=== PATIENT | female | born 1975 | race African-American/Black ===

== ENCOUNTER 2016-08-23 10:16 | Emergency (ER) | payer MEDICAID ==
[2016-08-23] MEDS ORDERED: NORMAL SALINE 1000 ML 1,000 ML IV PRN (10:52)
--- NOTE | 2016-08-23 10:52 | ER Document Report ---
ED Medical Screen (RME) - General Stated Complaint: JOINT PAIN Notes: sudden onset of right hip pain three days ago, denies injury/trauma h/o parathyroidectomy and thyroidectomy for goiter has had many issues with hypercalcemia due to follow up with endocrinology october 04 I have greeted and performed a rapid initial assessment of this patient. A comprehensive ED assessment and evaluation of the patient, analysis of test results and completion of the medical decision making process will be conducted by additional ED providers. TRAVEL OUTSIDE OF THE [place] IN LAST 30 DAYS: No - Related Data Allergies/Adverse Reactions: No Known Allergies Allergy (Verified 08/23/16 10:48) Past Medical History - Past Medical History Cardiac Medical History: Reports: Hx Congestive Heart Failure, Hx Hypertension Denies: Hx Coronary Artery Disease Pulmonary Medical History: Reports: Hx Asthma, Hx Pneumonia Endocrine Medical History: Reports: Hx Hypothyroidism - POST- REMOVAL OF GOITER Renal/ Medical History: Reports: Hx Kidney Stones Musculoskeltal Medical History: Denies Hx Gout Psychiatric Medical History: Reports: Hx Depression Past Surgical History: Reports: Hx Cardiac Surgery - Pacemaker,Defibrillator, Hx Section, Hx Internal Defibrillator, Hx Pacemaker, Hx Thyroid Surgery , Hx Tubal Ligation - Immunizations Hx Diphtheria, Pertussis, Tetanus Vaccination: Yes Physical Exam - Vital signs Vitals: Temp Pulse Resp BP Pulse Ox 98.1 F 124 H 20 101/72 98 08/23/16 10:08/23/16 10:08/23/16 10:08/23/16 10:25 08/23/16 10:25 Course - Vital Signs Vital signs: Temp Pulse Resp BP Pulse Ox 98.1 F 124 H 20 101/72 98 08/23/16 10:25 08/23/16 10:25 08/23/16 10:25 08/23/16 10:25 08/23/16 10:25
[2016-08-23 12:00] LABS: ABSOLUTE BASOPHILS # (AUTO) 0.1 10^3/uL (0.0-0.2); ABSOLUTE LYMPHOCYTES (AUTO) 3.5 10^3/uL (0.5-4.7); ABSOLUTE MONOCYTES (AUTO) 1.1 10^3/uL (0.1-1.4); BASOPHILS % (AUTO) 0.9 % (0-2); EOSINOPHILS % (AUTO) 0.3 % (0-6); HEMOGLOBIN 13.5 g/dL (12.0-15.5); HGB HCT DIFFERENCE 1.5; MEAN CORPUSCULAR HEMOGLOBIN 29.7 pg (27.0-33.4); MEAN CORPUSCULAR HGB CONC 34.7 g/dL (32.0-36.0); MEAN CORPUSCULAR VOLUME 86 fl (80-97); MONOCYTES % (AUTO) 12.7 % (3-13); RED BLOOD COUNT 4.56 10^6/uL (3.72-5.28); RED CELL DISTRIBUTION WIDTH 12.5 % (11.5-14.0); SEGMENTED NEUTROPHILS % (AUTO) 46.1 % (42-78); WHITE BLOOD COUNT 8.7 10^3/uL (4.0-10.5)
[2016-08-23 12:23] LABS: ALANINE AMINOTRANSFERASE 26 U/L (9-52); ALBUMIN 4.8 g/dL (3.5-5.0); ALKALINE PHOSPHATASE 99 U/L (38-126); ANION GAP 13 (5-19); ASPARTATE AMINO TRANSFERASE 45 U/L (14-36); BILIRUBIN,TOTAL 0.7 mg/dL (0.2-1.3); BLOOD UREA NITROGEN 13 mg/dL (7-20); CALCIUM 9.1 mg/dL (8.4-10.2); CARBON DIOXIDE 31 mmol/L (22-30); CHLORIDE 96 mmol/L (98-107); CREATININE RESULT 0.83 mg/dL (0.52-1.25); GLUCOSE 68 mg/dL (75-110); MAGNESIUM 1.6 mg/dL (1.6-2.3); SODIUM 139.7 mmol/L (137-145); TOTAL PROTEIN 9.2 g/dL (6.3-8.2)
[2016-08-23] MEDS ORDERED: KETOROLAC TROMETHAMINE INJ/PF 30 MG/1 ML SDV IV ONE (12:56)
--- NOTE | 2016-08-23 13:01 | ER Document Report ---
ED Hip Pain/Injury - General Mode of Arrival: Ambulatory Information source: Patient TRAVEL OUTSIDE OF THE [place] IN LAST 30 DAYS: No - HPI Patient complains to provider of: Pain, Hip Associated Symptoms: Other - See above <EMERSON POTTER - Last Filed: 08/23/16 13:08> <PETERSON REYNA - Last Filed: 08/23/16 16:04> - General Chief Complaint: Hip Pain Stated Complaint: right hip pain Notes: Patient is a 41 year old female, with a past medical history including HTN and thyroidectomy, who presents to the emergency department complaining of right hip pain onset 3 days ago. Patient states that the pain is also in her right knee and has not been relieved by icy/hot or by Flexeril, is exacerbated by movement, and causes her to drag her leg when she walks. Patient reports that she has been taking her calcium supplements regularly but ran out of her thyroid medication 3 days ago due to insufficient funds. Patient reports she has not had pain in her hip like this before. (EMERSON POTTER) - Related Data Allergies/Adverse Reactions: No Known Allergies Allergy (Verified 08/23/16 10:48) Past Medical History - General Information source: Patient - Social History Smoking Status: Current Every Day Smoker Cigarette use (# per day): Yes - 1-2 Chew tobacco use (# tins/day): No Frequency of alcohol use: None Drug Abuse: None Family History: Reviewed & Not Pertinent, CAD, Malignancy Patient has suicidal ideation: No Patient has homicidal ideation: No - Past Medical History Cardiac Medical History: Reports: Hx Congestive Heart Failure, Hx Hypertension Pulmonary Medical History: Reports: Hx Asthma, Hx Pneumonia Endocrine Medical History: Reports: Hx Hypothyroidism - POST- REMOVAL OF GOITER Renal/ Medical History: Reports: Hx Kidney Stones Psychiatric Medical History: Reports: Hx Depression Past Surgical History: Reports: Hx Cardiac Surgery - Pacemaker,Defibrillator, Hx Section, Hx Internal Defibrillator, Hx Pacemaker, Hx Thyroid Surgery , Hx Tubal Ligation - Immunizations Hx Diphtheria, Pertussis, Tetanus Vaccination: Yes Hx Pneumococcal Vaccination: 04/20/14 <EMERSON POTTER - Last Filed: 08/23/16 13:08> Review of Systems - Review of Systems Constitutional: No symptoms reported EENT: No symptoms reported Cardiovascular: No symptoms reported Respiratory: No symptoms reported Gastrointestinal: No symptoms reported Genitourinary: No symptoms reported Female Genitourinary: No symptoms reported Musculoskeletal: See HPI, Joint pain - right hip and knee Skin: No symptoms reported Hematologic/Lymphatic: No symptoms reported Neurological/Psychological: No symptoms reported -: Yes All other systems reviewed and negative <EMERSON POTTER - Last Filed: 08/23/16 13:08> Physical Exam - Vital signs Interpretation: Normal - General General appearance: Appears well, Alert - HEENT Head: Normocephalic, Atraumatic - Respiratory Respiratory status: No respiratory distress - Cardiovascular Rhythm: Regular - Extremities General upper extremity: Normal inspection General lower extremity: Tender - Pain with patellofemoral compression, bursa over right greater trochanter tender to palpation. - Neurological Neuro grossly intact: Yes Cognition: Normal Orientation: AAOx4 [place] Coma Scale Eye Opening: Spontaneous [place] Coma Scale Verbal: Oriented James Coma Scale Motor: Obeys Commands James Coma Scale Total: 15 Speech: Normal - Psychological Associated symptoms: Normal affect, Normal mood - Skin Skin Temperature: Warm Skin Moisture: Dry Skin Color: Normal <EMERSON POTTER - Last Filed: 08/23/16 13:08> Course - Laboratory Result Diagrams: 08/23/16 11:35 08/23/16 11:35 <EMERSON POTTER - Last Filed: 08/23/16 13:08> - Laboratory Result Diagrams: 08/23/16 11:35 08/23/16 11:35 <PETERSON REYNA - Last Filed: 08/23/16 16:04> - Vital Signs Vital signs: Temp Pulse Resp BP Pulse Ox 98.1 F 125 H 20 101/72 98 08/23/16 10:48 08/23/16 10:48 08/23/16 10:48 08/23/16 10:48 08/23/16 10:48 (EMERSON POTTER) (PETERSON REYNA) - Laboratory Laboratory results interpreted by sd: 08/23/16 08/23/16 08/23/16 11:35 11:35 11:35 ESR 90 H Chloride 96 L Carbon Dioxide 31 H Glucose 68 L AST 45 H C-Reactive Protein 137.6 H Total Protein 9.2 H (EMERSON POTTER) (PETERSON REYNA) Discharge <EMERSON POTTER - Last Filed: 08/23/16 13:08> <PETERSON REYNA - Last Filed: 08/23/16 16:04> - Discharge Clinical Impression: Greater trochanteric bursitis of right hip Condition: Stable Disposition: HOME, SELF-CARE Additional Instructions: Bursitis: You have been diagnosed as having bursitis. Bursitis is an inflammation of a fluid pouch (bursa) found near joints. This is usually due to repeated minor irritation, or pressure directly on the bursa. On occasion, the bursitis can be due to infection (your doctor has checked for this). Sometimes the doctor decides to remove the fluid from the bursa with a needle. This may be to examine the fluid for infection or to ease the pressure caused by the fluid. The usual treatment is rest, local warmth, (or cold if the bursitis is caused by an acute injury), and antiinflammatory medication. Occasionally, an injection of cortisone is necessary. You should call the doctor for re-examination if the pain increases significantly, or if the area becomes severely swollen and red, or fever develops. TAKE THE MEDICATION PRESCRIBED. START THE PREDNISONE TOMORROW. APPLY MOIST HEAT. LIMIT WALING. USE THE CRUTCHES TO AMBULATE ONLY MUCH IS NECESSARY. FOLLOW UP WITH DR. TAYLOR FRIDAY FOR RECHECK. RETURN TO THE EMERGENCY ROOM IF ANY NEW OR WORSENING SYMPTOMS. Prescriptions: Oxycodone HCl/Acetaminophen [Percocet 5-325 mg Tablet] 1 tab PO ASDIR PRN #15 tablet PRN Reason: Prednisone [Deltasone 10 mg Tablet] 10 mg PO ASDIR PRN #21 tablet PRN Reason: Forms: Return to School Referrals: TAI TAYLOR MD [Primary Care Provider] - 08/26/16 Scribe Attestation: 08/23/16 16:02 I personally performed the services described in the documentation, reviewed and edited the documentation which was dictated to the scribe in my presence, and it accurately records my words and actions. (PETERSON REYNA) Scribe Documentation - Scribe Written by Abisai:: abisai Echols, 08/23/16, [id number] acting as scribe for :: Gavin <EMERSON POTTER - Last Filed: 08/23/16 13:08>
[2016-08-23 13:03] LABS: ADD ON TESTING BLD IN LAB ACKNOWLEDGE
[2016-08-23 13:56] LABS: C-REACTIVE PROTEIN 137.6 mg/L (<10.0)
[2016-08-23] MEDS ORDERED: OXYCODONE-ACETAMINOPHEN 5-325 MG TABLET PO ONE (15:22)
[2016-08-23] MEDS ORDERED: PREDNISONE 20 MG TABLET PO ONE (15:22)
[2016-08-23 16:33] VITALS: BP 105/53
== END 2016-08-23 16:15 | disposition home or self-care (01) ==
LOC: ER 10:16
DX: M70.71 Other bursitis of hip, right hip (principal); M25.551 Pain in right hip; I10 Essential (primary) hypertension; M25.561 Pain in right knee; F17.210 Nicotine dependence, cigarettes, uncomplicated
CPT/HCPCS: 99283; 96360; 36415; 83735; 84443; 85025; 85652; 86140; 80053; J7512; J7030

== ENCOUNTER 2016-11-27 02:09 | Emergency (ER) | payer MEDICAID ==
--- NOTE | 2016-11-27 02:18 | ER Document Report ---
ED General - General Stated Complaint: CHEST PAIN Time Seen by Provider: 11/27/16 02:15 Notes: Patient is a 41-year-old female presents with complaints of being elbowed in her pacemaker. 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 She had not been taking her medications properly. Last time she's had any revision or surgery for her pacemaker wasn't 2014. She's had no firing of the pacemaker defibrillator. She's had no other symptoms other than pain over the airway she got elbow. Patient is also concerned because she spells to have her calcium levels checked. She missed her appointment on November 21. She's not had any symptoms that her calcium is off but is concerned and requests to have her calcium level checked. She says she has been taking her medications properly. She is on calcitriol as well as Synthroid. TRAVEL OUTSIDE OF THE [place] IN LAST 30 DAYS: No - Related Data Allergies/Adverse Reactions: No Known Allergies Allergy (Verified 08/23/16 10:48) Past Medical History - Social History Smoking Status: Unknown if Ever Smoked Frequency of alcohol use: None Drug Abuse: None Family History: Reviewed & Not Pertinent, CAD, Malignancy - Past Medical History Cardiac Medical History: Reports: Hx Congestive Heart Failure, Hx Hypertension Denies: Hx Coronary Artery Disease Pulmonary Medical History: Reports: Hx Asthma, Hx Pneumonia Endocrine Medical History: Reports: Hx Hypothyroidism - POST- REMOVAL OF GOITER Renal/ Medical History: Reports: Hx Kidney Stones. Denies: Hx Peritoneal Dialysis Musculoskeltal Medical History: Denies Hx Gout Psychiatric Medical History: Reports: Hx Depression Past Surgical History: Reports: Hx Cardiac Surgery - Pacemaker,Defibrillator, Hx Section, Hx Internal Defibrillator, Hx Pacemaker, Hx Thyroid Surgery , Hx Tubal Ligation - Immunizations Hx Diphtheria, Pertussis, Tetanus Vaccination: Yes Hx Pneumococcal Vaccination: 04/20/14 Review of Systems - Review of Systems Notes: My Normal Review Basic REVIEW OF SYSTEMS: CONSTITUTIONAL : Denies fever, chills, or sweats. Denies recent illness. CARDIOVASCULAR: Chest pain were patient was elbowed. RESPIRATORY: Denies cough, cold, or chest congestion. Denies shortness of breath, difficulty breathing, or wheezing. GASTROINTESTINAL: Denies abdominal pain. Denies nausea, vomiting, or diarrhea. Denies constipation. Last BM: MUSCULOSKELETAL: Denies neck or back pain or joint pain or swelling. SKIN: Denies rash or skin lesions. NEUROLOGICAL: Denies altered mental status or loss of consciousness. Denies headache. Denies weakness or paralysis or loss of use of either side. Denies problems with gait or speech. Denies sensory or motor loss. ALL OTHER SYSTEMS REVIEWED AND NEGATIVE. Physical Exam - Vital signs Vitals: Temp Pulse Resp BP Pulse Ox 98.6 F 70 18 120/81 100 11/27/16 02:39 11/27/16 02:39 11/27/16 02:39 11/27/16 02:39 11/27/16 02:39 - Notes Notes: General Appearance: Well nourished, alert, cooperative, no acute distress, mild obvious discomfort. Vitals: reviewed, See vital signs table. Head: no swelling or tenderness to the head Eyes: PERRL, EOMI, Conjuctiva clear Mouth: No decreasd moisture Neck: Supple, no neck tenderness, No thyromegaly Chest wall: Patient has no bruising or swelling to the chest wall. She does have pain to palpation from the sternum left across rib cage towards the pacemaker fibular. No obvious deformities. Lungs: No wheezing, No rales, No rhonci, No accessory muscle use, good air exchange bilaterally. Heart: Normal rate, Regular rythm, No murmur, no rub Extremities: strength 5/5 in all extremities, good pulses in all extremities, no swelling or tenderness in the extremities, no edema. Skin: warm, dry, appropriate color, no rash Neuro: speech clear, oriented x 3, normal affect, responds appropriately to questions. Course - Re-evaluation Re-evalutation: 11/27/16 05:25 Calcium infusion is close to being finished. Patient has no further complaints and continues looks very well. She will be discharged home once infusion is completed. I once again informed her that she must take her medications as prescribed and not miss any dosages. I encouraged return to ER if she has any further complaints or has signs of worsening hypocalcemia such as weakness or numbness, muscle tremors, confusion. - Vital Signs Vital signs: Temp Pulse Resp BP Pulse Ox 98.6 F 70 18 120/81 100 11/27/16 02:39 11/27/16 02:39 11/27/16 02:39 11/27/16 02:39 11/27/16 02:39 - Laboratory Result Diagrams: 11/27/16 02:36 Laboratory results interpreted by me: 11/27/16 02:36 Calcium 6.5 L* - EKG Interpretation by Me Additional EKG results interpreted by me: 11/27/16 02:29 EKG is reviewed and interpreted by me. EKG shows normal sinus rhythm with rate of [address] segment elevation or depression. Patient has T-wave inversions in leads V5 and V6 which are unchanged comparison to old EKG from 10/2015. LA interval, QRS duration, QTC intervals are within normal range. - Transfer of Care Notes: 11/27/16 03:19 Patient's calcium level did come back very low. The patient she told me she had been taking her calcitriol. The nurse informed me that the patient told her that she had not been taking it as she supposed to and had missed several dosages. I went back and talked to the patient about this. Patient says that she did not take today's dose. She tells me that she is otherwise been taking her medications purply; however, when she is saying this her Ceftin other shaking his head no suggesting that she probably is not taking her medications properly. I suspect she is not taking them appropriately. She says she is was out of her Synthroid and calcitriol. She says she does have supplemental calcium at home that she is supposed be taking as well. She currently has no snuff can symptoms associated with her hypocalcemia. Her QT interval is normal and her EKG. We'll place an IV in her and give her IV calcium gluconate. I will then have her continue to take her calcitriol and her oral calcium at home. I will have her follow very closely with her primary care doctor. Discharge - Discharge Clinical Impression: Hypocalcemia Blunt chest trauma Qualifiers: Encounter type: initial encounter Qualified Code(s): S29.8XXA - Other specified injuries of thorax, initial encounter Condition: Good Disposition: HOME, SELF-CARE Additional Instructions: It is extremely important that you do not miss any dosages of your medications. Please make an appointment to see her doctor this week for follow-up and for recheck the calcium level. I will re-prescribe your calcitriol as well as her thyroid medication. Return to ER immediately if he started having any numbness or tingling, muscle spasms, tremors, confusion, or feel unwell. Prescriptions: Calcitriol 1 cap PO DAILY #14 capsule Levothyroxine Sodium [Synthroid] 200 mcg PO DAILY #14 tablet Referrals: TAI TAYLOR MD [Primary Care Provider] - 11/29/16
[2016-11-27 02:41] VITALS: BP 120/81
[2016-11-27 03:00] LABS: ANION GAP 10 (5-19); BLOOD UREA NITROGEN 20 mg/dL (7-20); CARBON DIOXIDE 28 mmol/L (22-30); CHLORIDE 102 mmol/L (98-107); CREATININE RESULT 1.03 mg/dL (0.52-1.25); GLUCOSE 86 mg/dL (75-110); SODIUM 139.8 mmol/L (137-145)
[2016-11-27 03:12] LABS: CALCIUM 6.5 mg/dL (8.4-10.2)
[2016-11-27] MEDS ORDERED: CALCIUM GLUCONATE 1000 MG/10 ML INJ IV ONE (03:13)
--- NOTE | 2016-11-27 13:38 | EKG REPORT ---
SEVERITY:- ABNORMAL ECG - SINUS RHYTHM BORDERLINE RIGHT AXIS DEVIATION LOW VOLTAGE THROUGHOUT NONSPECIFIC T ABNORMALITIES, LATERAL LEADS : Confirmed by: Mónica Strickland 27-Nov-2016 13:36:37
== END 2016-11-27 06:38 | disposition home or self-care (01) ==
LOC: ER 02:09
DX: S29.9XXA Unspecified injury of thorax, initial encounter (principal); W50.0XXA Accidental hit or strike by another person, initial encounter; E83.51 Hypocalcemia; I42.9 Cardiomyopathy, unspecified; E89.0 Postprocedural hypothyroidism; J45.909 Unspecified asthma, uncomplicated; I10 Essential (primary) hypertension; Z82.49 Family history of ischemic heart disease and other diseases of the circulatory system; Z79.899 Other long term (current) drug therapy; Z95.810 Presence of automatic (implantable) cardiac defibrillator
CPT/HCPCS: 93005; 99285; 96365; 96366; 36415; 80048; 71010; 93010; J0610

== ENCOUNTER 2017-02-05 09:07 | Emergency (ER) | payer MEDICAID ==
[2017-02-05 09:23] VITALS: BP 96/70
--- NOTE | 2017-02-05 09:40 | ER Document Report ---
ED Medical Screen (RME) - General Chief Complaint: Sore Throat Stated Complaint: SHORTNESS OF BREATH Notes: 41-year-old female here with multiple complaints. She states she has been short of breath. She states that she has sore throat that is worse when she swallows. She denies any cough congestion or fevers. She also states that her "thyroid levels" were "out of whack". She states that she was told about her thyroid at her doctor's visit yesterday. Patient also states she has been having leg cramping. She states she does have a history of cardiomyopathy with congestive heart failure from her thyroid medicine. And she is slightly tachycardic. Her lungs are clear. Her throat exam is unremarkable. TRAVEL OUTSIDE OF THE [place] IN LAST 30 DAYS: No - Related Data Allergies/Adverse Reactions: No Known Allergies Allergy (Verified 02/05/17 09:12) Past Medical History - Past Medical History Cardiac Medical History: Reports: Hx Congestive Heart Failure, Hx Hypertension Denies: Hx Coronary Artery Disease Pulmonary Medical History: Reports: Hx Asthma, Hx Pneumonia Endocrine Medical History: Reports: Hx Hypothyroidism - POST- REMOVAL OF GOITER Renal/ Medical History: Reports: Hx Kidney Stones. Denies: Hx Peritoneal Dialysis Musculoskeltal Medical History: Denies Hx Gout Psychiatric Medical History: Reports: Hx Depression Past Surgical History: Reports: Hx Cardiac Surgery - Pacemaker,Defibrillator, Hx Section, Hx Internal Defibrillator, Hx Pacemaker, Hx Thyroid Surgery , Hx Tubal Ligation - Immunizations Hx Diphtheria, Pertussis, Tetanus Vaccination: Yes Physical Exam - Vital signs Vitals: Temp Pulse Resp BP Pulse Ox 97.5 F 102 H 12 96/70 L 99 02/05/17 09:14 02/05/17 09:14 02/05/17 09:14 02/05/17 09:14 02/05/17 09:14 Course - Vital Signs Vital signs: Temp Pulse Resp BP Pulse Ox 97.5 F 102 H 12 96/70 L 99 02/05/17 09:14 02/05/17 09:14 02/05/17 09:14 02/05/17 09:14 02/05/17 09:14
[2017-02-05 10:25] LABS: ABSOLUTE EOSINOPHILS # (AUTO) 0.1 10^3/uL (0.0-0.6); ABSOLUTE LYMPHOCYTES (AUTO) 3.5 10^3/uL (0.5-4.7); ABSOLUTE MONOCYTES (AUTO) 0.8 10^3/uL (0.1-1.4); ABSOLUTE NEUT (AUTO) 2.8 10^3/uL (1.7-8.2); BASOPHILS % (AUTO) 0.3 % (0-2); EOSINOPHILS % (AUTO) 0.9 % (0-6); MEAN CORPUSCULAR HEMOGLOBIN 29.2 pg (27.0-33.4); MEAN CORPUSCULAR HGB CONC 33.3 g/dL (32.0-36.0); MEAN CORPUSCULAR VOLUME 88 fl (80-97); MONOCYTES % (AUTO) 11.4 % (3-13); RED BLOOD COUNT 4.44 10^6/uL (3.72-5.28); RED CELL DISTRIBUTION WIDTH 13.5 % (11.5-14.0); SEGMENTED NEUTROPHILS % (AUTO) 38.4 % (42-78); WHITE BLOOD COUNT 7.2 10^3/uL (4.0-10.5)
[2017-02-05 10:38] LABS: APPEARANCE,URINE SLIGHTLY-CLOUDY; BILIRUBIN,URINE NEGATIVE (NEGATIVE); GLUCOSE, URINE NEGATIVE (NEGATIVE); KETONES,URINE NEGATIVE (NEGATIVE); LEUKOCYTE ESTERASE,URINE NEGATIVE (NEGATIVE); NITRITE,URINE NEGATIVE (NEGATIVE); PROTEIN,URINE NEGATIVE (NEGATIVE); URINE SPECIFIC GRAVITY 1.017; UROBILINOGEN,URINE NEGATIVE mg/dL (<2.0)
--- NOTE | 2017-02-05 10:43 | ER Document Report ---
ED General - General Chief Complaint: Sore Throat Stated Complaint: SHORTNESS OF BREATH Time Seen by Provider: 02/05/17 10:36 Notes: Patient is a 41-year-old female with past medical history as recorded including cardiomyopathy, congestive heart failure, low thyroid, and a history of low calcium and low magnesium recorded with the patient who presents today with the onset 8 days ago of a sore throat and nasal congestion. She then states she lost her voice. She then states she started to have some mild coughing and shortness of breath with some anterior chest discomfort with coughing. She denies any leg swelling. She states some intermittent cramping to her upper and lower extremities. She believes this may be due to low magnesium. Patient states she had a TSH level tested last week which was elevated. She does admit to not taking her Synthroid medications as prescribed. She denies any fevers, recent trips or travel, nausea, vomiting, or diarrhea. TRAVEL OUTSIDE OF THE [place] IN LAST 30 DAYS: No - HPI Onset: Other - See above Onset/Duration: Gradual Quality of pain: Achy Severity: Mild Pain Level: 1 Associated symptoms: Other - See above Exacerbated by: Denies Relieved by: Denies Similar symptoms previously: No Recently seen / treated by doctor: Yes - Related Data Allergies/Adverse Reactions: No Known Allergies Allergy (Verified 02/05/17 09:12) Past Medical History - General Information source: Patient - Social History Smoking Status: Never Smoker Frequency of alcohol use: None Drug Abuse: None Family History: Reviewed & Not Pertinent, CAD, Malignancy Patient has suicidal ideation: No Patient has homicidal ideation: No - Past Medical History Cardiac Medical History: Reports: Hx Congestive Heart Failure, Hx Hypertension Denies: Hx Coronary Artery Disease Pulmonary Medical History: Reports: Hx Asthma, Hx Pneumonia Endocrine Medical History: Reports: Hx Hypothyroidism - POST- REMOVAL OF GOITER Renal/ Medical History: Reports: Hx Kidney Stones. Denies: Hx Peritoneal Dialysis Musculoskeltal Medical History: Denies Hx Gout Psychiatric Medical History: Reports: Hx Depression Past Surgical History: Reports: Hx Cardiac Surgery - Pacemaker,Defibrillator, Hx Section, Hx Internal Defibrillator, Hx Pacemaker, Hx Thyroid Surgery , Hx Tubal Ligation - Immunizations Hx Diphtheria, Pertussis, Tetanus Vaccination: Yes Hx Pneumococcal Vaccination: 04/20/14 Review of Systems - Review of Systems Constitutional: denies: Fever EENT: Nose congestion, Nose discharge. denies: Eye discharge Cardiovascular: Chest pain. denies: Palpitations Respiratory: Short of breath Gastrointestinal: denies: Vomiting Genitourinary: denies: Dysuria Musculoskeletal: denies: Leg swelling Skin: Other - no hives. denies: Rash Neurological/Psychological: Other - no slurred speech -: Yes All other systems reviewed and negative Physical Exam - Vital signs Vitals: Temp Pulse Resp BP Pulse Ox 97.5 F 102 H 12 96/70 L 99 02/05/17 09:14 02/05/17 09:14 02/05/17 09:14 02/05/17 09:14 02/05/17 09:14 Notes: Reviewed vital signs and nursing note as charted by RN. CONSTITUTIONAL: Alert and oriented and responds appropriately to questions. Well -appearing; well-nourished HEAD: Normocephalic; atraumatic EYES: PERRL ENT: Normal nose; bilateral nasal rhinorrhea; moist mucous membranes; pharynx minimally erythematous without any peritonsillar swelling with a midline uvula NECK: Supple without meningismus; non-tender; no cervical lymphadenopathy, no masses CARD: Regular rate and rhythm; no murmurs, no clicks, no rubs, no gallops; symmetric distal pulses RESP: Normal chest excursion without splinting or tachypnea; breath sounds clear and equal bilaterally ABD/GI: Normal bowel sounds; non-distended; soft, non-tender BACK: The back appears normal and is non-tender to palpation, there is no CVA tenderness EXT: Normal ROM in all joints; non-tender to palpation; no cyanosis, no effusions, no edema SKIN: Normal color for age and race; warm; dry; good turgor; capillary refill < 2 seconds; no acute lesions noted NEURO: Moves all extremities equally; Motor and sensory function intact PSYCH: The patient's mood and manner are appropriate. Grooming and personal hygiene are appropriate. Course - Re-evaluation Re-evalutation: 02/05/17 10:40 Given the above history and physical examination with laryngitis, sore throat, and congestion, I do believe this lowers the pretest probability for pulmonary embolism, ACS, or aortic dissection. EKG shows a heart rate of 80, normal sinus rhythm, normal axis, no obvious ST elevation or depression, inverted T waves in leads V3 through V6. As well as in leads I, 2, and aVL. Old EKG from November 27, 2016 shows that these inverted T waves appear to be chronic. They do show to be possibly deeper in the lateral leads today. 02/05/17 10:42 I was alerted that the patient eloped. I went to the wound and all of her belongings were gone. None of the laboratory values are yet returned. - Vital Signs Vital signs: Temp Pulse Resp BP Pulse Ox 97.5 F 102 H 12 96/70 L 99 02/05/17 09:14 02/05/17 09:14 02/05/17 09:14 02/05/17 09:14 02/05/17 09:14 - Laboratory Result Diagrams: 02/05/17 10:05 02/05/17 10:05 Discharge - Discharge Clinical Impression: Nasal congestion Chest pain Qualifiers: Chest pain type: unspecified Qualified Code(s): R07.9 - Chest pain, unspecified Condition: Fair Disposition: ELOPED
[2017-02-05 11:00] LABS: ADD ON TESTING BLD IN LAB ACKNOWLEDGE
[2017-02-05 11:10] LABS: ALANINE AMINOTRANSFERASE 42 U/L (9-52); ALBUMIN 4.6 g/dL (3.5-5.0); ALKALINE PHOSPHATASE 74 U/L (38-126); ANION GAP 13 (5-19); ASPARTATE AMINO TRANSFERASE 54 U/L (14-36); BILIRUBIN,DIRECT 0.4 mg/dL (0.0-0.4); BILIRUBIN,TOTAL 0.7 mg/dL (0.2-1.3); BLOOD UREA NITROGEN 13 mg/dL (7-20); CARBON DIOXIDE 30 mmol/L (22-30); CHLORIDE 98 mmol/L (98-107); CREATININE RESULT 1.26 mg/dL (0.52-1.25); GLUCOSE 72 mg/dL (75-110); POTASSIUM 4.1 mmol/L (3.6-5.0); SODIUM 140.8 mmol/L (137-145); TOTAL PROTEIN 8.8 g/dL (6.3-8.2)
[2017-02-05 11:37] LABS: CALCIUM 6.6 mg/dL (8.4-10.2)
[2017-02-05 11:38] LABS: MAGNESIUM 1.6 mg/dL (1.6-2.3)
--- NOTE | 2017-02-05 12:02 | EKG REPORT ---
SEVERITY:- ABNORMAL ECG - SINUS RHYTHM LOW VOLTAGE IN FRONTAL LEADS ABNORMAL T, CONSIDER ISCHEMIA, LATERAL LEADS BORDERLINE PROLONGED QT INTERVAL : Confirmed by: Carole Joseph MD 05-Feb-2017 12:02:09
== END 2017-02-05 10:47 | disposition left against medical advice (07) ==
LOC: ER 09:07
DX: R09.81 Nasal congestion (principal); R07.9 Chest pain, unspecified; J02.9 Acute pharyngitis, unspecified; I50.9 Heart failure, unspecified; R05 Cough; R06.02 Shortness of breath
CPT/HCPCS: 36415; 80053; 81001; 83735; 84484; 84703; 85025; 87070; 87880; 93005; 93010; 99281

== ENCOUNTER 2017-02-05 11:56 | Emergency (ER) | payer MEDICAID ==
--- NOTE | 2017-02-05 12:07 | ER Document Report ---
ED General - General Chief Complaint: Sore Throat Stated Complaint: DIFFICULTY BREATHING Time Seen by Provider: 02/05/17 12:02 Information source: Patient Notes: This is a 41-year-old female that was seen and evaluated here earlier with complaints of some initial nasal congestion, sore throat, then progressive laryngitis, within some progressive shortness of breath and chest discomfort. She denied any aggravating or relieving factors. She denies any nausea, vomiting, fevers, or leg swelling. She states that she had some bilateral upper and lower extremity cramping episodes that she believes was secondary to low magnesium. Patient eloped on the previous visit and was gone for greater than 2 hours. She states she returned to get her results. She states she went to go eat. TRAVEL OUTSIDE OF THE [place] IN LAST 30 DAYS: No - HPI Onset: Other - See above Onset/Duration: Gradual Quality of pain: Dull Severity: Mild Pain Level: Denies Associated symptoms: Other - See above Exacerbated by: Denies Relieved by: Denies - See above Recently seen / treated by doctor: Yes - Related Data Allergies/Adverse Reactions: No Known Allergies Allergy (Verified 02/05/17 09:12) Past Medical History - General Information source: Patient - Social History Smoking Status: Unknown if Ever Smoked Cigarette use (# per day): No Chew tobacco use (# tins/day): No Smoking Education Provided: No Frequency of alcohol use: None Family History: Reviewed & Not Pertinent, CAD, Malignancy - Past Medical History Cardiac Medical History: Reports: Hx Congestive Heart Failure, Hx Hypertension Denies: Hx Coronary Artery Disease Pulmonary Medical History: Reports: Hx Asthma, Hx Pneumonia Endocrine Medical History: Reports: Hx Hypothyroidism - POST- REMOVAL OF GOITER Renal/ Medical History: Reports: Hx Kidney Stones. Denies: Hx Peritoneal Dialysis Musculoskeltal Medical History: Denies Hx Gout Psychiatric Medical History: Reports: Hx Depression Past Surgical History: Reports: Hx Cardiac Surgery - Pacemaker,Defibrillator, Hx Section, Hx Internal Defibrillator, Hx Pacemaker, Hx Thyroid Surgery , Hx Tubal Ligation - Immunizations Hx Diphtheria, Pertussis, Tetanus Vaccination: Yes Hx Pneumococcal Vaccination: 04/20/14 Physical Exam - Vital signs Vitals: Resp Pulse Ox 16 96 02/05/17 12:16 02/05/17 12:16 Notes: Reviewed vital signs and nursing note as charted by RN. CONSTITUTIONAL: Alert and oriented and responds appropriately to questions. Well -appearing; well-nourished HEAD: Normocephalic; atraumatic EYES: PERRL; Conjunctivae clear, sclerae non-icteric ENT: Normal nose; no rhinorrhea; moist mucous membranes; pharynx mildly erythematous with no posterior peritonsillar swelling, exudate, with a midline uvula NECK: Supple without meningismus; non-tender; no cervical lymphadenopathy, no masses CARD: Regular rate and rhythm; no murmurs, no clicks, no rubs, no gallops; symmetric distal pulses RESP: Normal chest excursion without splinting or tachypnea; breath sounds clear and equal bilaterally EXT: Normal ROM in all joints; no edema SKIN: Normal color for age and race; warm; dry; good turgor; capillary refill < 2 seconds; no acute lesions noted NEURO: Moves all extremities equally; Motor and sensory function intact PSYCH: The patient's mood and manner are appropriate. Grooming and personal hygiene are appropriate. Course - Re-evaluation Re-evalutation: 02/05/17 12:06 Patient's calcium from previous laboratory draws earlier this morning as recorded. 02/05/17 12:07 Troponin pending. Magnesium 1.6. Patient has a history of low calcium with the calcium as recorded today. Patient has refused on her previous visit and currently an x-ray of the chest. Given the patient's history of cardiomyopathy, with complaints of some shortness of breath and chest discomfort, I have had a long discussion with the patient about the importance of obtaining an x-ray of the chest to evaluate for cardiomyopathy, pleural effusion, signs of congestive heart failure, or pneumothorax. She understands and refuses the x-ray of the chest. She is oriented 4 and capable of refusing tests and imaging. 02/05/17 12:56 Troponin as recorded. Patient denies any chest pain. Patient has received calcium gluconate. Patient states she has a primary care physician and understands she is supposed to be taking calcium supplements. She understands she should start her Synthroid as well. Patient still is refusing x-ray of the chest. After receiving a calcium gluconate injection, I have had another discussion with the patient about the importance of an x-ray of the chest. Patient understands this. Patient will be discharged AGAINST MEDICAL ADVICE secondary to lack of an x-ray of the chest. She is invited to return at any time that she would like for further evaluation and management. - Vital Signs Vital signs: Temp Pulse Resp BP Pulse Ox 16 96 02/05/17 12:16 02/05/17 12:16 Discharge - Discharge Clinical Impression: Hypocalcemia, Nasal congestion, Sore throat (viral), Abnormal electrocardiogram [ECG] [EKG] Chest pain Qualifiers: Chest pain type: unspecified Qualified Code(s): R07.9 - Chest pain, unspecified Condition: Fair Disposition: AGAINST MEDICAL ADVICE Additional Instructions: Please make sure that you take the Synthroid and the calcium supplements as directed. Return at any time that you would like for further evaluation and treatment. Please follow-up with your primary care physician as we have discussed.
[2017-02-05] MEDS ORDERED: CALCIUM GLUCONATE 1000 MG/10 ML INJ IV ONE (12:08)
[2017-02-05 14:16] VITALS: BP 105/84
--- NOTE | 2017-02-05 14:49 | RADIOLOGY REPORT (SQ) ---
EXAM DESCRIPTION: CHEST PA/LAT COMPLETED DATE/TIME: 02/05/2017 1:49 pm REASON FOR STUDY: chest pain COMPARISON: May 2015 EXAM PARAMETERS: NUMBER OF VIEWS: two views TECHNIQUE: Digital Frontal and Lateral radiographic views of the chest acquired. RADIATION DOSE: NA LIMITATIONS: none FINDINGS: LUNGS AND PLEURA: No opacities, masses or pneumothorax. No pleural effusion. MEDIASTINUM AND HILAR STRUCTURES: No masses or contour abnormalities. HEART AND VASCULAR STRUCTURES: The configuration of the heart and mediastinal structures is unchanged . BONES: No acute findings. HARDWARE: AICD device is unchanged in position. OTHER: No other significant finding. IMPRESSION: No significant interval change. No acute findings. Other findings as noted above TECHNICAL DOCUMENTATION: JOB ID: [id number] [employer]- All Rights Reserved
== END 2017-02-05 14:22 | disposition home or self-care (01) ==
LOC: ER 11:56
DX: E83.51 Hypocalcemia (principal); R09.81 Nasal congestion; J02.9 Acute pharyngitis, unspecified; R07.9 Chest pain, unspecified
CPT/HCPCS: 99283; 96365; 71020; J0610

== ENCOUNTER 2017-02-28 18:49 | Inpatient (IN) | payer MEDICAID ==
[2017-02-28] MEDS ORDERED: DEXTROSE 50%-WATER SYRINGE 25 GM/50 ML DOSE IV PRN (20:24)
[2017-02-28] MEDS ORDERED: GLUCAGON,HUMAN RECOMB 1 MG INJ IM PRN (20:24)
[2017-02-28] MEDS ORDERED: DEXTROSE 40% GEL 15 GM TUBE X 2 PO PRN (20:24)
[2017-02-28] MEDS ORDERED: DEXTROSE 50%-WATER SYRINGE 12.5 GM/25 ML DOSE IV PRN (20:24)
[2017-02-28] MEDS ORDERED: DEXTROSE 40% GEL 15 GM TUBE PO PRN (20:24)
[2017-02-28] MEDS ORDERED: INSULIN LISPRO 100 UNIT/ML 3 ML VIAL SUBCUT PRN (20:24)
[2017-02-28 20:56] LABS: ABSOLUTE BASOPHILS # (AUTO) 0.1 10^3/uL (0.0-0.2); ABSOLUTE LYMPHOCYTES (AUTO) 1.5 10^3/uL (0.5-4.7); ABSOLUTE MONOCYTES (AUTO) 0.4 10^3/uL (0.1-1.4); ABSOLUTE NEUT (AUTO) 3.6 10^3/uL (1.7-8.2); EOSINOPHILS % (AUTO) 0.1 % (0-6); HEMOGLOBIN 11.3 g/dL (12.0-15.5); HGB HCT DIFFERENCE 0.9; LYMPHOCYTES % (AUTO) 26.8 % (13-45); MEAN CORPUSCULAR HEMOGLOBIN 30.8 pg (27.0-33.4); MEAN CORPUSCULAR HGB CONC 34.2 g/dL (32.0-36.0); MEAN CORPUSCULAR VOLUME 90 fl (80-97); MONOCYTES % (AUTO) 7.5 % (3-13); RED BLOOD COUNT 3.67 10^6/uL (3.72-5.28); RED CELL DISTRIBUTION WIDTH 14.5 % (11.5-14.0); SEGMENTED NEUTROPHILS % (AUTO) 64.6 % (42-78); WHITE BLOOD COUNT 5.6 10^3/uL (4.0-10.5)
[2017-02-28 21:19] LABS: ALANINE AMINOTRANSFERASE 43 U/L (9-52); ALBUMIN 4.9 g/dL (3.5-5.0); ALKALINE PHOSPHATASE 93 U/L (38-126); ANION GAP 16 (5-19); ASPARTATE AMINO TRANSFERASE 39 U/L (14-36); BILIRUBIN,DIRECT 0.5 mg/dL (0.0-0.4); BILIRUBIN,TOTAL 0.8 mg/dL (0.2-1.3); BLOOD UREA NITROGEN 14 mg/dL (7-20); CARBON DIOXIDE 26 mmol/L (22-30); CHLORIDE 100 mmol/L (98-107); CREATININE RESULT 1.02 mg/dL (0.52-1.25); GLUCOSE 81 mg/dL (75-110); POTASSIUM 3.8 mmol/L (3.6-5.0); TOTAL PROTEIN 8.6 g/dL (6.3-8.2); URIC ACID 3.8 mg/dL (2.5-7.0)
[2017-02-28 21:31] LABS: CALCIUM 6.9 mg/dL (8.4-10.2)
[2017-02-28 21:36] LABS: FREE T3 2.13 pg/mL (2.77-5.27)
[2017-02-28] MEDS: METHYLPREDNISOLONE INJ 125 MG/2 ML SDV IV SCH (21:48)
[2017-02-28] MEDS: KETOROLAC TROMETHAMINE INJ/PF 30 MG/1 ML SDV IV SCH (21:48)
[2017-02-28 21:49] LABS: THYROID STIMULATING HORMONE 12.1 uIU/mL (0.47-4.68)
[2017-02-28] MEDS ORDERED: CALCIUM GLUCONATE 1000 MG/10 ML INJ IV ONE (22:05)
--- NOTE | 2017-02-28 22:19 | RADIOLOGY REPORT (SQ) ---
EXAM DESCRIPTION: CHEST PA/LAT COMPLETED DATE/TIME: 02/28/2017 10:09 pm REASON FOR STUDY: severe rt gouty arthritis COMPARISON: 02/05/2017 NUMBER OF VIEWS: Two view. TECHNIQUE: Frontal and lateral radiographic views of the chest acquired. LIMITATIONS: None. FINDINGS: LUNGS AND PLEURA: No opacities, masses or pneumothorax. No pleural effusion. MEDIASTINUM AND HILAR STRUCTURES: No masses. No contour abnormalities. HEART AND VASCULAR STRUCTURES: Heart enlarged without failure. Aorta normal for age. BONES: No acute findings. HARDWARE: Stable cardiac defibrillator. OTHER: No other significant finding. IMPRESSION: CARDIAC ENLARGEMENT WITHOUT FAILURE. TECHNICAL DOCUMENTATION: JOB ID: [id number] [employer]- All Rights Reserved
[2017-02-28] MEDS ORDERED: CALCIUM GLUCONATE 1000 MG/10 ML INJ IV PRN (22:32)
--- NOTE | 2017-02-28 22:34 | RADIOLOGY REPORT (SQ) ---
EXAM DESCRIPTION: CT RT UPPER EXTREMITY WITHOUT COMPLETED DATE/TIME: 02/28/2017 10:21 pm REASON FOR STUDY: severe rt gouty arthritis COMPARISON: None. TECHNIQUE: Axial imaging performed through the right elbow with reformatted coronal and sagittal dillon ging windowed for bone and soft tissues. Images saved to PACS. 3D IMAGING: Were 3D images as MIP, SSD, or volume rendering performed at the work station? None All CT scanners at this facility use dose modulation, iterative reconstruction, and/or weight based d osing when appropriate to reduce radiation dose to as low as reasonably achievable (ALARA). [facility]: Dose Right [facility]: CareDose [facility]: Dose Right [facility]: Teradose 4D [facility]: [employer] LIMITATIONS: None. RADIATION DOSE: Up-to-date CT equipment and radiation dose reduction techniques were employed. CTDIv ol: 2.6 mGy. DLP: 55 mGy-cm. mGy. FINDINGS: SOFT TISSUES: Soft tissue calcification in the triceps tendon at the insertion on the olec ranon. BONES: No acute fracture. No dislocation. No erosions. MINERALIZATION: Normal. OTHER: No other significant finding. IMPRESSION: Triceps calcific tendinitis. TECHNICAL DOCUMENTATION: JOB ID: [id number] Quality ID # [id number]: Final reports with documentation of one or more dose reduction techniques (e.g., Au tomated exposure control, adjustment of the mA and/or kV according to patient size, use of iterative reconstruction technique) 2010 [email or web address]- All Rights Reserved
[2017-02-28] MEDS ORDERED: CALCIUM GLUCONATE 1,000 MG in DEXTROSE 5%-WATER 50 ML IV ONE (22:45)
[2017-03-01] MEDS ORDERED: ACETAMINOPHEN 325 MG TABLET ONE (02:21)
[2017-03-01] MEDS: ACETAMINOPHEN 325 MG TABLET PO PRN ×2 (02:21→12:26)
[2017-03-01] MEDS: METHYLPREDNISOLONE INJ 125 MG/2 ML SDV IV SCH ×3 (05:25→21:50)
[2017-03-01] MEDS: KETOROLAC TROMETHAMINE INJ/PF 30 MG/1 ML SDV IV SCH ×3 (05:25→21:51)
[2017-03-01] MEDS ORDERED: ONDANSETRON HCL INJ/PF 4 MG/2 ML SDV IV PRN (07:24)
[2017-03-01] MEDS ORDERED: LEVOTHYROXINE SODIUM 100 MCG PO SCH (08:00)
[2017-03-01] MEDS: LEVOTHYROXINE SODIUM 0.1 MG TABLET PO SCH (08:02)
[2017-03-01] MEDS ORDERED: CALCITRIOL PO SCH (10:00)
[2017-03-01] MEDS: CALCIUM CARBONATE 500 MG TABLET PO SCH ×3 (10:41→17:37)
[2017-03-01] MEDS: MAGNESIUM OXIDE 400 MG TABLET PO SCH ×2 (10:41→17:37)
[2017-03-01] MEDS: ASPIRIN 81 MG TABLET, CHEWABLE PO SCH (10:41)
[2017-03-01] MEDS: CALCITRIOL 0.25 MCG CAPSULE PO SCH (10:42)
[2017-03-01] MEDS ORDERED: NORMAL SALINE 250 ML IV ONE (12:15)
--- NOTE | 2017-03-01 15:33 | PDOC H&P ---
History of Present Illness Admission Date/PCP: 02/28/17 18:49 ALBERTO NAVARRO MD History of Present Illness: SOPHIE BALBUENA is a 41 year old female, she has a history of cardiomyopathy, the details is not clear, she is status post AICD/pacemaker placement, she came to the office for the first time, she complained of severe pain and swelling of the right elbow. On evaluation and examination of the elbow, it was extremely tender to touch with erythema, the etiology of the acute inflammation of the right elbow was not clear in the office, she was admitted directly from the office into the hospital for further evaluation of her symptoms. A CAT scan of the elbow was done, it showed triceps calcific tendinitis.she stated that she had thyroidectomy, she is on hormone replacement therapy with levothyroxine, it seems that part of the parathyroid was also removed because she has severe hypocalcemia. Past Medical History Cardiac Medical History: Reports: Hypertension, Other - Nonischemic cardiomyopathy Pulmonary Medical History: Reports: Asthma, Pneumonia Endocrine Medical History: Reports: Hypothyroidism - POST- REMOVAL OF GOITER Psychiatric Medical History: Reports: Depression Past Surgical History Past Surgical History: Reports: Section, Internal Defibrillator, Pacemaker, Tubal Ligation Social History Smoking Status: Current Every Day Smoker Frequency of Alcohol Use: None Hx Recreational Drug Use: No Drugs: None Hx Prescription Drug Abuse: No Family History Family History: Reviewed & Not Pertinent, CAD, Malignancy Parental Family History Reviewed: Yes Children Family History Reviewed: Yes Sibling(s) Family History Reviewed.: Yes Medication/Allergy Home Medications: Aspirin [Aspirin 81 mg Chewable Tablet] 81 mg PO DAILY 90 Days 11/20/15 Calcitriol 1 cap PO DAILY #14 capsule 11/27/16 Calcium Carbonate [Os-Hayden 500 mg Tablet (Oyster-Shell)] 500 mg PO Q8 02/28/17 Levothyroxine Sodium 100 mcg PO QAM 02/28/17 Magnesium Oxide [Mag-Ox 400 mg Tablet] 400 mg PO Q12 02/28/17 Allergies/Adverse Reactions: No Known Allergies Allergy (Verified 02/05/17 09:12) Review of Systems Constitutional: ABSENT: chills, fever(s), headache(s), weight gain, weight loss Eyes: ABSENT: visual disturbances Ears: ABSENT: hearing changes Cardiovascular: ABSENT: chest pain, dyspnea on exertion, edema, orthropnea, palpitations Respiratory: ABSENT: cough, hemoptysis Gastrointestinal: ABSENT: abdominal pain, constipation, diarrhea, hematemesis, hematochezia, nausea, vomiting Genitourinary: ABSENT: dysuria, hematuria Musculoskeletal: PRESENT: other - RT elbow pain Integumentary: ABSENT: rash, wounds Neurological: ABSENT: abnormal gait, abnormal speech, confusion, dizziness, focal weakness, syncope Psychiatric: ABSENT: anxiety, depression, homidical ideation, suicidal ideation Endocrine: ABSENT: cold intolerance, heat intolerance, menstrual abnormalities, polydipsia, polyuria Hematologic/Lymphatic: ABSENT: easy bleeding, easy bruising, lymphadenopathy Physical Exam Vital Signs: Temp Pulse Resp BP Pulse Ox 97.3 F 67 16 79/51 L 94 03/01/17 11:44 03/01/17 11:44 03/01/17 11:44 03/01/17 11:44 03/01/17 11:44 Intake & Output 02/28/17 03/01/17 03/02/17 06:59 06:59 06:59 Intake Total 569 Output Total 200 Balance 369 Weight 66.9 kg General appearance: PRESENT: no acute distress, well-developed, well-nourished Head exam: PRESENT: atraumatic, normocephalic Eye exam: PRESENT: conjunctiva pink, EOMI, PERRLA Ear exam: PRESENT: normal external ear exam Mouth exam: PRESENT: moist, tongue midline Neck exam: PRESENT: full ROM Respiratory exam: PRESENT: clear to auscultation jacoby Cardiovascular exam: PRESENT: RRR, +S1, +S2 Vascular exam: PRESENT: normal capillary refill GI/Abdominal exam: PRESENT: normal bowel sounds, soft Rectal exam: PRESENT: deferred Extremities exam: PRESENT: joint swelling, tenderness, other - Severe Redness, swelling of the right elbow very tender to touch Neurological exam: PRESENT: alert, awake, oriented to person, oriented to place , oriented to time, oriented to situation, CN II-XII grossly intact Psychiatric exam: PRESENT: appropriate affect, normal mood Results Laboratory Results: 02/28/17 20:40 02/28/17 20:40 02/28/17 02/28/17 02/28/17 20:40 20:40 20:40 WBC 5.6 RBC 3.67 L Hgb 11.3 L Hct 33.0 L MCV 90 MCH 30.8 MCHC 34.2 RDW 14.5 H Plt Count 199 Seg Neutrophils % 64.6 Lymphocytes % 26.8 Monocytes % 7.5 Eosinophils % 0.1 Basophils % 1.0 Absolute Neutrophils 3.6 Absolute Lymphocytes 1.5 Absolute Monocytes 0.4 Absolute Eosinophils 0.0 Absolute Basophils 0.1 Sodium 142.0 Potassium 3.8 Chloride 100 Carbon Dioxide 26 Anion Gap 16 BUN 14 Creatinine 1.02 Est GFR ( Amer) > 60 Est GFR (Non-Af Amer) > 60 Glucose 81 Uric Acid 3.8 Calcium 6.9 L* Total Bilirubin 0.8 AST 39 H ALT 43 Alkaline Phosphatase 93 Total Protein 8.6 H Albumin 4.9 TSH 12.10 H Free T4 1.50 Free T3 pg/mL 2.13 L Impressions: Chest X-Ray 02/28/17 00:00 IMPRESSION: CARDIAC ENLARGEMENT WITHOUT FAILURE. Upper Extremity CT 02/28/17 00:00 IMPRESSION: Triceps calcific tendinitis. Assessment & Plan - Diagnosis (1) Acute gouty arthropathy Is this a current diagnosis for this admission?: YesPlan: She has severe arthropathy of the right elbow most likely from gout, she will be treated with IV Solu-Medrol. (2) Hypocalcemia Is this a current diagnosis for this admission?: YesPlan: This is a hypocalcemia is most likely due to hypoparathyroidism (3) Cardiomyopathy Qualifiers: Cardiomyopathy type: unspecified Qualified Code(s): I42.9 - Cardiomyopathy, unspecified Is this a current diagnosis for this admission?: Yes (4) Hypothyroid Qualifiers: Hypothyroidism type: acquired Qualified Code(s): E03.9 - Hypothyroidism , unspecified Is this a current diagnosis for this admission?: Yes
--- NOTE | 2017-03-01 15:38 | PDOC PROGRESS REPORT ---
Subjective Progress Note for:: 03/01/17 Subjective:: Patient was admitted yesterday for the management of acute arthropathy of the right elbow, she was treated with IV Solu-Medrol, this morning on examination there is near resolution of the inflammation of the right elbow. The blood pressure is low this morning, 79 systolic, she was also given 10% calcium gluconate because of the severe hypocalcemia. The serum PTH is pending Physical Exam Vital Signs: Temp Pulse Resp BP Pulse Ox 97.3 F 67 16 79/51 L 94 03/01/17 11:44 03/01/17 11:44 03/01/17 11:44 03/01/17 11:44 03/01/17 11:44 Intake & Output 02/28/17 03/01/17 03/02/17 06:59 06:59 06:59 Intake Total 569 Output Total 200 Balance 369 Weight 66.9 kg General appearance: PRESENT: no acute distress, well-developed, well-nourished Head exam: PRESENT: atraumatic, normocephalic Eye exam: PRESENT: conjunctiva pink, EOMI, PERRLA Ear exam: PRESENT: normal external ear exam Mouth exam: PRESENT: moist, tongue midline Neck exam: PRESENT: full ROM Respiratory exam: PRESENT: clear to auscultation jacoby Cardiovascular exam: PRESENT: RRR, +S1, +S2 Vascular exam: PRESENT: normal capillary refill GI/Abdominal exam: PRESENT: normal bowel sounds, soft Rectal exam: PRESENT: deferred Musculoskeletal exam: PRESENT: other - There is less inflammation of the right elbow Neurological exam: PRESENT: alert Psychiatric exam: PRESENT: appropriate affect, normal mood Skin exam: PRESENT: dry, intact, warm. ABSENT: cyanosis, rash Results Laboratory Results: 02/28/17 20:40 02/28/17 20:40 02/28/17 02/28/17 02/28/17 20:40 20:40 20:40 WBC 5.6 RBC 3.67 L Hgb 11.3 L Hct 33.0 L MCV 90 MCH 30.8 MCHC 34.2 RDW 14.5 H Plt Count 199 Seg Neutrophils % 64.6 Lymphocytes % 26.8 Monocytes % 7.5 Eosinophils % 0.1 Basophils % 1.0 Absolute Neutrophils 3.6 Absolute Lymphocytes 1.5 Absolute Monocytes 0.4 Absolute Eosinophils 0.0 Absolute Basophils 0.1 Sodium 142.0 Potassium 3.8 Chloride 100 Carbon Dioxide 26 Anion Gap 16 BUN 14 Creatinine 1.02 Est GFR ( Amer) > 60 Est GFR (Non-Af Amer) > 60 Glucose 81 Uric Acid 3.8 Calcium 6.9 L* Total Bilirubin 0.8 AST 39 H ALT 43 Alkaline Phosphatase 93 Total Protein 8.6 H Albumin 4.9 TSH 12.10 H Free T4 1.50 Free T3 pg/mL 2.13 L Impressions: Chest X-Ray 02/28/17 00:00 IMPRESSION: CARDIAC ENLARGEMENT WITHOUT FAILURE. Upper Extremity CT 02/28/17 00:00 IMPRESSION: Triceps calcific tendinitis. Assessment & Plan - Diagnosis (1) Acute gouty arthropathy Is this a current diagnosis for this admission?: YesPlan: Patient responded to the IV Solu-Medrol, we will decrease the dose of Solu- Medrol to 60mg IV every 8 (2) Hypocalcemia Is this a current diagnosis for this admission?: Yes (3) Cardiomyopathy Qualifiers: Cardiomyopathy type: unspecified Qualified Code(s): I42.9 - Cardiomyopathy, unspecified Is this a current diagnosis for this admission?: Yes (4) Hypothyroid Qualifiers: Hypothyroidism type: acquired Qualified Code(s): E03.9 - Hypothyroidism , unspecified Is this a current diagnosis for this admission?: Yes (5) Hypotension Qualifiers: Hypotension type: unspecified hypotension type Qualified Code(s): I95.9 - Hypotension, unspecified Is this a current diagnosis for this admission?: Yes
[2017-03-01 16:27] LABS: ALANINE AMINOTRANSFERASE 35 U/L (9-52); ALKALINE PHOSPHATASE 72 U/L (38-126); ANION GAP 13 (5-19); ASPARTATE AMINO TRANSFERASE 24 U/L (14-36); BILIRUBIN,DIRECT 0.4 mg/dL (0.0-0.4); BILIRUBIN,TOTAL 0.5 mg/dL (0.2-1.3); BLOOD UREA NITROGEN 22 mg/dL (7-20); CARBON DIOXIDE 28 mmol/L (22-30); CHLORIDE 100 mmol/L (98-107); CREATININE RESULT 1.01 mg/dL (0.52-1.25); GLUCOSE 178 mg/dL (75-110); POTASSIUM 4.6 mmol/L (3.6-5.0); SODIUM 141.1 mmol/L (137-145); TOTAL PROTEIN 7.4 g/dL (6.3-8.2)
[2017-03-01 16:39] LABS: CALCIUM 6.9 mg/dL (8.4-10.2)
[2017-03-02] MEDS: METHYLPREDNISOLONE INJ 125 MG/2 ML SDV IV SCH (05:58)
[2017-03-02] MEDS: KETOROLAC TROMETHAMINE INJ/PF 30 MG/1 ML SDV IV SCH (05:58)
[2017-03-02] MEDS: LEVOTHYROXINE SODIUM 0.1 MG TABLET PO SCH (08:09)
[2017-03-02 09:38] VITALS: BP 90/58
[2017-03-02] MEDS: ASPIRIN 81 MG TABLET, CHEWABLE PO SCH (10:12)
[2017-03-02] MEDS: CALCIUM CARBONATE 500 MG TABLET PO SCH (10:12)
[2017-03-02] MEDS: MAGNESIUM OXIDE 400 MG TABLET PO SCH (10:12)
[2017-03-02] MEDS: CALCITRIOL 0.25 MCG CAPSULE PO SCH (10:13)
--- NOTE | 2017-03-02 11:21 | PDOC DISCHARGE SUMMARY ---
General - Admit/Disc Date/PCP Admission Date/Primary Care Provider: 02/28/17 18:49 ALBERTO NAVARRO MD Discharge Date: 03/02/17 - Discharge Diagnosis (1) Acute gouty arthropathy Is this a current diagnosis for this admission?: Yes (2) Hypocalcemia Is this a current diagnosis for this admission?: Yes (3) Cardiomyopathy Is this a current diagnosis for this admission?: Yes (4) Hypothyroid Is this a current diagnosis for this admission?: Yes (5) Hypotension Is this a current diagnosis for this admission?: Yes - Additional Information Discharge Activity: Activity As Tolerated Home Medications: RX: Aspirin [Aspirin 81 mg Chewable Tablet] 81 mg PO DAILY 90 Days 11/20/15 RX: Calcitriol 1 cap PO DAILY #14 capsule 11/27/16 RX: Calcium Carbonate [Os-Hayden 500 mg Tablet (Oyster-Shell)] 500 mg PO Q8 RX: Levothyroxine Sodium 100 mcg PO QAM 02/28/17 RX: Magnesium Oxide [Mag-Ox 400 mg Tablet] 400 mg PO Q12 02/28/17 Colchicine [Colcrys] 0.6 mg PO BID #6 tablet 03/02/17 History of Present Illness History of Present Illness: SOPHIE BALBUENA is a 41 year old female, she has a history of cardiomyopathy, the details is not clear, she is status post AICD/pacemaker placement, she came to the office for the first time, she complained of severe pain and swelling of the right elbow. On evaluation and examination of the elbow, it was extremely tender to touch with erythema, the etiology of the acute inflammation of the right elbow was not clear in the office, she was admitted directly from the office into the hospital for further evaluation of her symptoms. A CAT scan of the elbow was done, it showed triceps calcific tendinitis.she stated that she had thyroidectomy, she is on hormone replacement therapy with levothyroxine, it seems that part of the parathyroid was also removed because she has severe hypocalcemia. Hospital Course Hospital Course: Patient was admitted for the management of severe acute arthropathy of the right elbow she was treated with intravenous Solu-Medrol, there was complete resolution of her symptoms. A CAT scan of the right elbow was done, it showed calcific tendinitis. The acute inflammation of the right elbow is presumed to be from acute gouty arthropathy. She has a history of chronic hypocalcemia due to hypoparathyroidism. Physical Exam Vital Signs: Temp Pulse Resp BP Pulse Ox 98.1 F 78 16 90/58 L 97 03/02/17 09:05 03/02/17 09:05 03/02/17 09:05 03/02/17 09:38 03/02/17 09:05 Intake & Output 03/01/17 03/02/17 03/03/17 06:59 06:59 06:59 Intake Total 569 645 Output Total 200 600 Balance 369 45 Weight 66.9 kg 67.4 kg General appearance: PRESENT: no acute distress Eye exam: PRESENT: PERRLA Respiratory exam: PRESENT: clear to auscultation jacoby Cardiovascular exam: PRESENT: +S1, +S2 GI/Abdominal exam: PRESENT: soft Extremities exam: PRESENT: other - Normal elbow Neurological exam: PRESENT: alert, CN II-XII grossly intact Results Laboratory Results: 02/28/17 20:40 03/01/17 16:00 03/01/17 16:00 Sodium 141.1 Potassium 4.6 Chloride 100 Carbon Dioxide 28 Anion Gap 13 BUN 22 H Creatinine 1.01 Est GFR ( Amer) > 60 Est GFR (Non-Af Amer) > 60 Glucose 178 H Calcium 6.9 L* Total Bilirubin 0.5 AST 24 ALT 35 Alkaline Phosphatase 72 Total Protein 7.4 Albumin 4.0 03/01/17 06:19 Clean Catch Midstream Urine Culture - Final Mixed Urogenital Giana Impressions: Chest X-Ray 02/28/17 00:00 IMPRESSION: CARDIAC ENLARGEMENT WITHOUT FAILURE. Upper Extremity CT 02/28/17 00:00 IMPRESSION: Triceps calcific tendinitis.
[2017-03-02 11:37] LABS: HEMATOCRIT 31.3 % (36.0-47.0); HEMOGLOBIN 10.6 g/dL (12.0-15.5); HGB HCT DIFFERENCE 0.5; MEAN CORPUSCULAR HEMOGLOBIN 30.9 pg (27.0-33.4); MEAN CORPUSCULAR VOLUME 91 fl (80-97); RED BLOOD COUNT 3.44 10^6/uL (3.72-5.28); RED CELL DISTRIBUTION WIDTH 14.4 % (11.5-14.0)
[2017-03-02 11:41] LABS: WHITE BLOOD COUNT 19.5 10^3/uL (4.0-10.5)
[2017-03-02 11:50] LABS: CREATININE RESULT 1.07 mg/dL (0.52-1.25); PROTHROMBIN TIME 14.2 SEC (11.4-15.4)
[2017-03-02 11:51] LABS: PARTIAL THROMBOPLASTIN TIME 27.1 SEC (23.5-35.8)
[2017-03-03] MEDS ORDERED: ENOXAPARIN SODIUM INJ 40 MG/0.4 ML DISP.SYRIN SUBCUT SCH (10:00)
== END 2017-03-02 12:33 | disposition home or self-care (01) | DRG 554 ==
LOC: 3N 18:49 → 3S 21:52
PROVIDERS: ADMIT Internal Medicine; ATTEND Internal Medicine
DX: M10.9 Gout, unspecified (principal); I42.9 Cardiomyopathy, unspecified; E83.51 Hypocalcemia; E89.0 Postprocedural hypothyroidism; F17.200 Nicotine dependence, unspecified, uncomplicated; I95.9 Hypotension, unspecified; F32.9 Major depressive disorder, single episode, unspecified; Z95.810 Presence of automatic (implantable) cardiac defibrillator; J45.909 Unspecified asthma, uncomplicated; Z82.49 Family history of ischemic heart disease and other diseases of the circulatory system; Z80.9 Family history of malignant neoplasm, unspecified; Z79.82 Long term (current) use of aspirin; Z79.899 Other long term (current) drug therapy; Z98.51 Tubal ligation status
CPT/HCPCS: 36415; 71020; 80048; 80053; 80076; 82565; 83970; 84439; 84443; 84481; 84550; 85025; 85027; 85610; 85730; 87040; 87086; J0610; J1885; J2405; J2930; J7050

== ENCOUNTER 2017-05-19 13:42 | Emergency (ER) | payer MEDICAID ==
--- NOTE | 2017-05-19 14:05 | ER Document Report ---
ED Medical Screen (RME) - General Chief Complaint: Mouth Problem Stated Complaint: NUMB FEELING IN MOUTH Time Seen by Provider: 05/19/17 14:00 Notes: Patient states that approximately 4 hours ago she noticed that her tongue felt numb and she was having some trouble swallowing. She denies any other numbness or tingling or weakness. On exam patient tongue has full range of motion and has no evidence of any swelling or abnormality. Posterior pharynx/uvula slants tonsillar pillars are unremarkable except for some mild erythema of the soft palate. Patient also reports that she was depressed yesterday and took 6 sleeping pills. TRAVEL OUTSIDE OF THE [place] IN LAST 30 DAYS: No - Related Data Allergies/Adverse Reactions: No Known Allergies Allergy (Verified 05/19/17 13:47) Past Medical History - Past Medical History Cardiac Medical History: Reports: Hx Congestive Heart Failure, Hx Hypertension Denies: Hx Coronary Artery Disease Pulmonary Medical History: Reports: Hx Asthma, Hx Pneumonia Endocrine Medical History: Reports: Hx Hypothyroidism - POST- REMOVAL OF GOITER Renal/ Medical History: Reports: Hx Kidney Stones. Denies: Hx Peritoneal Dialysis Musculoskeltal Medical History: Denies Hx Gout Psychiatric Medical History: Reports: Hx Depression Past Surgical History: Reports: Hx Cardiac Surgery - Pacemaker,Defibrillator, Hx Section, Hx Internal Defibrillator, Hx Pacemaker, Hx Thyroid Surgery , Hx Tubal Ligation - Immunizations Hx Diphtheria, Pertussis, Tetanus Vaccination: Yes Physical Exam - Vital signs Vitals: Temp Pulse Resp BP Pulse Ox 97.5 F 94 16 109/72 96 05/19/17 13:48 05/19/17 13:48 05/19/17 13:48 05/19/17 13:48 05/19/17 13:48 Course - Vital Signs Vital signs: Temp Pulse Resp BP Pulse Ox 97.5 F 94 16 109/72 96 05/19/17 13:48 05/19/17 13:48 05/19/17 13:48 05/19/17 13:48 05/19/17 13:48
[2017-05-19 14:38] LABS: APPEARANCE,URINE CLEAR; BILIRUBIN,URINE NEGATIVE (NEGATIVE); GLUCOSE, URINE NEGATIVE (NEGATIVE); KETONES,URINE NEGATIVE (NEGATIVE); LEUKOCYTE ESTERASE,URINE NEGATIVE (NEGATIVE); NITRITE,URINE NEGATIVE (NEGATIVE); PROTEIN,URINE NEGATIVE (NEGATIVE); UROBILINOGEN,URINE NEGATIVE mg/dL (<2.0)
[2017-05-19 14:42] LABS: ABSOLUTE LYMPHOCYTES (AUTO) 2.1 10^3/uL (0.5-4.7); ABSOLUTE MONOCYTES (AUTO) 0.3 10^3/uL (0.1-1.4); ABSOLUTE NEUT (AUTO) 1.3 10^3/uL (1.7-8.2); BASOPHILS % (AUTO) 1.3 % (0-2); EOSINOPHILS % (AUTO) 0.7 % (0-6); HEMATOCRIT 38.5 % (36.0-47.0); HGB HCT DIFFERENCE 0.5; LYMPHOCYTES % (AUTO) 55.3 % (13-45); MEAN CORPUSCULAR HEMOGLOBIN 29.5 pg (27.0-33.4); MEAN CORPUSCULAR HGB CONC 33.9 g/dL (32.0-36.0); MEAN CORPUSCULAR VOLUME 87 fl (80-97); MONOCYTES % (AUTO) 7.2 % (3-13); RED BLOOD COUNT 4.41 10^6/uL (3.72-5.28); RED CELL DISTRIBUTION WIDTH 13.4 % (11.5-14.0); SEGMENTED NEUTROPHILS % (AUTO) 35.5 % (42-78); WHITE BLOOD COUNT 3.8 10^3/uL (4.0-10.5)
[2017-05-19] MEDS ORDERED: NORMAL SALINE 1000 ML 1,000 ML IV ONE (14:43)
[2017-05-19] MEDS ORDERED: DIPHENHYDRAMINE HCL 50 MG/ML VIAL IV ONE ×2 (14:44→17:44)
--- NOTE | 2017-05-19 14:48 | ER Document Report ---
ED Oral Problem <FAVIAN MICHEL - Last Filed: 05/19/17 15:51> - General TRAVEL OUTSIDE OF THE [place] IN LAST 30 DAYS: No <LISA BROOKS - Last Filed: 05/19/17 18:14> - General Chief Complaint: Mouth Problem Stated Complaint: NUMB FEELING IN MOUTH Time Seen by Provider: 05/19/17 14:00 Notes: Patient says that she woke up this morning and she is not talking right. She says her vocal cords are not right. She says she feels as if her tongue is catching in the back of her mouth and she is having difficulty with swallowing. She has never had this before. Patient says that she was feeling depressed yesterday afternoon and about 4:30 PM, took 4-5 Risperdal was 2 mg, all at one time. She did not have any symptoms from that ingestion, until her symptoms this morning. Denies any vomiting or diarrhea. No fevers. Patient's had a tubal ligation and does not have periods for the past year and a half. (LISA BROOKS) - Related Data Allergies/Adverse Reactions: No Known Allergies Allergy (Verified 05/19/17 13:47) Past Medical History - Social History Smoking Status: Unknown if Ever Smoked Cigarette use (# per day): No Family History: Reviewed & Not Pertinent, CAD, Malignancy Patient has suicidal ideation: Yes Patient has homicidal ideation: No - Past Medical History Cardiac Medical History: Reports: Hx Congestive Heart Failure - Cardiomyopathy. , Hx Hypercholesterolemia, Hx Hypertension Denies: Hx Coronary Artery Disease Pulmonary Medical History: Reports: Hx Asthma, Hx Pneumonia Endocrine Medical History: Reports: Hx Hypothyroidism - POST- REMOVAL OF GOITER 1999. Denies: Hx Diabetes Mellitus Type 1, Hx Diabetes Mellitus Type 2 Renal/ Medical History: Reports: Hx Kidney Stones Psychiatric Medical History: Reports: Hx Depression Past Surgical History: Reports: Hx Cardiac Surgery - Pacemaker,Defibrillator, Hx Section, Hx Internal Defibrillator, Hx Pacemaker, Hx Thyroid Surgery , Hx Tubal Ligation - Immunizations Hx Diphtheria, Pertussis, Tetanus Vaccination: Yes Hx Pneumococcal Vaccination: 04/20/14 <LISA BROOKS - Last Filed: 05/19/17 18:14> Review of Systems <FAVIAN MICHEL - Last Filed: 05/19/17 15:51> <LISA BROOKS - Last Filed: 05/19/17 18:14> - Review of Systems Notes: REVIEW OF SYSTEMS: CONSTITUTIONAL : Denies fever. EENT: Denies eye, ear, nose pain or other symptoms. See HPI regarding throat and swallowing. CARDIOVASCULAR: Denies chest pain. RESPIRATORY: Denies cough, chest congestion, or shortness of breath. GASTROINTESTINAL: Denies abdominal pain or nausea, vomiting, or diarrhea. GENITOURINARY: Denies difficulty or painful urinating, urinary frequency, blood in urine. MUSCULOSKELETAL: Denies back or neck pain. Denies joint pain or swelling. SKIN: Denies rash or skin lesions. NEUROLOGICAL: Denies LOC or altered mental status. Denies headache. Denies sensory loss or motor deficits. ALL OTHER SYSTEMS REVIEWED AND NEGATIVE. (LISA BROOKS) Physical Exam <FAVIAN MICHEL - Last Filed: 05/19/17 15:51> - Vital signs Interpretation: Normal <LISA BROOKS - Last Filed: 05/19/17 18:14> - Vital signs Vitals: Temp Pulse Resp BP Pulse Ox 97.5 F 94 16 109/72 96 05/19/17 13:48 05/19/17 13:48 05/19/17 13:48 05/19/17 13:48 05/19/17 13:48 - Notes Notes: PHYSICAL EXAMINATION: GENERAL: Well-appearing, in no acute distress. Voice sounds somewhat muffled and distorted. HEAD: Atraumatic, normocephalic. EYES: Pupils equal round and reactive to light, extraocular movements intact. ENT: oropharynx clear without exudates, Moist mucous membranes. No evidence of infection. NECK: Normal range of motion, supple. Carotids without bruits. LUNGS: Breath sounds clear and equal bilaterally. HEART: Regular rate and rhythm without murmurs. ABDOMEN: Soft, nontender. No guarding or rebound. BACK: No tenderness throughout entire back. EXTREMITIES: Normal range of motion without pain. NEUROLOGICAL: Speech is somewhat muffled and distorted and appears as if patient is having difficulty swallowing. Normal gait. Normal sensory, motor, and reflex exams. Awake, alert, and oriented x3. Cranial nerves normal. PSYCH: Normal mood, normal affect. SKIN: Warm, dry, no rashes. (LISA BROOKS) Course - Laboratory Result Diagrams: 05/19/17 14:15 05/19/17 14:15 <FAVIAN MICHEL - Last Filed: 05/19/17 15:51> - Laboratory Result Diagrams: 05/19/17 14:15 05/19/17 14:15 <LISA BROOKS - Last Filed: 05/19/17 18:14> - Re-evaluation Re-evalutation: 05/19/17 15:13 Patient was given 50 mg of Benadryl IV and almost immediately, her symptoms resolved and she feels back to normal with no neck or mouth spasms or discomfort or difficulty speaking or swallowing. (LISA BROOKS) - Vital Signs Vital signs: Temp Pulse Resp BP Pulse Ox 97.5 F 94 16 109/72 96 05/19/17 13:48 05/19/17 13:48 05/19/17 13:48 05/19/17 13:48 05/19/17 13:48 - Laboratory Laboratory results interpreted by me: 05/19/17 05/19/17 05/19/17 14:15 14:15 14:15 WBC 3.8 L Seg Neutrophils % 35.5 L Lymphocytes % 55.3 H Absolute Neutrophils 1.3 L Glucose 112 H Calcium 5.9 L* TSH 62.70 H Free T4 0.34 L Salicylates < 1.0 L Acetaminophen < 10 L Discharge <FAVIAN MICHEL - Last Filed: 05/19/17 15:51> <LISA BROOKS - Last Filed: 05/19/17 18:14> - Discharge Clinical Impression: Hypocalcemia, Hypothyroid, Acute dystonic reaction due to drugs Condition: Stable Disposition: HOME, SELF-CARE Additional Instructions: Bipolar Disorder Bipolar disorder is also called manic-depressive disorder. Depression alternates with brain hyperactivity called meir. Each phase lasts from several days to a few weeks. We don't know exactly what causes bipolar disorder , but it's treatable. During the "manic phase," you may feel elated and energetic. You may have racing thoughts, rapid speech, increased activity, and grandiose ideas. During this time, you may not realize how poor your judgement is. Inappropriate spending, drug abuse, excessive alcohol use, marriage problems, and irresponsible sexual behavior are common during the manic phase. During the "depressive phase," you might feel depressed, guilty, worthless , fatigued, and unable to concentrate. You might have thoughts of suicide. Good treatments are available for bipolar disorder. Bobo is a classic drug for bipolar disorder, and is still often useful. If the manic phase is very mild, an antidepressant alone can be prescribed. If the manic phase is very severe, an antipsychotic medicine (such as Haldol) may be needed. The treatment must be matched to your symptoms, so it's important to work closely with your psychiatric care provider. Contact your physician, the hospital emergency center, crisis line, or your counsellor if you are losing control or having self-destructive thoughts. Please allow your daughter to manage her medications to prevent any additional confusion. Please follow-up with Dr. Hannah tomorrow either as a walk-in or call at 8 AM to schedule an appointment. Please return if your symptoms worsen. You have been provided a list of resources to assist you, to include mobile crisis. Hypothyroidism The thyroid gland is found in the front of the neck. It produces thyroid hormone. Thyroid hormone regulates the metabolism. Hypothyroidism means the gland is not turning out enough thyroid hormone. Too much thyroid hormone "turns up the thermostat" too high, causing weight loss, nervousness, rapid heartbeat, and weakness. Too little thyroid hormone causes fatigue, depression, weight gain, and hair thinning. Hypothyroidism is treated with thyroid replacement pills. Testing can show if there are other hormone problems, and can determine whether the pituitary gland or thyroid gland is at fault. Contact the doctor or return if you change for the worse -- for example, palpitations, severe nervousness, chest pain, shortness of breath, worsening weakness or lightheadedness. Your lab results look like you are not taking any thyroid medication at all. Your calcium level was also extremely low. Dystonic Reaction to Medication Your symptoms were caused by the effects of medication on the "muscle control" areas of the brain. This results in uncontrollable movements and muscle spasms. The symptoms usually start with the mouth, jaw, and tongue, but may involve any area of the body. Anti-nausea medications and psychiatric medications (such as Compazine, Reglan, Haldol) can cause this side effect. The usual treatment is diphenhydramine (Benadryl). Mild cases may require only oral medication. However, intravenous medication is most rapidly effective and is usually necessary for severe reactions. It's usually a good idea to take diphenhydramine by mouth for a day or two after the emergency treatment. Your doctor will discuss this with you. It's best to avoid the medicine that caused this reaction in the future. But if it's important that you continue this medicine, you can do so, while using Benadryl on a regular basis to suppress the dystonic reaction. This is not a true allergy. Return if muscle pains or spasms, difficulty breathing or swallowing, or uncontrollable motions occur again. I am giving you a prescription for Cogentin to take for the next 2-3 days to prevent any recurrence of the dystonic reaction. [id number] Benadryl works just as well. And you can take both of them at the same time, if you are having significant difficulty with your symptoms. The respirated all in your system should be gone in a day or 2 and you will no longer have symptoms then. Dr. Navarro wants to see you in his office Friday. Prescriptions: Benztropine Mesylate [Cogentin 1 mg Tablet] 1 mg PO BID #5 tablet Referrals: [facility] [Provider Group] - Follow up tomorrow (Please either walk in and ask to be seen or call to schedule a medication evaluation. Please return if your symptoms worsen.) [facility] [Provider Group] - Follow up as needed ALBERTO NAVARRO MD [Primary Care Provider] - 05/21/17
--- NOTE | 2017-05-19 14:52 | RADIOLOGY REPORT (SQ) ---
EXAM DESCRIPTION: SOFT TISSUE NECK COMPLETED DATE/TIME: 05/19/2017 2:39 pm REASON FOR STUDY: dysphagia COMPARISON: None. NUMBER OF VIEWS: Two views. TECHNIQUE: AP and lateral radiographic image of the soft tissues of the neck. LIMITATIONS: None. FINDINGS: Multiple clips overlying the thyroid. Prominent soft tissue in the submandibular space wi th narrowing of the hypopharynx. This may be artifact of swallowing and positioning. IMPRESSION: Possible submandibular mass. TECHNICAL DOCUMENTATION: JOB ID: [id number] [employer]- All Rights Reserved
[2017-05-19 14:54] LABS: URINE BARBITURATES SCREEN NEGATIVE; URINE METHADONE SCREEN NEGATIVE; URINE OPIATES LOW NEGATIVE; URINE PHENCYCLIDINE SCREEN NEGATIVE
[2017-05-19 14:59] LABS: ALANINE AMINOTRANSFERASE 33 U/L (9-52); ALBUMIN 4.4 g/dL (3.5-5.0); ALKALINE PHOSPHATASE 62 U/L (38-126); ANION GAP 14 (5-19); ASPARTATE AMINO TRANSFERASE 28 U/L (14-36); BILIRUBIN,DIRECT 0.4 mg/dL (0.0-0.4); BILIRUBIN,TOTAL 0.6 mg/dL (0.2-1.3); BLOOD UREA NITROGEN 10 mg/dL (7-20); CARBON DIOXIDE 28 mmol/L (22-30); CHLORIDE 99 mmol/L (98-107); CREATININE RESULT 0.83 mg/dL (0.52-1.25); GLUCOSE 112 mg/dL (75-110); SODIUM 141.1 mmol/L (137-145); TOTAL PROTEIN 7.7 g/dL (6.3-8.2)
[2017-05-19 15:13] LABS: ALCOHOL < 10 mg/dL (NONE DETECTED); POTASSIUM 4.1 mmol/L (3.6-5.0)
[2017-05-19] MEDS ORDERED: BENZTROPINE MESYLATE 1 MG TABLET PO ONE (15:14)
[2017-05-19 15:15] LABS: CALCIUM 5.9 mg/dL (8.4-10.2)
--- NOTE | 2017-05-19 15:51 | PSYCHOLOGICAL NOTE ---
Psych Note - Psych Note Psych Note: Patient is a 41-year-old female who presents via family members due to swelling of the tongue which started roughly 4 hours prior to arrival. Patient herself is not able to efficaciously verbally communicate due to said tongue swelling. However, it was reported at triage that patient overdosed on medications last night when she felt depressed. @ 1520 Did speak with patient who seemed disorganized with her thoughts. She does eventually state she wants to at times, and states she knows her time is limited due to her heart probs. Patient states she often thinks taking her own life would be better than being sick. Patient states she was previously going to [facility] and seeing Dr. Hannah; however, has not been in roughly 2 months. Patient states she just stopped taking the medications and does not provide a reason. Patient reports she prefers her daughter not take on any more responsibilities such as managing her medications. Patient states she knew the medication she took last night were not going to kill her. She states there are other ways to to include walking in front of the bullet, stepping in front of a tractor trailer, etc. Patient denies access to weapons. Patient states she would absolutely never shoot herself. @[id number] Spoke with patient's daughter again. Daughter reports she is in agreement to manage the medications regardless of her mother's wishes. She states she will gather all of the pills in the home as well as monitor the patient and assist her in following up with [facility]. Daughter reports she feels it is best that she go to see her psychiatrist. Discussed resources with daughter to include mobile crisis. Daughter did agree that her mother seemed overwhelmed over the weekend and references her crying in the bathroom stall at a restaurant yesterday. Daughter, Mike Brewer states: She and her recently relocated back from [place] and is staying with her mother. Daughter reports she returned to [place] out of concern for her mother's well-being. She states her mother has a myriad of medical problems and she knows she takes medications for mental illness but is not sure of a specific diagnosis. Daughter states she thinks she is bipolar but is not 100% positive. Daughter reports that she and her other siblings got together and surprised her mother over the weekend for what they thought would be a joyous reunion. Daughter reports her mother appear to struggle over the weekend and possibly felt overwhelmed. Daughter reports she noticed yesterday her mother was drowsy and "sort of loopy." She states her mother did have an alcoholic beverage yesterday , and they were talking and then all of a sudden she fell asleep. Daughter reports her aunt is a nurse and checked the patient now and stated she was fine. Daughter states she does not know of any prior suicide attempts. She states her mother is fairly guarded with her history and personal information. She says she is not sure if her mother sees a specific psychiatric provider, or if she gets all of her treatment through Dr. Goldberg. Daughter does report she thinks the patient uses a [facility] to fill prescriptions. Patient is now alert and oriented. Mood is labile with congruent affect. Patient denies wanting to by suicide at this time. Patient denies homicidal ideations, intent, plan, means. Patient denies A/VH; delusions not noted. Thought processes were somewhat disorganized. As patient struggled to remain on topic during conversation. Conversational speech was at times difficult to understand likely due to the swelling of the tongue and/or the Benadryl. Intellectual abilities were estimated within low functioning range. Attention and focus were poor. Insight, judgment, impulse control are poor. 296.80 (F31.9) Unspecified bipolar disorder Patient is psychiatrically cleared for discharge. Patient is recommended to follow the above-mentioned safety plan to include her daughter managing the medications. Daughter states that despite her mother not wanting her to do so she will. Additionally, daughter reports she will assist the patient in following up with [facility] first thing tomorrow morning. Patient acknowledges that she has intermittent thoughts of taking her own life, mostly to she states to her chronic medical conditions which she reports prevent her from actively engaging in life with her family. Daughter's is bedside and in agreement to monitor the patient and assist in following up. Family provided resources to include mobile crisis. I consulted with Dr. Woodward in regards to the care and management of this patient.
[2017-05-19] MEDS ORDERED: CALCIUM GLUCONATE 1000 MG/10 ML INJ IV ONE (15:59)
[2017-05-19] MEDS ORDERED: CALCITRIOL 0.25 MCG CAPSULE PO ONE (16:01)
[2017-05-19] MEDS ORDERED: CALCIUM CARBONATE 500 MG TAB.CHEW PO ONE (16:02)
[2017-05-19 16:52] LABS: THYROID STIMULATING HORMONE 62.7 uIU/mL (0.47-4.68)
[2017-05-19 18:02] VITALS: BP 96/68
== END 2017-05-19 18:05 | disposition home or self-care (01) ==
LOC: ER 13:42
DX: G24.09 Other drug induced dystonia (principal); T43.595A Adverse effect of other antipsychotics and neuroleptics, initial encounter; E83.51 Hypocalcemia; E03.9 Hypothyroidism, unspecified; I10 Essential (primary) hypertension; J45.909 Unspecified asthma, uncomplicated
CPT/HCPCS: 96376; 99285; 96361; 96375; 96365; 36415; 84439; 80307 ×4; 84443; 85025; 81025; 80053; 81001; 70360; J3490 ×3; J0610; J1200; J7030

== ENCOUNTER 2017-07-13 13:17 | Emergency (ER) | payer MEDICAID ==
--- NOTE | 2017-07-13 13:53 | ER Document Report ---
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 Sometimes has to get IV calcium none found in [facility] recently. Calcium was 5.9 in april. Supposed to take calcium daily at home, none in 3 days. Calcium was 5.1 12-21. TRAVEL OUTSIDE OF THE [place] IN LAST 30 DAYS: No - Related Data Allergies/Adverse Reactions: amoxicillin Allergy (Verified 07/13/17 13:20) Past Medical History - General Information source: Patient - Social History Smoking Status: Current Every Day Smoker Frequency of alcohol use: None Drug Abuse: None Lives with: Family Family History: Reviewed & Not Pertinent, CAD, Malignancy - Past Medical History Cardiac Medical History: Reports: Hx Congestive Heart Failure - Cardiomyopathy. , Hx Hypercholesterolemia, Hx Hypertension Pulmonary Medical History: Reports: Hx Asthma, Hx Pneumonia Endocrine Medical History: Reports: Hx Hypothyroidism - POST- REMOVAL OF GOITER 1999 Renal/ Medical History: Reports: Hx Kidney Stones. Denies: Hx Peritoneal Dialysis Musculoskeltal Medical History: Denies Hx Gout Psychiatric Medical History: Reports: Hx Depression Past Surgical History: Reports: Hx Cardiac Surgery - Pacemaker,Defibrillator, Hx Section, Hx Internal Defibrillator, Hx Pacemaker, Hx Thyroid Surgery , Hx Tubal Ligation - Immunizations Hx Diphtheria, Pertussis, Tetanus Vaccination: Yes Hx Pneumococcal Vaccination: 04/20/14 Review of Systems - Review of Systems Constitutional: No symptoms reported EENT: No symptoms reported Cardiovascular: No symptoms reported Respiratory: No symptoms reported Gastrointestinal: No symptoms reported Genitourinary: No symptoms reported Female Genitourinary: No symptoms reported Musculoskeletal: No symptoms reported Skin: No symptoms reported Hematologic/Lymphatic: No symptoms reported Neurological/Psychological: No symptoms reported Physical Exam - Vital signs Vitals: Temp Pulse Resp BP Pulse Ox 97.8 F 93 14 107/88 H 98 07/13/17 13:22 07/13/17 13:22 07/13/17 13:22 07/13/17 13:22 07/13/17 13:22 Interpretation: Normal - General General appearance: Appears well, Alert - HEENT Head: Normocephalic, Atraumatic Eyes: Normal Conjunctiva: Normal Pupils: PERRL Mucous membranes: Dry Neck: Supple Notes: positive Chvostek's sign on the right - Respiratory Respiratory status: No respiratory distress Chest status: Nontender Breath sounds: Normal Chest palpation: Normal - Cardiovascular Rhythm: Regular Heart sounds: Normal auscultation Murmur: No - Abdominal Inspection: Normal Distension: No distension Bowel sounds: Normal Tenderness: Nontender Organomegaly: No organomegaly - Back Back: Normal, Nontender. No: CVA tenderness - Extremities General upper extremity: Normal inspection, Nontender, Normal color, Normal ROM , Normal temperature General lower extremity: Normal inspection, Nontender, Normal color, Normal ROM , Normal temperature, Normal weight bearing. No: Donnell's sign - Neurological Neuro grossly intact: Yes Cognition: Normal Orientation: AAOx4 [place] Coma Scale Eye Opening: Spontaneous [place] Coma Scale Verbal: Oriented James Coma Scale Motor: Obeys Commands [place] Coma Scale Total: 15 Speech: Normal Motor strength normal: LUE, RUE, LLE, RLE Sensory: Normal - Psychological Associated symptoms: Normal affect, Normal mood - Skin Skin Temperature: Warm Skin Moisture: Dry Skin Color: Normal Skin irregularity: negative: Rash Course - Re-evaluation Re-evalutation: 07/13/17 19:[address] andrews about the tx of calcium and magnesium - Vital Signs Vital signs: Temp Pulse Resp BP Pulse Ox 97.5 F 63 16 111/83 97 07/13/17 19:15 07/13/17 19:15 07/13/17 19:15 07/13/17 19:15 07/13/17 19:15 - Laboratory Result Diagrams: 07/13/17 14:35 07/13/17 14:35 Laboratory results interpreted by me: 07/13/17 07/13/17 07/13/17 14:35 14:35 15:46 WBC 3.6 L Seg Neutrophils % 36.7 L Lymphocytes % 54.3 H Absolute Neutrophils 1.3 L Carbon Dioxide 31 H Glucose 73 L Calcium 5.1 L* Ionized Calcium A[place]a 0.64 L Magnesium 1.2 L* Discharge - Discharge Clinical Impression: Dehydration, Hypocalcemia, Hypomagnesemia Condition: Good Disposition: HOME, SELF-CARE Additional Instructions: take the calcium daily to er any concerns Prescriptions: Calcitriol 0.25 mcg PO DAILY #30 capsule Calcium Carb, Cit/Magnesium Ox [Calmag Thins Tablet] 1 each PO DAILY #30 tablet
[2017-07-13] MEDS ORDERED: NORMAL SALINE 1000 ML 1,000 ML IV ONE (15:02)
[2017-07-13 15:04] LABS: ABSOLUTE MONOCYTES (AUTO) 0.3 10^3/uL (0.1-1.4); ABSOLUTE NEUT (AUTO) 1.3 10^3/uL (1.7-8.2); BASOPHILS % (AUTO) 0.3 % (0-2); EOSINOPHILS % (AUTO) 1.1 % (0-6); HEMATOCRIT 37.6 % (36.0-47.0); HEMOGLOBIN 12.8 g/dL (12.0-15.5); HGB HCT DIFFERENCE 0.8; LYMPHOCYTES % (AUTO) 54.3 % (13-45); MEAN CORPUSCULAR HGB CONC 34.1 g/dL (32.0-36.0); MEAN CORPUSCULAR VOLUME 85 fl (80-97); MONOCYTES % (AUTO) 7.6 % (3-13); RED BLOOD COUNT 4.42 10^6/uL (3.72-5.28); RED CELL DISTRIBUTION WIDTH 13.7 % (11.5-14.0); SEGMENTED NEUTROPHILS % (AUTO) 36.7 % (42-78); WHITE BLOOD COUNT 3.6 10^3/uL (4.0-10.5)
[2017-07-13] MEDS ORDERED: CALCIUM GLUCONATE 1000 MG/10 ML INJ IV ONE (15:05)
[2017-07-13 15:18] LABS: ALANINE AMINOTRANSFERASE 18 U/L (9-52); ALBUMIN 4.3 g/dL (3.5-5.0); ALKALINE PHOSPHATASE 64 U/L (38-126); ANION GAP 16 (5-19); ASPARTATE AMINO TRANSFERASE 24 U/L (14-36); BILIRUBIN,DIRECT 0.3 mg/dL (0.0-0.4); BILIRUBIN,TOTAL 0.4 mg/dL (0.2-1.3); BLOOD UREA NITROGEN 7 mg/dL (7-20); CARBON DIOXIDE 31 mmol/L (22-30); CHLORIDE 98 mmol/L (98-107); CREATININE RESULT 0.85 mg/dL (0.52-1.25); GLUCOSE 73 mg/dL (75-110); POTASSIUM 4.2 mmol/L (3.6-5.0); SODIUM 144.8 mmol/L (137-145); TOTAL PROTEIN 7.6 g/dL (6.3-8.2)
[2017-07-13 15:32] LABS: MAGNESIUM 1.2 mg/dL (1.6-2.3)
[2017-07-13 15:35] LABS: CALCIUM 5.1 mg/dL (8.4-10.2)
[2017-07-13] MEDS: MAGNESIUM SULFATE/D5W 1 GM/100 ML RTUPB IV SCH ×2 (16:52→17:54)
[2017-07-13 19:19] VITALS: BP 111/83
== END 2017-07-13 19:29 | disposition home or self-care (01) ==
LOC: ER 13:17
DX: E86.0 Dehydration (principal); E83.51 Hypocalcemia; E83.42 Hypomagnesemia; E89.0 Postprocedural hypothyroidism; F17.200 Nicotine dependence, unspecified, uncomplicated
CPT/HCPCS: 99284; 96361; 96365; 96366; 96368; 36415; 83735; 85025; 80053; 82330; J0610; J3475; J7030

== ENCOUNTER 2017-07-14 16:59 | Emergency (ER) | payer MEDICAID ==
--- NOTE | 2017-07-14 17:22 | ER Document Report ---
ED General <MELE CATHERINE - Last Filed: 07/14/17 20:49> - General Mode of Arrival: Medic Information source: [facility] Records, Outside Facility Records - [facility] TRAVEL OUTSIDE OF THE [place] IN LAST 30 DAYS: No <TROYSOTO - Last Filed: 07/14/17 21:44> - General Stated Complaint: OTHER Time Seen by Provider: 07/14/17 17:17 Notes: 41-year-old female that was an admission to [facility] for suicide ideation and plan became agitated with auditory, visual and tactile hallucinations last night at 9 PM and today she has been nonverbal and not following commands. She had a witnessed family visit today so there is no possibility that any drugs were given to her. She has been refusing some [facility] medication since last night (haldol). She was seen in the emergency department yesterday for hypocalcemia and hypomagnesia 2 g of calcium gluconate and 2 g of magnesium were given IV and she was sent back to [facility] with prescriptions for replacement that have not been started. The ionized calcium was resulted after the patient was discharged and it was 0.6 which is low, magnesium was 1.2, and the calcium was 5.1 prior to the replacement. 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 Has been admitted to [facility] for replacement in the past and had hypotension episodes during the hospitalizations, no altered mental status though. Shehas not been noncompliant with calcium replacement or synthroid per her PCP Dr. Goldberg. She presents with altered mental status. (SOTO BERRY) - Related Data Allergies/Adverse Reactions: amoxicillin Allergy (Verified 07/13/17 13:20) Past Medical History - General Information source: [facility] Records, Outside Facility Records - [facility] - Social History Smoking Status: Unknown if Ever Smoked Frequency of alcohol use: None Drug Abuse: None Lives with: Family Family History: Reviewed & Not Pertinent, CAD, Malignancy - Past Medical History Cardiac Medical History: Reports: Hx Congestive Heart Failure - Cardiomyopathy. , Hx Hypercholesterolemia, Hx Hypertension, Other - cariomyopathy Pulmonary Medical History: Reports: Hx Asthma, Hx Pneumonia Endocrine Medical History: Reports: Hx Hypothyroidism - POST- REMOVAL OF GOITER 1999 Renal/ Medical History: Reports: Hx Kidney Stones Psychiatric Medical History: Reports: Hx Depression Past Surgical History: Reports: Hx Section, Hx Internal Defibrillator, Hx Pacemaker - defibrillator, Hx Thyroid Surgery, Hx Tubal Ligation - Immunizations Hx Diphtheria, Pertussis, Tetanus Vaccination: Yes Hx Pneumococcal Vaccination: 04/20/14 <SOTO BERRY - Last Filed: 07/14/17 21:44> Review of Systems - Review of Systems -: Yes ROS unobtainable due to patient's medical condition Neurological/Psychological: See HPI <SOTO BERRY - Last Filed: 07/14/17 21:44> Physical Exam <MELE CATHERINE - Last Filed: 07/14/17 20:49> - Vital signs Interpretation: Normal - General General appearance: Appears well, Other - motioning with arms not related to my verbal commands or the environment - HEENT Head: Normocephalic, Atraumatic Eyes: Normal Conjunctiva: Normal Pupils: PERRL - right pupil larger than left, turns head to the side to the noxious stimuli of elid movement, eye exam -: right: Pupils uneven - larger than left Tympanic membrane: Normal Mucous membranes: Normal Neck: Supple - Respiratory Respiratory status: No respiratory distress Chest status: Nontender Breath sounds: Normal Chest palpation: Normal - Cardiovascular Rhythm: Regular Heart sounds: Normal auscultation Murmur: No - Abdominal Inspection: Normal Distension: No distension Bowel sounds: Normal Tenderness: Nontender. No: Tender Organomegaly: No organomegaly - Back Back: Normal, Nontender - Extremities General upper extremity: Normal inspection, Nontender, Normal color, Normal temperature General lower extremity: Normal inspection, Nontender, Normal color, Normal temperature. No: Donnell's sign - Neurological Neuro grossly intact: Yes [place] Coma Scale Eye Opening: Spontaneous Speech: Other - not speaking - Psychological Associated symptoms: Psychomotor depression, Uncooperative - Skin Skin Temperature: Warm Skin Moisture: Dry Skin Color: Normal Skin irregularity: negative: Rash <SOTO BERRY - Last Filed: 07/14/17 21:44> - Vital signs Vitals: Pulse BP Pulse Ox 80 110/83 98 07/14/17 17:47 07/14/17 17:47 07/14/17 17:47 - Extremities Notes: no edema (SOTO BERRY) - Skin Notes: dry lower legs (SOTO BERRY) Course - Laboratory Result Diagrams: 07/14/17 17:50 07/14/17 17:50 <MELE CATHERINE - Last Filed: 07/14/17 20:49> - Laboratory Result Diagrams: 07/14/17 17:50 07/14/17 17:50 - EKG Interpretation by Tn EKG shows normal: Sinus rhythm Rate: Normal Rhythm: NSR <SOTO BERRY - Last Filed: 07/14/17 21:44> - Re-evaluation Re-evalutation: 07/14/17 19:58 Evaluated at bedside, patient minimally responsive. Even respirations, not tachycardic, still placing IV for normal saline bolus, will move to a monitored bed. Manolo Berry [facility] has already performed a CAT scan of the head which is pending. 07/14/17 20:10 Patient remains protecting her airway but essentially unresponsive even with sternal rub. CAT scan of the head with no acute findings, shows calcifications , does not explain her altered mental status and coma. Patient is very hypothyroid, has hypocalcemia, concern for metabolic derangements causing altered mental status and myxedema coma. Spoke with Dr. Bauer, he recommends transfer to tertiary care center for endocrinology. Will give Synthroid 0.2 mg IV, confirmed this dose. Called and spoke with Dr. Goldberg, patient's primary care provider, updated him on patient's status, he agrees with transfer to tertiary center. 07/14/17 20:[address] Jacob Marcus, internal medicine, patient is accepted for transfer to [facility]. Rechecking calcium and venous blood gas. 07/14/17 20:50 Unfortunately found that patient has not actually received the IV calcium or IV magnesium despite this being ordered, patient will be given both now. (MELE CATHERINE) 07/14/17 17:32 I was the provider yesterday, she does not look dehydrated anymore, minimal [place] sign. 07/14/17 18:[address] Goldberg her primary care doctor and she does not keep her appointments and is not compliant with her calcitriol and calcium carbonate. She is chronically hypocalcemic and hypomagnesemic and hypothyroid , due to noncompliance with her Synthroid. He recommended to put her on Synthroid 75 mcg daily we will start that tomorrow since she had 50 mcg today, and infuse calcium gluconate 2gms IV since she only crystal to 5.5 after the IV caclium yesterday. I told him that she will be IVC'd in ER awaiting psych evaluation in the morning. 07/14/17 19:23 mg 1.4 Mg 2 gm ordered IV, accucheck ordered, nurse concerned about her not responding. Care transferred to [facility]. I added Head CT. 07/14/17 19:[address] done, nurse said BP systolic is 89, 1 liter NS ordered. (SOTO BERRY) - Vital Signs Vital signs: Temp Pulse Resp BP Pulse Ox 97.2 F 60 19 112/94 H 99 07/14/17 19:05 07/14/17 20:15 07/14/17 21:31 07/14/17 21:31 07/14/17 21:31 - Laboratory Laboratory results interpreted by me: 07/14/17 07/14/17 07/14/17 17:50 17:50 17:50 Seg Neutrophils % 37.0 L Lymphocytes % 52.8 H Absolute Neutrophils 1.6 L Carbon Dioxide 33 H BUN 5 L Calcium 5.5 L* Magnesium TSH 77.10 H Free T4 0.60 L Free T3 pg/mL 1.28 L Salicylates < 1.0 L Acetaminophen < 10 L 07/14/17 17:50 Seg Neutrophils % Lymphocytes % Absolute Neutrophils Carbon Dioxide BUN Calcium Magnesium 1.4 L TSH Free T4 Free T3 pg/mL Salicylates Acetaminophen Discharge <MELE CATHERINE - Last Filed: 07/14/17 20:49> <SOTO BERRY - Last Filed: 07/14/17 21:44> - Discharge Clinical Impression: Hypocalcemia Psychosis Qualifiers: Psychosis type: other Qualified Code(s): F28 - Other psychotic disorder not due to a substance or known physiological condition Hypothyroid Qualifiers: Hypothyroidism type: acquired Qualified Code(s): E03.9 - Hypothyroidism, unspecified
[2017-07-14 18:00] LABS: ABSOLUTE BASOPHILS # (AUTO) 0.1 10^3/uL (0.0-0.2); ABSOLUTE LYMPHOCYTES (AUTO) 2.3 10^3/uL (0.5-4.7); ABSOLUTE MONOCYTES (AUTO) 0.4 10^3/uL (0.1-1.4); ABSOLUTE NEUT (AUTO) 1.6 10^3/uL (1.7-8.2); BASOPHILS % (AUTO) 1.2 % (0-2); EOSINOPHILS % (AUTO) 0.9 % (0-6); HEMATOCRIT 36.5 % (36.0-47.0); HEMOGLOBIN 12.2 g/dL (12.0-15.5); HGB HCT DIFFERENCE 0.1; LYMPHOCYTES % (AUTO) 52.8 % (13-45); MEAN CORPUSCULAR HEMOGLOBIN 28.6 pg (27.0-33.4); MEAN CORPUSCULAR HGB CONC 33.3 g/dL (32.0-36.0); MEAN CORPUSCULAR VOLUME 86 fl (80-97); MONOCYTES % (AUTO) 8.1 % (3-13); RED BLOOD COUNT 4.26 10^6/uL (3.72-5.28); RED CELL DISTRIBUTION WIDTH 13.4 % (11.5-14.0); WHITE BLOOD COUNT 4.5 10^3/uL (4.0-10.5)
[2017-07-14 18:06] LABS: APPEARANCE,URINE CLEAR; BILIRUBIN,URINE NEGATIVE (NEGATIVE); GLUCOSE, URINE NEGATIVE (NEGATIVE); KETONES,URINE NEGATIVE (NEGATIVE); LEUKOCYTE ESTERASE,URINE NEGATIVE (NEGATIVE); NITRITE,URINE NEGATIVE (NEGATIVE); PROTEIN,URINE NEGATIVE (NEGATIVE); URINE SPECIFIC GRAVITY 1.005; UROBILINOGEN,URINE NEGATIVE mg/dL (<2.0)
[2017-07-14 18:17] LABS: ALANINE AMINOTRANSFERASE 23 U/L (9-52); ALKALINE PHOSPHATASE 56 U/L (38-126); ANION GAP 11 (5-19); ASPARTATE AMINO TRANSFERASE 23 U/L (14-36); BILIRUBIN,DIRECT 0.2 mg/dL (0.0-0.4); BILIRUBIN,TOTAL 0.3 mg/dL (0.2-1.3); BLOOD UREA NITROGEN 5 mg/dL (7-20); CARBON DIOXIDE 33 mmol/L (22-30); CHLORIDE 98 mmol/L (98-107); CREATININE RESULT 0.81 mg/dL (0.52-1.25); GLUCOSE 76 mg/dL (75-110); POTASSIUM 4.2 mmol/L (3.6-5.0)
[2017-07-14 18:20] LABS: URINE BARBITURATES SCREEN NEGATIVE; URINE METHADONE SCREEN NEGATIVE; URINE OPIATES LOW NEGATIVE; URINE PHENCYCLIDINE SCREEN NEGATIVE
[2017-07-14 18:23] LABS: ALCOHOL < 10 mg/dL (NONE DETECTED)
[2017-07-14 18:26] LABS: CALCIUM 5.5 mg/dL (8.4-10.2)
[2017-07-14 18:33] LABS: FREE T3 1.28 pg/mL (2.77-5.27)
[2017-07-14 18:47] LABS: THYROID STIMULATING HORMONE 77.1 uIU/mL (0.47-4.68)
[2017-07-14] MEDS ORDERED: CALCIUM GLUCONATE 1000 MG/10 ML INJ IV ONE (18:50)
[2017-07-14] MEDS ORDERED: CALCITRIOL 0.25 MCG CAPSULE PO ONE (18:54)
[2017-07-14] MEDS ORDERED: CALCIUM CARBONATE 500 MG TAB.CHEW PO SCH (19:00)
[2017-07-14] MEDS ORDERED: MAGNESIUM SULFATE/D5W 1 GM/100 ML RTUPB IV SCH (19:30)
[2017-07-14] MEDS ORDERED: NORMAL SALINE 1000 ML 1,000 ML IV ONE (19:43)
--- NOTE | 2017-07-14 19:59 | RADIOLOGY REPORT (SQ) ---
EXAM DESCRIPTION: CT HEAD WITHOUT COMPLETED DATE/TIME: 07/14/2017 7:39 pm REASON FOR STUDY: headache COMPARISON: None. TECHNIQUE: Axial images acquired through the brain without intravenous contrast. Images reviewed wi th bone, brain and subdural windows. Images stored on PACS. All CT scanners at this facility use dose modulation, iterative reconstruction, and/or weight based d osing when appropriate to reduce radiation dose to as low as reasonably achievable (ALARA). [facility]: Dose Right [facility]: CareDose [facility]: Dose Right [facility]: Teradose 4D [facility]: Smart Healthify RADIATION DOSE: CT Rad equipment meets quality standard of care and radiation dose reduction techniq ues were employed. CTDIvol: 64.6 mGy. DLP: 1163 mGy-cm. mGy. LIMITATIONS: None. FINDINGS: VENTRICLES: Normal size and contour. CEREBRUM: No masses. No hemorrhage. No midline shift. No evidence for acute infarction. There is e xtensive calcification in the. Ventricular white matter predominantly internal external capsule. Ad ditional calcifications are seen in the cerebellar hemispheres. No mass effect. CEREBELLUM: Cerebellar hemispheric calcifications similar to the periventricular calcification. EXTRAAXIAL SPACES: No fluid collections. No masses. ORBITS AND GLOBE: No intra- or extraconal masses. Normal contour of globe without masses. CALVARIUM: No fracture. PARANASAL SINUSES: No fluid or mucosal thickening. SOFT TISSUES: No mass or hematoma. OTHER: No other significant finding. IMPRESSION: Unusual calcification pattern in the brain without mass effect. Differential includes s equelae from hyperparathyroidism, congenital infection, FAHR disease, prior anoxia, and a host of oth er rare diseases. No acute intracranial process. EVIDENCE OF ACUTE STROKE: NO. COMMENT: Quality ID # [id number]: Final reports with documentation of one or more dose reduction techniques (e.g., Automated exposure control, adjustment of the mA and/or kV according to patient size, use of iterative reconstruction technique) TECHNICAL DOCUMENTATION: JOB ID: [id number] [email or web address]- All Rights Reserved
[2017-07-14] MEDS ORDERED: LEVOTHYROXINE SODIUM INJ/PF 0.5 MG SDV IV ONE (20:09)
[2017-07-14] MEDS ORDERED: LEVOTHYROXINE SODIUM INJ/PF 0.1 MG SDV ONE (21:12)
[2017-07-14 22:05] LABS: VENOUS BLOOD BASE EXCESS 2.6 mmol/L; VENOUS BLOOD PCO2 64.1 mmHg (35-63); VENOUS BLOOD PH 7.3 (7.30-7.42)
--- NOTE | 2017-07-14 22:07 | EKG REPORT ---
SEVERITY:- BORDERLINE ECG - SINUS RHYTHM PROBABLE LEFT ATRIAL ABNORMALITY LOW VOLTAGE IN FRONTAL LEADS BORDERLINE T ABNORMALITIES, DIFFUSE LEADS : Confirmed by: Mónica Strickland 14-Jul-2017 22:07:16
[2017-07-15 01:38] VITALS: BP 116/94
[2017-07-15] MEDS ORDERED: CALCITRIOL 0.25 MCG CAPSULE PO SCH ×2 (10:00)
[2017-07-15] MEDS ORDERED: LEVOTHYROXINE SODIUM 0.075 MG TABLET PO SCH (10:00)
[2017-07-15] MEDS ORDERED: CALCIUM CARBONATE 500 MG TAB.CHEW PO SCH (10:00)
== END 2017-07-14 23:50 | disposition short-term general hospital (02) ==
LOC: ER 16:59
DX: F29 Unspecified psychosis not due to a substance or known physiological condition (principal); E83.51 Hypocalcemia; E89.0 Postprocedural hypothyroidism; I10 Essential (primary) hypertension; J45.909 Unspecified asthma, uncomplicated; Z91.14 Patient's other noncompliance with medication regimen; Z88.0 Allergy status to penicillin
CPT/HCPCS: 93005; 99285; 96361; 51701; 96375; 96365; 36415; 87086; 84439; 82962; 80307 ×4; 83735; 84443; 84703; 85025; 80048; 80053; 81001; 84481; 82803; 70450; 93010; J0610; J3475; J7030; J3490

== ENCOUNTER 2018-01-11 09:40 | Emergency (ER) | payer MEDICAID, OTHER ==
[2018-01-11 10:11] VITALS: BP 98/78
[2018-01-11] MEDS ORDERED: KETOROLAC TROMETHAMINE 60 MG/2 ML SDV IM ONE (10:11)
--- NOTE | 2018-01-11 10:22 | ER Document Report ---
ED General - General Chief Complaint: Shoulder Pain Stated Complaint: LEFT SHOULDER PAIN Time Seen by Provider: 01/11/18 10:04 Mode of Arrival: Ambulatory Information source: Patient Notes: 42 yr old female presents with hx of hypocalcemia presents with complaints of left shoulder pain, pt notes it is on going for 3 days . pt is able to pinpoint area of tenderness, notes that she believes it may be her low calcium causing the cramping TRAVEL OUTSIDE OF THE [place] IN LAST 30 DAYS: No - HPI Onset: Other - 3 days Onset/Duration: Persistent Quality of pain: Sharp Severity: Mild Pain Level: 1 Associated symptoms: Other Exacerbated by: Movement Relieved by: Denies Similar symptoms previously: No Recently seen / treated by doctor: No - Related Data Allergies/Adverse Reactions: amoxicillin Allergy (Verified 07/13/17 13:20) Past Medical History - Social History Smoking Status: Current Every Day Smoker Cigarette use (# per day): Yes Chew tobacco use (# tins/day): No Smoking Education Provided: No Frequency of alcohol use: None Drug Abuse: None Family History: Reviewed & Not Pertinent, CAD, Malignancy Patient has suicidal ideation: No Patient has homicidal ideation: No - Past Medical History Cardiac Medical History: Reports: Hx Congestive Heart Failure - Cardiomyopathy. , Hx Hypercholesterolemia, Hx Hypertension Denies: Hx Coronary Artery Disease Pulmonary Medical History: Reports: Hx Asthma, Hx Pneumonia Endocrine Medical History: Reports: Hx Hypothyroidism - POST- REMOVAL OF GOITER 1999. Denies: Hx Diabetes Mellitus Type 1, Hx Diabetes Mellitus Type 2 Renal/ Medical History: Reports: Hx Kidney Stones. Denies: Hx Peritoneal Dialysis Musculoskeltal Medical History: Denies Hx Gout Psychiatric Medical History: Reports: Hx Depression Past Surgical History: Reports: Hx Cardiac Surgery - Pacemaker,Defibrillator, Hx Section, Hx Internal Defibrillator, Hx Pacemaker - defibrillator, Hx Thyroid Surgery, Hx Tubal Ligation - Immunizations Hx Diphtheria, Pertussis, Tetanus Vaccination: Yes Hx Pneumococcal Vaccination: 04/20/14 Review of Systems - Review of Systems Notes: REVIEW OF SYSTEMS: CONSTITUTIONAL : Denies fever, chills, or sweats. Denies recent illness. EENT: Denies eye, ear, throat, or mouth pain or symptoms. Denies nasal or sinus congestion or discharge. Denies throat, tongue, or mouth swelling or difficulty swallowing. CARDIOVASCULAR: Denies chest pain. Denies palpitations or racing or irregular heart beat. Denies ankle edema. RESPIRATORY: Denies cough, cold, or chest congestion. Denies shortness of breath, difficulty breathing, or wheezing. GASTROINTESTINAL: Denies abdominal pain or distention. Denies nausea, vomiting , or diarrhea. Denies blood in vomitus, stools, or per rectum. Denies black, tarry stools. Denies constipation. GENITOURINARY: Denies difficulty urinating, painful urination, burning, frequency, blood in urine, or discharge. FEMALE GENITOURINARY: Denies vaginal bleeding, heavy or abnormal periods, irregular periods. Denies vaginal discharge or odor. MUSCULOSKELETAL: admits to left shoulder pain SKIN: Denies rash, lesions or sores. HEMATOLOGIC : Denies easy bruising or bleeding. LYMPHATIC: Denies swollen, enlarged glands. NEUROLOGICAL: Denies confusion or altered mental status. Denies passing out or loss of consciousness. Denies dizziness or lightheadedness. Denies headache. Denies weakness or paralysis or loss of use of either side. Denies problems with gait or speech. Denies sensory loss, numbness, or tingling. Denies seizures. PSYCHIATRIC: Denies anxiety or stress. Denies depression, suicidal ideation, or homicidal ideation. ALL OTHER SYSTEMS REVIEWED AND NEGATIVE. PHYSICAL EXAMINATION: GENERAL: Well-appearing, well-nourished and in no acute distress. HEAD: Atraumatic, normocephalic. EYES: Pupils equal round and reactive to light, extraocular movements intact, conjunctiva are normal. ENT: Nares patent, oropharynx clear without exudates. Moist mucous membranes. NECK: Normal range of motion, supple without lymphadenopathy LUNGS: Breath sounds clear to auscultation bilaterally and equal. No wheezes rales or rhonchi. HEART: Regular rate and rhythm without murmurs ABDOMEN: Soft, nontender, nondistended abdomen. No guarding, no rebound. No masses appreciated. Female : deferred Musculoskeletal: pts left arm is to her side, notes pain at the ac joint with rom, limited . NEUROLOGICAL: Cranial nerves grossly intact. Normal speech, normal gait. Normal sensory, motor exams PSYCH: Normal mood, normal affect. SKIN: Warm, Dry, normal turgor, no rashes or lesions noted. Dictation was performed using [email or web address] recognition software Physical Exam - Vital signs Vitals: Temp Pulse Resp BP Pulse Ox 98.3 F 115 H 14 93/70 L 96 01/11/18 09:45 01/11/18 09:45 01/11/18 09:45 01/11/18 09:45 01/11/18 09:45 Course - Re-evaluation Re-evalutation: 01/11/18 10:24 pt has no known trauma but awoke with this pain, denies any fevers or chills. denies any chest pain 01/11/18 11:07 Calcium is 7, will give calcium gluconate 01/11/18 12:33 Patient notes improvement of her shoulder pain is able to lift the shoulder now to 45 which is much better than before After performing a Medical Screening Examination, I estimate there is LOW risk for RUPTURED ESOPHAGUS, PNEUMOTHORAX, PULMONARY EMBOLISM, ACUTE CORONARY SYNDROME, OR THORACIC AORTIC DISSECTION, thus I consider the discharge disposition reasonable. I have reevaluated this patient multiple times and no significant life threatening changes are noted. The patient and I have discussed the diagnosis and risks, and we agree with discharging home with close follow-up. We also discussed returning to the Emergency Department immediately if new or worsening symptoms occur. We have discussed the symptoms which are most concerning (e.g., bloody sputum, worsening pain or shortness of breath) that necessitate immediate return. - Vital Signs Vital signs: Temp Pulse Resp BP Pulse Ox 98.3 F 109 H 16 98/78 L 93 01/11/18 09:45 01/11/18 10:10 01/11/18 10:10 01/11/18 10:10 01/11/18 10:10 - Laboratory Result Diagrams: 01/11/18 10:25 Laboratory results interpreted by me: 01/11/18 10:25 Glucose 69 L Calcium 7.0 L* Direct Bilirubin 0.5 H Discharge - Discharge Clinical Impression: Hypocalcemia, Acute pain of left shoulder Condition: Stable Disposition: HOME, SELF-CARE Instructions: Tendonitis ([facility]) Prescriptions: Ibuprofen [Motrin 600 Mg Tablet] 600 mg PO TID #30 tablet Referrals: TAI TAYLOR MD [Primary Care Provider] - Follow up tomorrow
[2018-01-11 10:54] LABS: ALANINE AMINOTRANSFERASE 18 U/L (9-52); ALBUMIN 4.1 g/dL (3.5-5.0); ALKALINE PHOSPHATASE 77 U/L (38-126); ANION GAP 13 (5-19); ASPARTATE AMINO TRANSFERASE 22 U/L (14-36); BILIRUBIN,DIRECT 0.5 mg/dL (0.0-0.4); BLOOD UREA NITROGEN 12 mg/dL (7-20); CARBON DIOXIDE 27 mmol/L (22-30); CHLORIDE 101 mmol/L (98-107); GLUCOSE 69 mg/dL (75-110); SODIUM 140.8 mmol/L (137-145); TOTAL PROTEIN 7.9 g/dL (6.3-8.2)
[2018-01-11] MEDS ORDERED: CALCIUM GLUCONATE 1000 MG/10 ML INJ IV ONE (11:07)
== END 2018-01-11 12:37 | disposition home or self-care (01) ==
LOC: ER 09:40
DX: E83.51 Hypocalcemia (principal); M25.512 Pain in left shoulder; F17.210 Nicotine dependence, cigarettes, uncomplicated; I10 Essential (primary) hypertension
CPT/HCPCS: 99283; 96372; 96374; 36415; 80053; J0610; J1885

== ENCOUNTER 2018-02-12 07:56 | Inpatient (IN) | payer MEDICAID ==
[2018-02-12] MEDS ORDERED: HYDROMORPHONE HCL INJ/PF 2 MG/ML AMPULE IV ONE ×2 (09:04→12:16)
[2018-02-12] MEDS ORDERED: KETOROLAC TROMETHAMINE INJ/PF 30 MG/1 ML SDV IV ONE (09:05)
--- NOTE | 2018-02-12 09:05 | ER Document Report ---
ED General - General Chief Complaint: Shortness Of Breath Stated Complaint: JOINT PAIN Time Seen by Provider: 02/12/18 08:19 Notes: 42-year-old female. History of cardiomyopathy. Pacemaker. History of parathyroidectomy now with hypocalcemia. Frequent visits to the emergency department for diffuse pain and hypocalcemia. Patient states that she has some chest pain as well. Most of her pain is located in her bilateral shoulders and low back. Followed by pain management but states that she has not been able to see them recently and does not have any more pain medication. Thinks that her calcium may be low as well. Denies any fever, chills, sweats. No significant shortness of breath. TRAVEL OUTSIDE OF THE [place] IN LAST 30 DAYS: No - HPI Onset: Yesterday Onset/Duration: Gradual, Worse Quality of pain: Achy Severity: Moderate Pain Level: 2 - Related Data Allergies/Adverse Reactions: amoxicillin Allergy (Verified 02/12/18 07:57) Past Medical History - General Information source: [facility], [facility] - Social History Smoking Status: Former Smoker Chew tobacco use (# tins/day): No Frequency of alcohol use: None Drug Abuse: None Lives with: Spouse/Significant other Family History: Reviewed & Not Pertinent, CAD, Malignancy Patient has suicidal ideation: No Patient has homicidal ideation: No - Past Medical History Cardiac Medical History: Reports: Hx Congestive Heart Failure - Cardiomyopathy. , Hx Hypercholesterolemia, Hx Hypertension Denies: Hx Coronary Artery Disease Pulmonary Medical History: Reports: Hx Asthma, Hx Pneumonia Endocrine Medical History: Reports: Hx Hypothyroidism - POST- REMOVAL OF GOITER 1999. Denies: Hx Diabetes Mellitus Type 1, Hx Diabetes Mellitus Type 2 Renal/ Medical History: Reports: Hx Kidney Stones. Denies: Hx Peritoneal Dialysis Musculoskeletal Medical History: Denies Hx Gout Psychiatric Medical History: Reports: Hx Depression Past Surgical History: Reports: Hx Cardiac Surgery - Pacemaker,Defibrillator, Hx Section, Hx Internal Defibrillator, Hx Pacemaker - defibrillator, Hx Thyroid Surgery, Hx Tubal Ligation - Immunizations Hx Diphtheria, Pertussis, Tetanus Vaccination: Yes Hx Pneumococcal Vaccination: 04/20/14 Review of Systems - Review of Systems Constitutional: denies: Fever, Malaise, Weakness EENT: denies: Double vision, Difficulty swallowing, Throat swelling, Mouth pain Cardiovascular: Chest pain, Palpitations, Heart racing, Lightheaded. denies: Orthopnea, Dyspnea, Syncope, Dizziness Respiratory: denies: Cough, Hurts to breathe, Short of breath, Wheezing Gastrointestinal: denies: Abdominal pain, Diarrhea, Nausea, Vomiting Genitourinary: denies: Burning, Dysuria, Discharge Musculoskeletal: Back pain, Joint pain, Muscle pain, Muscle stiffness Skin: denies: Dryness, Lesions, Lumps, Rash Neurological/Psychological: denies: Confusion, Weakness, Numbness Physical Exam - Vital signs Vitals: Temp Pulse Resp BP Pulse Ox 97.8 F 110 H 22 H 109/92 H 94 02/12/18 08:04 02/12/18 08:04 02/12/18 08:04 02/12/18 08:04 02/12/18 08:04 Course - Re-evaluation Re-evalutation: 02/12/18 13:25 Patient with extremely low calcium, muscular symptoms, prolonged QT level on EKG concerning with this profound hypocalcemia. IV calcium ordered. Pain medication ordered. Slight elevation in BNP but do not know what her baseline BNP is with her underlying history of congestive heart failure. At this time will admit to the hospital. Attempting to contact patient's primary care doctor , Dr. Tai. Have tried numerous occasions to contact him but have been breonna successful. May need to contact hospitalist for admission at this time unable to contact Dr. Tai 02/12/18 13:31 Patient began having some chest pain after getting Dilaudid. Oxygen levels dropped. Could be medication related but repeating chest x-ray EKG, troponin and repeat calcium level. 02/12/18 13:43 Repeat EKG performed. QTc is still prolonged at 549. Repeat dose of calcium ordered. Magnesium infusion ordered. Acuity increased. 02/12/18 13:[address] Tai who states that this is no longer his patient. Consulted hospitalist who will come see patient at this time. - Vital Signs Vital signs: Temp Pulse Resp BP Pulse Ox 97.8 F 110 H 13 106/82 98 02/12/18 08:04 02/12/18 08:04 02/12/18 15:07 02/12/18 15:08 02/12/18 15:08 - Laboratory Result Diagrams: 02/12/18 08:55 02/12/18 08:55 Laboratory results interpreted by me: 02/12/18 02/12/18 02/12/18 08:55 08:55 08:55 Hct 35.0 L RDW 14.1 H Glucose 67 L Calcium 5.0 L* Ionized Calcium [place] Magnesium 1.3 L AST 39 H Creatine Kinase 423 H NT-Pro-B Natriuret Pep 4610 H Urine Protein Urine Ketones Urine Blood Urine Urobilinogen Ur Leukocyte Esterase 02/12/18 02/12/18 09:53 10:45 Hct RDW Glucose Calcium Ionized Calcium [place] 0.67 L Magnesium AST Creatine Kinase NT-Pro-B Natriuret Pep Urine Protein 30 H Urine Ketones TRACE H Urine Blood SMALL H Urine Urobilinogen 2.0 H Ur Leukocyte Esterase MODERATE H - EKG Interpretation by Me EKG shows normal: Sinus rhythm, QRS Complexes. abnormal: Intervals Additional EKG results interpreted by me: 02/12/18 10:24 corrected QT of 540. Nonspecific T-wave abnormalities. Critical Care Note - Critical Care Note Total time excluding time spent on procedures (mins): 45 Comments: Chest pain, electrolyte abnormality, hypoxia Discharge - Discharge Clinical Impression: Hypocalcemia Congestive heart failure Qualifiers: Heart failure type: unspecified Heart failure chronicity: unspecified Qualified Code(s): I50.9 - Heart failure, unspecified Condition: Fair Disposition: ADMITTED INPATIENT Admitting Provider: Hospitalist [facility] Unit Admitted: [facility]
[2018-02-12 09:21] LABS: ABSOLUTE BASOPHILS # (AUTO) 0.1 10^3/uL (0.0-0.2); ABSOLUTE EOSINOPHILS # (AUTO) 0.1 10^3/uL (0.0-0.6); ABSOLUTE LYMPHOCYTES (AUTO) 2.6 10^3/uL (0.5-4.7); ABSOLUTE MONOCYTES (AUTO) 0.6 10^3/uL (0.1-1.4); BASOPHILS % (AUTO) 1.4 % (0-2); EOSINOPHILS % (AUTO) 1.2 % (0-6); MEAN CORPUSCULAR HEMOGLOBIN 29.9 pg (27.0-33.4); MEAN CORPUSCULAR HGB CONC 34.4 g/dL (32.0-36.0); MEAN CORPUSCULAR VOLUME 87 fl (80-97); MONOCYTES % (AUTO) 9.5 % (3-13); PLATELET COUNT 219 10^3/uL (150-450); RED BLOOD COUNT 4.02 10^6/uL (3.72-5.28); RED CELL DISTRIBUTION WIDTH 14.1 % (11.5-14.0); SEGMENTED NEUTROPHILS % (AUTO) 46.9 % (42-78); TOTAL CELLS COUNTED % (AUTO) 100 %; WHITE BLOOD COUNT 6.4 10^3/uL (4.0-10.5)
[2018-02-12 09:40] LABS: ALANINE AMINOTRANSFERASE 37 U/L (9-52); ALBUMIN 3.8 g/dL (3.5-5.0); ALKALINE PHOSPHATASE 80 U/L (38-126); ANION GAP 14 (5-19); ASPARTATE AMINO TRANSFERASE 39 U/L (14-36); BILIRUBIN,DIRECT 0.3 mg/dL (0.0-0.4); BILIRUBIN,TOTAL 0.6 mg/dL (0.2-1.3); BLOOD UREA NITROGEN 13 mg/dL (7-20); CARBON DIOXIDE 27 mmol/L (22-30); CHLORIDE 101 mmol/L (98-107); CREATINE KINASE 423 U/L (30-135); GLUCOSE 67 mg/dL (75-110); SODIUM 142.3 mmol/L (137-145); TOTAL PROTEIN 7.4 g/dL (6.3-8.2)
--- NOTE | 2018-02-12 09:43 | RADIOLOGY REPORT (SQ) ---
EXAM DESCRIPTION: CHEST SINGLE VIEW COMPLETED DATE/TIME: 02/12/2018 9:24 am REASON FOR STUDY: sob COMPARISON: 02/28/2017. NUMBER OF VIEWS: One view. TECHNIQUE: Single frontal radiographic view of the chest acquired. LIMITATIONS: None. FINDINGS: LUNGS AND PLEURA: No opacities, masses or pneumothorax. No pleural effusion. MEDIASTINUM AND HILAR STRUCTURES: No masses. Contour normal. HEART AND VASCULAR STRUCTURES: Heart enlarged without failure. Normal vasculature. BONES: No acute findings. HARDWARE: Defibrillator. Clips in the soft tissues of the neck. OTHER: No other significant finding. IMPRESSION: HEART ENLARGED WITHOUT FAILURE. NO OTHER SIGNIFICANT RADIOGRAPHIC FINDING IN THE CHEST. TECHNICAL DOCUMENTATION: JOB ID: [id number] [employer]- All Rights Reserved Reading location - IP/workstation name: [email or web address]
[2018-02-12 09:52] LABS: CREATINE KINASE MB 0.35 ng/mL (<4.55); NT PRO BNP 4610 pg/mL (<125)
[2018-02-12 09:54] LABS: TROPONIN I < 0.012 ng/mL
[2018-02-12] MEDS ORDERED: CALCIUM GLUCONATE 1000 MG/10 ML INJ IV ONE ×2 (09:55→13:43)
[2018-02-12] MEDS ORDERED: ALBUTEROL SULFATE 0.083% NEB 2.5 MG/3 ML AMPUL NEB ONE (13:28)
[2018-02-12 13:36] LABS: APPEARANCE,URINE SLIGHTLY-CLOUDY; BILIRUBIN,URINE NEGATIVE (NEGATIVE); COLOR,URINE YELLOW; GLUCOSE, URINE NEGATIVE (NEGATIVE); KETONES,URINE TRACE mg/dL (NEGATIVE); LEUKOCYTE ESTERASE,URINE MODERATE (NEGATIVE); NITRITE,URINE NEGATIVE (NEGATIVE); PROTEIN,URINE 30 mg/dL (NEGATIVE); URINE SPECIFIC GRAVITY 1.027
[2018-02-12] MEDS: MAGNESIUM SULFATE/D5W 1 GM/100 ML RTUPB IV SCH ×2 (14:03→17:51)
--- NOTE | 2018-02-12 14:05 | RADIOLOGY REPORT (SQ) ---
EXAM DESCRIPTION: CHEST SINGLE VIEW COMPLETED DATE/TIME: 02/12/2018 1:54 pm REASON FOR STUDY: sob COMPARISON: 02/12/2018 at 0920 hours. NUMBER OF VIEWS: One view. TECHNIQUE: Single frontal radiographic view of the chest acquired. LIMITATIONS: None. FINDINGS: LUNGS AND PLEURA: No opacities, masses or pneumothorax. No pleural effusion. MEDIASTINUM AND HILAR STRUCTURES: No masses. Contour normal. HEART AND VASCULAR STRUCTURES: Heart enlarged without failure. Normal vasculature. BONES: No acute findings. HARDWARE: Defibrillator. Surgical clips in the soft tissues of the neck. OTHER: No other significant finding. IMPRESSION: HEART ENLARGED WITHOUT FAILURE. NO OTHER SIGNIFICANT RADIOGRAPHIC FINDING IN THE CHEST. TECHNICAL DOCUMENTATION: JOB ID: [id number]- All Rights Reserved Reading location - IP/workstation name: [email or web address]
[2018-02-12] MEDS ORDERED: MAG HYDROX/AL HYDROX/SIMETH SUSP 30 ML UDCUP PO PRN (16:47)
[2018-02-12] MEDS ORDERED: NORMAL SALINE 1000 ML 1,000 ML IV PRN (16:47)
[2018-02-12] MEDS ORDERED: ACETAMINOPHEN 325 MG TABLET PO PRN (16:47)
[2018-02-12] MEDS ORDERED: MAGNESIUM HYDROXIDE SUSP 30 ML UDCUP PO PRN (16:47)
--- NOTE | 2018-02-12 17:16 | PDOC H&P ---
History of Present Illness Admission Date/PCP: 02/12/18 14:22 TAI TAYLOR Patient complains of: Muscle cramps and fatigue History of Present Illness: SOPHIE BALBUENA is a 42 year old female with a past medical history secondary to hypoparathyroidism, hypothyroidism, chronic pain related to degenerative disc disease, cardiomyopathy, CHF, pacemaker/AICD who presented to the emergency department today with a complaint of increased fatigue, increased chronic back pain, and muscle spasms similar to previous episodes of hypocalcemia. Evaluation in the emergency department revealed a variable heart rate (40s-110) , hypotension (86/60), hypocalcemia (calcium 5.0; ionized calcium 0.67), hypomagnesia (1.3), CK (423), elevated proBNP (4600), dehydration by urinalysis , and a prolonged QTC on EKG (549). The patient reported that she was previously a patient of Dr. Goldberg (last seen first week of December 2017), but recently had her PCP changed to Dr. Taylor (demonstrates Medicaid card listing him as her PCPs dated 12/23/17). Per ED provider, both providers were contacted and neither are accepting this patient at this time. Therefore, she was referred to the hospitalist service for admission and management of electrolyte derangements secondary to hypoparathyroidism. Past Medical History Cardiac Medical History: Reports: Congestive Heart Failure - Cardiomyopathy., Hyperlipidema, Hypertension Denies: Coronary Artery Disease, Myocardial Infarction Pulmonary Medical History: Reports: Asthma, Pneumonia EENT Medical History: Reports: None Neurological Medical History: Reports: None Endocrine Medical History: Reports: Hypothyroidism - POST- REMOVAL OF GOITER 1999, Other - Hyperparathyroidism (2/2 surgical removal) Denies: Diabetes Mellitus Type 1, Diabetes Mellitus Type 2 Renal/ Medical History: Reports: None Malignancy Medical History: Reports: None GI Medical History: Reports: None Musculoskeltal Medical History: Reports: Other - DDD Skin Medical History: Reports: None Psychiatric Medical History: Reports: Depression Traumatic Medical History: Reports: None Hematology: Reports: None Infectious Medical History: Reports: None Past Surgical History Past Surgical History: Reports: Section, Internal Defibrillator, Pacemaker - defibrillator, Tubal Ligation Social History Information Source: Patient Lives with: Spouse/Significant other Smoking Status: Former Smoker Frequency of Alcohol Use: None Hx Recreational Drug Use: No Drugs: None Hx Prescription Drug Abuse: No - Advance Directive Resuscitation Status: Full Code Surrogate healthcare decision maker:: The patient's cousin, Kanchan Lambert, phone number unavailable at this time. Family History Family History: CAD, Malignancy Parental Family History Reviewed: Yes Children Family History Reviewed: Yes Sibling(s) Family History Reviewed.: Yes Medication/Allergy Home Medications: Aspirin [Aspirin 81 mg Chewable Tablet] 81 mg PO DAILY 02/12/18 Calcitriol [Rocaltrol] 0.5 mcg PO DAILY 02/12/18 Calcium Carbonate [Os-Hayden 500 mg Tablet (Oyster-Shell)] 500 mg PO DAILY Ibuprofen [Motrin 600 mg Tablet] 600 mg PO TID 02/12/18 Levothyroxine Sodium [Synthroid] 100 mcg PO Q6AM 02/12/18 Magnesium Oxide [Mag-Ox 400 mg Tablet] 400 mg PO BID 02/12/18 Allergies/Adverse Reactions: amoxicillin Allergy (Verified 02/12/18 07:57) Review of Systems Constitutional: PRESENT: fatigue, weakness. ABSENT: chills, fever(s), headache( s), weight gain, weight loss Eyes: ABSENT: visual disturbances Ears: ABSENT: hearing changes Cardiovascular: ABSENT: chest pain, dyspnea on exertion, edema, orthropnea, palpitations Respiratory: ABSENT: cough, hemoptysis Gastrointestinal: ABSENT: abdominal pain, constipation, diarrhea, hematemesis, hematochezia, nausea, vomiting Genitourinary: ABSENT: dysuria, hematuria Musculoskeletal: PRESENT: other - muscle spasms/twitching. ABSENT: joint swelling Integumentary: ABSENT: rash, wounds Neurological: ABSENT: abnormal gait, abnormal speech, confusion, dizziness, focal weakness, syncope Psychiatric: ABSENT: anxiety, depression, homidical ideation, suicidal ideation Endocrine: ABSENT: cold intolerance, heat intolerance, polydipsia, polyuria Hematologic/Lymphatic: ABSENT: easy bleeding, easy bruising Physical Exam Vital Signs: Temp Pulse Resp BP Pulse Ox 97.8 F 110 H 13 106/82 98 02/12/18 08:04 02/12/18 08:04 02/12/18 15:07 02/12/18 15:08 02/12/18 15:08 Intake & Output 02/11/18 02/12/18 02/13/18 06:59 06:59 06:59 Intake Total 100 Balance 100 Weight 70.7 kg General appearance: PRESENT: no acute distress, cooperative, well-developed, well-nourished Head exam: PRESENT: atraumatic, normocephalic Eye exam: PRESENT: conjunctiva pink, EOMI, PERRLA. ABSENT: scleral icterus Ear exam: PRESENT: normal external ear exam Mouth exam: PRESENT: moist, tongue midline Neck exam: ABSENT: carotid bruit, JVD, lymphadenopathy, thyromegaly Respiratory exam: PRESENT: clear to auscultation jacoby, symmetrical, unlabored. ABSENT: rales, rhonchi, wheezes Cardiovascular exam: PRESENT: RRR, systolic murmur. ABSENT: diastolic murmur, rubs Pulses: PRESENT: normal dorsalis pedis pul Vascular exam: PRESENT: normal capillary refill GI/Abdominal exam: PRESENT: normal bowel sounds, soft. ABSENT: distended, guarding, mass, organolmegaly, rebound, tenderness Rectal exam: PRESENT: deferred Extremities exam: PRESENT: full ROM. ABSENT: calf tenderness, clubbing, pedal edema Neurological exam: PRESENT: alert, awake, oriented to person, oriented to place , oriented to time, oriented to situation, CN II-XII grossly intact. ABSENT: motor sensory deficit Psychiatric exam: PRESENT: appropriate affect, normal mood. ABSENT: homicidal ideation, suicidal ideation Skin exam: PRESENT: dry, intact, warm. ABSENT: cyanosis, rash Results Laboratory Results: 02/12/18 15:17 Ionized Calcium Aixa 0.86 L Impressions: Chest X-Ray 02/12/18 13:27 IMPRESSION: HEART ENLARGED WITHOUT FAILURE. NO OTHER SIGNIFICANT RADIOGRAPHIC FINDING IN THE CHEST. Assessment & Plan - Diagnosis (1) Hypocalcemia Is this a current diagnosis for this admission?: Yes Plan: Initial calcium low at 5. with normal albumin. Ionized calcium verifies severely depleted calcium is 0.67. She is already been provided 3 g calcium gluconate by the ED physician. Patient reports that her muscle spasms have improved but continues to feel fatigued; however, fatigue may be related to administered IV Dilaudid and/or currently running IV magnesium. We will recheck electrolytes upon completion of currently infusing magnesium. Resume the patient's home dose Os-Hayden. Calcitrol increased from 50 mcg to 75 mcg daily; pt reports that her last dose increase was several months ago. Will obtain 24 hour urine calcium level. Consider endocrinology consultation as the patient has had multiple admissions for the same. Will ask the progressive care unit registered nurse to evaluate and make recommendations. (2) Hypomagnesemia Is this a current diagnosis for this admission?: Yes Plan: Patient with a running history of hypo-magnesium; lab work today reveals magnesium of 1.3. She is already been provided 1 g magnesium by the ED provider. The patient's home dose Mag-Ox is resumed. Will recheck magnesium this afternoon and again with a.m. labs. The registered dietitian has been consulted; appreciate their evaluation recommendations. (3) Congestive heart failure Qualifiers: Heart failure type: unspecified Heart failure chronicity: unspecified Qualified Code(s): I50.9 - Heart failure, unspecified Is this a current diagnosis for this admission?: Yes Plan: Patient reports a history of CHF secondary to cardiomyopathy. Does not know her LVEF, but does report that she has a pacemaker/AICD and is followed by Dr. Kinney as an outpatient. ProBNP is elevated to 4000 with an unknown baseline. Chest x-ray reveals an enlarged heart but no other significant findings. Lung sounds are clear and she only has trace bilateral peripheral edema. We will consult studio technician secondary to cardiomyopathy, CHF, electrolyte derangements, and a prolonged QTC. Her home medications have been reconciled, and it does not appear that the patient is on GWENDOLYN/ARB or beta-lucila therapy. Her daily aspirin therapy is continued. (4) Cardiomyopathy Qualifiers: Cardiomyopathy type: unspecified Qualified Code(s): I42.9 - Cardiomyopathy , unspecified Is this a current diagnosis for this admission?: No Plan: Plan as above. (5) Hypoparathyroidism Qualifiers: Hypoparathyroidism type: unspecified Qualified Code(s): E20.9 - Hypoparathyroidism, unspecified Is this a current diagnosis for this admission?: Yes Plan: Plan as above. (6) Hypothyroid Qualifiers: Hypothyroidism type: acquired Qualified Code(s): E03.9 - Hypothyroidism, unspecified Is this a current diagnosis for this admission?: Yes Plan: Last TSH (07/14/2017) elevated to 77.10. Will recheck TSH with am labs. Continuing home dose of levothyroxine 100 mcg daily; anticipate she will need dose increase. (7) Full code status Is this a current diagnosis for this admission?: Yes - Time Time Spent: 50 to 70 Minutes Medications reviewed and adjusted accordingly: Yes Anticipated discharge: Home - Inpatient Certification Based on my medical assessment, after consideration of the patient's comorbidities, presenting symptoms, or acuity I expect that the services needed warrant INPATIENT care.: Yes I certify that my determination is in accordance with my understanding of Medicare's requirements for reasonable and necessary INPATIENT services [42 CFR 412.3e].: Yes Medical Necessity: Need Close Monitoring Due to Risk of Patient Decompensation, Need For IV Fluids, Need For Continuous Telemetry Monitoring
[2018-02-12] MEDS: IBUPROFEN 600 MG TABLET PO SCH (18:05)
[2018-02-12] MEDS: MAGNESIUM OXIDE 400 MG TABLET PO SCH (18:05)
[2018-02-12 18:23] LABS: ANION GAP 14 (5-19); BLOOD UREA NITROGEN 17 mg/dL (7-20); CARBON DIOXIDE 29 mmol/L (22-30); CHLORIDE 99 mmol/L (98-107); GLUCOSE 74 mg/dL (75-110); PHOSPHORUS 8.2 mg/dL (2.5-4.5); SODIUM 141.8 mmol/L (137-145)
[2018-02-12 18:38] LABS: CALCIUM 6.1 mg/dL (8.4-10.2)
[2018-02-12] MEDS: PROMETHAZINE HCL INJ 25 MG/1 ML VIAL IV PRN ×2 (18:59→23:55)
--- NOTE | 2018-02-12 20:26 | PDOC CONSULTATION ---
Consultation Consult Date: 02/12/18 Attending physician:: ABIGAIL ESCOBAR Consult reason:: Abnormal EKG and history of cardiomyopathy History of Present Illness Admission Date/PCP: 02/12/18 14:22 TAI TAYLOR Patient complains of: Shortness of breath and muscle cramps History of Present Illness: SOPHIE BALBUENA is a 42 year old female with a past medical history secondary to hypoparathyroidism, hypothyroidism, chronic pain related to degenerative disc disease, cardiomyopathy, CHF, pacemaker/AICD who presented to the emergency department today with a complaint of increased fatigue, increased chronic back pain, and muscle spasms similar to previous episodes of hypocalcemia. Evaluation in the emergency department revealed a variable heart rate (40s-110) , hypotension (86/60), hypocalcemia (calcium 5.0; ionized calcium 0.67), hypomagnesia (1.3), CK (423), elevated proBNP (4600), dehydration by urinalysis , and a prolonged QTC on EKG (549). The patient reported that she was previously a patient of Dr. Goldberg (last seen first week of December 2017), but recently had her PCP changed to Dr. Taylor (demonstrates Medicaid card listing him as her PCPs dated 12/23/17). Per ED provider, both providers were contacted and neither are accepting this patient at this time. Therefore, she was referred to the hospitalist service for admission and management of electrolyte derangements secondary to hypoparathyroidism. This history obtained by the hospitalist was reviewed and confirmed. Patient denied any recent defibrillator shocks. Patient claims that she has defibrillator placed since 2005 subsequently battery replacement in 2013, denies any recent defibrillator shocks. She claims that she has had heart catheterization in the past showing no blockages. Past Medical History Cardiac Medical History: Reports: Congestive Heart Failure - Cardiomyopathy., Hyperlipidema, Hypertension Denies: Coronary Artery Disease, Myocardial Infarction Pulmonary Medical History: Reports: Asthma, Pneumonia EENT Medical History: Reports: None Neurological Medical History: Reports: None Endocrine Medical History: Reports: Hypothyroidism - POST- REMOVAL OF GOITER 1999, Other - Hyperparathyroidism (2/2 surgical removal) Denies: Diabetes Mellitus Type 1, Diabetes Mellitus Type 2 Renal/ Medical History: Reports: None Malignancy Medical History: Reports: None GI Medical History: Reports: None Musculoskeltal Medical History: Reports: Other - DDD Denies: Gout Skin Medical History: Reports: None Psychiatric Medical History: Reports: Depression Traumatic Medical History: Reports: None Hematology: Reports: None Infectious Medical History: Reports: None Past Surgical History Past Surgical History: Reports: Section, Internal Defibrillator, Pacemaker - defibrillator, Tubal Ligation Social History Information Source: Patient Lives with: Spouse/Significant other Smoking Status: Former Smoker Cigars Per Day: 2 Number of Years Smokin Last Time Smoked: 2 weeks ago Frequency of Alcohol Use: None Hx Recreational Drug Use: No Drugs: None Hx Prescription Drug Abuse: No - Advance Directive Resuscitation Status: Full Code Surrogate healthcare decision maker:: Kanchan Lambert is listed as emergency contact and surrogate decision-maker at this point. Family History Family History: CAD, Hypertension, Malignancy Parental Family History Reviewed: Yes Children Family History Reviewed: Yes Sibling(s) Family History Reviewed.: Yes Medication/Allergy Home Medications: Aspirin [Aspirin 81 mg Chewable Tablet] 81 mg PO DAILY 02/12/18 Calcitriol [Rocaltrol] 0.5 mcg PO DAILY 02/12/18 Calcium Carbonate [Os-Hayden 500 mg Tablet (Oyster-Shell)] 500 mg PO DAILY Ibuprofen [Motrin 600 mg Tablet] 600 mg PO TID 02/12/18 Levothyroxine Sodium [Synthroid] 100 mcg PO Q6AM 02/12/18 Magnesium Oxide [Mag-Ox 400 mg Tablet] 400 mg PO BID 02/12/18 Allergies/Adverse Reactions: amoxicillin Allergy (Verified 02/12/18 07:57) Review of Systems Review of Systems: Please see history of present illness and past medical history as wall. Constitutional: No fever or chills reported. Head : No recent chronic headaches, recent head injury. Eyes: No recent eye pain, diplopia, redness, discharge, acute visual changes. Ears: No recent chronic ear pain, acute hearing loss, ear discharge. Oral cavity: No recent ulcerations, bleeding, oral cavity discomfort. Neck: No recent acute neck pain reported. Hematologic: No recent easy bruising or bleeding. Lymphatic: No recent lymph node enlargement reported. Cardiovascular system review: See history of present illness. Respiratory system review: No hemoptysis or blood clots in the lungs reported. Mild Shortness of breath on exertion Gastrointestinal system review: Negative for any recent acute hematemesis, melena. Genitourinary system review: No recent acute or chronic hematuria, flank pain, UTI etc. reported. Skin system review: Negative for any recent abnormal bruising, no rash, no pruritus reported. Neurologic: No prior history of strokes, mini strokes, seizure disorder. Psychologic: No history of major psychosis or major depression reported. Musculoskeletal: Minor aches and pains reported. No acute joint swelling reported. Significant problems with back pain and muscle spasm. Endocrine: No recent polyuria, polydipsia, recent heat or cold intolerance. Physical Exam Vital Signs: Temp Pulse Resp BP Pulse Ox 97.3 F 49 L 12 108/75 99 02/12/18 16:51 02/12/18 16:51 02/12/18 16:51 02/12/18 16:51 02/12/18 16:51 Intake & Output 02/11/18 02/12/18 02/13/18 06:59 06:59 06:59 Intake Total 200 Balance 200 Weight 70.7 kg Exam: GENERAL: well-nourished and in no acute distress. Alert and oriented x3 HEAD: Atraumatic, normocephalic. EYES: Pupils equal round and reactive to light, extraocular movements intact, sclera anicteric, conjunctiva are normal. ENT: TMs normal, nares patent, oropharynx clear without exudates. Moist mucous membranes. No oral ulcerations or bleeding gums noted NECK: supple without lymphadenopathy. Trachea is central. No cervical or axillary lymphadenopathy noted. Carotids are 2+, JVD WNL LUNGS: Respiration seems nonlabored, no significant accessory muscle action noted. Breath sounds clear to auscultation bilaterally and equal noted. No wheezes rales or rhonchi noted. No significant dullness noted on percussion. CHEST: Palpation of the chest wall shows no significant chest wall tenderness. Defibrillator noted left-sided chest HEART: [employer], No PSH, 1/6 LALY aortic area, 1/6 montano systolic murmur mitral area, no rubs, no gallops. ABDOMEN: Soft, no significant tenderness appreciated, normoactive bowel sounds. No guarding, no rebound. No rigidity noted . No masses appreciated. EXTREMITIES: Pedal pulses are 1-2+, no calf tenderness noted. No clubbing or cyanosis. negative pedal edema noted NEUROLOGICAL: Focused neurological exam showed no significant neurologic deficit. Normal speech, no focal weakness appreciated. PSYCH: Normal mood, normal affect. Judgment and insight within normal limits. SKIN: No significant ecchymosis, skin is noted to be warm. MUSCULOSKELETAL EXAM: No significant acute joint swelling noted. Results Laboratory Results: 02/12/18 17:49 02/12/18 02/12/18 02/12/18 15:17 17:49 17:49 Sodium 141.8 Potassium 4.0 Chloride 99 Carbon Dioxide 29 Anion Gap 14 BUN 17 Creatinine 0.99 Est GFR ( Amer) > 60 Est GFR (Non-Af Amer) > 60 Glucose 74 L Calcium 6.1 L* Ionized Calcium Aixa 0.86 L 0.85 L Phosphorus 8.2 H Magnesium 1.8 EKG Comments: Shows sinus rhythm with QT prolongation Impressions: Chest X-Ray 02/12/18 13:27 IMPRESSION: HEART ENLARGED WITHOUT FAILURE. NO OTHER SIGNIFICANT RADIOGRAPHIC FINDING IN THE CHEST. Assessment & Plan - Diagnosis (1) Congestive heart failure Qualifiers: Heart failure type: unspecified Heart failure chronicity: unspecified Qualified Code(s): I50.9 - Heart failure, unspecified Is this a current diagnosis for this admission?: Yes (2) Cardiomyopathy Qualifiers: Cardiomyopathy type: unspecified Qualified Code(s): I42.9 - Cardiomyopathy , unspecified Is this a current diagnosis for this admission?: No (4) ICD (implantable cardioverter-defibrillator) in place Is this a current diagnosis for this admission?: Yes (5) Hypoparathyroidism Qualifiers: Hypoparathyroidism type: unspecified Qualified Code(s): E20.9 - Hypoparathyroidism, unspecified Is this a current diagnosis for this admission?: Yes (6) Hypothyroid Qualifiers: Hypothyroidism type: acquired Qualified Code(s): E03.9 - Hypothyroidism, unspecified Is this a current diagnosis for this admission?: Yes - Notes Notes: Congestive heart failure: Seems fairly compensated on clinical exam. Patient advised on salt and fluid restriction. Will order a 2D echo. Blood pressure currently on the low side preventing us from instituting any definitive therapy to help with cardiomyopathy and CHF. Hypocalcemia: Patient on replacement therapy.. Cardiomyopathy: Will try optimize therapy for her underlying cardiomyopathy. At this point blood pressure on the low side. Defibrillator in situ: No recent discharges per patient. Hypothyroidism: Recommend replacement therapy. Hypoparathyroidism with hypocalcemia: Being well managed by hospitalist. - Time Time Spent: 30 to 50 Minutes - CODE STATUS was discussed, patient remains full code. Surrogate decision-maker unchanged. Multiple medical problems were addressed. More than 50% of the time spent coordinating care, discussing management plans with involved caregivers. Management plans discussed with involved personnels. Medical decision making was of moderate to high complexity , patient's has multiple comorbidities. Medications reviewed and adjusted accordingly: Yes
[2018-02-12] MEDS ORDERED: CALCIUM GLUCONATE 2,000 MG in DEXTROSE 5%-WATER 100 ML IV ONE (20:30)
[2018-02-12] MEDS: HEPARIN SOD (PORCINE) 5,000 UNIT/ML 1 ML SYRINGE SUBCUT SCH (21:42)
[2018-02-12] MEDS: FAMOTIDINE 20 MG TABLET PO SCH (21:42)
--- NOTE | 2018-02-12 23:51 | EKG REPORT ---
SEVERITY:- ABNORMAL ECG - SINUS RHYTHM PROBABLE LEFT ATRIAL ABNORMALITY LOW VOLTAGE IN FRONTAL LEADS NONSPECIFIC T ABNORMALITIES, DIFFUSE LEADS PROLONGED QT INTERVAL : Confirmed by: Carole Joseph MD 12-Feb-2018 23:50:57
--- NOTE | 2018-02-12 23:51 | EKG REPORT ---
SEVERITY:- ABNORMAL ECG - SINUS RHYTHM LOW VOLTAGE IN FRONTAL LEADS NONSPECIFIC T ABNORMALITIES, DIFFUSE LEADS PROLONGED QT INTERVAL : Confirmed by: Carole Joseph MD 12-Feb-2018 23:51:01
[2018-02-13] MEDS: OXYCODONE-ACETAMINOPHEN 5-325 MG TABLET PO PRN (00:19)
[2018-02-13 02:52] LABS: ALBUMIN 3.5 g/dL (3.5-5.0)
[2018-02-13 03:00] LABS: CALCIUM 6.4 mg/dL (8.4-10.2)
[2018-02-13] MEDS ORDERED: CALCIUM GLUCONATE 1000 MG/10 ML INJ IV ONE (03:10)
[2018-02-13] MEDS: HEPARIN SOD (PORCINE) 5,000 UNIT/ML 1 ML SYRINGE SUBCUT SCH ×3 (05:17→22:19)
[2018-02-13] MEDS ORDERED: LEVOTHYROXINE SODIUM 0.1 MG TABLET PO SCH (06:00)
[2018-02-13 06:43] LABS: TOTAL CELLS COUNTED % (AUTO) 100 %
[2018-02-13 06:45] LABS: MEAN CORPUSCULAR HEMOGLOBIN 29.6 pg (27.0-33.4)
[2018-02-13 06:49] LABS: ABSOLUTE BASOPHILS # (AUTO) 0.1 10^3/uL (0.0-0.2); ABSOLUTE EOSINOPHILS # (AUTO) 0.2 10^3/uL (0.0-0.6); ABSOLUTE LYMPHOCYTES (AUTO) 2.8 10^3/uL (0.5-4.7); ABSOLUTE MONOCYTES (AUTO) 0.8 10^3/uL (0.1-1.4); BASOPHILS % (AUTO) 1.2 % (0-2); CREATINE KINASE MB 0.75 ng/mL (<4.55); EOSINOPHILS % (AUTO) 2.4 % (0-6); HEMATOCRIT 27.3 % (36.0-47.0); LYMPHOCYTES % (AUTO) 35.8 % (13-45); MEAN CORPUSCULAR HGB CONC 34.7 g/dL (32.0-36.0); MEAN CORPUSCULAR VOLUME 85 fl (80-97); MONOCYTES % (AUTO) 10.2 % (3-13); PLATELET COUNT 204 10^3/uL (150-450); RED CELL DISTRIBUTION WIDTH 14.1 % (11.5-14.0); SEGMENTED NEUTROPHILS % (AUTO) 50.4 % (42-78); WHITE BLOOD COUNT 7.9 10^3/uL (4.0-10.5)
[2018-02-13 06:54] LABS: ALANINE AMINOTRANSFERASE 31 U/L (9-52); ALBUMIN 3.2 g/dL (3.5-5.0); ALKALINE PHOSPHATASE 62 U/L (38-126); ANION GAP 13 (5-19); ASPARTATE AMINO TRANSFERASE 25 U/L (14-36); BILIRUBIN,DIRECT 0.3 mg/dL (0.0-0.4); BILIRUBIN,TOTAL 0.5 mg/dL (0.2-1.3); BLOOD UREA NITROGEN 18 mg/dL (7-20); CARBON DIOXIDE 26 mmol/L (22-30); CHLORIDE 102 mmol/L (98-107); GLUCOSE 89 mg/dL (75-110); PHOSPHORUS 7.6 mg/dL (2.5-4.5); POTASSIUM 3.7 mmol/L (3.6-5.0); SODIUM 140.5 mmol/L (137-145); TOTAL PROTEIN 6.3 g/dL (6.3-8.2)
[2018-02-13 06:57] LABS: CALCIUM 6.7 mg/dL (8.4-10.2)
[2018-02-13 07:19] LABS: HEMOGLOBIN 9.5 g/dL (12.0-15.5)
--- NOTE | 2018-02-13 09:15 | EKG REPORT ---
SEVERITY:- ABNORMAL ECG - SINUS RHYTHM LOW VOLTAGE THROUGHOUT NONSPECIFIC T ABNORMALITIES, DIFFUSE LEADS BORDERLINE PROLONGED QT INTERVAL : Confirmed by: Carole Joseph MD 13-Feb-2018 09:15:06
[2018-02-13] MEDS: CALCIUM CARBONATE 500 MG TABLET PO SCH ×2 (09:26→17:33)
[2018-02-13] MEDS: ASPIRIN 81 MG TABLET, CHEWABLE PO SCH (09:26)
[2018-02-13] MEDS: DOCUSATE SODIUM 100 MG CAPSULE PO SCH (09:27)
[2018-02-13] MEDS: FAMOTIDINE 20 MG TABLET PO SCH ×2 (09:27→22:09)
[2018-02-13] MEDS: IBUPROFEN 600 MG TABLET PO SCH ×3 (09:27→17:34)
[2018-02-13] MEDS: MAGNESIUM OXIDE 400 MG TABLET PO SCH ×2 (09:27→17:33)
[2018-02-13] MEDS ORDERED: CALCITRIOL 0.25 MCG CAPSULE PO SCH ×2 (10:00)
[2018-02-13] MEDS ORDERED: CALCIUM CARBONATE 500 MG TABLET PO SCH (10:00)
[2018-02-13] MEDS ORDERED: (PENDING PHARMACY ID) (Calcitriol [Rocaltrol 0.5 Mcg Capsule] 0.5 MCG) PO SCH (10:00)
[2018-02-13] MEDS: CALCITRIOL IV SCH (14:16)
--- NOTE | 2018-02-13 14:56 | PDOC PROGRESS REPORT ---
Subjective Progress Note for:: 02/13/18 Subjective:: This is a very pleasant but unfortunate 44 years old black female patient with past medical history of Graves' disease status post total thyroidectomy and inadvertent removal of the parathyroids resulting in hypothyroidism and hypoparathyroidism she presented to us with chief complaints of worsening back pain generalized body aching and fatigue. At presentation in ER her blood work shows severe hypocalcemia with calcium of 5 and hypomagnesemia with magnesium of 1.3 and she was also found to be hypotensive with blood pressure of 80/60. Patient also told me that she ran out of her medication and she has not taken her Synthroid and calcitriol. Her TSH is 55.8 and she has also BNP of 2410. I started her on IV calcitriol and resumed her home dose of 200 mg of Synthroid. Reason For Visit: HYPOCALCEMIA,HYPOMAGNESIA Physical Exam Vital Signs: Temp Pulse Resp BP Pulse Ox 98.2 F 89 18 100/75 94 02/13/18 11:51 02/13/18 11:51 02/13/18 11:51 02/13/18 11:51 02/13/18 11:51 Intake & Output 02/12/18 02/13/18 02/14/18 06:59 06:59 06:59 Intake Total 200 Balance 200 Weight 71.6 kg General appearance: PRESENT: no acute distress, well-developed, well-nourished Head exam: PRESENT: atraumatic, normocephalic Eye exam: PRESENT: conjunctiva pink, EOMI, PERRLA. ABSENT: scleral icterus Ear exam: PRESENT: normal external ear exam Mouth exam: PRESENT: moist, tongue midline Neck exam: ABSENT: carotid bruit, JVD, lymphadenopathy, thyromegaly Respiratory exam: PRESENT: clear to auscultation jacoby. ABSENT: rales, rhonchi, wheezes Cardiovascular exam: PRESENT: RRR. ABSENT: diastolic murmur, rubs, systolic murmur Pulses: PRESENT: normal dorsalis pedis pul Vascular exam: PRESENT: normal capillary refill GI/Abdominal exam: PRESENT: normal bowel sounds, soft. ABSENT: distended, guarding, mass, organolmegaly, rebound, tenderness Rectal exam: PRESENT: deferred Extremities exam: PRESENT: full ROM. ABSENT: calf tenderness, clubbing, pedal edema Neurological exam: PRESENT: alert, awake, oriented to person, oriented to place , oriented to time, oriented to situation. ABSENT: motor sensory deficit Psychiatric exam: PRESENT: appropriate affect, normal mood. ABSENT: homicidal ideation, suicidal ideation Skin exam: PRESENT: dry, intact. ABSENT: cyanosis, rash Results Laboratory Results: 02/13/18 06:10 02/13/18 06:10 02/12/18 02/12/18 02/12/18 15:17 17:49 17:49 WBC RBC Hgb Hct MCV MCH MCHC RDW Plt Count Seg Neutrophils % Lymphocytes % Monocytes % Eosinophils % Basophils % Absolute Neutrophils Absolute Lymphocytes Absolute Monocytes Absolute Eosinophils Absolute Basophils Sodium 141.8 Potassium 4.0 Chloride 99 Carbon Dioxide 29 Anion Gap 14 BUN 17 Creatinine 0.99 Est GFR ( Amer) > 60 Est GFR (Non-Af Amer) > 60 Glucose 74 L Calcium 6.1 L* Ionized Calcium [place] 0.86 L 0.85 L Phosphorus 8.2 H Magnesium 1.8 Total Bilirubin AST ALT Alkaline Phosphatase Total Protein Albumin TSH 02/13/18 02/13/18 02/13/18 02:25 02:25 06:10 WBC 7.9 RBC 3.20 L Hgb 9.5 L D Hct 27.3 L MCV 85 MCH 29.6 MCHC 34.7 RDW 14.1 H Plt Count 204 Seg Neutrophils % 50.4 Lymphocytes % 35.8 Monocytes % 10.2 Eosinophils % 2.4 Basophils % 1.2 Absolute Neutrophils 4.0 Absolute Lymphocytes 2.8 Absolute Monocytes 0.8 Absolute Eosinophils 0.2 Absolute Basophils 0.1 Sodium Potassium Chloride Carbon Dioxide Anion Gap BUN Creatinine Est GFR ( Amer) Est GFR (Non-Af Amer) Glucose Calcium 6.4 L* Ionized Calcium [place] 0.92 L Phosphorus Magnesium Total Bilirubin AST ALT Alkaline Phosphatase Total Protein Albumin 3.5 TSH 02/13/18 02/13/18 02/13/18 06:10 06:10 06:10 WBC RBC Hgb Hct MCV MCH MCHC RDW Plt Count Seg Neutrophils % Lymphocytes % Monocytes % Eosinophils % Basophils % Absolute Neutrophils Absolute Lymphocytes Absolute Monocytes Absolute Eosinophils Absolute Basophils Sodium 140.5 Potassium 3.7 Chloride 102 Carbon Dioxide 26 Anion Gap 13 BUN 18 Creatinine 0.89 Est GFR ( Amer) > 60 Est GFR (Non-Af Amer) > 60 Glucose 89 Calcium 6.7 L* Ionized Calcium [place] 0.91 L Phosphorus 7.6 H Magnesium 1.7 Total Bilirubin 0.5 AST 25 ALT 31 Alkaline Phosphatase 62 Total Protein 6.3 Albumin 3.2 L TSH 55.80 H 02/13/18 06:10 CK-MB (CK-2) 0.75 NT-Pro-B Natriuret Pep 2410 H Impressions: Chest X-Ray 02/12/18 13:27 IMPRESSION: HEART ENLARGED WITHOUT FAILURE. NO OTHER SIGNIFICANT RADIOGRAPHIC FINDING IN THE CHEST. Assessment & Plan - Diagnosis (1) Hypocalcemia Is this a current diagnosis for this admission?: Yes Plan: Is improving. I increased the dose of calcitriol to 1 mcg and change to IV (2) Hypomagnesemia Is this a current diagnosis for this admission?: Yes Plan: Has resolved (3) Uncontrolled hypothyroidism Is this a current diagnosis for this admission?: Yes Plan: Patient reports that she ran out of her Synthroid so she has not taken her medication for several weeks that is why her TSH is markedly elevated. I resumed her home Synthroid 200 mcg p.o. daily. (4) Chronic systolic heart failure Is this a current diagnosis for this admission?: Yes Plan: Compensated (5) Hypoparathyroidism after procedure Is this a current diagnosis for this admission?: Yes Plan: Patient is being managed for hypocalcemia.
--- NOTE | 2018-02-13 19:51 | PDOC PROGRESS REPORT ---
Subjective Progress Note for:: 02/13/18 Subjective:: Patient seems to be doing better with gradual improvement. Pt is denying any chest arm or neck discomfort. Patient denying any PND, orthopnea. Patient denied any sustained palpitations, dizziness, syncope, near syncope. Patient denying any fever chills. Patient denying any other significant discomfort. Patient is maintaining sinus rhythm. Review of systems: Rest review of systems negative. Medications: Medications have been reviewed. Reason For Visit: HYPOCALCEMIA,HYPOMAGNESIA Physical Exam Vital Signs: Temp Pulse Resp BP Pulse Ox 98.3 F 87 18 94/65 L 97 02/13/18 15:25 02/13/18 15:25 02/13/18 15:25 02/13/18 15:25 02/13/18 15:25 Intake & Output 02/12/18 02/13/18 02/14/18 06:59 06:59 06:59 Intake Total 200 573 Output Total 900 Balance 200 -327 Weight 71.6 kg Exam: GENERAL: well-nourished and in no acute distress. Alert and oriented x3 HEAD: Atraumatic, normocephalic. EYES: Pupils equal round and reactive to light, extraocular movements intact, sclera anicteric, conjunctiva are normal. ENT: TMs normal, nares patent, oropharynx clear without exudates. Moist mucous membranes. No oral ulcerations or bleeding gums noted NECK: supple without lymphadenopathy. Trachea is central. No cervical or axillary lymphadenopathy noted. Carotids are 2+, JVD WNL LUNGS: Respiration seems nonlabored, no significant accessory muscle action noted. Breath sounds clear to auscultation bilaterally and equal noted. No wheezes rales or rhonchi noted. No significant dullness noted on percussion. CHEST: Palpation of the chest wall shows no significant chest wall tenderness. 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 ABDOMEN: Soft, no significant tenderness appreciated, normoactive bowel sounds. No guarding, no rebound. No rigidity noted . No masses appreciated. EXTREMITIES: Pedal pulses are 1-2+, no calf tenderness noted. No clubbing or cyanosis. negative pedal edema noted NEUROLOGICAL: Focused neurological exam showed no significant neurologic deficit. Normal speech, no focal weakness appreciated. PSYCH: Normal mood, normal affect. Judgment and insight within normal limits. SKIN: No significant ecchymosis, skin is noted to be warm. MUSCULOSKELETAL EXAM: No significant acute joint swelling noted. Results Laboratory Results: 02/13/18 06:10 02/13/18 06:10 02/13/18 02/13/18 02/13/18 02:25 02:25 06:10 WBC 7.9 RBC 3.20 L Hgb 9.5 L D Hct 27.3 L MCV 85 MCH 29.6 MCHC 34.7 RDW 14.1 H Plt Count 204 Seg Neutrophils % 50.4 Lymphocytes % 35.8 Monocytes % 10.2 Eosinophils % 2.4 Basophils % 1.2 Absolute Neutrophils 4.0 Absolute Lymphocytes 2.8 Absolute Monocytes 0.8 Absolute Eosinophils 0.2 Absolute Basophils 0.1 Sodium Potassium Chloride Carbon Dioxide Anion Gap BUN Creatinine Est GFR ( Amer) Est GFR (Non-Af Amer) Glucose Calcium 6.4 L* Ionized Calcium [place] 0.92 L Phosphorus Magnesium Total Bilirubin AST ALT Alkaline Phosphatase Total Protein Albumin 3.5 TSH 02/13/18 02/13/18 02/13/18 06:10 06:10 06:10 WBC RBC Hgb Hct MCV MCH MCHC RDW Plt Count Seg Neutrophils % Lymphocytes % Monocytes % Eosinophils % Basophils % Absolute Neutrophils Absolute Lymphocytes Absolute Monocytes Absolute Eosinophils Absolute Basophils Sodium 140.5 Potassium 3.7 Chloride 102 Carbon Dioxide 26 Anion Gap 13 BUN 18 Creatinine 0.89 Est GFR ( Amer) > 60 Est GFR (Non-Af Amer) > 60 Glucose 89 Calcium 6.7 L* Ionized Calcium [place] 0.91 L Phosphorus 7.6 H Magnesium 1.7 Total Bilirubin 0.5 AST 25 ALT 31 Alkaline Phosphatase 62 Total Protein 6.3 Albumin 3.2 L TSH 55.80 H 02/13/18 06:10 CK-MB (CK-2) 0.75 NT-Pro-B Natriuret Pep 2410 H EKG Comments: Telemetry shows sinus rhythm without any sustained tachycardia or bradycardia. Impressions: Chest X-Ray 02/12/18 13:27 IMPRESSION: HEART ENLARGED WITHOUT FAILURE. NO OTHER SIGNIFICANT RADIOGRAPHIC FINDING IN THE CHEST. Assessment & Plan - Diagnosis (1) Congestive heart failure Qualifiers: Heart failure type: unspecified Heart failure chronicity: unspecified Qualified Code(s): I50.9 - Heart failure, unspecified Is this a current diagnosis for this admission?: Yes (2) Hypocalcemia Is this a current diagnosis for this admission?: Yes (3) Cardiomyopathy Qualifiers: Cardiomyopathy type: unspecified Qualified Code(s): I42.9 - Cardiomyopathy , unspecified Is this a current diagnosis for this admission?: No - Notes Notes: 2D echo shows severely depressed LVEF at less than 20%. Telemetry shows sinus rhythm. Patient home medications were reviewed. Unfortunately she is not on any beta- lucila or angiotensin receptor lucila or GWENDOLYN inhibitor. Blood pressure is noted to be on the low side. Will discuss this further with the patient tomorrow to see if we can start patient on any of the neurohormonal modifying agents. Overall prognosis guarded in view of severely depressed LVEF. - Time Time with patient: Greater than 35 minutes - More than 50% of the time spent coordinating care, discussing management plans with involved caregivers. Management plans discussed with involved personnels. Medical decision making was of moderate to high complexity, patient's has multiple comorbidities. Medications reviewed and adjusted accordingly: Yes
[2018-02-13] MEDS: IPRATROPIUM/ALBUTEROL 0.5-2.5 MG/3 ML AMPUL NEB PRN (20:27)
[2018-02-14] MEDS: LEVOTHYROXINE SODIUM 0.1 MG TABLET PO SCH (06:23)
[2018-02-14] MEDS: HEPARIN SOD (PORCINE) 5,000 UNIT/ML 1 ML SYRINGE SUBCUT SCH ×3 (06:25→22:38)
[2018-02-14 08:38] LABS: ANION GAP 12 (5-19); BLOOD UREA NITROGEN 12 mg/dL (7-20); CARBON DIOXIDE 29 mmol/L (22-30); CHLORIDE 101 mmol/L (98-107); GLUCOSE 81 mg/dL (75-110); POTASSIUM 4.1 mmol/L (3.6-5.0); SODIUM 141.7 mmol/L (137-145)
[2018-02-14 09:02] LABS: CALCIUM 6.8 mg/dL (8.4-10.2)
[2018-02-14] MEDS: CALCIUM CARBONATE 500 MG TABLET PO SCH ×3 (09:30→17:17)
[2018-02-14] MEDS: DOCUSATE SODIUM 100 MG CAPSULE PO SCH (09:30)
[2018-02-14] MEDS: CALCITRIOL IV SCH (09:30)
[2018-02-14] MEDS: FAMOTIDINE 20 MG TABLET PO SCH ×2 (09:30→22:37)
[2018-02-14] MEDS: IBUPROFEN 600 MG TABLET PO SCH ×4 (09:31→17:20)
[2018-02-14] MEDS: MAGNESIUM OXIDE 400 MG TABLET PO SCH ×2 (09:31→17:18)
[2018-02-14] MEDS: ASPIRIN 81 MG TABLET, CHEWABLE PO SCH (09:31)
[2018-02-14] MEDS: IPRATROPIUM/ALBUTEROL 0.5-2.5 MG/3 ML AMPUL NEB PRN (09:32)
[2018-02-14] MEDS: OXYCODONE-ACETAMINOPHEN 5-325 MG TABLET PO PRN ×3 (09:50→22:37)
[2018-02-14] MEDS ORDERED: CALCIUM GLUCONATE 1000 MG/10 ML INJ IV ONE (10:30)
--- NOTE | 2018-02-14 11:05 | PDOC PROGRESS REPORT ---
Subjective Progress Note for:: 02/14/18 Subjective:: Patient reported that she feels better except complaining of shortness of breath. And she requested bruising treatment. Her calcium is still low increase the frequency of her calcium from twice daily to 500 mg 3 times a day. Reason For Visit: HYPOCALCEMIA,HYPOMAGNESIA Physical Exam Vital Signs: Temp Pulse Resp BP Pulse Ox 98.0 F 79 16 106/79 93 02/14/18 08:56 02/14/18 09:32 02/14/18 09:32 02/14/18 08:56 02/14/18 08:56 Intake & Output 02/13/18 02/14/18 02/15/18 06:59 06:59 06:59 Intake Total 200 573 Output Total 900 Balance 200 -327 Weight 71.6 kg 73.1 kg General appearance: PRESENT: no acute distress Head exam: PRESENT: atraumatic Mouth exam: PRESENT: moist Neck exam: ABSENT: carotid bruit, JVD, lymphadenopathy, thyromegaly Respiratory exam: PRESENT: clear to auscultation jacoby. ABSENT: rales, rhonchi, wheezes Cardiovascular exam: PRESENT: RRR. ABSENT: diastolic murmur, rubs, systolic murmur GI/Abdominal exam: PRESENT: normal bowel sounds, soft. ABSENT: distended, guarding, mass, organolmegaly, rebound, tenderness Neurological exam: PRESENT: alert, awake, oriented to time, oriented to situation Results Laboratory Results: 02/13/18 06:10 02/14/18 08:09 02/14/18 02/14/18 08:09 08:09 Sodium 141.7 Potassium 4.1 Chloride 101 Carbon Dioxide 29 Anion Gap 12 BUN 12 Creatinine 0.94 Est GFR ( Amer) > 60 Est GFR (Non-Af Amer) > 60 Glucose 81 Calcium 6.8 L* Ionized Calcium [place] 0.91 L 02/13/18 06:10 CK-MB (CK-2) 0.75 NT-Pro-B Natriuret Pep 2410 H Impressions: Chest X-Ray 02/12/18 13:27 IMPRESSION: HEART ENLARGED WITHOUT FAILURE. NO OTHER SIGNIFICANT RADIOGRAPHIC FINDING IN THE CHEST. Assessment & Plan - Diagnosis (1) Hypocalcemia Is this a current diagnosis for this admission?: Yes Plan: Her calcium still low. 1 g of calcium gluconate stat ordered. Serum calcium level for tomorrow. (2) Hypomagnesemia Is this a current diagnosis for this admission?: Yes Plan: Has resolved (3) Uncontrolled hypothyroidism Is this a current diagnosis for this admission?: Yes Plan: Patient reports that she ran out of her Synthroid so she has not taken her medication for several weeks that is why her TSH is markedly elevated. I resumed her home Synthroid 200 mcg p.o. daily. (4) Chronic systolic heart failure Is this a current diagnosis for this admission?: Yes Plan: Compensated (5) Hypoparathyroidism after procedure Is this a current diagnosis for this admission?: Yes Plan: Patient is being managed for hypocalcemia.
[2018-02-14] MEDS: SACUBITRIL/VALSARTAN 24 MG/26 MG TABLET PO SCH (17:17)
--- NOTE | 2018-02-14 19:07 | PDOC PROGRESS REPORT ---
Subjective Progress Note for:: 02/14/18 Subjective:: Patient seems to be doing better with gradual improvement. Pt is denying any chest arm or neck discomfort. Patient denying any PND, orthopnea. Patient denied any sustained palpitations, dizziness, syncope, near syncope. Patient denying any fever chills. Patient denying any other significant discomfort. Patient is maintaining sinus rhythm. Blood pressure has improved. Review of systems: Rest review of systems negative. Medications: Medications have been reviewed. Reason For Visit: HYPOCALCEMIA,HYPOMAGNESIA Physical Exam Vital Signs: Temp Pulse Resp BP Pulse Ox 98.0 F 75 16 104/75 95 02/14/18 15:16 02/14/18 15:16 02/14/18 15:16 02/14/18 15:16 02/14/18 15:16 Intake & Output 02/13/18 02/14/18 02/15/18 06:59 06:59 06:59 Intake Total 200 573 888 Output Total 900 700 Balance 200 -327 188 Weight 71.6 kg 73.1 kg Exam: GENERAL: well-nourished and in no acute distress. Alert and oriented x3 HEAD: Atraumatic, normocephalic. EYES: Pupils equal round and reactive to light, extraocular movements intact, sclera anicteric, conjunctiva are normal. ENT: TMs normal, nares patent, oropharynx clear without exudates. Moist mucous membranes. No oral ulcerations or bleeding gums noted NECK: supple without lymphadenopathy. Trachea is central. No cervical or axillary lymphadenopathy noted. Carotids are 2+, JVD WNL LUNGS: Respiration seems nonlabored, no significant accessory muscle action noted. Breath sounds clear to auscultation bilaterally and equal noted. No wheezes rales or rhonchi noted. No significant dullness noted on percussion. CHEST: Palpation of the chest wall shows no significant chest wall tenderness. 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 ABDOMEN: Soft, no significant tenderness appreciated, normoactive bowel sounds. No guarding, no rebound. No rigidity noted . No masses appreciated. EXTREMITIES: Pedal pulses are 1-2+, no calf tenderness noted. No clubbing or cyanosis. negative pedal edema noted NEUROLOGICAL: Focused neurological exam showed no significant neurologic deficit. Normal speech, no focal weakness appreciated. PSYCH: Normal mood, normal affect. Judgment and insight within normal limits. SKIN: No significant ecchymosis, skin is noted to be warm. MUSCULOSKELETAL EXAM: No significant acute joint swelling noted. Results Laboratory Results: 02/13/18 06:10 02/14/18 08:09 02/14/18 02/14/18 02/14/18 08:09 08:09 11:26 Sodium 141.7 Potassium 4.1 Chloride 101 Carbon Dioxide 29 Anion Gap 12 BUN 12 Creatinine 0.94 Est GFR ( Amer) > 60 Est GFR (Non-Af Amer) > 60 Glucose 81 Calcium 6.8 L* 7.5 L Ionized Calcium [place] 0.91 L 02/13/18 06:10 CK-MB (CK-2) 0.75 NT-Pro-B Natriuret Pep 2410 H EKG Comments: Shows sinus rhythm. No significant tachycardia or bradycardia arrhythmias noted. Impressions: Chest X-Ray 02/12/18 13:27 IMPRESSION: HEART ENLARGED WITHOUT FAILURE. NO OTHER SIGNIFICANT RADIOGRAPHIC FINDING IN THE CHEST. Assessment & Plan - Diagnosis (1) Congestive heart failure Qualifiers: Heart failure type: unspecified Heart failure chronicity: unspecified Qualified Code(s): I50.9 - Heart failure, unspecified Is this a current diagnosis for this admission?: Yes (2) Cardiomyopathy Qualifiers: Cardiomyopathy type: unspecified Qualified Code(s): I42.9 - Cardiomyopathy , unspecified Is this a current diagnosis for this admission?: Yes (4) Hypoparathyroidism Qualifiers: Hypoparathyroidism type: unspecified Qualified Code(s): E20.9 - Hypoparathyroidism, unspecified Is this a current diagnosis for this admission?: Yes (5) Hypothyroid Qualifiers: Hypothyroidism type: acquired Qualified Code(s): E03.9 - Hypothyroidism, unspecified Is this a current diagnosis for this admission?: Yes (6) Cardiac defibrillator in situ Is this a current diagnosis for this admission?: Yes - Notes Notes: Congestive heart failure: Today on clinical exam it seems compensated. Patient advised on salt and fluid restriction. 2D echo results reviewed with the patient. Started patient on entresto today. Side effects discussed. Hypocalcemia: Patient claims that she is getting lower dose of calcium than she is at home. Will discuss this with hospitalist. Cardiomyopathy: Will start patient on entresto therapy. Side effects were discussed. Defibrillator in situ: No recent discharges per patient. Hypothyroidism: Recommend replacement therapy. Hypoparathyroidism with hypocalcemia: Being well managed by hospitalist. - Time Time with patient: Greater than 35 minutes - CODE STATUS was discussed, patient remains full code. Surrogate decision-maker unchanged. Multiple medical problems were addressed. More than 50% of the time spent coordinating care, discussing management plans with involved caregivers. Management plans discussed with involved personnels. Medical decision making was of moderate to high complexity, patient's has multiple comorbidities. Medications reviewed and adjusted accordingly: Yes
[2018-02-15] MEDS: LEVOTHYROXINE SODIUM 0.1 MG TABLET PO SCH (05:38)
[2018-02-15] MEDS: HEPARIN SOD (PORCINE) 5,000 UNIT/ML 1 ML SYRINGE SUBCUT SCH (05:39)
[2018-02-15 06:40] LABS: CALCIUM RANDOM URINE 11.9 mg/dL (Not Estab.); CALCIUM URINE 24HR 127.9 mg/24 hr (100.0-300.); CREATININE URINE 63.3 mg/dL (Not Estab.)
[2018-02-15 08:31] VITALS: BP 104/70
--- NOTE | 2018-02-15 09:42 | PDOC DISCHARGE SUMMARY ---
General - Admit/Disc Date/PCP Admission Date/Primary Care Provider: 02/12/18 14:22 TAI CLAUDIA Discharge Date: 02/15/18 - Discharge Diagnosis (1) Hypocalcemia Is this a current diagnosis for this admission?: Yes (2) Hypomagnesemia Is this a current diagnosis for this admission?: Yes (3) Uncontrolled hypothyroidism Is this a current diagnosis for this admission?: Yes (4) Chronic systolic heart failure Is this a current diagnosis for this admission?: Yes (5) Hypoparathyroidism after procedure Is this a current diagnosis for this admission?: Yes - Additional Information Resuscitation Status: Full Code Home Medications: Aspirin [Aspirin 81 mg Chewable Tablet] 81 mg PO DAILY 02/12/18 Calcitriol [Rocaltrol] 0.5 mcg PO DAILY 02/12/18 Calcium Carbonate [Os-Hayden 500 mg Tablet (Oyster-Shell)] 500 mg PO DAILY Ibuprofen [Motrin 600 mg Tablet] 600 mg PO TID 02/12/18 Levothyroxine Sodium [Synthroid] 100 mcg PO Q6AM 02/12/18 Magnesium Oxide [Mag-Ox 400 mg Tablet] 400 mg PO BID 02/12/18 History of Present Illness History of Present Illness: SOPHIE BALBUENA is a 42 year old female with a past medical history secondary to hypoparathyroidism, hypothyroidism, chronic pain related to degenerative disc disease, cardiomyopathy, CHF, pacemaker/AICD who presented to the emergency department today with a complaint of increased fatigue, increased chronic back pain, and muscle spasms similar to previous episodes of hypocalcemia. Evaluation in the emergency department revealed a variable heart rate (40s-110) , hypotension (86/60), hypocalcemia (calcium 5.0; ionized calcium 0.67), hypomagnesia (1.3), CK (423), elevated proBNP (4600), dehydration by urinalysis , and a prolonged QTC on EKG (549). The patient reported that she was previously a patient of Dr. Goldberg (last seen first week of December 2017), but recently had her PCP changed to Dr. Tai (demonstrates Medicaid card listing him as her PCPs dated 12/23/17). Per ED provider, both providers were contacted and neither are accepting this patient at this time. Therefore, she was referred to the hospitalist service for admission and management of electrolyte derangements secondary to hypoparathyroidism. Hospital Course Hospital Course: This is a very pleasant but unfortunate 44 years old black female patient with past medical history of Graves' disease status post total thyroidectomy and inadvertent removal of the parathyroids resulting in hypothyroidism and hypoparathyroidism she presented to us with chief complaints of worsening back pain generalized body aching and fatigue. At presentation in ER her blood work shows severe hypocalcemia with calcium of 5 and hypomagnesemia with magnesium of 1.3 and she was also found to be hypotensive with blood pressure of 80/60. Patient also told me that she ran out of her medication and she has not taken her Synthroid and calcitriol. Her TSH is 55.8 and she has also BNP of 2410. I started her on IV calcitriol, p.o. calcium and resumed her home dose of 200 mg of Synthroid. Patient has been doing well. Her generalized body aching is subsiding. Her serum magnesium normalized. Her calcium is today 7.5 which is better than at the time of admission. Her vital signs are within normal limits. Patient is stable enough to be discharged today. She needs prescription for some of her medications she is ran out of medication. Physical Exam Vital Signs: Temp Pulse Resp BP Pulse Ox 98.0 F 83 16 104/70 97 02/15/18 08:17 02/15/18 08:17 02/15/18 08:17 02/15/18 08:17 02/15/18 08:17 Intake & Output 02/14/18 02/15/18 02/16/18 06:59 06:59 06:59 Intake Total 573 888 Output Total 900 700 Balance -327 188 Weight 73.1 kg 73.3 kg General appearance: PRESENT: no acute distress Head exam: PRESENT: atraumatic Eye exam: PRESENT: conjunctiva pink Mouth exam: PRESENT: moist Neck exam: ABSENT: carotid bruit, JVD, lymphadenopathy, thyromegaly Respiratory exam: PRESENT: clear to auscultation jacoby. ABSENT: rales, rhonchi, wheezes Cardiovascular exam: PRESENT: RRR. ABSENT: diastolic murmur, rubs, systolic murmur GI/Abdominal exam: PRESENT: normal bowel sounds, soft. ABSENT: distended, guarding, mass, organolmegaly, rebound, tenderness Extremities exam: PRESENT: full ROM. ABSENT: calf tenderness, clubbing, pedal edema Neurological exam: PRESENT: alert, awake, oriented to time, oriented to situation Psychiatric exam: PRESENT: normal mood Results Laboratory Results: 02/13/18 06:10 02/14/18 08:09 02/13/18 02/14/18 04:00 11:26 Calcium 7.5 L Ur Calcium 24 Hr 127.9 02/13/18 06:10 CK-MB (CK-2) 0.75 NT-Pro-B Natriuret Pep 2410 H Impressions: Chest X-Ray 02/12/18 13:27 IMPRESSION: HEART ENLARGED WITHOUT FAILURE. NO OTHER SIGNIFICANT RADIOGRAPHIC FINDING IN THE CHEST. Qualifiers - * PATIENT BEING DISCHARGED WITH ANY OF THE FOLLOWING DIAGNOSIS: Heart Failure VTE patient discharged on overlapping Therapy?: No Reason(s) for not prescribing Overlap Therapy:: Not indicated Stroke Pt being discharged on Anti-thrombolytic therapy?: No Reason(s) for not prescribing Anti-thrombolytic therapy:: Not indicated Stroke Pt being discharged on Anti-coagulation therapy?: No Reason(s) for not prescribing Anti-coagulation therapy:: Not indicated Stroke Pt being discharged on Statins?: No Reason(s) for not prescribing Statins therapy:: Not indicated [place] Pt being discharged on Aspirin therapy?: No Reason(s) for not prescribing Aspirin therapy:: Not indicated [place] Pt being discharged on Statins?: No Reason(s) for not prescribing Statin therapy:: Not indicated [place] Pt discharged ACEI/ARBS?: No Reason(s) for not prescribing ACEI/ARBS:: Not indicated HF Pt being discharged on ACEI for LVEF less than 40%?: Yes HF Pt being discharged on ARBS for LVEF less than 40%?: No Reason(s) for not prescribing ARBS:: Not indicated HF Pt with Afib discharged with Warfarin?: No Reason(s) for not prescribing Warfarin:: Not indicated HF Pt discharged on evidence-based Beta [place]:: Yes
[2018-02-15] MEDS: DOCUSATE SODIUM 100 MG CAPSULE PO SCH (10:13)
[2018-02-15] MEDS: SACUBITRIL/VALSARTAN 24 MG/26 MG TABLET PO SCH (10:13)
[2018-02-15] MEDS: ASPIRIN 81 MG TABLET, CHEWABLE PO SCH (10:14)
[2018-02-15] MEDS: CALCIUM CARBONATE 500 MG TABLET PO SCH (10:14)
[2018-02-15] MEDS: MAGNESIUM OXIDE 400 MG TABLET PO SCH (10:14)
[2018-02-15] MEDS: IBUPROFEN 600 MG TABLET PO SCH (10:14)
[2018-02-15] MEDS: CALCITRIOL IV SCH (10:15)
[2018-02-15] MEDS: FAMOTIDINE 20 MG TABLET PO SCH (10:17)
--- NOTE | 2018-02-15 16:28 | PDOC PROGRESS REPORT ---
Subjective Progress Note for:: 02/15/18 Subjective:: Patient seems to be doing better. No complaints of dyspnea. Pt is denying any chest arm or neck discomfort. Patient denying any PND, orthopnea. Patient denied any sustained palpitations, dizziness, syncope, near syncope. Patient denying any fever chills. Patient denying any other significant discomfort. Patient is maintaining sinus rhythm. Review of systems: Rest review of systems negative. Medications: Medications have been reviewed. Reason For Visit: HYPOCALCEMIA,HYPOMAGNESIA Physical Exam Vital Signs: Temp Pulse Resp BP Pulse Ox 98.0 F 81 16 104/70 97 02/15/18 10:47 02/15/18 12:28 02/15/18 12:28 02/15/18 10:47 02/15/18 10:47 Intake & Output 02/14/18 02/15/18 02/16/18 06:59 06:59 06:59 Intake Total 573 888 Output Total 900 700 Balance -327 188 Weight 73.1 kg 73.3 kg Exam: GENERAL: well-nourished and in no acute distress. Alert and oriented x3 HEAD: Atraumatic, normocephalic. EYES: Pupils equal round and reactive to light, extraocular movements intact, sclera anicteric, conjunctiva are normal. ENT: TMs normal, nares patent, oropharynx clear without exudates. Moist mucous membranes. No oral ulcerations or bleeding gums noted NECK: supple without lymphadenopathy. Trachea is central. No cervical or axillary lymphadenopathy noted. Carotids are 2+, JVD WNL LUNGS: Respiration seems nonlabored, no significant accessory muscle action noted. Breath sounds clear to auscultation bilaterally and equal noted. No wheezes rales or rhonchi noted. No significant dullness noted on percussion. CHEST: Palpation of the chest wall shows no significant chest wall tenderness. Defibrillator noted left-sided chest HEART: [place] [employer], No PSH, 1/6 LALY aortic area, 1/6 [place] systolic murmur mitral area, no rubs, no gallops. ABDOMEN: Soft, no significant tenderness appreciated, normoactive bowel sounds. No guarding, no rebound. No rigidity noted . No masses appreciated. EXTREMITIES: Pedal pulses are 1-2+, no calf tenderness noted. No clubbing or cyanosis. negative pedal edema noted NEUROLOGICAL: Focused neurological exam showed no significant neurologic deficit. Normal speech, no focal weakness appreciated. PSYCH: Normal mood, normal affect. Judgment and insight within normal limits. SKIN: No significant ecchymosis, skin is noted to be warm. MUSCULOSKELETAL EXAM: No significant acute joint swelling noted. Results Laboratory Results: 02/13/18 06:10 02/14/18 08:09 02/13/18 04:00 Ur Calcium 24 Hr 127.9 02/13/18 06:10 CK-MB (CK-2) 0.75 NT-Pro-B Natriuret Pep 2410 H EKG Comments: Telemetry shows sinus rhythm without any sustained tachycardia or bradycardia Impressions: Chest X-Ray 02/12/18 13:27 IMPRESSION: HEART ENLARGED WITHOUT FAILURE. NO OTHER SIGNIFICANT RADIOGRAPHIC FINDING IN THE CHEST. Assessment & Plan - Diagnosis (1) Congestive heart failure Qualifiers: Heart failure type: unspecified Heart failure chronicity: unspecified Qualified Code(s): I50.9 - Heart failure, unspecified Is this a current diagnosis for this admission?: Yes (2) Hypocalcemia Is this a current diagnosis for this admission?: Yes (3) Cardiomyopathy Qualifiers: Cardiomyopathy type: unspecified Qualified Code(s): I42.9 - Cardiomyopathy , unspecified Is this a current diagnosis for this admission?: No - Notes Notes: Congestive heart failure: Today on clinical exam it seems compensated. Patient advised on salt and fluid restriction. Patient refused to take entresto last night. She was however given a prescription by the hospitalist. Discussed that headaches is unlikely to be a side effects of entresto and that benefits exceeds risk. Hypocalcemia: This has improved. Still low. Patient on replacement therapy. Cardiomyopathy: Patient encouraged to go on entresto therapy. Side effects were discussed. Defibrillator in situ: No recent discharges per patient. Hypothyroidism: Recommend replacement therapy. Hypoparathyroidism with hypocalcemia: Being well managed by hospitalist. Patient being discharged home. Informed that she might benefit from a sleep study to see if she has any underlying sleep apnea as cause of cardiomyopathy. So far because of her cardiomyopathy is idiopathic. - Time Time with patient: Greater than 35 minutes - CODE STATUS was discussed, patient remains full code. Surrogate decision-maker unchanged. Multiple medical problems were addressed. More than 50% of the time spent coordinating care, discussing management plans with involved caregivers. Management plans discussed with involved personnels. Medical decision making was of moderate to high complexity, patient's has multiple comorbidities. Medications reviewed and adjusted accordingly: Yes
== END 2018-02-15 13:25 | disposition home or self-care (01) | DRG 641 ==
LOC: ER 07:56 → EH 14:22 → 3S 16:49
PROVIDERS: ADMIT Internal Medicine; ATTEND Internal Medicine
DX: E83.51 Hypocalcemia (principal); I42.9 Cardiomyopathy, unspecified; I50.22 Chronic systolic (congestive) heart failure; E83.42 Hypomagnesemia; I95.9 Hypotension, unspecified; E89.0 Postprocedural hypothyroidism; E89.2 Postprocedural hypoparathyroidism; M54.9 Dorsalgia, unspecified; Z95.0 Presence of cardiac pacemaker
CPT/HCPCS: 36415; 71045; 80048; 80053; 81001; 82040; 82310; 82330; 82340; 82550; 82553; 82570; 82962; 83735; 83880; 84100; 84443; 84484; 84703; 85025; 93005; 93010; J0610; J0636; J1170; J1644; J1885; J2550; J3475; J3490; J7620

== ENCOUNTER 2018-09-08 09:24 | Inpatient (IN) | payer MEDICAID ==
--- NOTE | 2018-09-08 10:02 | ER Document Report ---
ED Medical Screen (RME) - General Chief Complaint: Pain All Over Stated Complaint: BODY ACHES Time Seen by Provider: 09/08/18 09:59 Primary Care Provider: TAI TAYLOR MD [Primary Care Provider] - Follow up as needed Mode of Arrival: Ambulatory Information source: Patient, [facility] Records Notes: 43-year-old female presents with complaint of body aches, right-sided chest pain that started 1 day prior to arrival. Patient has had prior similar symptoms when her magnesium and calcium levels are low which is chronic for her due to removal of her parathyroid. I have greeted and performed a rapid initial assessment of this patient. A comprehensive ED assessment and evaluation of the patient, analysis of test results and completion of medical decision making process we will be contacted by additional ED providers. PHYSICAL EXAMINATION: Vital signs reviewed GENERAL: Well-appearing, well-nourished and in no acute distress. LUNGS: No respiratory distress Musculoskeletal: Normal range of motion NEUROLOGICAL: Normal speech, normal gait. PSYCH: Normal mood, normal affect. SKIN: Warm, Dry, normal turgor, no rashes or lesions noted. TRAVEL OUTSIDE OF THE [place] IN LAST 30 DAYS: No - HPI Onset: Yesterday Onset/Duration: Gradual Quality of pain: Achy Severity: Moderate Associated Symptoms: Body/muscle aches, Chest pain. denies: Nausea Exacerbated by: Denies Relieved by: Denies Similar symptoms previously: Yes Recently seen / treated by doctor: Yes - Related Data Smoking: Non-smoker Frequency of alcohol use: None Drug Abuse: None Allergies/Adverse Reactions: amoxicillin Allergy (Verified 09/08/18 09:51) Past Medical History - Social History Frequency of alcohol use: None Drug Abuse: None - Past Medical History Cardiac Medical History: Reports: Hx Congestive Heart Failure - Cardiomyopathy., Hx Hypercholesterolemia, Hx Hypertension Denies: Hx Coronary Artery Disease, Hx Heart Attack Pulmonary Medical History: Reports: Hx Asthma, Hx Pneumonia Endocrine Medical History: Reports: Hx Hypothyroidism - POST- REMOVAL OF GOITER 1999. Denies: Hx Diabetes Mellitus Type 1, Hx Diabetes Mellitus Type 2 Renal/ Medical History: Reports: Hx Kidney Stones. Denies: Hx Peritoneal Dialysis Musculoskeltal Medical History: Denies Hx Gout Psychiatric Medical History: Reports: Hx Depression Past Surgical History: Reports: Hx Cardiac Surgery - pacemaker/defib, Hx Section, Hx Internal Defibrillator, Hx Pacemaker - defibrillator, Hx Rectal Surgery - cyst removed, Hx Thyroid Surgery, Hx Tubal Ligation - Immunizations Hx Diphtheria, Pertussis, Tetanus Vaccination: Yes Physical Exam - Vital signs Vitals: Temp Pulse Resp BP Pulse Ox 97.9 F 101 H 18 111/88 H 100 09/08/18 09:32 09/08/18 09:32 09/08/18 09:32 09/08/18 09:32 09/08/18 09:32 Course - Vital Signs Vital signs: Temp Pulse Resp BP Pulse Ox 97.9 F 101 H 18 111/88 H 100 09/08/18 09:32 09/08/18 09:32 09/08/18 09:32 09/08/18 09:32 09/08/18 09:32 Doctor's Discharge - Discharge Referrals: TAI TAYLOR MD [Primary Care Provider] - Follow up as needed
[2018-09-08 10:36] LABS: ABSOLUTE BASOPHILS # (AUTO) 0.1 10^3/uL (0.0-0.2); ABSOLUTE LYMPHOCYTES (AUTO) 2.2 10^3/uL (0.5-4.7); ABSOLUTE MONOCYTES (AUTO) 0.4 10^3/uL (0.1-1.4); ABSOLUTE NEUT (AUTO) 1.7 10^3/uL (1.7-8.2); BASOPHILS % (AUTO) 2.3 % (0-2); EOSINOPHILS % (AUTO) 0.8 % (0-6); HEMATOCRIT 37.6 % (36.0-47.0); HEMOGLOBIN 13.1 g/dL (12.0-15.5); LYMPHOCYTES % (AUTO) 49.6 % (13-45); MEAN CORPUSCULAR HEMOGLOBIN 29.7 pg (27.0-33.4); MEAN CORPUSCULAR HGB CONC 34.8 g/dL (32.0-36.0); MEAN CORPUSCULAR VOLUME 85 fl (80-97); MONOCYTES % (AUTO) 8.7 % (3-13); PLATELET COUNT 240 10^3/uL (150-450); RED BLOOD COUNT 4.42 10^6/uL (3.72-5.28); RED CELL DISTRIBUTION WIDTH 14.8 % (11.5-14.0); SEGMENTED NEUTROPHILS % (AUTO) 38.6 % (42-78); TOTAL CELLS COUNTED % (AUTO) 100 %; WHITE BLOOD COUNT 4.3 10^3/uL (4.0-10.5)
[2018-09-08 11:00] LABS: ALANINE AMINOTRANSFERASE 28 U/L (9-52); ALBUMIN 4.9 g/dL (3.5-5.0); ALKALINE PHOSPHATASE 86 U/L (38-126); ANION GAP 14 (5-19); ASPARTATE AMINO TRANSFERASE 52 U/L (14-36); BILIRUBIN,DIRECT 0.5 mg/dL (0.0-0.4); BILIRUBIN,TOTAL 0.8 mg/dL (0.2-1.3); BLOOD UREA NITROGEN 22 mg/dL (7-20); CARBON DIOXIDE 27 mmol/L (22-30); CHLORIDE 98 mmol/L (98-107); GLUCOSE 84 mg/dL (75-110); POTASSIUM 4.5 mmol/L (3.6-5.0); SODIUM 139.3 mmol/L (137-145); TOTAL PROTEIN 8.7 g/dL (6.3-8.2)
[2018-09-08 11:09] LABS: CALCIUM 5.6 mg/dL (8.4-10.2)
[2018-09-08] MEDS ORDERED: CALCIUM GLUCONATE 1000 MG/10 ML INJ IV ONE (11:12)
[2018-09-08 12:54] LABS: FREE T4 (FREE THYROXINE) < 0.07 ng/dL (0.78-2.19)
--- NOTE | 2018-09-08 13:00 | EKG REPORT ---
SEVERITY:- ABNORMAL ECG - SINUS RHYTHM RIGHT AXIS DEVIATION ABNRM R PROG, CONSIDER ASMI OR LEAD PLACEMENT BORDERLINE T ABNORMALITIES, DIFFUSE LEADS : Confirmed by: Mychal Zavala MD 08-Sep-2018 12:59:47
[2018-09-08] MEDS ORDERED: OXYCODONE-ACETAMINOPHEN 5-325 MG TABLET PO ONE (13:48)
[2018-09-08] MEDS ORDERED: PROMETHAZINE HCL 25 MG TABLET PO ONE (13:49)
--- NOTE | 2018-09-08 14:39 | ER Document Report ---
ED General - General Chief Complaint: Pain All Over Stated Complaint: BODY ACHES Time Seen by Provider: 09/08/18 09:59 Primary Care Provider: TAI TAYLOR MD [Primary Care Provider] - Follow up as needed Mode of Arrival: Ambulatory Notes: Patient is complaining of feeling nauseated, having pain all over, and tightness in her chest. Also has tingling, twitching feeling throughout her body. Patient has had these symptoms in the past due to low calcium. She had thyroid surgery in 1999 and unfortunately, patient had all of her parathyroid glands removed. Since that time, she has had episodes like this about 4 or 5 times. They have all been related to her calcium level being extremely low. She is been on medications including calcium carbonate at home, but has run out of these medicines and could not afford to get them refilled. Denies any nausea or vomiting. Denies any fever. No UTI symptoms. 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 She also has a pacemaker. TRAVEL OUTSIDE OF THE [place] 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 Pulmonary Medical History: Reports: Hx Asthma, Hx Pneumonia Endocrine Medical History: Reports: Hx Hypothyroidism - POST- REMOVAL OF GOITER 1999 Renal/ Medical History: Reports: Hx Kidney Stones Psychiatric Medical History: Reports: Hx Depression Past Surgical History: Reports: Hx Cardiac Surgery - pacemaker/defib, Hx Section, Hx Internal Defibrillator, Hx Pacemaker - defibrillator, Hx Rectal Surgery - cyst removed, Hx Thyroid Surgery, Hx Tubal Ligation - Immunizations Hx Diphtheria, Pertussis, Tetanus Vaccination: Yes Hx Pneumococcal Vaccination: 04/20/14 Review of Systems - Review of Systems Notes: REVIEW OF SYSTEMS: CONSTITUTIONAL : Denies fever. Generalized body aches all over. EENT: Denies eye, ear, nose or mouth or throat pain or other symptoms. CARDIOVASCULAR: Feels tightness in her chest anteriorly. RESPIRATORY: Denies cough, chest congestion, or shortness of breath. GASTROINTESTINAL: Denies abdominal pain or nausea, vomiting, or diarrhea. GENITOURINARY: Denies difficulty or painful urinating, urinary frequency, blood in urine. MUSCULOSKELETAL: Denies back or neck pain. Denies joint pain or swelling. SKIN: Denies rash or skin lesions. NEUROLOGICAL: Denies LOC or altered mental status. Denies sensory loss or motor deficits. ALL OTHER SYSTEMS REVIEWED AND NEGATIVE. Physical Exam - Vital signs Vitals: Temp Pulse Resp BP Pulse Ox 97.9 F 101 H 18 111/88 H 100 09/08/18 09:32 09/08/18 09:32 09/08/18 09:32 09/08/18 09:32 09/08/18 09:32 Interpretation: Normal Notes: PHYSICAL EXAMINATION: GENERAL: Well-appearing, in no acute distress. Generalized tenderness almost everywhere to touch. HEAD: Atraumatic, normocephalic. EYES: Pupils equal round and reactive to light, extraocular movements intact. ENT: oropharynx clear without exudates. Moist mucous membranes. NECK: Normal range of motion, supple. LUNGS: Breath sounds clear and equal bilaterally. HEART: Regular rate and rhythm without murmurs. ABDOMEN: Soft, nontender. No guarding or rebound. No masses. BACK: No tenderness throughout entire back. EXTREMITIES: Normal range of motion without pain. NEUROLOGICAL: Normal speech, normal gait. Normal sensory, motor, and reflex exams. Awake, alert, and oriented x3. PSYCH: Normal mood, normal affect. SKIN: Warm, dry, no rashes. Course - Re-evaluation Re-evalutation: 09/08/18 14:40 Patient's potassium came back at 5.3. I spoke with Dr. Taylor, her primary care provider, and he will admit her for further care as an inpatient to [facility]. - Vital Signs Vital signs: Temp Pulse Resp BP Pulse Ox 97.9 F 101 H 20 112/82 98 09/08/18 09:32 09/08/18 09:32 09/08/18 14:07 09/08/18 14:07 09/08/18 14:07 - Laboratory Result Diagrams: 09/08/18 10:22 09/08/18 10:22 Laboratory results interpreted by me: 09/08/18 09/08/1809/08/19 10:22 10:22 10:22 RDW 14.8 H Seg Neutrophils % 38.6 L Lymphocytes % 49.6 H Basophils % 2.3 H BUN 22 H Est GFR ( Amer) 57 L Est GFR (Non-Af Amer) 47 L Calcium 5.6 L* Ionized Calcium [place] Direct Bilirubin 0.5 H AST 52 H Total Protein 8.7 H TSH 83.10 H Free T4 < 0.07 L 09/08/18 12:05 RDW Seg Neutrophils % Lymphocytes % Basophils % BUN Est GFR ( Amer) Est GFR (Non-Af Amer) Calcium Ionized Calcium [place] 0.71 L Direct Bilirubin AST Total Protein TSH Free T4 Discharge - Discharge Clinical Impression: Hypocalcemia, Hypothyroid Condition: Stable Disposition: ADMITTED OBSERVATION Admitting Provider: [facility] Unit Admitted: I[facility]U Referrals: TAI TAYLOR MD [Primary Care Provider] - Follow up as needed
[2018-09-08] MEDS ORDERED: ALBUTEROL SULFATE HFA (90 MCG/PUFF) 200 PUFF/8.5 GM MDI IH PRN (18:37)
--- NOTE | 2018-09-08 19:13 | PDOC H&P ---
History of Present Illness Admission Date/PCP: 09/08/18 15:13 TAICAREY TAYLOR History of Present Illness: SOPHIE BALBUENA is a 43 year old female known to my practice who presented o the ED with complain of generalized muscle twitching, facial and upper extremities numbness, She reported right sided chest tightness and palpitation. She has history of thyrodectomy with parathyroid removal in 1999 and she has been on calcium and magnesium supplementation due to significant recurrent hypocalcemic episodes. She reported that her prescribed calcium have been more expensive than OTC supply line but she was unable to get the calcium carbonate for about 3 weeks. she denied any nausea, vomiting, or abdominal pain. No fever or chills. No genitourinary symptoms to suggest infectious process. Her initial ED evaluation revealed significant hypocalcemia with deranged thyroid function profile suggestive of noncompliance with medication administration. She was advised hospitalization for further evaluation and management. He morbidities include cardiomyopathy with CHF, Hypertension, Hyperlipidemia, Asthma, Depression and s/p pacemaker defibrillator implant. 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 Denies: Coronary Artery Disease, Myocardial Infarction Pulmonary Medical History: Reports: Asthma, Pneumonia Endocrine Medical History: Reports: Hypothyroidism - POST- REMOVAL OF GOITER 1999 Denies: Diabetes Mellitus Type 1, Diabetes Mellitus Type 2 Musculoskeltal Medical History: Denies: Gout Psychiatric Medical History: Reports: Depression Past Surgical History Past Surgical History: Reports: Section, Internal Defibrillator, Pacemaker - defibrillator, Tubal Ligation Social History Smoking Status: Former Smoker Last Time Smoked: 09/05/18 Frequency of Alcohol Use: None Hx Recreational Drug Use: No Drugs: None Hx Prescription Drug Abuse: No - Advance Directive Resuscitation Status: Full Code Family History Family History: Reviewed & Not Pertinent, CAD, Hypertension, Malignancy Parental Family History Reviewed: Yes Children Family History Reviewed: Yes Sibling(s) Family History Reviewed.: Yes Medication/Allergy Home Medications: Albuterol Sulfate [Proair HFA Inhalation Aerosol 8.5 gm MDI] 2 puff IH Q4HP PRN 09/08/18 Aspirin [Adult Low Dose Aspirin EC] 81 mg PO QAM 09/08/18 Calcitriol [Rocaltrol 0.5 mcg Capsule] 1 mcg PO QAM 09/08/18 Levothyroxine Sodium 200 mcg PO Q6AM 09/08/18 Lisinopril [Zestril] 5 mg PO QAM 09/08/18 Magnesium Oxide [Mag-Ox 400 mg Tablet] 400 mg PO TID 09/08/18 Zolpidem Tartrate [Ambien] 5 mg PO QHS 09/08/18 Allergies/Adverse Reactions: amoxicillin Allergy (Verified 09/08/18 09:51) Review of Systems Constitutional: ABSENT: chills, fever(s), headache(s), weight gain, weight loss Eyes: ABSENT: visual disturbances Ears: ABSENT: hearing changes Nose, Mouth, and Throat: ABSENT: as per HPI, headache(s), mouth pain, sore throat, vertigo, other Cardiovascular: PRESENT: palpitations. ABSENT: as per HPI, chest pain, dyspnea on exertion, edema, orthropnea, other Respiratory: ABSENT: cough, hemoptysis Gastrointestinal: ABSENT: abdominal pain, constipation, diarrhea, hematemesis, hematochezia, nausea, vomiting Musculoskeletal: ABSENT: joint swelling Integumentary: ABSENT: rash, wounds Neurological: PRESENT: numbness, tingling. ABSENT: abnormal gait, abnormal speech, confusion, dizziness, focal weakness, syncope Psychiatric: ABSENT: anxiety, depression, homidical ideation, suicidal ideation Endocrine: ABSENT: cold intolerance, heat intolerance, menstrual abnormalities, polydipsia, polyuria Hematologic/Lymphatic: ABSENT: easy bleeding, easy bruising, lymphadenopathy Allergic/Immunologic: ABSENT: seasonal rhinorrhea Physical Exam Vital Signs: Temp Pulse Resp BP Pulse Ox 97.5 F 65 18 101/72 96 09/08/18 17:50 09/08/18 17:50 09/08/18 17:50 09/08/18 17:50 09/08/18 17:50 Intake & Output 09/07/18 09/08/18 09/09/18 06:59 06:59 06:59 Intake Total 200 Balance 200 Weight 69.1 kg General appearance: PRESENT: no acute distress, well-developed, well-nourished Head exam: PRESENT: atraumatic, normocephalic Eye exam: PRESENT: conjunctiva pink, EOMI, PERRLA. ABSENT: scleral icterus Ear exam: PRESENT: normal external ear exam Mouth exam: PRESENT: moist Throat exam: ABSENT: post pharyngeal erythema, tonsillar erythema, tonsillar exudate, tonsillogmegaly, other Neck exam: PRESENT: full ROM. ABSENT: carotid bruit, JVD, lymphadenopathy, thyromegaly Respiratory exam: PRESENT: clear to auscultation jacoby Cardiovascular exam: PRESENT: RRR. ABSENT: diastolic murmur, rubs, systolic murmur Pulses: PRESENT: normal dorsalis pedis pul, +2 pedal pulses bilateral Vascular exam: PRESENT: normal capillary refill. ABSENT: pallor GI/Abdominal exam: PRESENT: normal bowel sounds, soft. ABSENT: distended, guarding, mass, organolmegaly, rebound, tenderness Rectal exam: PRESENT: deferred Extremities exam: ABSENT: pedal edema Musculoskeletal exam: PRESENT: ambulatory Neurological exam: PRESENT: alert, awake, oriented to person, oriented to place, oriented to time, oriented to situation, CN II-XII grossly intact. ABSENT: motor sensory deficit Psychiatric exam: PRESENT: appropriate affect, normal mood. ABSENT: homicidal ideation, suicidal ideation Skin exam: PRESENT: dry, warm Results Laboratory Results: 09/08/18 10:22 09/08/18 10:22 09/08/18 09/08/18 09/08/18 10:22 10:22 10:22 WBC 4.3 RBC 4.42 Hgb 13.1 Hct 37.6 MCV 85 MCH 29.7 MCHC 34.8 RDW 14.8 H Plt Count 240 Seg Neutrophils % 38.6 L Lymphocytes % 49.6 H Monocytes % 8.7 Eosinophils % 0.8 Basophils % 2.3 H Absolute Neutrophils 1.7 Absolute Lymphocytes 2.2 Absolute Monocytes 0.4 Absolute Eosinophils 0.0 Absolute Basophils 0.1 Sodium 139.3 Potassium 4.5 Chloride 98 Carbon Dioxide 27 Anion Gap 14 BUN 22 H Creatinine 1.25 Est GFR ( Amer) 57 L Est GFR (Non-Af Amer) 47 L Glucose 84 Calcium 5.6 L* Ionized Calcium Aixa Magnesium 1.6 Total Bilirubin 0.8 AST 52 H ALT 28 Alkaline Phosphatase 86 Total Protein 8.7 H Albumin 4.9 TSH 83.10 H Free T4 < 0.07 L 09/08/18 12:05 WBC RBC Hgb Hct MCV MCH MCHC RDW Plt Count Seg Neutrophils % Lymphocytes % Monocytes % Eosinophils % Basophils % Absolute Neutrophils Absolute Lymphocytes Absolute Monocytes Absolute Eosinophils Absolute Basophils Sodium Potassium Chloride Carbon Dioxide Anion Gap BUN Creatinine Est GFR ( Amer) Est GFR (Non-Af Amer) Glucose Calcium Ionized Calcium Aixa 0.71 L Magnesium Total Bilirubin AST ALT Alkaline Phosphatase Total Protein Albumin TSH Free T4 Assessment & Plan - Diagnosis (1) [place] due to low calcium from parathyroid disease Is this a current diagnosis for this admission?: Yes Plan: See admitting attending physician orders. (2) Hypocalcemia Is this a current diagnosis for this admission?: Yes Plan: See admitting attending physician orders. (3) Hypoparathyroidism after procedure Is this a current diagnosis for this admission?: Yes Plan: Maintain on preadmission medication management. (4) Uncontrolled hypothyroidism Is this a current diagnosis for this admission?: Yes Plan: Maintain on preadmission medication management. (5) Cardiomyopathy Qualifiers: Cardiomyopathy type: unspecified Qualified Code(s): I42.9 - Cardiomyopathy, unspecified Is this a current diagnosis for this admission?: Yes Plan: Maintain on preadmission medication management. (6) Chronic systolic heart failure Is this a current diagnosis for this admission?: Yes Plan: Maintain on preadmission medication management. (7) Hyperlipidemia Qualifiers: Hyperlipidemia type: unspecified Qualified Code(s): E78.5 - Hyperlipidemia, unspecified Is this a current diagnosis for this admission?: Yes Plan: Maintain on preadmission medication management. (8) ICD (implantable cardioverter-defibrillator) in place Is this a current diagnosis for this admission?: Yes Plan: Maintain on preadmission medication management. - Time Time Spent: 50 to 70 Minutes Medications reviewed and adjusted accordingly: Yes Anticipated discharge: Home Within: within 48 hours - Inpatient Certification Post Hospital Care: D/C [place] Documentation - Plan Summary Plan Summary: See admitting attending physician orders.
[2018-09-08] MEDS ORDERED: CALCIUM GLUCONATE 6,666 MG in DEXTROSE 5%-WATER 500 ML IV ONE (20:00)
[2018-09-08] MEDS: ZOLPIDEM TARTRATE 5 MG TABLET PO SCH (21:58)
[2018-09-08] MEDS ORDERED: (PENDING PHARMACY ID) (Zolpidem Tartrate [Ambien] 5 MG) PO SCH (22:00)
[2018-09-09] MEDS: NORMAL SALINE 1000 ML 1,000 ML IV PRN ×2 (02:36→17:10)
[2018-09-09 04:54] LABS: HEMATOCRIT 35.9 % (36.0-47.0); HEMOGLOBIN 12.4 g/dL (12.0-15.5); MEAN CORPUSCULAR HEMOGLOBIN 29.3 pg (27.0-33.4); MEAN CORPUSCULAR HGB CONC 34.5 g/dL (32.0-36.0); MEAN CORPUSCULAR VOLUME 85 fl (80-97); PLATELET COUNT 221 10^3/uL (150-450); RED BLOOD COUNT 4.22 10^6/uL (3.72-5.28); RED CELL DISTRIBUTION WIDTH 14.4 % (11.5-14.0); WHITE BLOOD COUNT 5.7 10^3/uL (4.0-10.5)
[2018-09-09] MEDS: LANSOPRAZOLE 30 MG TAB.RAP.DR PO SCH (05:03)
[2018-09-09 05:16] LABS: ALANINE AMINOTRANSFERASE 24 U/L (9-52); ALBUMIN 4.4 g/dL (3.5-5.0); ALKALINE PHOSPHATASE 79 U/L (38-126); ANION GAP 14 (5-19); ASPARTATE AMINO TRANSFERASE 37 U/L (14-36); BILIRUBIN,DIRECT 0.2 mg/dL (0.0-0.4); BILIRUBIN,TOTAL 0.5 mg/dL (0.2-1.3); BLOOD UREA NITROGEN 16 mg/dL (7-20); CALCIUM 8.9 mg/dL (8.4-10.2); CARBON DIOXIDE 25 mmol/L (22-30); CHLORIDE 99 mmol/L (98-107); POTASSIUM 4.2 mmol/L (3.6-5.0); SODIUM 138.1 mmol/L (137-145); TOTAL PROTEIN 7.6 g/dL (6.3-8.2)
[2018-09-09 05:20] LABS: ABSOLUTE MONOCYTES # (MANUAL) 0.4 10^3/uL (0.1-1.4); BASOPHILS % (MANUAL) 1 % (0-2); EOSINOPHILS % (MANUAL) 2 % (0-6); MONOCYTES % (MANUAL) 7 % (3-13); SEGMENTED NEUTROPHILS % (MAN) 17 % (42-78); TOTAL CELLS COUNTED 100
[2018-09-09 05:21] LABS: ANISOCYTOSIS SLIGHT; PLATELET COMMENT ADEQUATE; TOXIC VACUOLATION PRESENT
[2018-09-09 05:22] LABS: GLUCOSE 65 mg/dL (75-110)
[2018-09-09] MEDS ORDERED: (PENDING PHARMACY ID) (Levothyroxine Sodium [Levothyroxine Sodium] 200 MCG) PO SCH (06:00)
[2018-09-09] MEDS ORDERED: CALCITRIOL 1 MCG PO SCH (08:00)
[2018-09-09] MEDS: LISINOPRIL 5 MG TABLET PO SCH (08:39)
[2018-09-09] MEDS: CALCITRIOL 0.25 MCG CAPSULE PO SCH (08:40)
[2018-09-09] MEDS: ASPIRIN 81 MG TABLET, ENT COATED PO SCH (08:40)
[2018-09-09] MEDS: TRAMADOL HCL 50 MG TABLET PO PRN ×2 (08:45→17:14)
[2018-09-09] MEDS ORDERED: MAGNESIUM SULFATE/D5W 1 GM/100 ML RTUPB IV ONE (09:30)
[2018-09-09] MEDS: MAGNESIUM OXIDE 400 MG TABLET PO SCH ×3 (10:26→17:10)
[2018-09-09] MEDS: LEVOTHYROXINE SODIUM 0.1 MG TABLET PO SCH (10:26)
[2018-09-09 11:25] LABS: ABSOLUTE LYMPHOCYTES# (MANUAL) 4.2 10^3/uL (0.5-4.7)
[2018-09-09 11:27] LABS: LYMPHOCYTES % (MANUAL) 68 % (13-45)
--- NOTE | 2018-09-09 19:06 | PDOC PROGRESS REPORT ---
Subjective Progress Note for:: 09/09/18 Subjective:: Patient reported some improvement in her muscle twitching. Her tingling and numbness have resolved. No chest pain or difficulty with breathing. No fever or chills. Reason For Visit: TETANY, HYPOCALCEMIA,HYPOTHYROIDISM Physical Exam Vital Signs: Temp Pulse Resp BP Pulse Ox 98.1 F 69 12 97/58 L 97 09/09/18 15:20 09/09/18 18:49 09/09/18 15:20 09/09/18 15:20 09/09/18 15:20 Intake & Output 09/08/18 09/09/18 09/10/18 06:59 06:59 06:59 Intake Total 1088.66 1539 Balance 1088.66 1539 Weight 71.4 kg General appearance: PRESENT: no acute distress, well-developed, well-nourished Head exam: PRESENT: atraumatic, normocephalic Eye exam: PRESENT: conjunctiva pink, EOMI, PERRLA. ABSENT: scleral icterus Ear exam: PRESENT: normal external ear exam Mouth exam: PRESENT: moist Respiratory exam: PRESENT: clear to auscultation jacoby Cardiovascular exam: PRESENT: RRR. ABSENT: diastolic murmur, rubs, systolic murmur Vascular exam: PRESENT: normal capillary refill. ABSENT: pallor GI/Abdominal exam: PRESENT: normal bowel sounds, soft. ABSENT: distended, guarding, mass, organolmegaly, rebound, tenderness Extremities exam: PRESENT: pedal edema Neurological exam: PRESENT: alert, awake, oriented to person, oriented to place, oriented to time, oriented to situation, CN II-XII grossly intact. ABSENT: motor sensory deficit Psychiatric exam: PRESENT: appropriate affect, normal mood. ABSENT: homicidal ideation, suicidal ideation Skin exam: PRESENT: dry, warm Results Laboratory Results: 09/09/18 03:57 09/09/18 03:57 09/09/18 09/09/18 03:57 03:57 WBC 5.7 RBC 4.22 Hgb 12.4 Hct 35.9 L MCV 85 MCH 29.3 MCHC 34.5 RDW 14.4 H Plt Count 221 Seg Neutrophils % Not Reportable Lymphocytes % Not Reportable Monocytes % Not Reportable Eosinophils % Not Reportable Basophils % Not Reportable Absolute Neutrophils Not Reportable Absolute Lymphocytes Not Reportable Absolute Monocytes Not Reportable Absolute Eosinophils Not Reportable Absolute Basophils Not Reportable Sodium 138.1 Potassium 4.2 Chloride 99 Carbon Dioxide 25 Anion Gap 14 BUN 16 Creatinine 1.09 Est GFR ( Amer) > 60 Est GFR (Non-Af Amer) 55 L Glucose 65 L Calcium 8.9 Magnesium 1.4 L Total Bilirubin 0.5 AST 37 H ALT 24 Alkaline Phosphatase 79 Total Protein 7.6 Albumin 4.4 Assessment & Plan - Diagnosis (1) [place] due to low calcium from parathyroid disease Is this a current diagnosis for this admission?: Yes (2) Hypocalcemia Is this a current diagnosis for this admission?: Yes (3) Hypoparathyroidism after procedure Is this a current diagnosis for this admission?: Yes (4) Uncontrolled hypothyroidism Is this a current diagnosis for this admission?: Yes (5) Cardiomyopathy Qualifiers: Cardiomyopathy type: unspecified Qualified Code(s): I42.9 - Cardiomyopathy, unspecified Is this a current diagnosis for this admission?: Yes (6) Chronic systolic heart failure Is this a current diagnosis for this admission?: Yes (7) Hyperlipidemia Qualifiers: Hyperlipidemia type: unspecified Qualified Code(s): E78.5 - Hyperlipidemia, unspecified Is this a current diagnosis for this admission?: Yes (8) ICD (implantable cardioverter-defibrillator) in place Is this a current diagnosis for this admission?: Yes - Time Time Spent with patient: 25-34 minutes Medications reviewed and adjusted accordingly: Yes Anticipated discharge: Home Within: Other - Inpatient Certification Based on my medical assessment, after consideration of the patient's comorbidities, presenting symptoms, or acuity I expect that the services needed warrant INPATIENT care.: Yes I certify that my determination is in accordance with my understanding of Medicare's requirements for reasonable and necessary INPATIENT services [42 CFR 412.3e].: Yes Medical Necessity: Need Close Monitoring Due to Risk of Patient Decompensation, Need For IV Fluids, Need For Continuous Telemetry Monitoring, Risk of Complication if Not Cared For in Hospital, Risk of Diagnosis Which Will Require Inpatient Eval/Care/Monitoring Post 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 Maintain on oral Mag oxide and Calcium [id number] therapy. Change status to full administration. Monitor for hypoglycemia. Obtain BMP and Mag level in AM.
[2018-09-09] MEDS: ZOLPIDEM TARTRATE 5 MG TABLET PO SCH (21:33)
[2018-09-10] MEDS: LANSOPRAZOLE 30 MG TAB.RAP.DR PO SCH (05:05)
[2018-09-10 05:33] LABS: ANION GAP 8 (5-19); BLOOD UREA NITROGEN 14 mg/dL (7-20); CARBON DIOXIDE 29 mmol/L (22-30); CHLORIDE 101 mmol/L (98-107); POTASSIUM 4.3 mmol/L (3.6-5.0); SODIUM 137.5 mmol/L (137-145)
[2018-09-10 05:45] LABS: GLUCOSE 65 mg/dL (75-110)
[2018-09-10 05:47] LABS: CALCIUM 6.4 mg/dL (8.4-10.2)
[2018-09-10] MEDS: NORMAL SALINE 1000 ML 1,000 ML IV PRN ×2 (06:42→21:41)
[2018-09-10] MEDS ORDERED: CALCIUM GLUCONATE 6,666 MG in DEXTROSE 5%-WATER 500 ML IV ONE ×3 (07:00→12:00)
[2018-09-10] MEDS: CALCITRIOL 0.25 MCG CAPSULE PO SCH (08:00)
[2018-09-10] MEDS: ASPIRIN 81 MG TABLET, ENT COATED PO SCH (08:00)
[2018-09-10] MEDS: LISINOPRIL 5 MG TABLET PO SCH (08:02)
--- NOTE | 2018-09-10 08:09 | PDOC PROGRESS REPORT ---
Subjective Progress Note for:: 09/10/18 Subjective:: Patient reported intermittent muscle twitching, tingling and numbness have resolved. No chest pain or difficulty with breathing. No fever or chills. No nausea, vomiting, or abdominal pain. PO intake remain poor. She is agreeable to oral supplementation with Vanilla flavored ensure. Reason For Visit: TETANY, HYPOCALCEMIA,HYPOTHYROIDISM Physical Exam Vital Signs: Temp Pulse Resp BP Pulse Ox 97.5 F 68 12 95/65 L 94 09/10/18 07:17 09/10/18 07:17 09/10/18 07:17 09/10/18 07:17 09/10/18 07:17 Intake & Output 09/09/18 09/10/18 09/11/18 06:59 06:59 06:59 Intake Total 1088.66 2639 Balance 1088.66 2639 Weight 71.4 kg 73 kg Physical Exam: General appearance: PRESENT: no acute distress, well-developed, well-nourished Head exam: PRESENT: atraumatic, normocephalic Eye exam: PRESENT: conjunctiva pink, EOMI, PERRLA. ABSENT: pallor, scleral icterus Ear exam: PRESENT: normal external ear exam Mouth exam: PRESENT: moist Respiratory exam: PRESENT: clear to auscultation jacoby Cardiovascular exam: PRESENT: RRR. ABSENT: diastolic murmur, rubs, systolic murmur GI/Abdominal exam: PRESENT: normal bowel sounds, soft. ABSENT: distended, guarding, mass, organomegaly, rebound, tenderness Extremities exam: PRESENT: pedal edema Neurological exam: PRESENT: alert, awake, oriented to person, oriented to place, oriented to time, oriented to situation, CN II-XII grossly intact. ABSENT: motor sensory deficit Psychiatric exam: PRESENT: appropriate affect, normal mood. ABSENT: homicidal ideation, suicidal ideation Skin exam: PRESENT: dry, warm Results Laboratory Results: 09/09/18 03:57 09/10/18 04:06 09/10/18 09/10/18 09/10/18 04:06 04:06 06:20 Sodium 137.5 Potassium 4.3 Chloride 101 Carbon Dioxide 29 Anion Gap 8 BUN 14 Creatinine 1.16 Est GFR ( Amer) > 60 Est GFR (Non-Af Amer) 51 L Glucose 65 L Calcium 6.4 L* Ionized Calcium Aixa 0.81 L Magnesium 1.5 L Albumin 3.7 Assessment & Plan - Diagnosis (1) [place] due to low calcium from parathyroid disease Is this a current diagnosis for this admission?: Yes (2) Hypocalcemia Is this a current diagnosis for this admission?: Yes (3) Hypoparathyroidism after procedure Is this a current diagnosis for this admission?: Yes (4) Uncontrolled hypothyroidism Is this a current diagnosis for this admission?: Yes (5) Cardiomyopathy Qualifiers: Cardiomyopathy type: unspecified Qualified Code(s): I42.9 - Cardiomyopathy, unspecified Is this a current diagnosis for this admission?: Yes (6) Chronic systolic heart failure Is this a current diagnosis for this admission?: Yes (7) Hyperlipidemia Qualifiers: Hyperlipidemia type: unspecified Qualified Code(s): E78.5 - Hyperlipidemia, unspecified Is this a current diagnosis for this admission?: Yes (8) ICD (implantable cardioverter-defibrillator) in place Is this a current diagnosis for this admission?: Yes - Time Time Spent with patient: 25-34 minutes Medications reviewed and adjusted accordingly: Yes Anticipated discharge: Home Within: Other - Inpatient Certification Based on my medical assessment, after consideration of the patient's comorbidities, presenting symptoms, or acuity I expect that the services needed warrant INPATIENT care.: Yes I certify that my determination is in accordance with my understanding of Medicare's requirements for reasonable and necessary INPATIENT services [42 CFR 412.3e].: Yes Medical Necessity: Significant Comorbidiites Make Outpatient Treatment Too Risky, Need Close Monitoring Due to Risk of Patient Decompensation, Need For IV Fluids, Need For Continuous Telemetry Monitoring, Risk of Complication if Not Cared For in Hospital, Risk of Diagnosis Which Will Require Inpatient Eval/Care/Monitoring 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 Encouraged improvement in oral intake. Continue all other medication management.
[2018-09-10] MEDS: MAGNESIUM OXIDE 400 MG TABLET PO SCH ×3 (09:18→17:32)
[2018-09-10] MEDS: LEVOTHYROXINE SODIUM 0.1 MG TABLET PO SCH (09:19)
[2018-09-10] MEDS: MAGNESIUM SULFATE/D5W 1 GM/100 ML RTUPB IV SCH ×2 (09:24→11:09)
[2018-09-10] MEDS: TRAMADOL HCL 50 MG TABLET PO PRN (13:17)
[2018-09-10] MEDS: CALCIUM CARBONATE 500 MG TAB.CHEW PO SCH ×2 (21:19)
[2018-09-10] MEDS: ZOLPIDEM TARTRATE 5 MG TABLET PO SCH (21:19)
[2018-09-11] MEDS: LANSOPRAZOLE 30 MG TAB.RAP.DR PO SCH (05:09)
[2018-09-11 05:24] LABS: ANION GAP 7 (5-19); BLOOD UREA NITROGEN 12 mg/dL (7-20); CALCIUM 9.6 mg/dL (8.4-10.2); CARBON DIOXIDE 29 mmol/L (22-30); CHLORIDE 100 mmol/L (98-107); POTASSIUM 4.4 mmol/L (3.6-5.0); SODIUM 136.2 mmol/L (137-145)
[2018-09-11 05:28] LABS: GLUCOSE 68 mg/dL (75-110)
[2018-09-11] MEDS ORDERED: LEVOTHYROXINE SODIUM 0.1 MG TABLET PO SCH (06:00)
--- NOTE | 2018-09-11 08:15 | PDOC DISCHARGE SUMMARY ---
General - Admit/Disc Date/PCP Admission Date/Primary Care Provider: 09/09/18 18:53 TAI CLAUDIA Discharge Date: 09/11/18 - Discharge Diagnosis (1) [place] due to low calcium from parathyroid disease Is this a current diagnosis for this admission?: Yes (2) Hypocalcemia Is this a current diagnosis for this admission?: Yes (3) Hypoparathyroidism after procedure Is this a current diagnosis for this admission?: Yes (4) Uncontrolled hypothyroidism Is this a current diagnosis for this admission?: Yes (5) Cardiomyopathy Is this a current diagnosis for this admission?: Yes (6) Chronic systolic heart failure Is this a current diagnosis for this admission?: Yes (7) Hyperlipidemia Is this a current diagnosis for this admission?: Yes (8) ICD (implantable cardioverter-defibrillator) in place Is this a current diagnosis for this admission?: Yes - Additional Information Resuscitation Status: Full Code Prescriptions: Calcium Carbonate [Tums Chewable 500 mg Tab.chew] 500 mg PO MEALSHS #120 tab.chew Tramadol HCl [Ultram 50 mg Tablet] 50 mg PO Q6HP PRN #60 tablet PRN Reason: Home Medications: Albuterol Sulfate [Proair HFA Inhalation Aerosol 8.5 gm MDI] 2 puff IH Q4HP PRN 09/08/18 Aspirin [Adult Low Dose Aspirin EC] 81 mg PO QAM 09/08/18 Calcitriol [Rocaltrol 0.5 mcg Capsule] 1 mcg PO QAM 09/08/18 Invega Sustenna 117 mg IM Q28D 09/08/18 Levothyroxine Sodium 200 mcg PO Q6AM 09/08/18 Lisinopril [Zestril] 5 mg PO QAM 09/08/18 Magnesium Oxide [Mag-Ox 400 mg Tablet] 400 mg PO TID 09/08/18 Zolpidem Tartrate [Ambien] 5 mg PO QHS 09/08/18 Calcium Carbonate [Tums Chewable 500 mg Tab.chew] 500 mg PO MEALSHS #120 tab.chew 09/11/18 Tramadol HCl [Ultram 50 mg Tablet] 50 mg PO Q6HP PRN #60 tablet 09/11/18 History of Present Illness Patient complains of: Generalized muscle twitching, facial and upper extremities numbness, History of Present Illness: SOPHIE BALBUENA is a 43 year old female known to my practice who presented o the ED with complain of generalized muscle twitching, facial and upper extremities numbness, She reported right sided chest tightness and palpitation. She has history of thyroidectomy with parathyroid removal in 1999 and she has been on calcium and magnesium supplementation due to significant recurrent hypocalcemic episodes. She reported that her prescribed calcium have been more expensive than OTC supply line but she was unable to get the calcium carbonate for about 3 weeks. she denied any nausea, vomiting, or abdominal pain. No fever or chills. No genitourinary symptoms to suggest infectious process. Her initial ED evaluation revealed significant hypocalcemia with deranged thyroid function profile suggestive of noncompliance with medication administration. She was advised hospitalization for further evaluation and management. He morbidities include cardiomyopathy with CHF, Hypertension, Hyperlipidemia, Asthma, Depression and s/p pacemaker defibrillator implant. Hospital Course Hospital Course: Patient was managed with IV infusion of calcium gluconate and magnesium sulfate. Her symptoms did resolved but her calcium and magnesium replacement will need continued oral therapy and compliance with medication was emphasized to patient. She will be discharged home today with office follow up as instructed upon discharge. Physical Exam Vital Signs: Temp Pulse Resp BP Pulse Ox 98.2 F 80 12 97/61 L 94 09/11/18 03:48 09/11/18 07:00 09/11/18 03:48 09/11/18 03:48 09/11/18 03:48 Intake & Output 09/10/18 09/11/18 09/12/18 06:59 06:59 06:59 Intake Total 2639 4442.32 Output Total 2 Balance 2639 4440.32 Weight 73 kg 73.2 kg Physical Exam: General appearance: PRESENT: no acute distress, well-developed, well-nourished Head exam: PRESENT: atraumatic, normocephalic Eye exam: PRESENT: conjunctiva pink, EOMI, PERRLA. ABSENT: pallor, scleral icterus Ear exam: PRESENT: normal external ear exam Mouth exam: PRESENT: moist Respiratory exam: PRESENT: clear to auscultation jacoby Cardiovascular exam: PRESENT: RRR. ABSENT: diastolic murmur, rubs, systolic murmur GI/Abdominal exam: PRESENT: normal bowel sounds, soft. ABSENT: distended, guarding, mass, organomegaly, rebound, tenderness Extremities exam: PRESENT: pedal edema Neurological exam: PRESENT: alert, awake, oriented to person, oriented to place, oriented to time, oriented to situation, CN II-XII grossly intact. ABSENT: motor sensory deficit Psychiatric exam: PRESENT: appropriate affect, normal mood. ABSENT: homicidal ideation, suicidal ideation Skin exam: PRESENT: dry, warm Results Laboratory Results: 09/09/18 03:57 09/11/18 04:02 09/11/18 04:02 Sodium 136.2 L Potassium 4.4 Chloride 100 Carbon Dioxide 29 Anion Gap 7 BUN 12 Creatinine 1.00 Est GFR ( Amer) > 60 Est GFR (Non-Af Amer) > 60 Glucose 68 L Calcium 9.6 Magnesium 1.5 L Qualifiers - * PATIENT BEING DISCHARGED WITH ANY OF THE FOLLOWING DIAGNOSIS: No Plan Discharge Plan: D/C home today. Follow up in the office as instructed upon discharge.
[2018-09-11] MEDS: MAGNESIUM SULFATE/D5W 1 GM/100 ML RTUPB IV SCH ×2 (08:37→10:11)
[2018-09-11] MEDS: ASPIRIN 81 MG TABLET, ENT COATED PO SCH (08:38)
[2018-09-11] MEDS: LISINOPRIL 5 MG TABLET PO SCH (08:38)
[2018-09-11] MEDS: CALCIUM CARBONATE 500 MG TAB.CHEW PO SCH ×2 (08:38→13:18)
[2018-09-11] MEDS: CALCITRIOL 0.25 MCG CAPSULE PO SCH (08:40)
[2018-09-11] MEDS: MAGNESIUM OXIDE 400 MG TABLET PO SCH ×2 (10:11→13:18)
[2018-09-11 10:54] VITALS: BP 101/72
== END 2018-09-11 13:35 | disposition home or self-care (01) | DRG 641 ==
LOC: ER 09:24 → OBSVTOIN 15:13 → EH 15:13 → INTOOBSV 15:13 → 3N 17:26 → OBSVTOIN 09-09 18:53
PROVIDERS: ADMIT Internal Medicine Geriatric Medicine; ATTEND Internal Medicine Geriatric Medicine
DX: E83.51 Hypocalcemia (principal); I42.8 Other cardiomyopathies; I50.22 Chronic systolic (congestive) heart failure; E89.0 Postprocedural hypothyroidism; E89.2 Postprocedural hypoparathyroidism; E78.5 Hyperlipidemia, unspecified; T47.1X6A Underdosing of other antacids and anti-gastric-secretion drugs, initial encounter; Z91.120 Patient's intentional underdosing of medication regimen due to financial hardship; I11.0 Hypertensive heart disease with heart failure; F32.9 Major depressive disorder, single episode, unspecified; J45.909 Unspecified asthma, uncomplicated; Z95.810 Presence of automatic (implantable) cardiac defibrillator; Z87.891 Personal history of nicotine dependence; Z79.82 Long term (current) use of aspirin; Z88.0 Allergy status to penicillin
CPT/HCPCS: 36415; 80048; 80053; 82040; 82330; 82962; 83735; 84439; 84443; 84482; 85025; 93005; 93010; 96365; 96366; 99284; G0378; J0610; J3475; J3490; J7030; J7060

== ENCOUNTER 2018-12-06 16:07 | Emergency (ER) | payer MEDICAID ==
--- NOTE | 2018-12-06 16:56 | RADIOLOGY REPORT (SQ) ---
EXAM DESCRIPTION: CHEST SINGLE VIEW COMPLETED DATE/TIME: 12/06/2018 4:40 pm REASON FOR STUDY: cp COMPARISON: 02/28/2017 TECHNIQUE: Single frontal radiographic view of the chest acquired. NUMBER OF VIEWS: One view. LIMITATIONS: None. FINDINGS: LUNGS AND PLEURA: No pneumothorax. No consolidation or pleural effusion. MEDIASTINUM AND HILAR STRUCTURES: Stable. HEART AND VASCULAR STRUCTURES: Stable. BONES: No acute findings. HARDWARE: Cardiac defibrillator. Surgical clips in the thyroid bed. OTHER: No other significant finding. IMPRESSION: NO ACUTE FINDINGS. TECHNICAL DOCUMENTATION: JOB ID: [id number] 2010 [employer]- All Rights Reserved Reading location - IP/workstation name: [employer]
[2018-12-06] MEDS ORDERED: MORPHINE SULFATE 10 MG/ML INJ IV ONE (17:13)
[2018-12-06 17:22] LABS: ABSOLUTE BASOPHILS # (AUTO) 0.1 10^3/uL (0.0-0.2); ABSOLUTE LYMPHOCYTES (AUTO) 1.7 10^3/uL (0.5-4.7); ABSOLUTE MONOCYTES (AUTO) 0.7 10^3/uL (0.1-1.4); ABSOLUTE NEUT (AUTO) 3.7 10^3/uL (1.7-8.2); BASOPHILS % (AUTO) 0.9 % (0-2); EOSINOPHILS % (AUTO) 0.2 % (0-6); HEMATOCRIT 34.9 % (36.0-47.0); HEMOGLOBIN 11.8 g/dL (12.0-15.5); LYMPHOCYTES % (AUTO) 27.1 % (13-45); MEAN CORPUSCULAR HEMOGLOBIN 28.9 pg (27.0-33.4); MEAN CORPUSCULAR HGB CONC 33.8 g/dL (32.0-36.0); MEAN CORPUSCULAR VOLUME 86 fl (80-97); MONOCYTES % (AUTO) 11.1 % (3-13); PLATELET COUNT 246 10^3/uL (150-450); RED BLOOD COUNT 4.08 10^6/uL (3.72-5.28); RED CELL DISTRIBUTION WIDTH 12.9 % (11.5-14.0); SEGMENTED NEUTROPHILS % (AUTO) 60.7 % (42-78); TOTAL CELLS COUNTED % (AUTO) 100 %; WHITE BLOOD COUNT 6.2 10^3/uL (4.0-10.5)
[2018-12-06] MEDS ORDERED: ONDANSETRON HCL INJ/PF 4 MG/2 ML SDV IV ONE (17:22)
[2018-12-06 17:26] LABS: ALANINE AMINOTRANSFERASE 29 U/L (9-52); ALBUMIN 3.6 g/dL (3.5-5.0); ALKALINE PHOSPHATASE 83 U/L (38-126); ANION GAP 9 (5-19); ASPARTATE AMINO TRANSFERASE 30 U/L (14-36); BILIRUBIN,DIRECT 0.2 mg/dL (0.0-0.4); BILIRUBIN,TOTAL 0.4 mg/dL (0.2-1.3); BLOOD UREA NITROGEN 16 mg/dL (7-20); CALCIUM 9.8 mg/dL (8.4-10.2); CARBON DIOXIDE 29 mmol/L (22-30); CHLORIDE 103 mmol/L (98-107); CREATINE KINASE 125 U/L (30-135); GLUCOSE 90 mg/dL (75-110); SODIUM 140.7 mmol/L (137-145); TOTAL PROTEIN 6.9 g/dL (6.3-8.2)
[2018-12-06 17:37] LABS: CREATINE KINASE MB 9.85 ng/mL (<4.55)
--- NOTE | 2018-12-06 17:39 | EKG REPORT ---
SEVERITY:- ABNORMAL ECG - SINUS RHYTHM BORDERLINE T WAVE ABNORMALITIES ANTEROLATERAL LEADS., UNCHANGED. : Confirmed by: Mychal Zavala MD 06-Dec-2018 17:38:45
[2018-12-06 17:40] LABS: TROPONIN I 0.591 ng/mL
[2018-12-06 18:38] LABS: FREE T4 (FREE THYROXINE) 2.62 ng/dL (0.78-2.19)
[2018-12-06 18:55] LABS: THYROID STIMULATING HORMONE < 0.01 uIU/mL (0.47-4.68)
[2018-12-06] MEDS ORDERED: LIDOCAINE 5% (700 MG) TRANSDERMAL ADH..PATCH TP ONE (22:16)
[2018-12-06] MEDS ORDERED: ENOXAPARIN SODIUM INJ 80 MG/0.8 ML DISP.SYRIN SUBCUT ONE (23:21)
--- NOTE | 2018-12-06 23:37 | EKG REPORT ---
SEVERITY:- BORDERLINE ECG - SINUS RHYTHM BORDERLINE T WAVE ABNORMALITIES , DIFFUSE : Confirmed by: Mychal Zavala MD 06-Dec-2018 23:36:35
[2018-12-07 01:27] VITALS: BP 97/49
[2018-12-07] MEDS ORDERED: FENTANYL CITRATE INJ/PF 100 MCG/2 ML AMPUL IV ONE (01:59)
--- NOTE | 2018-12-07 06:34 | EKG REPORT ---
SEVERITY:- BORDERLINE ECG - SINUS RHYTHM BORDERLINE T ABNORMALITIES, DIFFUSE LEADS UNCHANGED FROM 12/06/18 : Confirmed by: Mychal Zavala MD 07-Dec-2018 06:33:53
--- NOTE | 2018-12-09 08:00 | ER Document Report ---
Entered by CASSIE CONNOR SCRIBE 12/06/18 1716 Acting as scribe for:NIECY MITCHELL DO ED Cardiac - General Mode of Arrival: Medic TRAVEL OUTSIDE OF THE [place] IN LAST 30 DAYS: No <NIECY MITCHELL - Last Filed: 12/06/18 23:07> <REFUGIO NAVARRO - Last Filed: 12/07/18 02:14> - General Chief Complaint: Arrhythmia Stated Complaint: PACEMAKER PROBLEM Time Seen by Provider: 12/06/18 16:44 Primary Care Provider: TAI TAYLOR MD [Primary Care Provider] - Follow up as needed Notes: Patient is a 43-year-old female presenting to the emergency department complaining of a defibrillator firing with associated chest pain. Patient states that she was running home today and upon arriving home she noticed it went off once, then it fired twice more. Patient states that she has had the defibrillator since 2006 and she had a similar episode in 2009 but it did not go off 3 times. Patient states she has been experiencing chest pain she describes as burning. Patient states that she has cardiomyopathy due to neglecting her thyroid medication, she is unsure which type. Patient denies having diabetes, shortness of breath, heart attacks, or any preceding symptoms. (CASSIE CONNOR) Patient is a 43-year-old female brought in by EMS to the emergency department complaining of a defibrillator firing and chest pain. Patient states that while she was running home from the bus stop her defibrillator fired and then it fired twice more after she got home and was no longer running. Patient states after the first time it fired she felt very shaky and like her heart was racing, when it fired she felt like she had been knocked over and has now been having some burning pain in her chest since it fired. Prior to the defibrillator firing she was not having any symptoms including chest pain or shortness of breath. Patient states that she has had the defibrillator since 2006 and she had a similar episode in 2009 when running but it did not go off 3 times. Patient states that she has cardiomyopathy due to noncompliance with her thyroid medication. Patient denies having diabetes, shortness of breath or heart attacks. (NIECY MITCHELL) - Related Data Allergies/Adverse Reactions: amoxicillin Allergy (Verified 09/08/18 09:51) Past Medical History - General Information source: Patient - Social History Smoking Status: Current Every Day Smoker Cigarette use (# per day): Yes Chew tobacco use (# tins/day): No Frequency of alcohol use: None Drug Abuse: None Family History: CAD, Hypertension, Malignancy - Past Medical History Cardiac Medical History: Reports: Hx Congestive Heart Failure - Cardiomyopathy., Hx Hypercholesterolemia, Hx Hypertension Pulmonary Medical History: Reports: Hx Asthma, Hx Pneumonia Endocrine Medical History: Reports: Hx Hypothyroidism - POST- REMOVAL OF GOITER 1999. Denies: Hx Diabetes Mellitus Type 1, Hx Diabetes Mellitus Type 2 Renal/ Medical History: Reports: Hx Kidney Stones Psychiatric Medical History: Reports: Hx Depression Past Surgical History: Reports: Hx Cardiac Surgery - pacemaker/defib, Hx Section, Hx Internal Defibrillator, Hx Pacemaker - defibrillator, Hx Rectal Surgery - cyst removed, Hx Thyroid Surgery, Hx Tubal Ligation - Immunizations Hx Diphtheria, Pertussis, Tetanus Vaccination: Yes Hx Pneumococcal Vaccination: 04/20/14 <NIECY MITCHELL - Last Filed: 12/06/18 23:07> Review of Systems - Review of Systems Constitutional: No symptoms reported EENT: No symptoms reported Cardiovascular: See HPI, Chest pain - burning, Other - defibrilator fired Respiratory: No symptoms reported. denies: Short of breath Gastrointestinal: No symptoms reported Genitourinary: No symptoms reported Female Genitourinary: No symptoms reported Musculoskeletal: No symptoms reported Skin: No symptoms reported Hematologic/Lymphatic: No symptoms reported Neurological/Psychological: No symptoms reported -: Yes All other systems reviewed and negative <NIECY MITCHELL - Last Filed: 12/06/18 23:07> Physical Exam <NIECY MITCHELL - Last Filed: 12/06/18 23:07> - Vital signs Vitals: Resp Pulse Ox 22 H 99 12/06/18 16:19 12/06/18 16:19 - Notes Notes: PHYSICAL EXAM GENERAL: Alert, interacts well. No acute distress. HEAD: Normocephalic, atraumatic. EYES: Pupils equal, round, and reactive to light. Extraocular movements intact. ENT: Oral mucosa moist, tongue midline. NECK: Full range of motion. Supple. Trachea midline. LUNGS: Clear to auscultation bilaterally, no wheezes, rales, or rhonchi. No respiratory distress. HEART: Tenderness to palpation of the left chest above the implantable pacemaker defibrillator. Regular rate and rhythm. No murmurs, gallops, or rubs. ABDOMEN: Soft, non-tender. Non-distended. Bowel sounds present in all 4 quadrants. No guarding, rigidity, or rebound. EXTREMITIES: Moves all 4 extremities spontaneously. No edema, radial and dorsalis pedis pulses 2/4 bilaterally. No cyanosis. NEUROLOGICAL: Alert and oriented x3. Normal speech. PSYCH: Normal affect, normal mood. SKIN: Warm, dry, normal turgor. No rashes or lesions noted. (CASSIE CONNOR) PHYSICAL EXAM GENERAL: Alert, interacts well. No acute distress. HEAD: Normocephalic, atraumatic. EYES: Pupils equal, round, and reactive to light. Extraocular movements intact. ENT: Oral mucosa moist, tongue midline. NECK: Full range of motion. Supple. Trachea midline. LUNGS: Clear to auscultation bilaterally, no wheezes, rales, or rhonchi. No respiratory distress. HEART: Tenderness to palpation of the left chest above the AICD, no erythema, no lesions, no fluctuance. Regular rate and rhythm. No murmurs, gallops, or rubs. ABDOMEN: Soft, non-tender. Non-distended. Bowel sounds present in all 4 quadrants. No guarding, rigidity, or rebound. EXTREMITIES: Moves all 4 extremities spontaneously. No edema, radial and dorsalis pedis pulses 2/4 bilaterally. No cyanosis. NEUROLOGICAL: Alert and oriented x3. Normal speech. PSYCH: Normal affect, normal mood. SKIN: Warm, dry, normal turgor. No rashes or lesions noted. (NIECY MITCHELL) Course - Laboratory Result Diagrams: 12/06/18 17:00 12/06/18 17:00 <NIECY MITCHELL - Last Filed: 12/06/18 23:07> - Laboratory Result Diagrams: 12/06/18 17:00 12/06/18 17:00 <REFUGIO NAVARRO - Last Filed: 12/07/18 02:14> - Re-evaluation Re-evalutation: 12/06/18 23:05 CBC shows mild anemia with a hemoglobin 11.8, fractured CMP unremarkable, calcium ionized calcium normalized, CK-MB and troponin are both elevated, CK-MB is 9.85, troponin is 0.591, repeat troponin approximately 4 hours later is 2.680. TSH is quite low, free T4 is elevated 2.62, free T3 is normal at 4.70, test is negative. Chest x-ray reveals defibrillator in good position otherwise no acute process. EKG is nonischemic initially or upon repeat. AICD was interrogated by sales representative printing paper from [facility], it revealed that the patient actually had the defibrillator firing 9 times and her heart rate went above 230 bpm which is in the ventricular fibrillation zone. Check could not tell me whether or not she was truly ever in V. fib or V. tach however he could tell me that at one point she also went into atrial fibrillation which she has not had before. I have called [facility] to attempt to arrange transfer however unfortunately the hospitalist Dr. Jimenez is unable to talk with me right now as he is caring for critical patient, the transfer center sales representative printing paper did speak with Dr. Burr 1 of the filler picker associated with her care who recommended the transfer center represented to speak with Dr. Curry who stated that the patient sounded stable and could wait until the hospitalist had time to speak with me. At present we are continuing to observe this patient, we will continue to order serial troponins and EKGs, the majority of her pain actually appears to be coming as a consequence of having received 9 different defibrillations and her pain is reproducible with palpation over top of the defibrillator. I have ordered a Lidoderm patch to be placed and if after 30 minutes she is continued to have pain we will give additional pain medication and consider anticoagulation. Patient is aware of the current plan. (NIECY MITCHELL) 12/07/18 00:[address] Jimenez at [facility] who agrees to accept the patient for transfer. 12/07/18 02:12 Transport is at bedside. Evaluated patient. She is still having soreness to her chest area. Is very easily reproducible with light touch. It seems to be very muscle skeletal from being shocked several times. I did repeat an EKG to make sure that there is no changes. Currently her EKG looks unchanged. There is no ST segment elevation or depression. Patient has some mild T wave inversion in lateral precordial leads but this again is unchanged comparison to EKG from earlier. At this time I feel patient is medically stable for transfer. I will give her some medicine for pain before she leaves. (REFUGIO NAVARRO) - Vital Signs Vital signs: Temp Pulse Resp BP Pulse Ox 98.5 F 24 H 97/49 L 95 12/06/18 16:53 12/07/18 01:01 12/07/18 01:00 12/07/18 01:01 - Laboratory Laboratory results interpreted by me: 12/06/18 12/06/18 12/06/18 17:00 17:00 17:00 Hgb 11.8 L Hct 34.9 L Est GFR (Non-Af Amer) 51 L CK-MB (CK-2) 9.85 H TSH Free T4 12/06/18 18:09 Hgb Hct Est GFR (Non-Af Amer) CK-MB (CK-2) TSH < 0.01 L Free T4 2.62 H - EKG Interpretation by Me Additional EKG results interpreted by me: 12/06/18 23:07 8 of 86, normal axis, normal intervals, no ST segment elevations or depressions, biphasic T waves in V4, T wave inversions in V5 and V6 per my interpretation. Repeat EKG performed at 2218 shows sinus rhythm at a rate of 71, normal axis, normal intervals, no ST segment elevations or depressions, new T wave inversions in V3, persistent T wave inversions in V4 and V5, T wave inversions resolved and only have T wave flattening in V6 per my interpretation. (NIECY MITCHELL) Discharge <NIECY MITCHELL - Last Filed: 12/06/18 23:07> <REFUGIO NAVARRO - Last Filed: 12/07/18 02:14> - Discharge Clinical Impression: Defibrillator discharge Condition: Stable Disposition: [facility] Referrals: TAI TAYLOR MD [Primary Care Provider] - Follow up as needed I personally performed the services described in the documentation, reviewed and edited the documentation which was dictated to the scribe in my presence, and it accurately records my words and actions.
== END 2018-12-07 02:26 | disposition short-term general hospital (02) ==
LOC: ER 16:07
DX: I48.91 Unspecified atrial fibrillation (principal); Z95.810 Presence of automatic (implantable) cardiac defibrillator; R07.9 Chest pain, unspecified; I11.9 Hypertensive heart disease without heart failure; I43 Cardiomyopathy in diseases classified elsewhere; F17.210 Nicotine dependence, cigarettes, uncomplicated; D64.9 Anemia, unspecified; R74.8 Abnormal levels of other serum enzymes
CPT/HCPCS: 93005 ×2; 36415; 84439; 82553; 82550; 84443; 84703; 85025; 80053; 84484; 84481; 82330; 71045; 93010 ×2; J3010; J2270; J3490; J2405; J1650; 96372; 96374; 96375; 99285

== ENCOUNTER 2019-03-15 20:56 | Emergency (ER) | payer MEDICAID ==
[2019-03-15 21:21] VITALS: BP 108/76
[2019-03-15] MEDS ORDERED: IBUPROFEN 600 MG TABLET PO ONE (23:03)
--- NOTE | 2019-03-15 23:05 | ER Document Report ---
ED Medical Screen (RME) - General Chief Complaint: Elbow Injury Stated Complaint: RIGHT ELBOW PAIN Time Seen by Provider: 03/15/19 22:59 Primary Care Provider: TAI TAYLOR MD [Primary Care Provider] - Follow up as needed Mode of Arrival: Ambulatory Information source: Patient Notes: 43-year-old female presented to ED for complaint of pain to her right elbow. She states that she woke up this afternoon with pain and took a tramadol that she has at home for pain. She states she has not injured it that she knows of. She does have a history of gout that is usually in her foot. She also has a history of back problems hypoglycemia hypomagnesia hypothyroid and cardiomyopathy. She had a and a pacemaker defibrillator implanted. She states she does not smoke drink or do any drugs and she does live alone. Patient is alert oriented respirations regular and unlabored speaking in full sentences. I have greeted and performed a rapid initial assessment of this patient. A comprehensive ED assessment and evaluation of the patient, analysis of test results and completion of medical decision making process will be conducted by an additional ED providers. TRAVEL OUTSIDE OF THE [place] IN LAST 30 DAYS: No - Related Data Allergies/Adverse Reactions: amoxicillin Allergy (Verified 09/08/18 09:51) Past Medical History - Past Medical History Cardiac Medical History: Reports: Hx Congestive Heart Failure - Cardiomyopathy., Hx Hypercholesterolemia, Hx Hypertension Denies: Hx Coronary Artery Disease, Hx Heart Attack Pulmonary Medical History: Reports: Hx Asthma, Hx Pneumonia Endocrine Medical History: Reports: Hx Hypothyroidism - POST- REMOVAL OF GOITER 1999. Denies: Hx Diabetes Mellitus Type 1, Hx Diabetes Mellitus Type 2 Renal/ Medical History: Reports: Hx Kidney Stones. Denies: Hx Peritoneal Dialysis Musculoskeltal Medical History: Denies Hx Gout Psychiatric Medical History: Reports: Hx Depression Past Surgical History: Reports: Hx Cardiac Surgery - pacemaker/defib, Hx Section, Hx Internal Defibrillator, Hx Pacemaker - defibrillator, Hx Rectal Surgery - cyst removed, Hx Thyroid Surgery, Hx Tubal Ligation - Immunizations Hx Diphtheria, Pertussis, Tetanus Vaccination: Yes Physical Exam - Vital signs Vitals: Temp Pulse Resp BP Pulse Ox 97.9 F 60 14 108/76 99 03/15/19 21:20 03/15/19 21:20 03/15/19 21:20 03/15/19 21:20 03/15/19 21:20 Course - Vital Signs Vital signs: Temp Pulse Resp BP Pulse Ox 97.9 F 60 14 108/76 99 03/15/19 21:20 03/15/19 21:20 03/15/19 21:20 03/15/19 21:20 03/15/19 21:20 Doctor's Discharge - Discharge Referrals: TAI TAYLOR MD [Primary Care Provider] - Follow up as needed
--- NOTE | 2019-03-15 23:20 | RADIOLOGY REPORT (SQ) ---
EXAM DESCRIPTION: XR ELBOW 3 VIEWS COMPLETED DATE/TME: 03/15/2019 21:53 CLINICAL HISTORY: 43 years Female, bone tenderness COMPARISON:Feb 28 2017, CT Findings: Fusion/deformity of the proximal radius at the ulnar metaphysis indicative of prior injury/surgery. Stable. 0.3 cm ossicular calcifications at the lateral aspect of the lateral epicondyle. Bones, joints, and soft tissues of the RIGHT XR ELBOW 3 VIEWS appear otherwise unremarkable. IMPRESSION: No acute findings.
--- NOTE | 2019-03-16 01:54 | ER Document Report ---
ED General - General Chief Complaint: Elbow Injury Stated Complaint: RIGHT ELBOW PAIN Time Seen by Provider: 03/15/19 22:59 Primary Care Provider: TAI TAYLOR MD [Primary Care Provider] - Follow up as needed Mode of Arrival: Medic Information source: Patient TRAVEL OUTSIDE OF THE [place] IN LAST 30 DAYS: No - HPI Notes: 43-year-old female presented to ED for complaint of pain to her right elbow. She states that she woke up this afternoon with pain and took a tramadol that she has at home for pain. She states she has not injured it that she knows of. She does have a history of gout that is usually in her foot. She also has a history of back problems hypoglycemia hypomagnesia hypothyroid and cardiomyopathy. She had a and a pacemaker defibrillator implanted. She states she does not smoke drink or do any drugs and she does live alone. Patient is alert oriented respirations regular and unlabored speaking in full sentences. Patient states that she had fallen asleep laying on her right arm with pressure upon the lateral aspect of the arm prior to the onset of pain. The patient denies any fever or chills or chest pain or difficulty breathing or numbness or paresthesia. The patient reports when she is attempting to extend through the wrist it makes the elbow hurt significantly. She is right-handed but denies any recent significant repetitive motion through the arm or heavy lifting that she can recall. - Related Data Allergies/Adverse Reactions: amoxicillin Allergy (Verified 09/08/18 09:51) Past Medical History - General Information source: Patient - Social History Smoking Status: Unknown if Ever Smoked Frequency of alcohol use: None Drug Abuse: None Lives with: Family Family History: CAD, Hypertension, Malignancy Patient has suicidal ideation: No Patient has homicidal ideation: No - Past Medical History Cardiac Medical History: Reports: Hx Congestive Heart Failure - Cardiomyopathy., Hx Hypercholesterolemia, Hx Hypertension Denies: Hx Coronary Artery Disease, Hx Heart Attack Pulmonary Medical History: Reports: Hx Asthma, Hx Pneumonia Endocrine Medical History: Reports: Hx Hypothyroidism - POST- REMOVAL OF GOITER 1999. Denies: Hx Diabetes Mellitus Type 1, Hx Diabetes Mellitus Type 2 Renal/ Medical History: Reports: Hx Kidney Stones. Denies: Hx Peritoneal Dialysis Musculoskeletal Medical History: Denies Hx Gout Psychiatric Medical History: Reports: Hx Depression Past Surgical History: Reports: Hx Cardiac Surgery - pacemaker/defib, Hx Section, Hx Internal Defibrillator, Hx Pacemaker - defibrillator, Hx Rectal Surgery - cyst removed, Hx Thyroid Surgery, Hx Tubal Ligation - Immunizations Hx Diphtheria, Pertussis, Tetanus Vaccination: Yes Hx Pneumococcal Vaccination: 04/20/14 Review of Systems - Review of Systems -: Yes All other systems reviewed and negative Physical Exam - Vital signs Vitals: Temp Pulse Resp BP Pulse Ox 97.9 F 60 14 108/76 99 03/15/19 21:20 03/15/19 21:20 03/15/19 21:20 03/15/19 21:20 03/15/19 21:20 - Notes Notes: PHYSICAL EXAMINATION: GENERAL: Well-appearing, well-nourished and in no acute distress. HEAD: Atraumatic, normocephalic. EYES: Pupils equal round and reactive to light, extraocular movements intact, conjunctiva are normal. ENT: Nares patent, oropharynx clear without exudates. Moist mucous membranes. NECK: Normal range of motion, supple without lymphadenopathy LUNGS: Breath sounds clear to auscultation bilaterally and equal. No wheezes rales or rhonchi. HEART: Regular rate and rhythm without murmurs ABDOMEN: Soft, nontender, nondistended abdomen. No guarding, no rebound. No masses appreciated. Female : deferred Musculoskeletal: Normal range of motion, no pitting or edema. No cyanosis. Patient has focal pain over the right lateral epicondyles. No erythema. No medial epicondylar pain. No effusion. Patient has pain with extension through the wrist. Distally, the patient has good sensation and capillary refill and pulses. There is no shoulder pain. NEUROLOGICAL: Cranial nerves grossly intact. Normal speech, normal gait. Normal sensory, motor exams PSYCH: Normal mood, normal affect. SKIN: Warm, Dry, normal turgor, no rashes or lesions noted. Course - Re-evaluation Re-evalutation: 03/16/19 02:40 X-ray negative. The patient was given a Codey wrap to the lateral epicondyle and given a left arm sling. No evidence for fracture. Symptoms do not fit for gout, and there is no erythema or suggestion for cellulitis. There is no effusion. 03/16/19 02:41 - Vital Signs Vital signs: Temp Pulse Resp BP Pulse Ox 97.9 F 60 14 108/76 99 03/15/19 21:20 03/15/19 21:20 03/15/19 21:20 03/15/19 21:20 03/15/19 21:20 Discharge - Discharge Clinical Impression: Lateral epicondylitis of elbow Qualifiers: Laterality: right Qualified Code(s): M77.11 - Lateral epicondylitis, right elbow Condition: Stable Disposition: HOME, SELF-CARE Instructions: Tennis Elbow (Lateral Epicondylitis) ([facility]) Additional Instructions: Use a tennis elbow brace on the arm for continued pain. If pain continues, then you may need a steroid injection in the elbow by orthopedics. Prescriptions: Hydrocodone/Acetaminophen [Jeannette 5-325 mg Tablet] 1 tab PO Q4HP PRN #20 tablet PRN Reason: Referrals: TAI TAYLOR MD [Primary Care Provider] - Follow up as needed TRAIVS CROCKETT MD [ACTIVE STAFF] - Follow up as needed
[2019-03-16] MEDS ORDERED: HYDROCODONE/ACETAMINOPHEN 5-325 MG (6 TAB/ER DISP) PO PRN (02:07)
== END 2019-03-16 02:56 | disposition home or self-care (01) ==
LOC: ER 20:56
DX: M77.11 Lateral epicondylitis, right elbow (principal); M25.521 Pain in right elbow; Z79.899 Other long term (current) drug therapy; I50.9 Heart failure, unspecified; I42.9 Cardiomyopathy, unspecified; I11.0 Hypertensive heart disease with heart failure; J45.909 Unspecified asthma, uncomplicated
CPT/HCPCS: 73080; J3490

== ENCOUNTER 2019-09-07 18:11 | Emergency (ER) | payer MEDICAID ==
--- NOTE | 2019-09-07 20:12 | ER Document Report ---
ED Medical Screen (RME) - General Chief Complaint: Chest Pain Stated Complaint: CHEST PAIN Time Seen by Provider: 09/07/19 20:04 Primary Care Provider: TAI TAYLOR MD [Primary Care Provider] - Follow up as needed Notes: Patient is a 44-year-old female with a history of hypertension who presents to the emergency department with a chief complaint of right-sided chest pain. Patient is on Xarelto for A. fib. Patient reports this morning developing acute onset of right-sided chest pain. She reports this is sharp in nature. Patient reports there is no exacerbating symptoms but when continue to question patient reports this is slightly worse with movement. Does report shortness of breath. Patient did take 1 baby aspirin this morning. Denies cough or fever. TRAVEL OUTSIDE OF THE [place] IN LAST 30 DAYS: No - Related Data Allergies/Adverse Reactions: amoxicillin Allergy (Verified 09/07/19 19:41) Home Medications: calcitrol, simvastatin, sotalol, magox, synthroid, baby asa, xarelto, lorazepam prn, lisinopril Past Medical History - Social History Chew tobacco use (# tins/day): No Frequency of alcohol use: None Drug Abuse: None - Past Medical History Cardiac Medical History: Reports: Hx Congestive Heart Failure - Cardiomyopathy., Hx Hypercholesterolemia, Hx Hypertension Denies: Hx Coronary Artery Disease, Hx Heart Attack Pulmonary Medical History: Reports: Hx Asthma, Hx Pneumonia Endocrine Medical History: Reports: Hx Hypothyroidism - POST- REMOVAL OF GOITER 1999. Denies: Hx Diabetes Mellitus Type 1, Hx Diabetes Mellitus Type 2 Renal/ Medical History: Reports: Hx Kidney Stones. Denies: Hx Peritoneal Dialysis Musculoskeltal Medical History: Denies Hx Gout Psychiatric Medical History: Reports: Hx Depression Past Surgical History: Reports: Hx Cardiac Surgery - pacemaker/defib, Hx [place] Section, Hx Internal Defibrillator, Hx Pacemaker - defibrillator, Hx Rectal Surgery - cyst removed, Hx Thyroid Surgery, Hx Tubal Ligation - Immunizations Hx Diphtheria, Pertussis, Tetanus Vaccination: Yes Physical Exam - Vital signs Vitals: Temp Pulse Resp BP Pulse Ox 98.1 F 63 18 115/74 99 09/07/19 18:46 09/07/19 18:46 09/07/19 18:46 09/07/19 18:46 09/07/19 18:46 Course - Re-evaluation Re-evalutation: 09/07/19 20:12 Patient does have reproducible right-sided chest pain with palpation. I have greeted and performed a rapid initial assessment of this patient. A comprehensive ED assessment and evaluation of the patient, analysis of test results and completion of the medical decision making process will be conducted by additional ED providers. - Vital Signs Vital signs: Temp Pulse Resp BP Pulse Ox 98.1 F 63 18 115/74 99 09/07/19 18:46 09/07/19 18:46 09/07/19 18:46 09/07/19 18:46 09/07/19 18:46 Doctor's Discharge - Discharge Referrals: TAI TAYLOR MD [Primary Care Provider] - Follow up as needed
[2019-09-07 20:42] LABS: ABSOLUTE BASOPHILS # (AUTO) 0.1 10^3/uL (0.0-0.2); ABSOLUTE EOSINOPHILS # (AUTO) 0.1 10^3/uL (0.0-0.6); ABSOLUTE LYMPHOCYTES (AUTO) 3.6 10^3/uL (0.5-4.7); ABSOLUTE MONOCYTES (AUTO) 0.6 10^3/uL (0.1-1.4); ABSOLUTE NEUT (AUTO) 2.4 10^3/uL (1.7-8.2); BASOPHILS % (AUTO) 0.8 % (0-2); EOSINOPHILS % (AUTO) 1.5 % (0-6); HEMATOCRIT 37.2 % (36.0-47.0); HEMOGLOBIN 12.8 g/dL (12.0-15.5); LYMPHOCYTES % (AUTO) 53.4 % (13-45); MEAN CORPUSCULAR HEMOGLOBIN 29.2 pg (27.0-33.4); MEAN CORPUSCULAR HGB CONC 34.4 g/dL (32.0-36.0); MEAN CORPUSCULAR VOLUME 85 fl (80-97); MONOCYTES % (AUTO) 9.2 % (3-13); PLATELET COUNT 242 10^3/uL (150-450); RED BLOOD COUNT 4.38 10^6/uL (3.72-5.28); RED CELL DISTRIBUTION WIDTH 12.9 % (11.5-14.0); SEGMENTED NEUTROPHILS % (AUTO) 35.1 % (42-78); TOTAL CELLS COUNTED % (AUTO) 100 %; WHITE BLOOD COUNT 6.7 10^3/uL (4.0-10.5)
--- NOTE | 2019-09-07 20:46 | RADIOLOGY REPORT (SQ) ---
EXAM DESCRIPTION: X-RAY CHEST 2 VIEWS CLINICAL HISTORY: 44 years Female Chest pain COMPARISON: None TECHNIQUE: PA and lateral chest x-rays at 2028 hours on 09/07/2019. FINDINGS: The lungs are slightly overinflated and clear. The costophrenic sulci are sharp. No pneumothorax. Mild cardiomegaly with normal pulmonary vascularity. A dual lead left pacer defibrillator remains in place. No acute bony abnormalities are seen. Exaggerated lower thoracic lordosis. Surgical clips in the thyroid bed. IMPRESSION: No active cardiopulmonary lesions.
[2019-09-07 20:57] LABS: ALBUMIN 4.3 g/dL (3.5-5.0); ALKALINE PHOSPHATASE 121 U/L (38-126); ANION GAP 8 (5-19); ASPARTATE AMINO TRANSFERASE 31 U/L (14-36); BILIRUBIN,DIRECT 0.3 mg/dL (0.0-0.4); BILIRUBIN,TOTAL 0.4 mg/dL (0.2-1.3); BLOOD UREA NITROGEN 12 mg/dL (7-20); CALCIUM 8.6 mg/dL (8.4-10.2); CARBON DIOXIDE 34 mmol/L (22-30); CHLORIDE 98 mmol/L (98-107); GLUCOSE 86 mg/dL (75-110); POTASSIUM 3.6 mmol/L (3.6-5.0); TOTAL PROTEIN 8.2 g/dL (6.3-8.2)
[2019-09-07] MEDS ORDERED: METHOCARBAMOL 750 MG TABLET PO ONE (22:24)
[2019-09-07] MEDS ORDERED: KETOROLAC TROMETHAMINE 60 MG/2 ML SDV IM ONE (22:24)
[2019-09-07] MEDS ORDERED: LIDOCAINE 5% (700 MG) TRANSDERMAL ADH..PATCH TP ONE (22:24)
--- NOTE | 2019-09-07 22:33 | ER Document Report ---
ED General - General Chief Complaint: Chest Pain Stated Complaint: CHEST PAIN Time Seen by Provider: 09/07/19 20:04 Primary Care Provider: TAI TAYLOR MD [Primary Care Provider] - Follow up as needed Notes: 44-year-old female presents the emergency department complaining of right-sided chest pain that radiates to her back and makes her chest feel tight. States that it onset when she was turning to her left side this morning and reaching with her right arm across her chest and the pain came on suddenly. It is worsened with movement and is worsened with raising her arm and she is never had pain similar to this before. Patient does have a small amount of dyspnea on exertion but mostly states that the pain worsens when she moves any part of the right side of her chest or right upper extremity. TRAVEL OUTSIDE OF THE [place] IN LAST 30 DAYS: No - Related Data Allergies/Adverse Reactions: amoxicillin Allergy (Verified 09/07/19 22:08) Penicillins Allergy (Verified 09/07/19 22:08) Home Medications: calcitrol, simvastatin, sotalol, magox, synthroid, baby asa, xarelto, lorazepam prn, lisinopril Past Medical History - General Information source: Patient - Social History Smoking Status: Former Smoker - Quit on 09/03/2019. Chew tobacco use (# tins/day): No Frequency of alcohol use: None Drug Abuse: None Family History: CAD, Hypertension, Malignancy Patient has suicidal ideation: No Patient has homicidal ideation: No - Past Medical History Cardiac Medical History: Reports: Hx Congestive Heart Failure - Cardiomyopathy., Hx Hypercholesterolemia, Hx Hypertension Denies: Hx Coronary Artery Disease, Hx Heart Attack Pulmonary Medical History: Reports: Hx Asthma, Hx Pneumonia Endocrine Medical History: Reports: Hx Hypothyroidism - POST- REMOVAL OF GOITER 1999. Denies: Hx Diabetes Mellitus Type 1, Hx Diabetes Mellitus Type 2 Renal/ Medical History: Reports: Hx Kidney Stones. Denies: Hx Peritoneal Dialysis Musculoskeletal Medical History: Denies Hx Gout Psychiatric Medical History: Reports: Hx Depression Past Surgical History: Reports: Hx Cardiac Surgery - pacemaker/defib, Hx Section, Hx Internal Defibrillator, Hx Pacemaker - defibrillator, Hx Rectal Surgery - cyst removed, Hx Thyroid Surgery, Hx Tubal Ligation - Immunizations Hx Diphtheria, Pertussis, Tetanus Vaccination: Yes Hx Pneumococcal Vaccination: 04/20/14 Review of Systems - Review of Systems Constitutional: No symptoms reported Cardiovascular: See HPI Respiratory: See HPI Musculoskeletal: See HPI -: Yes All other systems reviewed and negative Physical Exam - Vital signs Vitals: Temp Pulse Resp BP Pulse Ox 98.1 F 63 18 115/74 99 09/07/19 18:46 0218 18:46 02 18:46 02 18:46 09/07/19 18:46 Interpretation: Normal - Notes Notes: GENERAL: Alert, interacts well. No acute distress. HEAD: Normocephalic, atraumatic EYES: Pupils equal, round and reactive to light, extraocular movements intact. ENT: Oral mucosa moist, tongue midline. NECK: Full range of motion, supple, trachea midline. LUNGS: Clear to auscultation bilaterally, no wheezes, rales or rhonchi, no respiratory distress. HEART: Regular rate and rhythm, no murmurs, gallops, rubs. Right side of the chest is tender to palpation particularly along right ribs 6 through 9 both anteriorly and posteriorly, pain worsens with deep breathing, palpation and raising the right arm removing the right shoulder. No lesions noted. ABDOMEN: Soft, nontender, nondistended, bowel sounds present in all 4 quadrants. EXTREMITIES: Moves all 4 extremities spontaneously, no edema, radial and dorsalis pedis pulses 2/4 bilaterally. No cyanosis. NEUROLOGICAL: Alert and oriented x3, normal speech. PSYCH: Normal mood, normal affect. SKIN: Warm, Dry, normal turgor, no rashes or lesions noted. Course - Re-evaluation Re-evalutation: 09/07/19 22:30 CBC unremarkable, CMP unremarkable, troponin negative, chest x-ray not show any acute process or pneumothorax, no pneumonia. No rib fractures. Discussed with patient that this is likely due to an intercostal muscle strain. Patient will be treated with Robaxin, Lidoderm patches and Toradol. Discharged to home. - Vital Signs Vital signs: Temp Pulse Resp BP Pulse Ox 98.1 F 63 18 115/74 99 09/07/19 18:46 [id number] 18:46 09/07/19 18:46 18 18:46 09/07/19 18:46 - Laboratory Result Diagrams: 09/07/19 20:22 09/07/19 20:22 Laboratory results interpreted by me: 09/07/19 09/07/19 20:22 20:22 Lymph % (Auto) 53.4 H Seg Neutrophils % 35.1 L Carbon Dioxide 34 H - EKG Interpretation by Me Additional EKG results interpreted by me: 09/07/19 22:31 EKG shows sinus bradycardia at a rate of 59, normal axis, normal intervals, no ST segment elevations or depressions, there are T wave inversions in 1, 2, aVL, V3 through V6 per my interpretation. Discharge - Discharge Clinical Impression: Acute chest wall pain Intercostal muscle strain Qualifiers: Encounter type: initial encounter Qualified Code(s): S29.011A - Strain of muscle and tendon of front wall of thorax, initial encounter Condition: Stable Disposition: HOME, SELF-CARE Additional Instructions: Chest Wall Pain Your chest pain has been diagnosed as coming from the chest wall. This is often caused by straining the muscles or joints in the chest during physical activity, direct trauma, coughing, or vigorous vomiting. Persons with arthritis are especially prone to this type of pain, due to inflammation of the cartilage joints near the breast bone. Occasionally, no cause can be found. Rest from strenuous physical activity. This kind of chest pain is usually made worse by movement of the chest. Depending on the symptoms, we may prescribe medicine for pain, muscle relaxation, and antiinflammatory effects. If the pain is new, and seems to be due to muscle strain, cold packs can help. Otherwise, apply gentle warmth to the painful area for 15 minutes every hour or two. You should contact the doctor immediately if things change. Further evaluation is needed if you develop a fever or cough, if the nature of the pain changes, or if you become short of breath. Please use ibuprofen (Motrin or Advil) 600-800 mg every 8 hours as needed for pain. You may also use acetaminophen (Tylenol) 1000 mg every 4-6 hours as needed for pain. Please be aware that many medications contain acetaminophen, do not exceed a total of 1000 mg of acetaminophen every 6 hours. You may take the Robaxin as directed to help with the pain. If the Lidoderm patch that we placed tonight helps please get it filled. You may place 1-2 patches on the most painful area for 12 hours a day. You must leave the patches off for 12 hours a day as well. Prescriptions: Lidocaine [Lidoderm 5% (700 mg) Transdermal Patch] 1 patch TP DAILY #10 adh..patch Methocarbamol [Robaxin 750 mg Tablet] 750 mg PO ASDIR PRN #40 tablet PRN Reason: Referrals: TAI TAYLOR MD [Primary Care Provider] - Follow up as needed
[2019-09-07 22:50] VITALS: BP 124/86
--- NOTE | 2019-09-08 22:24 | EKG REPORT ---
SEVERITY:- ABNORMAL ECG - SINUS RHYTHM NONSPECIFIC T ABNORMALITIES, DIFFUSE LEADS : Confirmed by: Mónica Strickland 08-Sep-2019 22:23:37
== END 2019-09-07 22:55 | disposition home or self-care (01) ==
LOC: ER 18:11
DX: S29.011A Strain of muscle and tendon of front wall of thorax, initial encounter (principal); R07.89 Other chest pain; X58.XXXA Exposure to other specified factors, initial encounter; I10 Essential (primary) hypertension; E78.00 Pure hypercholesterolemia, unspecified; Z88.0 Allergy status to penicillin; Z87.891 Personal history of nicotine dependence; Z79.01 Long term (current) use of anticoagulants; Z79.82 Long term (current) use of aspirin; Z95.0 Presence of cardiac pacemaker; Z98.51 Tubal ligation status
CPT/HCPCS: 93005; 36415; 85025; 80053; 84484; 71046; 93010; J1885; J3490 ×2; 96374; 99285

== ENCOUNTER 2019-11-16 03:45 | Emergency (ER) | payer MEDICAID ==
--- NOTE | 2019-11-16 04:14 | ER Document Report ---
ED General - General Chief Complaint: Anxiety Stated Complaint: SHORTNESS OF BREATH/ANXIETY Time Seen by Provider: 11/16/19 03:48 Primary Care Provider: TAI TAYLOR MD [Primary Care Provider] - Follow up as needed Notes: 44-year-old female with cardiomyopathy status post AICD placed several years ago presents emergency department by EMS for anxiety and chest pressure. Patient states that she was arguing with her boyfriend and he kept "poking at me" and she became anxious, started having chest pain, and was not feeling well. She does not think this is related to cardiac type pain. She denies any nausea or vomiting, denies diaphoresis, pain does not radiate. No other complaints TRAVEL OUTSIDE OF THE [place] IN LAST 30 DAYS: No - Related Data Allergies/Adverse Reactions: amoxicillin Allergy (Verified 09/07/19 22:08) Penicillins Allergy (Verified 09/07/19 22:08) Past Medical History - Social History Smoking Status: Current Every Day Smoker Family History: CAD, Hypertension, Malignancy - Past Medical History Cardiac Medical History: Reports: Hx Congestive Heart Failure - Cardiomyopathy., Hx Hypercholesterolemia, Hx Hypertension Denies: Hx Coronary Artery Disease, Hx Heart Attack Pulmonary Medical History: Reports: Hx Asthma, Hx Pneumonia Endocrine Medical History: Reports: Hx Hypothyroidism - POST- REMOVAL OF GOITER 1999. Denies: Hx Diabetes Mellitus Type 1, Hx Diabetes Mellitus Type 2 Renal/ Medical History: Reports: Hx Kidney Stones. Denies: Hx Peritoneal Dialysis Musculoskeletal Medical History: Denies Hx Gout Psychiatric Medical History: Reports: Hx Depression Past Surgical History: Reports: Hx Cardiac Surgery - pacemaker/defib, Hx Section, Hx Internal Defibrillator, Hx Pacemaker - defibrillator, Hx Rectal Surgery - cyst removed, Hx Thyroid Surgery, Hx Tubal Ligation - Immunizations Hx Diphtheria, Pertussis, Tetanus Vaccination: Yes Hx Pneumococcal Vaccination: 04/20/14 Review of Systems - Review of Systems Constitutional: See HPI EENT: No symptoms reported Cardiovascular: See HPI Respiratory: See HPI Gastrointestinal: See HPI Genitourinary: No symptoms reported Female Genitourinary: No symptoms reported Musculoskeletal: No symptoms reported Skin: No symptoms reported Hematologic/Lymphatic: No symptoms reported Neurological/Psychological: No symptoms reported Physical Exam - Vital signs Vitals: Temp Pulse Resp BP Pulse Ox 98.3 F 86 20 124/82 99 11/16/19 03:58 11/16/19 03:58 11/16/19 03:58 11/16/19 03:58 11/16/19 03:58 - Notes Notes: PHYSICAL EXAMINATION: Reviewed vital signs and charting by RN GENERAL: Alert, interacts well. No acute distress. HEAD: Normocephalic, atraumatic. EYES: Pupils equal and round. Extraocular movements intact. ENT: Oral mucosa moist, tongue midline. NECK: Full range of motion. Trachea midline. LUNGS: Clear to auscultation bilaterally, no wheezes, rales, or rhonchi. No respiratory distress. HEART: Regular rate and rhythm. No murmur CHEST: Reproducible sternal chest pain ABDOMEN: soft, non-tender. No distention. Bowel sounds present EXTREMITIES: Moves all 4 extremities spontaneously. No edema, No cyanosis. PSYCH: Normal affect, normal mood. SKIN: Warm, dry, normal turgor. No rashes or lesions noted. Course - Re-evaluation Re-evalutation: 11/16/19 04:13 Patient states she feels she had an anxiety attack. Because of her significant cardiac history I need to rule out cardiac ischemia. Patient's EKG unchanged from previous, sinus rhythm, normal axis, patient does have T wave inversions V45 and 6 from previous so there is no new ischemic changes. No evidence of STEMI. Basic labs will be obtained, chest x-ray, troponin x2. 11/16/19 06:54 Chest x-ray showed a stable AICD with stable cardiac silhouette, no consolidation or infectious appearing etiology. Lab work all within normal limits. Troponin is still pending there was a delay due to obtaining specimen in the lab had to come down to obtain it. 11/16/19 08:07 Patient signed out to Deion Crane NP, - Vital Signs Vital signs: Temp Pulse Resp BP Pulse Ox 98.3 F 86 20 124/82 99 11/16/19 04:12 11/16/19 03:58 11/16/19 03:58 11/16/19 03:58 11/16/19 03:58 - Laboratory Result Diagrams: 11/16/19 06:10 11/16/19 04:57 Laboratory results interpreted by me: 11/16/19 06:10 Lymph % (Auto) 46.2 H Seg Neutrophils % 41.3 L Discharge - Discharge Clinical Impression: Anxiety, Chest pressure Condition: Good Disposition: HOME, SELF-CARE Additional Instructions: You were seen today for anxiety and chest pain. The exact cause of your pain is unclear. However, based on your cardiac enzyme testing, chest x-ray, and EKG it does not appear that it is from a cardiac source and an immediately life- threatening cause at this time. Although your testing here is normal is critical that you follow-up with your primary care physician for continued evaluation of this anxiety, chest pain and possible stress testing. Please r eturn to emergency department immediately if you have worsening of your chest pain, shortness of breath, vomiting, become unable to exert yourself due to pain or difficulty breathing, you pass out, or have any pain that radiates into your arms, jaw, or back. Please also return if you have any additional symptoms that are concerning to you. Referrals: TAI TAYLOR MD [Primary Care Provider] - Follow up as needed
[2019-11-16 05:28] LABS: ALBUMIN 4.5 g/dL (3.5-5.0); ALKALINE PHOSPHATASE 101 U/L (38-126); ANION GAP 8 (5-19); ASPARTATE AMINO TRANSFERASE 26 U/L (14-36); BILIRUBIN,TOTAL 0.3 mg/dL (0.2-1.3); BLOOD UREA NITROGEN 15 mg/dL (7-20); CALCIUM 8.6 mg/dL (8.4-10.2); CARBON DIOXIDE 29 mmol/L (22-30); CHLORIDE 100 mmol/L (98-107); GLUCOSE 91 mg/dL (75-110); TOTAL PROTEIN 8.1 g/dL (6.3-8.2)
--- NOTE | 2019-11-16 05:49 | RADIOLOGY REPORT (SQ) ---
EXAM DESCRIPTION: X-ray single view chest. CLINICAL HISTORY: 44 years Female, chest pain COMPARISON: 09/07/2019 and 12/06/2018 TECHNIQUE: Single portable x-ray view of the chest performed on 11/16/2019 at 5:25 AM FINDINGS: The lungs are well expanded and are clear. There is no evidence of a pneumothorax. The left subclavian pacer pack partially posterior to the portion of the left mid to upper lung zone. The cardiac silhouette is stable and is prominent. The mediastinal contours are normal. No acute osseous abnormality is identified. No focal soft tissue abnormalities are seen. There are postsurgical changes in the region of the thyroid. Lines and tubes: There is a grossly stable left subclavian bipolar AICD. The pacer pack obscures a portion of the left mid to upper lung. There are overlying finish carpenter leads. IMPRESSION: 1. No evidence of acute intrathoracic disease. 2. Stable prominence of the cardiac silhouette. 3. Grossly stable left subclavian bipolar AICD. The pacer pack obscures a portion of the left midlung.
[2019-11-16 06:47] LABS: ABSOLUTE BASOPHILS # (AUTO) 0.1 10^3/uL (0.0-0.2); ABSOLUTE EOSINOPHILS # (AUTO) 0.1 10^3/uL (0.0-0.6); ABSOLUTE LYMPHOCYTES (AUTO) 2.8 10^3/uL (0.5-4.7); ABSOLUTE MONOCYTES (AUTO) 0.6 10^3/uL (0.1-1.4); ABSOLUTE NEUT (AUTO) 2.5 10^3/uL (1.7-8.2); EOSINOPHILS % (AUTO) 1.9 % (0-6); HEMATOCRIT 37.3 % (36.0-47.0); HEMOGLOBIN 13.1 g/dL (12.0-15.5); LYMPHOCYTES % (AUTO) 46.2 % (13-45); MEAN CORPUSCULAR HEMOGLOBIN 29.6 pg (27.0-33.4); MEAN CORPUSCULAR HGB CONC 35.1 g/dL (32.0-36.0); MEAN CORPUSCULAR VOLUME 84 fl (80-97); MONOCYTES % (AUTO) 9.6 % (3-13); PLATELET COUNT 277 10^3/uL (150-450); RED BLOOD COUNT 4.42 10^6/uL (3.72-5.28); RED CELL DISTRIBUTION WIDTH 13.1 % (11.5-14.0); SEGMENTED NEUTROPHILS % (AUTO) 41.3 % (42-78); TOTAL CELLS COUNTED % (AUTO) 100 %; WHITE BLOOD COUNT 6.1 10^3/uL (4.0-10.5)
[2019-11-16 10:45] VITALS: BP 102/63
--- NOTE | 2019-11-16 15:26 | EKG REPORT ---
SEVERITY:- ABNORMAL ECG - SINUS RHYTHM PROBABLE LEFT ATRIAL ABNORMALITY ABNORMAL T, CONSIDER ISCHEMIA, LATERAL LEADS : Confirmed by: Carole Joseph MD 16-Nov-2019 15:25:37
== END 2019-11-16 10:45 | disposition home or self-care (01) ==
LOC: ER 03:45
DX: Z03.818 Encounter for observation for suspected exposure to other biological agents ruled out (principal); F41.9 Anxiety disorder, unspecified; R07.89 Other chest pain; E05.90 Thyrotoxicosis, unspecified without thyrotoxic crisis or storm; I43 Cardiomyopathy in diseases classified elsewhere; I10 Essential (primary) hypertension; J45.909 Unspecified asthma, uncomplicated; Z95.810 Presence of automatic (implantable) cardiac defibrillator; Z88.0 Allergy status to penicillin; F17.200 Nicotine dependence, unspecified, uncomplicated; Z82.49 Family history of ischemic heart disease and other diseases of the circulatory system
CPT/HCPCS: 36415; 71045; 80053; 84443; 84484; 85025; 87635; 93005; 93010; 99285

== ENCOUNTER 2020-02-23 12:29 | Inpatient (IN) | payer MEDICAID ==
[2020-02-23] MEDS ORDERED: ASPIRIN 81 MG TABLET, CHEWABLE PO ONE (13:42)
--- NOTE | 2020-02-23 14:15 | RADIOLOGY REPORT (SQ) ---
EXAM DESCRIPTION: CHEST 2 VIEWS IMAGES COMPLETED DATE/TIME: 02/23/2020 2:06 pm REASON FOR STUDY: Chest pain shortness of breath COMPARISON: 11/16/2019 EXAM PARAMETERS: NUMBER OF VIEWS: two views TECHNIQUE: Digital Frontal and Lateral radiographic views of the chest acquired. RADIATION DOSE: NA LIMITATIONS: none FINDINGS: LUNGS AND PLEURA: No opacities, masses or pneumothorax. No pleural effusion. MEDIASTINUM AND HILAR STRUCTURES: No masses or contour abnormalities. HEART AND VASCULAR STRUCTURES: Heart normal size. No evidence for failure. BONES: No acute findings. HARDWARE: AICD, stable. OTHER: No other significant finding. IMPRESSION: No evidence of acute cardiopulmonary abnormality. TECHNICAL DOCUMENTATION: JOB ID: [id number] [employer]- All Rights Reserved Reading location - IP/workstation name: [email or web address]
[2020-02-23 14:49] LABS: ABSOLUTE BASOPHILS # (AUTO) 0.1 10^3/uL (0.0-0.2); ABSOLUTE LYMPHOCYTES (AUTO) 3.8 10^3/uL (0.5-4.7); ABSOLUTE MONOCYTES (AUTO) 0.6 10^3/uL (0.1-1.4); ABSOLUTE NEUT (AUTO) 4.2 10^3/uL (1.7-8.2); BASOPHILS % (AUTO) 1.2 % (0-2); EOSINOPHILS % (AUTO) 0.2 % (0-6); HEMATOCRIT 38.9 % (36.0-47.0); HEMOGLOBIN 13.3 g/dL (12.0-15.5); LYMPHOCYTES % (AUTO) 43.3 % (13-45); MEAN CORPUSCULAR HEMOGLOBIN 29.4 pg (27.0-33.4); MEAN CORPUSCULAR HGB CONC 34.3 g/dL (32.0-36.0); MEAN CORPUSCULAR VOLUME 86 fl (80-97); MONOCYTES % (AUTO) 6.9 % (3-13); PLATELET COUNT 297 10^3/uL (150-450); RED BLOOD COUNT 4.54 10^6/uL (3.72-5.28); RED CELL DISTRIBUTION WIDTH 13.1 % (11.5-14.0); SEGMENTED NEUTROPHILS % (AUTO) 48.4 % (42-78); TOTAL CELLS COUNTED % (AUTO) 100 %; WHITE BLOOD COUNT 8.8 10^3/uL (4.0-10.5)
[2020-02-23 15:06] LABS: ALBUMIN 4.5 g/dL (3.5-5.0); ALKALINE PHOSPHATASE 117 U/L (38-126); ANION GAP 10 (5-19); ASPARTATE AMINO TRANSFERASE 31 U/L (14-36); BILIRUBIN,DIRECT 0.1 mg/dL (0.0-0.4); BILIRUBIN,TOTAL 0.5 mg/dL (0.2-1.3); BLOOD UREA NITROGEN 9 mg/dL (7-20); CARBON DIOXIDE 29 mmol/L (22-30); CHLORIDE 98 mmol/L (98-107); CREATINE KINASE 414 U/L (30-135); GLUCOSE 83 mg/dL (75-110); PHOSPHORUS 5.9 mg/dL (2.5-4.5); POTASSIUM 3.7 mmol/L (3.6-5.0); TOTAL PROTEIN 8.7 g/dL (6.3-8.2)
[2020-02-23 15:30] LABS: CALCIUM 6.5 mg/dL (8.4-10.2)
[2020-02-23] MEDS ORDERED: MAGNESIUM SULFATE/D5W 1 GM/100 ML RTUPB IV ONE ×3 (15:53→22:00)
[2020-02-23] MEDS ORDERED: CALCIUM GLUCONATE 1000 MG/10 ML INJ IV ONE (15:53)
--- NOTE | 2020-02-23 15:57 | ER Document Report ---
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 Denies any actual shortness of breath. Admits nausea after receiving ibuprofen but denies vomiting or diarrhea. Denies constipation. States that 1 year ago she had identical symptoms and she was found to have hypocalcemia. Patient states she is taking her Calcitrol 0.5 mg twice a day as directed by Dr. Taylor. Only recent change in lifestyle she started smoking again 2 to 3 weeks ago. TRAVEL OUTSIDE OF THE [place] IN LAST 30 DAYS: No - Related Data Allergies/Adverse Reactions: amoxicillin Allergy (Verified 09/07/19 22:08) Penicillins Allergy (Verified 09/07/19 22:08) Past Medical History - General Information source: Patient - Social History Smoking Status: Current Every Day Smoker Chew tobacco use (# tins/day): No Frequency of alcohol use: None Drug Abuse: None Family History: CAD, Hypertension, Malignancy - Past Medical History Cardiac Medical History: Reports: Hx Congestive Heart Failure - Cardiomyopathy., Hx Hypercholesterolemia, Hx Hypertension Denies: Hx Coronary Artery Disease, Hx Heart Attack Pulmonary Medical History: Reports: Hx Asthma, Hx Pneumonia Endocrine Medical History: Reports: Hx Hypothyroidism - POST- REMOVAL OF GOITER 1999. Denies: Hx Diabetes Mellitus Type 1, Hx Diabetes Mellitus Type 2 Renal/ Medical History: Reports: Hx Kidney Stones. Denies: Hx Peritoneal Dialysis Musculoskeletal Medical History: Denies Hx Gout Psychiatric Medical History: Reports: Hx Depression Past Surgical History: Reports: Hx Cardiac Surgery - pacemaker/defib, Hx Section, Hx Internal Defibrillator, Hx Pacemaker - defibrillator, Hx Rectal Surgery - cyst removed, Hx Thyroid Surgery, Hx Tubal Ligation - Immunizations Hx Diphtheria, Pertussis, Tetanus Vaccination: Yes Hx Pneumococcal Vaccination: 04/20/14 Review of Systems - Review of Systems Constitutional: No symptoms reported EENT: No symptoms reported Cardiovascular: See HPI Respiratory: See HPI Gastrointestinal: See HPI Musculoskeletal: See HPI -: Yes All other systems reviewed and negative Physical Exam - Vital signs Vitals: Temp Pulse Resp BP Pulse Ox 98.8 F 112 H 17 116/84 95 02/23/20 13:03 02/23/20 13:03 02/23/20 13:03 02/23/20 13:03 02/23/20 13:03 Interpretation: Tachycardic - Tachycardic on arrival, this is normalized after she has been laying in the bed for 30 minutes. - Notes Notes: GENERAL: Alert, interacts well. No acute distress. HEAD: Normocephalic, atraumatic EYES: Pupils equal, round and reactive to light, extraocular movements intact. ENT: Oral mucosa moist, tongue midline. Negative Chovstek's sign. NECK: Full range of motion, supple, trachea midline. LUNGS: Clear to auscultation bilaterally, no wheezes, rales or rhonchi, no respiratory distress. HEART: Regular rate and rhythm, no murmurs, gallops, rubs. ABDOMEN: Soft, nontender, nondistended, bowel sounds present in all 4 quadrants. EXTREMITIES: Moves all 4 extremities spontaneously, no edema, radial and dorsalis pedis pulses 2/4 bilaterally. No cyanosis. NEUROLOGICAL: Alert and oriented x3, normal speech, biceps and patellar deep tendon reflexes are absent. She does have 5 out of 5 muscle strength in all 4 e xtremities. PSYCH: Normal mood, normal affect. SKIN: Warm, Dry, normal turgor, no rashes or lesions noted. Course - Re-evaluation Re-evalutation: 02/23/20 16:07 CBC unremarkable, CMP shows slight low sodium 136.8, markedly low calcium at 6.5 which does explain all of her symptoms, phosphorus elevated at 5.9, magnesium low at 1.4. Calcium and magnesium are both being repleted IV. Troponin negative. Chest x-ray shows no acute process. - Vital Signs Vital signs: Temp Pulse Resp BP Pulse Ox 98.8 F 112 H 24 H 116/84 100 02/23/20 13:03 02/23/20 13:03 02/23/20 15:08 02/23/20 13:03 02/23/20 15:09 - Laboratory Result Diagrams: 02/23/20 14:33 02/23/20 14:33 Laboratory results interpreted by me: 02/23/20 14:33 Sodium 136.8 L Calcium 6.5 L* Phosphorus 5.9 H Magnesium 1.4 L Creatine Kinase 414 H Total Protein 8.7 H - EKG Interpretation by Me Additional EKG results interpreted by me: 02/23/20 16:09 EKG shows sinus rhythm at a rate of 97, normal axis, normal intervals, no ST segment elevations, there are some ST segment depressions in V3, V4 and V5, no ST segment depressions in V6, T wave inversions in 2, 3, aVF, V3 through V6 per my interpretation. Discharge - Discharge Clinical Impression: Hypocalcemia, Hypomagnesemia Hypoparathyroidism Qualifiers: Hypoparathyroidism type: other hypoparathyroidism Qualified Code(s): E20.8 - Other hypoparathyroidism Nicotine dependence Qualifiers: Nicotine product type: cigarettes Substance use status: uncomplicated Qualified Code(s): F17.210 - Nicotine dependence, cigarettes, uncomplicated Condition: Good Disposition: ADMITTED INPATIENT Admitting Provider: [facility] Unit Admitted: Medical Floor Referrals: TAI TAYLOR MD [Primary Care Provider] - Follow up as needed
[2020-02-23] MEDS ORDERED: HYDROMORPHONE HCL INJ/PF 2 MG/ML AMPULE IV ONE (16:08)
[2020-02-23] MEDS ORDERED: CALCIUM GLUCONATE 1 GM/NS 50 ML RTU IV ONE (16:30)
--- NOTE | 2020-02-23 18:09 | EKG REPORT ---
SEVERITY:- ABNORMAL ECG - SINUS RHYTHM ABNORMAL T, CONSIDER ISCHEMIA, DIFFUSE LEADS INCREASED SINCE 11/16/19 EKG : Confirmed by: Mychal Zavala MD 23-Feb-2020 18:09:10
[2020-02-23] MEDS ORDERED: CALCIUM GLUCONATE 6,666 MG in DEXTROSE 5%-WATER 500 ML IV ONE (19:00)
--- NOTE | 2020-02-23 19:07 | PDOC H&P ---
History of Present Illness Admission Date/PCP: 02/23/20 16:54 TAI CLAUDIA Patient complains of: Shortness of breath, muscle tightness History of Present Illness: SOPHIE BALBUENA is a 44 year old female patient known to my practice who presented to the ED today with complain about worsening generalized muscle spasm, twitching and pain. She reported visiting with her aunt and missed all her medication for the last two days. She reported inability to reach out to her documentation nurse, Dr. Kinney, due to been out of her Sotolol. She denied any palpitation but reported whole body aches and pain from intermittent muscle spasm. 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 She described intermittent prickly sensation across her body and feeling like brick is on her chest. Her symptom is worsen with any form of body movement. She admitted to not socially distancing and regular use of face mask with her current visit at her aunty's house. Also, she admitted to cigarette smoking. She denied any recent travel out of [facility]. Her initial [place] luation in the ED was significant for severe hypocalcemia and hypomagnesemia. She was started on IV Calcium gluconate. She reported some symptom relief with administration of IV Calcium gluconate. Her morbidities are as listed below. Past Medical History Cardiac Medical History: Reports: Congestive Heart Failure - Cardiomyopathy., Hyperlipidema, Hypertension Denies: Coronary Artery Disease, Myocardial Infarction Pulmonary Medical History: Reports: Asthma, Pneumonia Endocrine Medical History: Reports: Hypothyroidism - POST- REMOVAL OF GOITER 1999 Denies: Diabetes Mellitus Type 1, Diabetes Mellitus Type 2 Musculoskeltal Medical History: Denies: Gout Psychiatric Medical History: Reports: Depression Past Surgical History Past Surgical History: Reports: Section, Internal Defibrillator, Pacemaker - defibrillator, Tubal Ligation Social History Smoking Status: Current Every Day Smoker Electronic Cigarette use?: No Frequency of Alcohol Use: None Hx Recreational Drug Use: No Drugs: None Hx Prescription Drug Abuse: No Family History Family History: CAD, Hypertension, Malignancy Parental Family History Reviewed: Yes Children Family History Reviewed: Yes Sibling(s) Family History Reviewed.: Yes Medication/Allergy Home Medications: Rivaroxaban [Xarelto 10 mg Tablet] 20 mg PO DAILY 09/07/19 Calcitriol [Rocaltrol] 1 mcg PO DAILY 02/23/20 Levothyroxine Sodium [Synthroid] 125 mcg PO DAILY 02/23/20 Lisinopril [Zestril] 2.5 mg PO DAILY 02/23/20 Simvastatin 20 mg PO DAILY 02/23/20 Sotalol HCl [Betapace 80 mg Tablet] 40 mg PO Q12 02/23/20 Allergies/Adverse Reactions: amoxicillin Allergy (Verified 02/23/20 17:37) Penicillins Allergy (Verified 02/23/20 17:37) Review of Systems Constitutional: ABSENT: chills, fever(s), headache(s), weight gain, weight loss Eyes: ABSENT: visual disturbances Ears: ABSENT: hearing changes Nose, Mouth, and Throat: ABSENT: headache(s), vertigo Cardiovascular: PRESENT: chest pain - due to muscle spasm with movement. ABSENT: dyspnea on exertion, edema, orthropnea, palpitations Respiratory: ABSENT: cough, hemoptysis Gastrointestinal: ABSENT: abdominal pain, constipation, diarrhea, hematemesis, hematochezia, nausea, vomiting Genitourinary: ABSENT: dysuria, hematuria Musculoskeletal: PRESENT: other - generalized aches and pain. ABSENT: joint swelling Integumentary: ABSENT: rash, wounds Neurological: ABSENT: abnormal gait, abnormal speech, confusion, dizziness, focal weakness, syncope Psychiatric: ABSENT: anxiety, depression, homidical ideation, suicidal ideation Endocrine: ABSENT: cold intolerance, heat intolerance, polydipsia, polyuria Hematologic/Lymphatic: ABSENT: easy bleeding, easy bruising, lymphadenopathy Allergic/Immunologic: ABSENT: seasonal rhinorrhea Physical Exam Vital Signs: Temp Pulse Resp BP Pulse Ox 98.8 F 112 H 24 H 116/84 100 02/23/20 13:03 02/23/20 13:03 02/23/20 15:08 02/23/20 13:03 02/23/20 15:09 Intake & Output 02/22/20 02/23/20 02/24/20 06:59 06:59 06:59 Weight 65 kg General appearance: PRESENT: no acute distress Head exam: PRESENT: atraumatic, normocephalic Eye exam: PRESENT: conjunctiva pink, EOMI, PERRLA. ABSENT: scleral icterus Ear exam: PRESENT: normal external ear exam Mouth exam: PRESENT: moist, tongue midline Neck exam: PRESENT: full ROM. ABSENT: carotid bruit, JVD, lymphadenopathy, thyromegaly Respiratory exam: PRESENT: clear to auscultation jacoby Cardiovascular exam: PRESENT: RRR, +S1, +S2. ABSENT: diastolic murmur, rubs, systolic murmur Pulses: PRESENT: normal dorsalis pedis pul, +2 pedal pulses bilateral Vascular exam: PRESENT: normal capillary refill. ABSENT: pallor GI/Abdominal exam: PRESENT: normal bowel sounds, soft. ABSENT: distended, guarding, mass, organolmegaly, rebound, tenderness Rectal exam: PRESENT: deferred Extremities exam: PRESENT: tenderness - generalized to palpation particularly around her arms and chest wall, other - ch. ABSENT: pedal edema Musculoskeletal exam: PRESENT: ambulatory, other - Negative Chovstek's sign. Neurological exam: PRESENT: alert, awake, oriented to person, oriented to place, oriented to time, oriented to situation, CN II-XII grossly intact. ABSENT: motor sensory deficit Psychiatric exam: PRESENT: appropriate affect, normal mood. ABSENT: homicidal ideation, suicidal ideation Skin exam: PRESENT: dry, intact, warm. ABSENT: cyanosis, rash Results Laboratory Results: 02/23/20 14:33 02/23/20 14:33 02/23/20 02/23/20 14:33 14:33 WBC 8.8 RBC 4.54 Hgb 13.3 Hct 38.9 MCV 86 MCH 29.4 MCHC 34.3 RDW 13.1 Plt Count 297 Seg Neutrophils % 48.4 Sodium 136.8 L Potassium 3.7 Chloride 98 Carbon Dioxide 29 Anion Gap 10 BUN 9 Creatinine 0.74 Est GFR ( Amer) > 60 Glucose 83 Calcium 6.5 L* Phosphorus 5.9 H Magnesium 1.4 L Total Bilirubin 0.5 AST 31 Alkaline Phosphatase 117 Total Protein 8.7 H Albumin 4.5 02/23/20 02/23/20 14:33 14:33 Creatine Kinase 414 H Troponin I < 0.012 Impressions: Chest X-Ray 02/23/20 13:43 IMPRESSION: No evidence of acute cardiopulmonary abnormality. Assessment & Plan - Diagnosis (1) [place] due to low calcium from parathyroid disease Is this a current diagnosis for this admission?: Yes Plan: See admitting attending physician orders fir details about care plan. (2) Hypocalcemia Is this a current diagnosis for this admission?: Yes Plan: See admitting attending physician orders fir details about care plan. (3) Hypomagnesemia Is this a current diagnosis for this admission?: Yes Plan: See admitting attending physician orders fir details about care plan. (4) Hypothyroid Qualifiers: Hypothyroidism type: postoperative Qualified Code(s): E89.0 - Postprocedural hypothyroidism Is this a current diagnosis for this admission?: Yes Plan: See admitting attending physician orders fir details about care plan. (5) Hypoparathyroidism after procedure Plan: See admitting attending physician orders fir details about care plan. (7) Cardiomyopathy Qualifiers: Cardiomyopathy type: unspecified Qualified Code(s): I42.9 - Cardiomyopathy, unspecified Is this a current diagnosis for this admission?: Yes Plan: See admitting attending physician orders fir details about care plan. (8) HTN (hypertension) Qualifiers: Hypertension type: essential hypertension Qualified Code(s): I10 - Essential (primary) hypertension Is this a current diagnosis for this admission?: Yes Plan: See admitting attending physician orders fir details about care plan. (9) Hyperlipidemia Qualifiers: Hyperlipidemia type: unspecified Qualified Code(s): E78.5 - Hyperlipidemia, unspecified Is this a current diagnosis for this admission?: Yes Plan: See admitting attending physician orders fir details about care plan. (10) Nicotine dependence Qualifiers: Nicotine product type: cigarettes Substance use status: uncomplicated Qualified Code(s): F17.210 - Nicotine dependence, cigarettes, uncomplicated Is this a current diagnosis for this admission?: Yes Plan: See admitting attending physician orders fir details about care plan. - Time Time Spent: 50 to 70 Minutes Smoking Cessation Education: 3 to 10 minutes Medications reviewed and adjusted accordingly: Yes Anticipated Discharge Disposition: Home, Self Care Anticipated Discharge Timeframe: within 72 hours - Inpatient Certification Based on my medical assessment, after consideration of the patient's comorbidities, presenting symptoms, or acuity I expect that the services needed warrant INPATIENT care.: Yes I certify that my determination is in accordance with my understanding of Medicare's requirements for reasonable and necessary INPATIENT services [42 CFR 412.3e].: Yes Medical Necessity: Significant Comorbidiites Make Outpatient Treatment Too Risky, Need Close Monitoring Due to Risk of Patient Decompensation, Need For IV Fluids, Need For Continuous Telemetry Monitoring, Risk of Complication if Not Cared For in Hospital, Risk of Diagnosis Which Will Require Inpatient Eval/Care/Monitoring Post Hospital Care: D/C [employer] Documentation - Plan Summary Plan Summary: See admitting attending physician orders fir details about care plan.
[2020-02-23] MEDS: SIMVASTATIN 10 MG TABLET PO SCH (21:58)
[2020-02-23] MEDS: SOTALOL HCL 80 MG TABLET PO SCH (21:58)
[2020-02-23] MEDS ORDERED: NICOTINE 14 MG/24 HR PATCH.TD24 TD ONE (22:30)
[2020-02-24] MEDS: LEVOTHYROXINE SODIUM 0.05 MG TABLET PO SCH (05:36)
[2020-02-24] MEDS: PANTOPRAZOLE SODIUM 40 MG TABLET.DR PO SCH (05:36)
[2020-02-24 05:45] LABS: ABSOLUTE BASOPHILS # (AUTO) 0.1 10^3/uL (0.0-0.2); ABSOLUTE EOSINOPHILS # (AUTO) 0.2 10^3/uL (0.0-0.6); ABSOLUTE MONOCYTES (AUTO) 0.6 10^3/uL (0.1-1.4); ABSOLUTE NEUT (AUTO) 2.5 10^3/uL (1.7-8.2); BASOPHILS % (AUTO) 0.9 % (0-2); EOSINOPHILS % (AUTO) 2.7 % (0-6); HEMATOCRIT 37.6 % (36.0-47.0); HEMOGLOBIN 12.8 g/dL (12.0-15.5); LYMPHOCYTES % (AUTO) 47.2 % (13-45); MEAN CORPUSCULAR HEMOGLOBIN 28.9 pg (27.0-33.4); MEAN CORPUSCULAR HGB CONC 34.1 g/dL (32.0-36.0); MEAN CORPUSCULAR VOLUME 85 fl (80-97); PLATELET COUNT 259 10^3/uL (150-450); RED BLOOD COUNT 4.42 10^6/uL (3.72-5.28); RED CELL DISTRIBUTION WIDTH 12.9 % (11.5-14.0); SEGMENTED NEUTROPHILS % (AUTO) 39.2 % (42-78); TOTAL CELLS COUNTED % (AUTO) 100 %; WHITE BLOOD COUNT 6.4 10^3/uL (4.0-10.5)
[2020-02-24 06:11] LABS: ANION GAP 8 (5-19); BLOOD UREA NITROGEN 8 mg/dL (7-20); CALCIUM 8.2 mg/dL (8.4-10.2); CARBON DIOXIDE 28 mmol/L (22-30); CHLORIDE 100 mmol/L (98-107); POTASSIUM 3.8 mmol/L (3.6-5.0)
[2020-02-24 06:17] LABS: GLUCOSE 67 mg/dL (75-110)
[2020-02-24] MEDS ORDERED: CALCIUM GLUCONATE 2,222 MG in DEXTROSE 5%-WATER 100 ML IV ONE (09:30)
[2020-02-24] MEDS: CALCITRIOL 0.25 MCG CAPSULE PO SCH (09:51)
[2020-02-24] MEDS: SOTALOL HCL 80 MG TABLET PO SCH ×2 (09:51→21:29)
[2020-02-24] MEDS: LISINOPRIL 5 MG TABLET PO SCH (09:51)
[2020-02-24] MEDS: NICOTINE 14 MG/24 HR PATCH.TD24 TD SCH (09:51)
[2020-02-24] MEDS ORDERED: (PENDING PHARMACY ID) (Lisinopril [Zestril] 2.5 MG) PO SCH (10:00)
[2020-02-24] MEDS ORDERED: CALCITRIOL 1 MCG PO SCH (10:00)
[2020-02-24] MEDS ORDERED: (PENDING PHARMACY ID) (Levothyroxine Sodium [Synthroid] 125 MCG) PO SCH (10:00)
[2020-02-24] MEDS ORDERED: (PENDING PHARMACY ID) (Simvastatin [Simvastatin] 20 MG) PO SCH (10:00)
[2020-02-24] MEDS ORDERED: RIVAROXABAN 10 MG TABLET PO SCH (10:00)
--- NOTE | 2020-02-24 18:55 | PDOC PROGRESS REPORT ---
Subjective Progress Note for:: 02/24/20 Subjective:: Patient reported improvement in her muscle spasm. No chest pain or difficulty with breathing. Reported back pain and demanding for Tramadol. No nausea, vomiting, or abdominal pain. No fever or chills. Reason For Visit: SYMPTOMATIC HYPOCALCEMIA;HYPOMAGNESEMIA; Physical Exam Vital Signs: Temp Pulse Resp BP Pulse Ox 98.3 F 68 17 116/72 95 02/24/20 15:23 02/24/20 15:23 02/24/20 15:23 02/24/20 15:23 02/24/20 15:23 Intake & Output 02/23/20 02/24/20 02/25/20 06:59 06:59 06:59 Intake Total 766.66 Balance 766.66 Weight 68 kg General appearance: PRESENT: no acute distress, well-developed, well-nourished Head exam: PRESENT: atraumatic, normocephalic Eye exam: PRESENT: conjunctiva pink Respiratory exam: PRESENT: clear to auscultation jacoby Cardiovascular exam: PRESENT: RRR, +S1, +S2. ABSENT: diastolic murmur, rubs, systolic murmur Vascular exam: ABSENT: pallor GI/Abdominal exam: PRESENT: normal bowel sounds, soft. ABSENT: organolmegaly, tenderness Extremities exam: ABSENT: pedal edema Neurological exam: PRESENT: alert, awake, oriented to person, oriented to place, oriented to time, oriented to situation, CN II-XII grossly intact. ABSENT: motor sensory deficit Skin exam: PRESENT: dry, warm Results Laboratory Results: 02/24/20 05:11 02/24/20 05:11 02/24/20 02/24/20 05:11 05:11 WBC 6.4 RBC 4.42 Hgb 12.8 Hct 37.6 MCV 85 MCH 28.9 MCHC 34.1 RDW 12.9 Plt Count 259 Seg Neutrophils % 39.2 L Sodium 135.6 L Potassium 3.8 Chloride 100 Carbon Dioxide 28 Anion Gap 8 BUN 8 Creatinine 0.70 Est GFR ( Amer) > 60 Glucose 67 L Calcium 8.2 L Phosphorus 7.0 H Magnesium 1.7 02/23/20 02/23/20 14:33 14:33 Creatine Kinase 414 H Troponin I < 0.012 Impressions: Chest X-Ray 08/05/20 13:43 IMPRESSION: No evidence of acute cardiopulmonary abnormality. Assessment & Plan - Diagnosis (1) [place] due to low calcium from parathyroid disease Is this a current diagnosis for this admission?: Yes (2) Hypocalcemia Is this a current diagnosis for this admission?: Yes (3) Hypomagnesemia Is this a current diagnosis for this admission?: Yes (4) Hypothyroid Qualifiers: Hypothyroidism type: postoperative Qualified Code(s): E89.0 - Postproced ural hypothyroidism Is this a current diagnosis for this admission?: Yes (7) Cardiomyopathy Qualifiers: Cardiomyopathy type: unspecified Qualified Code(s): I42.9 - Cardiomyopathy, unspecified Is this a current diagnosis for this admission?: Yes (8) HTN (hypertension) Qualifiers: Hypertension type: essential hypertension Qualified Code(s): I10 - Essential (primary) hypertension Is this a current diagnosis for this admission?: Yes (9) Hyperlipidemia Qualifiers: Hyperlipidemia type: unspecified Qualified Code(s): E78.5 - Hyperlipidemia, unspecified Is this a current diagnosis for this admission?: Yes (10) Nicotine dependence Qualifiers: Nicotine product type: cigarettes Substance use status: uncomplicated Qualified Code(s): F17.210 - Nicotine dependence, cigarettes, uncomplicated Is this a current diagnosis for this admission?: Yes - Time Time Spent with patient: 25-34 minutes Level of Care: TELE Medications reviewed and adjusted accordingly: Yes Anticipated discharge: Home Anticipated DC Timeframe: within 72 hours - Inpatient Certification Based on my medical assessment, after consideration of the patient's comorbidities, presenting symptoms, or acuity I expect that the services needed warrant INPATIENT care.: Yes I certify that my determination is in accordance with my understanding of Medicare's requirements for reasonable and necessary INPATIENT services [42 CFR 412.3e].: Yes Medical Necessity: Significant Comorbidiites Make Outpatient Treatment Too Risky, Need Close Monitoring Due to Risk of Patient Decompensation, Need For IV Fluids, Need For Continuous Telemetry Monitoring, Risk of Complication if Not Cared For in Hospital, Risk of Diagnosis Which Will Require Inpatient Eval/ Care/Monitoring 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 IV Calcium replacement in progress. Obtain BMP and Magnesium level in AM.
[2020-02-24] MEDS: SIMVASTATIN 10 MG TABLET PO SCH (21:29)
[2020-02-24] MEDS: RIVAROXABAN 10 MG TABLET PO SCH (21:33)
[2020-02-25] MEDS: LEVOTHYROXINE SODIUM 0.05 MG TABLET PO SCH (05:21)
[2020-02-25] MEDS: PANTOPRAZOLE SODIUM 40 MG TABLET.DR PO SCH (05:22)
[2020-02-25 05:35] LABS: ANION GAP 8 (5-19); BLOOD UREA NITROGEN 5 mg/dL (7-20); CALCIUM 7.9 mg/dL (8.4-10.2); CARBON DIOXIDE 28 mmol/L (22-30); CHLORIDE 100 mmol/L (98-107); GLUCOSE 77 mg/dL (75-110); POTASSIUM 3.9 mmol/L (3.6-5.0)
[2020-02-25] MEDS: CALCITRIOL 0.25 MCG CAPSULE PO SCH (10:21)
[2020-02-25] MEDS: LISINOPRIL 5 MG TABLET PO SCH (10:21)
[2020-02-25] MEDS: NICOTINE 14 MG/24 HR PATCH.TD24 TD SCH (10:22)
[2020-02-25] MEDS: SOTALOL HCL 80 MG TABLET PO SCH ×2 (10:22→21:43)
--- NOTE | 2020-02-25 14:21 | PDOC PROGRESS REPORT ---
Subjective Progress Note for:: 02/25/20 Subjective:: Patient reported intermittent abdominal muscle spasm. No chest pain or difficulty with breathing. No nausea, vomiting, or abdominal pain. No fever or chills. Reason For Visit: SYMPTOMATIC HYPOCALCEMIA;HYPOMAGNESEMIA; Physical Exam Vital Signs: Temp Pulse Resp BP Pulse Ox 98.1 F 69 18 106/66 97 02/25/20 12:27 02/25/20 12:27 02/25/20 12:27 02/25/20 12:27 02/25/20 12:27 Intake & Output 02/24/20 02/25/20 02/26/20 06:59 06:59 06:59 Intake Total 766.66 Balance 766.66 Weight 68 kg 70 kg Physical Exam: General appearance: PRESENT: no acute distress, well-developed, well-nourished Head exam: PRESENT: atraumatic, normocephalic Eye exam: PRESENT: conjunctiva pink. ABSENT: pallor, sclera icterus Respiratory exam: PRESENT: clear to auscultation jacoby Cardiovascular exam: PRESENT: RRR, +S1, +S2. ABSENT: diastolic murmur, rubs, systolic murmur GI/Abdominal exam: PRESENT: normal bowel sounds, soft. ABSENT: organomegaly, tenderness Extremities exam: ABSENT: pedal edema Neurological exam: PRESENT: alert, awake, oriented to person, oriented to place, oriented to time, oriented to situation, CN II-XII grossly intact. ABSENT: motor sensory deficit Skin exam: PRESENT: dry, warm Results Laboratory Results: 02/24/20 05:11 02/25/20 04:31 02/25/20 04:31 Sodium 136.0 L Potassium 3.9 Chloride 100 Carbon Dioxide 28 Anion Gap 8 BUN 5 L Creatinine 0.70 Est GFR ( Amer) > 60 Glucose 77 Calcium 7.9 L Magnesium 1.5 L 02/23/20 02/23/20 14:33 14:33 Creatine Kinase 414 H Troponin I < 0.012 Impressions: Chest X-Ray 02/23/20 13:43 IMPRESSION: No evidence of acute cardiopulmonary abnormality. Assessment & Plan - Diagnosis (1) [place] due to low calcium from parathyroid disease Is this a current diagnosis for this admission?: Yes (2) Hypocalcemia Is this a current diagnosis for this admission?: Yes (3) Hypomagnesemia Is this a current diagnosis for this admission?: Yes (4) Hypothyroid Qualifiers: Hypothyroidism type: postoperative Qualified Code(s): E89.0 - Postprocedural hypothyroidism Is this a current diagnosis for this admission?: Yes (7) Cardiomyopathy Qualifiers: Cardiomyopathy type: unspecified Qualified Code(s): I42.9 - Cardiomyopathy, unspecified Is this a current diagnosis for this admission?: Yes (8) HTN (hypertension) Qualifiers: Hypertension type: essential hypertension Qualified Code(s): I10 - Essential (primary) hypertension Is this a current diagnosis for this admission?: Yes (9) Hyperlipidemia Qualifiers: Hyperlipidemia type: unspecified Qualified Code(s): E78.5 - Hyperlipidemia, unspecified Is this a current diagnosis for this admission?: Yes (10) Nicotine dependence Qualifiers: Nicotine product type: cigarettes Substance use status: uncomplicated Qualified Code(s): F17.210 - Nicotine dependence, cigarettes, uncomplicated Is this a current diagnosis for this admission?: Yes - Time Time Spent with patient: 25-34 minutes Level of Care: TELE Medications reviewed and adjusted accordingly: Yes Anticipated discharge: Home Anticipated DC Timeframe: within 72 hours - Inpatient Certification Based on my medical assessment, after consideration of the patient's comorbidities, presenting symptoms, or acuity I expect that the services needed warrant INPATIENT care.: Yes I certify that my determination is in accordance with my understanding of Medicare's requirements for reasonable and necessary INPATIENT services [42 CFR 412.3e].: Yes Medical Necessity: Significant Comorbidiites Make Outpatient Treatment Too Risky, Need Close Monitoring Due to Risk of Patient Decompensation, Risk of Complication if Not Cared For in Hospital, Risk of Diagnosis Which Will Require Inpatient Eval/Care/Monitoring Post Hospital Care: D/C [employer] Documentation - Plan Summary Plan Summary: Patient will receive IV Magnesium and Potassium replacement.
[2020-02-25] MEDS: MAGNESIUM SULFATE/D5W 1 GM/100 ML RTUPB IV SCH ×2 (15:51→17:00)
[2020-02-25] MEDS ORDERED: CALCIUM GLUCONATE 6,666 MG in DEXTROSE 5%-WATER 500 ML IV ONE (16:00)
[2020-02-25] MEDS: RIVAROXABAN 10 MG TABLET PO SCH (17:01)
[2020-02-25] MEDS ORDERED: ACETAMINOPHEN 325 MG TABLET ONE (20:55)
[2020-02-25] MEDS: SIMVASTATIN 10 MG TABLET PO SCH (21:43)
--- NOTE | 2020-02-25 23:05 | RADIOLOGY REPORT (SQ) ---
AP Portable chest: 02/25/2020 10:04 PM CDT History: 44-year old patient with fever. Comparison: Chest radiograph performed 02/23/2020. Findings: The cardiomediastinal silhouette is enlarged. No pneumothorax is seen. No discrete pleural effusion is apparent. No acute airspace opacities are seen. A dual-lead left-sided pacemaker/AICD is seen. There are surgical clips seen at the base of the neck. Impression: No acute airspace opacities are seen. The cardiomediastinal silhouette is enlarged.
[2020-02-26] MEDS: LEVOTHYROXINE SODIUM 0.05 MG TABLET PO SCH (05:24)
[2020-02-26] MEDS: ACETAMINOPHEN 325 MG TABLET PO PRN ×3 (05:25→21:53)
[2020-02-26] MEDS: PANTOPRAZOLE SODIUM 40 MG TABLET.DR PO SCH (05:25)
[2020-02-26 05:46] LABS: ABSOLUTE BASOPHILS # (AUTO) 0.1 10^3/uL (0.0-0.2); ABSOLUTE LYMPHOCYTES (AUTO) 0.8 10^3/uL (0.5-4.7); ABSOLUTE MONOCYTES (AUTO) 0.7 10^3/uL (0.1-1.4); ABSOLUTE NEUT (AUTO) 12.8 10^3/uL (1.7-8.2); BASOPHILS % (AUTO) 0.4 % (0-2); EOSINOPHILS % (AUTO) 0.2 % (0-6); HEMATOCRIT 40.6 % (36.0-47.0); HEMOGLOBIN 13.9 g/dL (12.0-15.5); LYMPHOCYTES % (AUTO) 5.4 % (13-45); MEAN CORPUSCULAR HEMOGLOBIN 28.9 pg (27.0-33.4); MEAN CORPUSCULAR HGB CONC 34.2 g/dL (32.0-36.0); MEAN CORPUSCULAR VOLUME 85 fl (80-97); PLATELET COUNT 260 10^3/uL (150-450); TOTAL CELLS COUNTED % (AUTO) 100 %
[2020-02-26 05:58] LABS: WHITE BLOOD COUNT 14.4 10^3/uL (4.0-10.5)
[2020-02-26 06:09] LABS: ANION GAP 11 (5-19); BLOOD UREA NITROGEN 7 mg/dL (7-20); CALCIUM 9.7 mg/dL (8.4-10.2); CARBON DIOXIDE 28 mmol/L (22-30); CHLORIDE 98 mmol/L (98-107); GLUCOSE 119 mg/dL (75-110); POTASSIUM 4.2 mmol/L (3.6-5.0)
[2020-02-26] MEDS: CALCITRIOL 0.25 MCG CAPSULE PO SCH (09:55)
[2020-02-26] MEDS: NICOTINE 14 MG/24 HR PATCH.TD24 TD SCH (09:58)
[2020-02-26] MEDS: LISINOPRIL 5 MG TABLET PO SCH (10:15)
[2020-02-26] MEDS: SOTALOL HCL 80 MG TABLET PO SCH ×2 (10:17→21:51)
--- NOTE | 2020-02-26 11:57 | PDOC PROGRESS REPORT ---
Subjective Progress Note for:: 02/26/20 Subjective:: Patient was admitted for the low calcium and tetany Patient also developed overnight fever Patient's denied any cough no congestions no chest pain Patient complains of some abdominal discomfort and some nausea Patient's denied any urinary symptoms Patient has an allergy to the penicillin and not sure about the cephalosporin We will start the patient on Aziactem because the patient's currently on the sotalol for cardiomyopathy which interfere with the hanane quinolone Patient so we will get the lactic acid blood culture urine cultures We also get the CT scan of the abdomen and pelvis with IV contrast We will hold the lisinopril due to the low blood pressures Patient otherwise alert awake talking does not look like any acute distress Reason For Visit: SYMPTOMATIC HYPOCALCEMIA;HYPOMAGNESEMIA; Physical Exam Vital Signs: Temp Pulse Resp BP Pulse Ox 99.2 F 98 16 99/68 L 98 02/26/20 07:32 02/26/20 10:00 02/26/20 07:32 02/26/20 10:00 02/26/20 07:32 Intake & Output 02/25/20 02/26/20 02/27/20 06:59 06:59 06:59 Intake Total 1476.66 Output Total 900 Balance 576.66 Weight 70 kg 70.2 kg General appearance: PRESENT: no acute distress, well-developed, well-nourished Head exam: PRESENT: atraumatic, normocephalic Eye exam: PRESENT: conjunctiva pink, EOMI, PERRLA. ABSENT: scleral icterus Ear exam: PRESENT: normal external ear exam Mouth exam: PRESENT: moist, tongue midline Neck exam: PRESENT: full ROM. ABSENT: carotid bruit, JVD, lymphadenopathy, thyromegaly Respiratory exam: PRESENT: clear to auscultation jacoby Cardiovascular exam: PRESENT: RRR. ABSENT: diastolic murmur, rubs, systolic murmur Pulses: PRESENT: normal dorsalis pedis pul, +2 pedal pulses bilateral Vascular exam: PRESENT: normal capillary refill GI/Abdominal exam: PRESENT: normal bowel sounds, soft. ABSENT: distended, guarding, mass, organolmegaly, rebound, tenderness Rectal exam: PRESENT: deferred Neurological exam: PRESENT: alert, awake, oriented to person, oriented to place, oriented to time, oriented to situation, CN II-XII grossly intact. ABSENT: motor sensory deficit Psychiatric exam: PRESENT: appropriate affect, normal mood. ABSENT: homicidal ideation, suicidal ideation Skin exam: PRESENT: dry, intact, warm. ABSENT: cyanosis, rash Results Laboratory Results: 02/26/20 05:14 02/26/20 05:14 02/26/20 02/26/20 05:14 05:14 WBC 14.4 H D RBC 4.80 Hgb 13.9 Hct 40.6 MCV 85 MCH 28.9 MCHC 34.2 RDW 13.0 Plt Count 260 Seg Neutrophils % 89.0 H Sodium 137.4 Potassium 4.2 Chloride 98 Carbon Dioxide 28 Anion Gap 11 BUN 7 Creatinine 0.81 Est GFR ( Amer) > 60 Glucose 119 H Calcium 9.7 Magnesium 1.6 02/23/20 02/23/20 14:33 14:33 Creatine Kinase 414 H Troponin I < 0.012 Assessment & Plan - Diagnosis (1) Fever Qualifiers: Fever type: unspecified Qualified Code(s): R50.9 - Fever, unspecified Is this a current diagnosis for this admission?: Yes Plan: We will start the patient on IV antibiotic We will get the already ordered the blood culture urine culture we will get the CT scan of the abdomen and pelvis Continues to monitor We will get the lactic acids (2) Hypocalcemia Is this a current diagnosis for this admission?: Yes Plan: Currently all improving (3) Hypomagnesemia Is this a current diagnosis for this admission?: Yes Plan: We will continue to monitor (4) Hypoparathyroidism Qualifiers: Hypoparathyroidism type: other hypoparathyroidism Qualified Code(s): E20.8 - Other hypoparathyroidism Is this a current diagnosis for this admission?: Yes (5) Cardiac defibrillator in situ Is this a current diagnosis for this admission?: Yes (6) Cardiomyopathy Qualifiers: Cardiomyopathy type: unspecified Qualified Code(s): I42.9 - Cardiomyopathy, unspecified Is this a current diagnosis for this admission?: Yes Plan: With the setting of the hypotension we will get the Dr. Kinney to look at the patient's medications (7) Chronic systolic heart failure Is this a current diagnosis for this admission?: Yes (8) Abdominal discomfort Is this a current diagnosis for this admission?: Yes Plan: We will get the LFT check the urine get the CT scan - Time Time Spent with patient: 15-24 minutes Level of Care: TELE Medications reviewed and adjusted accordingly: Yes Anticipated discharge: Home Anticipated DC Timeframe: Other - Plan Summary Plan Summary: We will get the CT scan of the abdomen pelvis Wait for all culture Start on antibiotic
[2020-02-26 12:33] LABS: ALBUMIN 3.7 g/dL (3.5-5.0); ALKALINE PHOSPHATASE 95 U/L (38-126); ASPARTATE AMINO TRANSFERASE 62 U/L (14-36); BILIRUBIN,DIRECT 0.2 mg/dL (0.0-0.4); BILIRUBIN,TOTAL 0.7 mg/dL (0.2-1.3); TOTAL PROTEIN 7.5 g/dL (6.3-8.2)
[2020-02-26] MEDS ORDERED: AZTREONAM 1 GM in DEXTROSE 5%-WATER 50 ML IV SCH (14:00)
--- NOTE | 2020-02-26 15:26 | RADIOLOGY REPORT (SQ) ---
EXAM DESCRIPTION: CT ABD/PELVIS NO ORAL OR IV IMAGES COMPLETED DATE/TIME: 02/26/2020 2:40 pm REASON FOR STUDY: Abdominal pain COMPARISON: None. TECHNIQUE: CT scan of the abdomen and pelvis performed without intravenous or oral contrast. Images reviewed with lung, soft tissue, and bone windows. Reconstructed coronal and sagittal MPR images revi ewed. All images stored on PACS. All CT scanners at this facility use dose modulation, iterative reconstruction, and/or weight based d osing when appropriate to reduce radiation dose to as low as reasonably achievable (ALARA). [facility]: Dose Right [facility]: CareDose [facility]: Dose Right [facility]: Teradose 4D [facility]: [employer] Technologies RADIATION DOSE: CT Rad equipment meets quality standard of care and radiation dose reduction techniq ues were employed. CTDIvol: 5.4 mGy. DLP: 275 mGy-cm.mGy. LIMITATIONS: None. FINDINGS: LOWER CHEST: Defibrillator. NON-CONTRASTED LIVER, SPLEEN, ADRENALS: Evaluation limited by lack of IV contrast. No identified sign ificant masses. PANCREAS: No masses. No peripancreatic inflammatory changes. GALLBLADDER: No identified stones by CT criteria. No inflammatory changes to suggest cholecystitis. RIGHT KIDNEY AND URETER: No suspicious masses. Assessment limited by lack of IV contrast. No signif icant calcifications. No hydronephrosis or hydroureter. LEFT KIDNEY AND URETER: No suspicious masses. Assessment limited by lack of IV contrast. No signifi cant calcifications. No hydronephrosis or hydroureter. AORTA AND RETROPERITONEUM: No aneurysm. No retroperitoneal masses or adenopathy. BOWEL AND PERITONEAL CAVITY: No obvious masses or inflammatory changes. No free fluid. APPENDIX: Normal. PELVIS, BLADDER, AND ABDOMINAL WALL:No abnormal masses. No free fluid. Bladder normal. BONES: No significant findings. OTHER: No other significant finding. IMPRESSION: NO SIGNIFICANT OR ACUTE PROCESS IN THE ABDOMEN OR PELVIS. COMMENT: Quality ID # [id number]: Final reports with documentation of one or more dose reduction techniques (e.g., Automated exposure control, adjustment of the mA and/or kV according to patient size, use of iterative reconstruction technique) TECHNICAL DOCUMENTATION: JOB ID: [id number] 2010 [employer]- All Rights Reserved Reading location - IP/workstation name: [email or web address]
[2020-02-26] MEDS ORDERED: DIPHENHYDRAMINE HCL 25 MG CAPSULE ONE (16:25)
[2020-02-26] MEDS ORDERED: DIPHENHYDRAMINE HCL 25 MG CAPSULE PO ONE (16:30)
[2020-02-26] MEDS ORDERED: METHYLPREDNISOLONE INJ 40 MG/1 ML SDV IV ONE (16:30)
[2020-02-26] MEDS ORDERED: ONDANSETRON HCL INJ/PF 4 MG/2 ML SDV ONE (16:38)
[2020-02-26] MEDS ORDERED: DOXYCYCLINE HYCLATE 100 MG TABLET PO ONE (17:00)
[2020-02-26 17:06] LABS: ABSOLUTE LYMPHOCYTES (AUTO) 0.9 10^3/uL (0.5-4.7); ABSOLUTE NEUT (AUTO) 3.2 10^3/uL (1.7-8.2); BASOPHILS % (AUTO) 0.7 % (0-2); HEMATOCRIT 43.3 % (36.0-47.0); HEMOGLOBIN 14.7 g/dL (12.0-15.5); LYMPHOCYTES % (AUTO) 21.2 % (13-45); MEAN CORPUSCULAR HEMOGLOBIN 29.3 pg (27.0-33.4); MEAN CORPUSCULAR HGB CONC 33.9 g/dL (32.0-36.0); MEAN CORPUSCULAR VOLUME 86 fl (80-97); MONOCYTES % (AUTO) 0.7 % (3-13); PLATELET COUNT 269 10^3/uL (150-450); RED BLOOD COUNT 5.01 10^6/uL (3.72-5.28); RED CELL DISTRIBUTION WIDTH 12.9 % (11.5-14.0); SEGMENTED NEUTROPHILS % (AUTO) 77.4 % (42-78); TOTAL CELLS COUNTED % (AUTO) 100 %; WHITE BLOOD COUNT 4.2 10^3/uL (4.0-10.5)
--- NOTE | 2020-02-26 17:43 | PDOC PROGRESS REPORT ---
Subjective Progress Note for:: 02/26/20 Subjective:: Patient have a fever last night blood culture urine culture is done chest x-ray is all negative Patient was complaining some abdominal discomfort we will get a CT scan of the abdomen pelvis pretty much all stable normal Patient is lactic acid initially 1.1 Patient started the Azactam but patient is was complaining of IV side pain and EEG so medicine was stopped patient did not receive the medicines much Patient also feeling shaky and complaining of nausea patient is received the steroid and Benadryl feeling comfortable right now Patient's denied any chest pain no short of breath Patient denied any cough no congestions Patient's COVID test is negative Patient's white count again back to the normal but lactic acid is going up Patient is blood pressure is stable Discussed with the firearms instructor today and he suggested check the UA and give her 1 dose of the Rocephin while discussed with the Dr. Kinney Levaquin is not a good idea to use it with the sotalol Patient is already received a steroid and Benadryl while patient have multiple allergy issue start the doxycycline empirically and give her Rocephin Patient EKG was change in the admissions with some diffuse T wave changes discussed with the Dr. Kinney and suggest that definitely EKG was changed from previous EKG from his office but patient have a nonischemic cardiomyopathy and the patient's denied any chest pain he does not think anything needs to be changed at this point Patient at this point suggest to order the echocardiogram Patient's AST is elevated with some abdominal discomfort we will order the ultrasound to rule out any gallbladder issues Reason For Visit: SYMPTOMATIC HYPOCALCEMIA;HYPOMAGNESEMIA; Physical Exam Vital Signs: Temp Pulse Resp BP Pulse Ox 98.4 F 102 H 20 129/101 H 97 02/26/20 16:00 02/26/20 16:00 02/26/20 16:00 02/26/20 16:00 02/26/20 16:00 Intake & Output 02/25/20 02/26/20 02/27/20 06:59 06:59 06:59 Intake Total 1476.66 260 Output Total 900 Balance 576.66 260 Weight 70 kg 70.2 kg General appearance: PRESENT: no acute distress, well-developed, well-nourished Head exam: PRESENT: atraumatic, normocephalic Eye exam: PRESENT: conjunctiva pink, EOMI, PERRLA. ABSENT: scleral icterus Ear exam: PRESENT: normal external ear exam Mouth exam: PRESENT: moist, tongue midline Neck exam: PRESENT: full ROM. ABSENT: carotid bruit, JVD, lymphadenopathy, thyromegaly Respiratory exam: PRESENT: clear to auscultation jacoby Cardiovascular exam: PRESENT: RRR. ABSENT: diastolic murmur, rubs, systolic murmur Pulses: PRESENT: normal dorsalis pedis pul, +2 pedal pulses bilateral Vascular exam: PRESENT: normal capillary refill GI/Abdominal exam: PRESENT: normal bowel sounds, soft. ABSENT: distended, guarding, mass, organolmegaly, rebound, tenderness Additonal comments: Mild right upper quadrant tenderness Rectal exam: PRESENT: deferred Neurological exam: PRESENT: alert, awake, oriented to person, oriented to place, oriented to time, oriented to situation, CN II-XII grossly intact. ABSENT: motor sensory deficit Psychiatric exam: PRESENT: appropriate affect, normal mood. ABSENT: homicidal ideation, suicidal ideation Skin exam: PRESENT: dry, intact, warm. ABSENT: cyanosis, rash Results Laboratory Results: 02/26/20 16:35 02/26/20 16:35 02/26/20 02/26/20 02/26/20 05:14 05:14 11:50 WBC 14.4 H D RBC 4.80 Hgb 13.9 Hct 40.6 MCV 85 MCH 28.9 MCHC 34.2 RDW 13.0 Plt Count 260 Seg Neutrophils % 89.0 H Sodium 137.4 Potassium 4.2 Chloride 98 Carbon Dioxide 28 Anion Gap 11 BUN 7 Creatinine 0.81 Est GFR ( Amer) > 60 Est GFR (Non-Af Amer) Glucose 119 H Lactic Acid 1.1 Calcium 9.7 Magnesium 1.6 Total Bilirubin AST Alkaline Phosphatase Total Protein Albumin Lipase 02/26/20 02/26/20 02/26/20 11:50 16:35 16:35 WBC 4.2 RBC 5.01 Hgb 14.7 Hct 43.3 MCV 86 MCH 29.3 MCHC 33.9 RDW 12.9 Plt Count 269 Seg Neutrophils % 77.4 Sodium Potassium Chloride Carbon Dioxide Anion Gap BUN Creatinine Est GFR ( Amer) Est GFR (Non-Af Amer) Glucose Lactic Acid 5.2 H Calcium Magnesium Total Bilirubin 0.7 AST 62 H Alkaline Phosphatase 95 Total Protein 7.5 Albumin 3.7 Lipase 36.0 02/26/20 16:35 WBC RBC Hgb Hct MCV MCH MCHC RDW Plt Count Seg Neutrophils % Sodium Cancelled Potassium Cancelled Chloride Cancelled Carbon Dioxide Cancelled Anion Gap Cancelled BUN Cancelled Creatinine Cancelled Est GFR ( Amer) Cancelled Est GFR (Non-Af Amer) Cancelled Glucose Cancelled Lactic Acid Calcium Cancelled Magnesium Total Bilirubin AST Alkaline Phosphatase Total Protein Albumin Lipase 02/23/20 02/23/20 14:33 14:33 Creatine Kinase 414 H Troponin I < 0.012 Impressions: Abdomen/Pelvis CT 02/26/20 00:00 IMPRESSION: NO SIGNIFICANT OR ACUTE PROCESS IN THE ABDOMEN OR PELVIS. Assessment & Plan - Diagnosis (1) Fever Qualifiers: Fever type: unspecified Qualified Code(s): R50.9 - Fever, unspecified Is this a current diagnosis for this admission?: Yes Plan: At this point unclear etiology We will get the gallbladder ultrasound to rule out any gallbladder issues We will check the urine analysis Discussed with the firearms instructor and he suggest that I think patient's currently looks like stable enough at floor continues to monitor give her 1 dose of the R ocephin We will get the echocardiogram as per discussed with Dr. Kinney to looking for any valve (2) Hypocalcemia Is this a current diagnosis for this admission?: Yes Plan: Currently all stable (3) Hypomagnesemia Is this a current diagnosis for this admission?: Yes (4) Hypoparathyroidism Qualifiers: Hypoparathyroidism type: other hypoparathyroidism Qualified Code(s): E20.8 - Other hypoparathyroidism Is this a current diagnosis for this admission?: Yes (5) Cardiac defibrillator in situ Is this a current diagnosis for this admission?: Yes (6) Cardiomyopathy Qualifiers: Cardiomyopathy type: unspecified Qualified Code(s): I42.9 - Cardiomyopathy, unspecified Is this a current diagnosis for this admission?: Yes Plan: We will get the echocardiogram last echocardiogram the EF was only 15% as per Dr. Kinney (7) Chronic systolic heart failure Is this a current diagnosis for this admission?: Yes (8) Abdominal discomfort Is this a current diagnosis for this admission?: Yes Plan: We will get the ultrasound - Time Time Spent with patient: 35 or more minutes Level of Care: TELE Medications reviewed and adjusted accordingly: Yes Anticipated discharge: Home Anticipated DC Timeframe: Other - Plan Summary Plan Summary: Again very extensive discussions with the cardiology and firearms instructor We will order the EKG echocardiogram Will order the ultrasound of the abdomen Patient of multiple drug allergies the levaquin according to the cardiology should be avoided Start the patient on IV Rocephin and also doxycycline with the setting of elevated lactic acid possible sepsis with unclear etiology Discussed with the patient family
[2020-02-26] MEDS: RIVAROXABAN 10 MG TABLET PO SCH (17:53)
[2020-02-26] MEDS ORDERED: DIPHENHYDRAMINE HCL 25 MG CAPSULE PO PRN (18:03)
[2020-02-26] MEDS: CEFTRIAXONE 1 GM/D5W RTU 1 GM/50 ML RTUPB IV SCH (18:19)
[2020-02-26 18:26] LABS: APPEARANCE,URINE SLIGHTLY-CLOUDY; BILIRUBIN,URINE NEGATIVE (NEGATIVE); COLOR,URINE YELLOW; GLUCOSE, URINE NEGATIVE (NEGATIVE); KETONES,URINE NEGATIVE (NEGATIVE); LEUKOCYTE ESTERASE,URINE TRACE (NEGATIVE); NITRITE,URINE NEGATIVE (NEGATIVE); PROTEIN,URINE 100 mg/dL (NEGATIVE); UROBILINOGEN,URINE NEGATIVE mg/dL (<2.0)
[2020-02-26] MEDS ORDERED: NORMAL SALINE 500 ML IV ONE (18:30)
--- NOTE | 2020-02-26 18:52 | RADIOLOGY REPORT (SQ) ---
EXAM DESCRIPTION: U/S ABDOMEN LIMITED W/O DOP IMAGES COMPLETED DATE/TIME: 02/26/2020 6:27 pm REASON FOR STUDY: RUQ Pain/Abd Pain Gallbladder U/S COMPARISON: CT abdomen and pelvis 02/26/2020. TECHNIQUE: Grayscale images acquired of the abdomen and recorded on PACS. Additional selected color Doppler and spectral images recorded. LIMITATIONS: Overlying bowel gas FINDINGS: PANCREAS: The pancreas is mostly obscured by overlying bowel gas. The visualized pancreas in the midline is unremarkable. LIVER: The liver measures 16.2 cm. Echotexture normal. LIVER VASCULATURE: Normal directional flow of the main portal vein. GALLBLADDER: No shadowing stones are noted. Normal wall thickness. No pericholecystic fluid. ULTRASOUND-DETECTED JALLOH'S SIGN: Positive. INTRAHEPATIC DUCTS AND COMMON DUCT: CBD and intrahepatic ducts normal caliber. INFERIOR VENA CAVA: Patent. AORTA: No aneurysm at the visualized segments. RIGHT KIDNEY: Measures 9.4 cm in length. Normal echogenicity. No hydronephrosis. No calcifications. PERITONEAL AND RIGHT PLEURAL SPACE: No ascites or effusions. IMPRESSION: The patient experienced tenderness over the gallbladder during ultrasound scanning, gaston miya, there is no evidence for cholelithiasis or gallbladder wall thickening. Clinical correlation re commended. TECHNICAL DOCUMENTATION: JOB ID: [id number] 2010 [employer]- All Rights Reserved Reading location - IP/workstation name: [email or web address]
[2020-02-26 19:32] LABS: ANION GAP 9 (5-19); BLOOD UREA NITROGEN 9 mg/dL (7-20); CARBON DIOXIDE 25 mmol/L (22-30); CHLORIDE 99 mmol/L (98-107); GLUCOSE 138 mg/dL (75-110); POTASSIUM 3.9 mmol/L (3.6-5.0)
--- NOTE | 2020-02-26 19:41 | EKG REPORT ---
SEVERITY:- ABNORMAL ECG - SINUS TACHYCARDIA NONSPECIFIC T ABNORMALITIES, ANT-LAT LEADS : Confirmed by: Mychal Zavala MD 26-Feb-2020 19:41:08
[2020-02-26 19:44] LABS: TROPONIN I 0.019 ng/mL
[2020-02-26 19:50] LABS: CREATINE KINASE MB < 0.22 ng/mL (<4.55)
[2020-02-26] MEDS ORDERED: CALCIUM GLUC IN NACL, ISO-OSM 1 GM/50 ML RTUPB IV ONE (20:00)
[2020-02-26] MEDS ORDERED: MAGNESIUM SULFATE/D5W 1 GM/100 ML RTUPB IV ONE (20:00)
--- NOTE | 2020-02-26 20:49 | PDOC CONSULTATION ---
Consultation Consult Date: 02/26/20 Attending physician:: ALTAGRACIA BLOCK Provider Consulted: CARLOS LAUREANO Consult reason:: Rule out gallbladder problem History of Present Illness Admission Date/PCP: 02/23/20 16:54 TAI LUKEHUMAROSALES History of Present Illness: SOPHIE BALBUENA is a 44 year old female Presents emergency department complaining of muscle cramps. Patient has multiple active and chronic medical problems, including hypocalcemia Sena due to hypoparathyroidism following total thyroidectomy 20 years ago for goiter. Patient's calcium level was 6.5 which is subsequently been replaced. Patient is on p.o. calcium, and Rocaltrol as well as vitamin D. She has a history of medical noncompliance. Her musculoskeletal symptoms improved, then began having fevers over the last 24 hours up to 102. CBC profile unremarkable initially, then a leukocytosis of 14,000 develops earlier today. Repeat white blood cell count down to 4.2. Today patient developed abdominal pain, tachycardia, hypotension, flushing and sweats. Radiologic studies including CT scan of the abdomen without IV and oral contrast, ultrasonography of the abdomen, and chest x-ray showed no evidence of acute disease. Because of right upper quadrant tenderness, surgery was consulted. Patient has no known history of gallbladder disease. Patient denies history of trauma. She has a history of hyperlipidemia. Past Medical History Cardiac Medical History: Reports: Congestive Heart Failure - Cardiomyopathy., Hyperlipidema, Hypertension Denies: Coronary Artery Disease, Myocardial Infarction Pulmonary Medical History: Reports: Asthma, Pneumonia Endocrine Medical History: Reports: Hypothyroidism - POST- REMOVAL OF GOITER 1999 Denies: Diabetes Mellitus Type 1, Diabetes Mellitus Type 2 Musculoskeltal Medical History: Denies: Gout Psychiatric Medical History: Reports: Depression Past Surgical History Past Surgical History: Reports: Section, Internal Defibrillator, Pacemaker - defibrillator, Tubal Ligation, Other - Total thyroidectomy 1999 [facility] Social History Smoking Status: Current Every Day Smoker Electronic Cigarette use?: No Cigars Per Day: 2 Frequency of Alcohol Use: None Hx Recreational Drug Use: No Drugs: None Hx Prescription Drug Abuse: No Family History Family History: None, CAD, Hypertension, Malignancy Parental Family History Reviewed: No Children Family History Reviewed: No Sibling(s) Family History Reviewed.: No Medication/Allergy Home Medications: Rivaroxaban [Xarelto 10 mg Tablet] 20 mg PO DAILY 09/07/19 Calcitriol [Rocaltrol] 1 mcg PO DAILY 02/23/20 Levothyroxine Sodium [Synthroid] 125 mcg PO DAILY 02/23/20 Lisinopril [Zestril] 2.5 mg PO DAILY 02/23/20 Simvastatin 20 mg PO DAILY 02/23/20 Sotalol HCl [Betapace 80 mg Tablet] 40 mg PO Q12 02/23/20 Allergies/Adverse Reactions: amoxicillin Allergy (Unknown, Verified 02/26/20 10:27) Unknown reaction Penicillins Allergy (Verified 02/23/20 17:37) Review of Systems Constitutional: ABSENT: chills, fever(s), headache(s), weight gain, weight loss Eyes: ABSENT: visual disturbances Cardiovascular: PRESENT: other - Weakness, known congestive heart failure history, cardiomyopathy due to medical noncompliance Gastrointestinal: PRESENT: other - Abdominal pain Physical Exam Vital Signs: Temp Pulse Resp BP Pulse Ox 98.4 F 102 H 20 129/101 H 97 02/26/20 16:00 02/26/20 16:00 02/26/20 16:00 02/26/20 16:00 02/26/20 16:00 Intake & Output 02/25/20 02/26/20 02/27/20 06:59 06:59 06:59 Intake Total 1476.66 260 Output Total 900 600 Balance 576.66 -340 Weight 70 kg 70.2 kg General appearance: PRESENT: other - Moderate distress; patient looks sick; she is diaphoretic. Eye exam: PRESENT: EOMI Mouth exam: PRESENT: dry mucosa Neck exam: PRESENT: full ROM Respiratory exam: PRESENT: clear to auscultation jacoby Cardiovascular exam: PRESENT: tachycardia Pulses: PRESENT: normal carotid pulses, normal radial pulses, normal femoral pulses - Not distended, hypoactive bowel sounds. Mildly tender deep pelvis. No peritoneal signs no rigidity. Essentially no right upper quadrant tenderness. No umbilical hernia. Rectal exam: PRESENT: deferred Neurological exam: PRESENT: oriented to person, oriented to place, oriented to time, oriented to situation Psychiatric exam: PRESENT: anxious, appropriate affect Skin exam: PRESENT: dry Results Laboratory Results: 02/26/20 16:35 02/26/20 19:00 02/26/20 02/26/20 02/26/20 05:14 05:14 11:50 WBC 14.4 H D RBC 4.80 Hgb 13.9 Hct 40.6 MCV 85 MCH 28.9 MCHC 34.2 RDW 13.0 Plt Count 260 Seg Neutrophils % 89.0 H Sodium 137.4 Potassium 4.2 Chloride 98 Carbon Dioxide 28 Anion Gap 11 BUN 7 Creatinine 0.81 Est GFR ( Amer) > 60 Est GFR (Non-Af Amer) Glucose 119 H Lactic Acid 1.1 Calcium 9.7 Magnesium 1.6 Total Bilirubin AST Alkaline Phosphatase Total Protein Albumin Lipase Urine Color Urine Appearance Urine pH Ur Specific Van Urine Protein Urine Glucose (UA) Urine Ketones Urine Blood Urine Nitrite Ur Leukocyte Esterase Urine WBC (Auto) Urine RBC (Auto) 02/26/20 02/26/20 02/26/20 11:50 16:35 16:35 WBC 4.2 RBC 5.01 Hgb 14.7 Hct 43.3 MCV 86 MCH 29.3 MCHC 33.9 RDW 12.9 Plt Count 269 Seg Neutrophils % 77.4 Sodium Potassium Chloride Carbon Dioxide Anion Gap BUN Creatinine Est GFR ( Amer) Est GFR (Non-Af Amer) Glucose Lactic Acid 5.2 H Calcium Magnesium Total Bilirubin 0.7 AST 62 H Alkaline Phosphatase 95 Total Protein 7.5 Albumin 3.7 Lipase 36.0 Urine Color Urine Appearance Urine pH Ur Specific Van Urine Protein Urine Glucose (UA) Urine Ketones Urine Blood Urine Nitrite Ur Leukocyte Esterase Urine WBC (Auto) Urine RBC (Auto) 02/26/20 02/26/20 02/26/20 16:35 18:10 19:00 WBC RBC Hgb Hct MCV MCH MCHC RDW Plt Count Seg Neutrophils % Sodium Cancelled 132.6 L Potassium Cancelled 3.9 Chloride Cancelled 99 Carbon Dioxide Cancelled 25 Anion Gap Cancelled 9 BUN Cancelled 9 Creatinine Cancelled 0.75 Est GFR ( Amer) Cancelled > 60 Est GFR (Non-Af Amer) Cancelled Glucose Cancelled 138 H Lactic Acid Calcium Cancelled 8.0 L Magnesium Total Bilirubin AST Alkaline Phosphatase Total Protein Albumin Lipase Urine Color YELLOW Urine Appearance SLIGHTLY-CLOUDY Urine pH 6.0 Ur Specific Van 1.020 Urine Protein 100 H Urine Glucose (UA) NEGATIVE Urine Ketones NEGATIVE Urine Blood NEGATIVE Urine Nitrite NEGATIVE Ur Leukocyte Esterase TRACE H Urine WBC (Auto) 9 Urine RBC (Auto) 5 02/26/20 19:00 WBC RBC Hgb Hct MCV MCH MCHC RDW Plt Count Seg Neutrophils % Sodium Potassium Chloride Carbon Dioxide Anion Gap BUN Creatinine Est GFR ( Amer) Est GFR (Non-Af Amer) Glucose Lactic Acid Calcium Magnesium 1.3 L Total Bilirubin AST Alkaline Phosphatase Total Protein Albumin Lipase Urine Color Urine Appearance Urine pH Ur Specific Van Urine Protein Urine Glucose (UA) Urine Ketones Urine Blood Urine Nitrite Ur Leukocyte Esterase Urine WBC (Auto) Urine RBC (Auto) 02/25/20 21:37 Blood Blood Culture (PCR) - Final 02/25/20 21:07 Blood Blood Culture (PCR) - Final 02/23/20 02/23/20 02/26/20 14:33 14:33 19:00 Creatine Kinase 414 H 117 CK-MB (CK-2) Troponin I < 0.012 02/26/20 19:00 Creatine Kinase CK-MB (CK-2) < 0.22 Troponin I 0.019 Impressions: Abdomen Ultrasound 02/26/20 00:00 IMPRESSION: The patient experienced tenderness over the gallbladder during ultrasound scanning, however, there is no evidence for cholelithiasis or g allbladder wall thickening. Clinical correlation recommended. Abdomen/Pelvis CT 02/26/20 00:00 IMPRESSION: NO SIGNIFICANT OR ACUTE PROCESS IN THE ABDOMEN OR PELVIS. Assessment & Plan - Diagnosis (1) Sepsis Is this a current diagnosis for this admission?: Yes Plan: Impression: Acute hemodynamic instability, fever, gram-negative lambert bacteremia consistent with sepsis, etiology undetermined; low clinical suspicion for intra- abdominal sepsis. Rule out UTI . gallbladder ultrasound, and abdominal CT scan without IV and without oral contrast grossly unremarkable Recommendations: 1. Increase aggressiveness of sepsis resuscitation including oxygen, increase IV fluids, Crystal catheter insertion, and increased spectrum of antibiotic coverage 2. Patient does not have peritonitis, so abdominal exploration not indicated at this time. Other imaging may be required if patient's clinical condition warrants 3. Discussed patient with Dr. Block. We agree patient should be transferred to the ICU for closer monitoring, resuscitation given her acute change in clinical condition, complicated by her multiple comorbidities. (2) Abdominal discomfort Is this a current diagnosis for this admission?: Yes (3) Hypocalcemia Is this a current diagnosis for this admission?: Yes (4) Nicotine dependence Qualifiers: Nicotine product type: cigarettes Substance use status: uncomplicated Qualified Code(s): F17.210 - Nicotine dependence, cigarettes, uncomplicated Is this a current diagnosis for this admission?: Yes (5) Cardiomyopathy Qualifiers: Cardiomyopathy type: unspecified Qualified Code(s): I42.9 - Cardiomyopathy, unspecified Is this a current diagnosis for this admission?: Yes (6) Hyperlipidemia Qualifiers: Hyperlipidemia type: unspecified Qualified Code(s): E78.5 - Hyperlipidemia, unspecified Is this a current diagnosis for this admission?: Yes
[2020-02-26] MEDS: DOXYCYCLINE HYCLATE 100 MG TABLET PO SCH (21:41)
[2020-02-26] MEDS: SIMVASTATIN 10 MG TABLET PO SCH (21:52)
--- NOTE | 2020-02-26 22:23 | XCELERA REPORT ---
[address] [address] Transthoracic Echocardiogram Report Name: SOPHIE BALBUENA Age: 44 yrs Gender: Female : 1975 Patient Status: Inpatient Patient Location: [address] [place], [place] [address] Study Date: 02/26/2020 05:48 PM Height: 64 in Weight: 154 lb BSA: 1.8 m2 Procedure: A complete two-dimensional transthoracic echocardiogram was performed (2D, M-mode, spectral and color flow Doppler). Study Quality: Technically suboptimal. Reason For Study: ENDOCARDITIS Ordering Physician: ALTAGRACIA LOBATO Performed By: Cayla Theodore Interpretation Summary The left ventricle is normal in size. Left ventricular systolic function is severely reduced. The Ejection Fraction estimate is <20%. LV diastolic function could not be adequately assessed. There is severe global hypokinesis of the left ventricle. Mild MR, mild TR. No gross evidence for valvular vegetations however surface studies have a low sensitivity and specificity, recommend transesophageal echocardiogram if clinically indicated. Small, hemodynamically insignificant posterior pericardial effusion. MMode/2D Measurements & Calculations RVDd: 2.1 cm LVIDd: 4.5 cm FS: 26.6 % Ao root diam: 2.5 cm IVSd: 0.85 cm LVIDs: 3.3 cm EDV(Teich): 90.6 ml Ao root area: 4.8 cm2 LVPWd: 1.1 cm ESV(Teich): 43.3 ml EF(Teich): 52.2 % Doppler Measurements & Calculations MV E max matilde: Ao V2 max: LV V1 max PG: PA V2 max: 52.4 cm/sec 95.6 cm/sec 3.3 mmHg 72.2 cm/sec MV A max matilde: Ao max P.7 mmHgLV V1 max: PA max P.9 cm/sec 91.0 cm/sec 2.1 mmHg MV E/A: 1.1 PI end-d matilde: TR max matilde: MV P1/2t-pr_phl: 108.0 cm/sec 234.1 cm/sec 32.9 msec TR max P.5 mmHg Left Ventricle The left ventricle is normal in size. Left ventricular systolic function is severely reduced. The Ejection Fraction estimate is <20%. LV diastolic function could not be adequately assessed. There is severe global hypokinesis of the left ventricle. Right Ventricle The right ventricle is grossly normal size. The right ventricular systolic function is borderline reduced. Atria The right atrium is normal. The left atrial size is normal. Mitral Valve The mitral valve is normal in structure and function. There is a mild amount of mitral regurgitation. Aortic Valve The aortic valve is trileaflet. There is no aortic valve stenosis. No aortic regurgitation is present. Tricuspid Valve The tricuspid valve is not well visualized, but is grossly normal. There is a mild amount of tricuspid regurgitation. Pulmonic Valve The pulmonic valve is not well seen, but is grossly normal. There is no pulmonic valvular regurgitation. Great Vessels The inferior vena cava was not well visualized. Effusions Small, hemodynamically insignificant posterior pericardial effusion. : ALTAGRACIA LOBATO Antonio
--- NOTE | 2020-02-26 22:34 | Progress Note ---
Provider Note Provider Note: This patient was admitted on MAR 09 for hypocalcemia. She later developed abdominal pain associated with fevers and episodes of hypotension therefore her hospitalist, Dr. Block, consulted me via phone. After reviewing her current inpatient notes, labs, other consults and radiographic studies as well as her outpatient notes (I'm her outpatient assistant produce manager), the patient does not have a primary cardiac problem at this time. She is bacteremic and febrile suggesting sepsis. Her current echocardiogram is essentially unchanged from a prior study in the outpatient setting except for the presence of a small and hemodynamically insignificant pericardial effusion. Although there was no gross evidence for endocarditis, a surface study is not sensitive or specific enough as to completely rule out that possibility therefore a transesophageal echocardiogram is recommended if clinically indicated. Please note that I agree with Dr. Red' recommendations. At this point cardiology had no further recommendations therefore I will sign off the case. Please reconsult if clinically indicated.
[2020-02-26] MEDS ORDERED: CALCIUM GLUCONATE 1 GM/NS 50 ML RTU IV ONE (23:45)
[2020-02-27] MEDS: LEVOTHYROXINE SODIUM 0.05 MG TABLET PO SCH (06:23)
[2020-02-27] MEDS: PANTOPRAZOLE SODIUM 40 MG TABLET.DR PO SCH (06:32)
[2020-02-27 08:12] LABS: ANION GAP 7 (5-19); BLOOD UREA NITROGEN 7 mg/dL (7-20); CALCIUM 7.9 mg/dL (8.4-10.2); CARBON DIOXIDE 23 mmol/L (22-30); CHLORIDE 107 mmol/L (98-107); GLUCOSE 180 mg/dL (75-110)
[2020-02-27 08:52] LABS: ABSOLUTE LYMPHOCYTES (AUTO) 0.8 10^3/uL (0.5-4.7); ABSOLUTE MONOCYTES (AUTO) 0.3 10^3/uL (0.1-1.4); BASOPHILS % (AUTO) 0.3 % (0-2); LYMPHOCYTES % (AUTO) 6.8 % (13-45); MEAN CORPUSCULAR HEMOGLOBIN 28.9 pg (27.0-33.4); MEAN CORPUSCULAR VOLUME 85 fl (80-97); MONOCYTES % (AUTO) 2.3 % (3-13); PLATELET COUNT 259 10^3/uL (150-450); RED BLOOD COUNT 4.24 10^6/uL (3.72-5.28); RED CELL DISTRIBUTION WIDTH 12.8 % (11.5-14.0); SEGMENTED NEUTROPHILS % (AUTO) 90.6 % (42-78); TOTAL CELLS COUNTED % (AUTO) 100 %
[2020-02-27 08:55] LABS: WHITE BLOOD COUNT 12.2 10^3/uL (4.0-10.5)
[2020-02-27 08:56] LABS: HEMOGLOBIN 12.3 g/dL (12.0-15.5)
[2020-02-27] MEDS: DOXYCYCLINE HYCLATE 100 MG TABLET PO SCH ×2 (10:49→21:26)
[2020-02-27] MEDS: CALCIUM CARBONATE 500 MG TAB.CHEW PO SCH ×2 (10:49→17:52)
[2020-02-27] MEDS: NICOTINE 14 MG/24 HR PATCH.TD24 TD SCH (10:52)
[2020-02-27] MEDS: CALCITRIOL 0.25 MCG CAPSULE PO SCH (10:52)
[2020-02-27] MEDS: SOTALOL HCL 80 MG TABLET PO SCH ×2 (10:53→21:25)
--- NOTE | 2020-02-27 10:54 | PDOC PROGRESS REPORT ---
Subjective Progress Note for:: 02/27/20 Subjective:: Patient is feeling much better this morning Patient is afebrile overnight Patient received IV Rocephin in the start and IV fluid Patient seen by the Dr. Red last night patient was very sick yesterday we tried to call stamps or coins salesperson and stamps or coins salesperson came and evaluated the patient and suggest no need to transfer to the ICU This morning patient's denied any chest pain no short of breath No abdominal pain Patient's white count is 12 Patient's lactic acid is 1.1 Patient's blood cultures grew out the gram-negative organism still waiting for culture and sensitivity Patient is have echo done yesterday per Dr. Kinney and suggest no need for any further interventions with a cardiac standpoint and no sign of any endocarditis per the transthoracic echo Reason For Visit: SYMPTOMATIC HYPOCALCEMIA;HYPOMAGNESEMIA; Physical Exam Vital Signs: Temp Pulse Resp BP Pulse Ox 98.3 F 56 L 18 116/66 94 02/27/20 08:00 02/27/20 08:00 02/27/20 08:00 02/27/20 08:00 02/27/20 08:00 Intake & Output 02/26/20 02/27/20 02/28/20 06:59 06:59 06:59 Intake Total 1476.66 730 Output Total 900 1375 Balance 576.66 -645 Weight 70.2 kg 62.7 kg General appearance: PRESENT: no acute distress, well-developed, well-nourished Head exam: PRESENT: atraumatic, normocephalic Eye exam: PRESENT: conjunctiva pink, EOMI, PERRLA. ABSENT: scleral icterus Ear exam: PRESENT: normal external ear exam Mouth exam: PRESENT: moist, tongue midline Neck exam: PRESENT: full ROM. ABSENT: carotid bruit, JVD, lymphadenopathy, thyromegaly Respiratory exam: PRESENT: clear to auscultation jacoby Cardiovascular exam: PRESENT: RRR. ABSENT: diastolic murmur, rubs, systolic m urmur Pulses: PRESENT: normal dorsalis pedis pul, +2 pedal pulses bilateral Vascular exam: PRESENT: normal capillary refill GI/Abdominal exam: PRESENT: normal bowel sounds, soft. ABSENT: distended, guarding, mass, organolmegaly, rebound, tenderness Rectal exam: PRESENT: deferred Neurological exam: PRESENT: alert, awake, oriented to person, oriented to place, oriented to time, oriented to situation, CN II-XII grossly intact. ABSENT: motor sensory deficit Psychiatric exam: PRESENT: appropriate affect, normal mood. ABSENT: homicidal ideation, suicidal ideation Skin exam: PRESENT: dry, intact, warm. ABSENT: cyanosis, rash Results Laboratory Results: 02/27/20 08:12 02/27/20 06:20 02/26/20 02/26/20 02/26/20 11:50 11:50 16:35 WBC RBC Hgb Hct MCV MCH MCHC RDW Plt Count Seg Neutrophils % Sodium Potassium Chloride Carbon Dioxide Anion Gap BUN Creatinine Est GFR ( Amer) Est GFR (Non-Af Amer) Glucose Lactic Acid 1.1 5.2 H Calcium Magnesium Total Bilirubin 0.7 AST 62 H Alkaline Phosphatase 95 Total Protein 7.5 Albumin 3.7 Lipase 36.0 Urine Color Urine Appearance Urine pH Ur Specific [place] Urine Protein Urine Glucose (UA) Urine Ketones Urine Blood Urine Nitrite Ur Leukocyte Esterase Urine WBC (Auto) Urine RBC (Auto) 02/26/20 02/26/20 02/26/20 16:35 16:35 18:10 WBC 4.2 RBC 5.01 Hgb 14.7 Hct 43.3 MCV 86 MCH 29.3 MCHC 33.9 RDW 12.9 Plt Count 269 Seg Neutrophils % 77.4 Sodium Cancelled Potassium Cancelled Chloride Cancelled Carbon Dioxide Cancelled Anion Gap Cancelled BUN Cancelled Creatinine Cancelled Est GFR ( Amer) Cancelled Est GFR (Non-Af Amer) Cancelled Glucose Cancelled Lactic Acid Calcium Cancelled Magnesium Total Bilirubin AST Alkaline Phosphatase Total Protein Albumin Lipase Urine Color YELLOW Urine Appearance SLIGHTLY-CLOUDY Urine pH 6.0 Ur Specific [place] 1.020 Urine Protein 100 H Urine Glucose (UA) NEGATIVE Urine Ketones NEGATIVE Urine Blood NEGATIVE Urine Nitrite NEGATIVE Ur Leukocyte Esterase TRACE H Urine WBC (Auto) 9 Urine RBC (Auto) 5 02/26/20 02/26/20 02/27/20 19:00 19:00 06:20 WBC RBC Hgb Hct MCV MCH MCHC RDW Plt Count Seg Neutrophils % Sodium 132.6 L Potassium 3.9 Chloride 99 Carbon Dioxide 25 Anion Gap 9 BUN 9 Creatinine 0.75 Est GFR ( Amer) > 60 Est GFR (Non-Af Amer) Glucose 138 H Lactic Acid 1.1 Calcium 8.0 L Magnesium 1.3 L Total Bilirubin AST Alkaline Phosphatase Total Protein Albumin Lipase Urine Color Urine Appearance Urine pH Ur Specific [place] Urine Protein Urine Glucose (UA) Urine Ketones Urine Blood Urine Nitrite Ur Leukocyte Esterase Urine WBC (Auto) Urine RBC (Auto) 02/27/20 02/27/20 02/27/20 06:20 06:20 08:12 WBC Cancelled 12.2 H D RBC Cancelled 4.24 Hgb Cancelled 12.3 D Hct Cancelled 36.0 MCV Cancelled 85 MCH Cancelled 28.9 MCHC Cancelled 34.0 RDW Cancelled 12.8 Plt Count Cancelled 259 Seg Neutrophils % Cancelled 90.6 H Sodium 137.0 Potassium 4.0 Chloride 107 Carbon Dioxide 23 Anion Gap 7 BUN 7 Creatinine 0.74 Est GFR ( Amer) > 60 Est GFR (Non-Af Amer) Glucose 180 H Lactic Acid Calcium 7.9 L Magnesium Total Bilirubin AST Alkaline Phosphatase Total Protein Albumin Lipase Urine Color Urine Appearance Urine pH Ur Specific [place] Urine Protein Urine Glucose (UA) Urine Ketones Urine Blood Urine Nitrite Ur Leukocyte Esterase Urine WBC (Auto) Urine RBC (Auto) 02/25/20 21:37 Blood Blood Culture (PCR) - Final 02/25/20 21:07 Blood Blood Culture (PCR) - Final 02/23/20 02/23/20 02/26/20 14:33 14:33 19:00 Creatine Kinase 414 H 117 CK-MB (CK-2) Troponin I < 0.012 02/26/20 19:00 Creatine Kinase CK-MB (CK-2) < 0.22 Troponin I 0.019 Impressions: Abdomen Ultrasound 02/26/20 00:00 IMPRESSION: The patient experienced tenderness over the gallbladder during ultrasound scanning, however, there is no evidence for cholelithiasis or gallbladder wall thickening. Clinical correlation recommended. Abdomen/Pelvis CT 02/26/20 00:00 IMPRESSION: NO SIGNIFICANT OR ACUTE PROCESS IN THE ABDOMEN OR PELVIS. Assessment & Plan - Diagnosis (1) Gram negative septicemia Is this a current diagnosis for this admission?: Yes Plan: Continues IV fluids IV Rocephin continues to monitor patient is feeling much better we will wait for the culture (2) Fever Qualifiers: Fever type: unspecified Qualified Code(s): R50.9 - Fever, unspecified Is this a current diagnosis for this admission?: Yes Plan: Gram-negative sepsis most likely urine is the source will continues IV Rocephin and p.o. doxycycline wait for the culture and sensitivity continues to IV fluid (3) Hypocalcemia Is this a current diagnosis for this admission?: Yes Plan: We continues to replace this calciums (4) Hypomagnesemia Is this a current diagnosis for this admission?: Yes Plan: Continues to replace the magnesium's (5) Hypoparathyroidism Qualifiers: Hypoparathyroidism type: other hypoparathyroidism Qualified Code(s): E20.8 - Other hypoparathyroidism Is this a current diagnosis for this admission?: Yes (6) Cardiac defibrillator in situ Is this a current diagnosis for this admission?: Yes (7) Cardiomyopathy Qualifiers: Cardiomyopathy type: unspecified Qualified Code(s): I42.9 - Cardiomyopathy, unspecified Is this a current diagnosis for this admission?: Yes Plan: Follow-up with the cardiology (8) Chronic systolic heart failure Is this a current diagnosis for this admission?: Yes Plan: We will reduce the IV fluid to 75 cc (9) Abdominal discomfort Is this a current diagnosis for this admission?: Yes Plan: CT scan and ultrasound is negative at the patient's continues to be improvement denied any pain will hold the HIDA scan as per surgery - Time Time Spent with patient: 35 or more minutes Level of Care: TELE Medications reviewed and adjusted accordingly: Yes Anticipated discharge: Home Anticipated DC Timeframe: Other - Plan Summary Plan Summary: Very extensive discussion with the patient and the daughter regarding the patient's current conditions Patient is feeling much better Patient is currently stable with the current medications we will continue to monitor
--- NOTE | 2020-02-27 11:48 | PDOC PROGRESS REPORT ---
Subjective Progress Note for:: 02/27/20 Subjective:: 44-year-old female admitted with abdominal pain, leukocytosis, found to have gram-negative bacteremia. The patient reports that her abdominal pain has somewhat improved today. She reports that she continues to feel discomfort in her right lower quadrant. She denies fevers, chills, nausea, vomiting, diarrhea, orthostasis, dizziness, chest pain, shortness of breath. Reason For Visit: SYMPTOMATIC HYPOCALCEMIA;HYPOMAGNESEMIA; Physical Exam Vital Signs: Temp Pulse Resp BP Pulse Ox 98.3 F 67 16 115/66 99 02/27/20 10:54 02/27/20 10:54 02/27/20 10:54 02/27/20 10:54 02/27/20 10:54 Intake & Output 02/26/20 02/27/20 02/28/20 06:59 06:59 06:59 Intake Total 1476.66 730 Output Total 900 1375 Balance 576.66 -645 Weight 70.2 kg 62.7 kg General appearance: PRESENT: no acute distress, cooperative Head exam: PRESENT: atraumatic, normocephalic Eye exam: PRESENT: EOMI, PERRLA. ABSENT: scleral icterus Mouth exam: PRESENT: neck supple Neck exam: ABSENT: meningismus, tenderness, thyromegaly, tracheal deviation Respiratory exam: PRESENT: unlabored. ABSENT: tachypnea, wheezes Cardiovascular exam: ABSENT: tachycardia GI/Abdominal exam: PRESENT: soft, tenderness - Mild right lower quadrant tenderness, other - No hernias or abdominal masses identified.. ABSENT: distended, firm, guarding, rebound, rigid Rectal exam: PRESENT: deferred Extremities exam: ABSENT: clubbing Musculoskeletal exam: ABSENT: deformity Neurological exam: PRESENT: alert, awake, oriented to person, oriented to place, oriented to time, oriented to situation, CN II-XII grossly intact Psychiatric exam: ABSENT: agitated, anxious, depressed Focused psych exam: ABSENT: delusional Skin exam: ABSENT: cyanosis, erythema, jaundice Results Laboratory Results: 02/27/20 08:12 02/27/20 06:20 02/26/20 02/26/20 02/26/20 11:50 11:50 16:35 WBC RBC Hgb Hct MCV MCH MCHC RDW Plt Count Seg Neutrophils % Sodium Potassium Chloride Carbon Dioxide Anion Gap BUN Creatinine Est GFR ( Amer) Est GFR (Non-Af Amer) Glucose Lactic Acid 1.1 5.2 H Calcium Magnesium Total Bilirubin 0.7 AST 62 H Alkaline Phosphatase 95 Total Protein 7.5 Albumin 3.7 Lipase 36.0 Urine Color Urine Appearance Urine pH Ur Specific [place] Urine Protein Urine Glucose (UA) Urine Ketones Urine Blood Urine Nitrite Ur Leukocyte Esterase Urine WBC (Auto) Urine RBC (Auto) 02/26/20 02/26/20 02/26/20 16:35 16:35 18:10 WBC 4.2 RBC 5.01 Hgb 14.7 Hct 43.3 MCV 86 MCH 29.3 MCHC 33.9 RDW 12.9 Plt Count 269 Seg Neutrophils % 77.4 Sodium Cancelled Potassium Cancelled Chloride Cancelled Carbon Dioxide Cancelled Anion Gap Cancelled BUN Cancelled Creatinine Cancelled Est GFR ( Amer) Cancelled Est GFR (Non-Af Amer) Cancelled Glucose Cancelled Lactic Acid Calcium Cancelled Magnesium Total Bilirubin AST Alkaline Phosphatase Total Protein Albumin Lipase Urine Color YELLOW Urine Appearance SLIGHTLY-CLOUDY Urine pH 6.0 Ur Specific [place] 1.020 Urine Protein 100 H Urine Glucose (UA) NEGATIVE Urine Ketones NEGATIVE Urine Blood NEGATIVE Urine Nitrite NEGATIVE Ur Leukocyte Esterase TRACE H Urine WBC (Auto) 9 Urine RBC (Auto) 5 02/26/20 02/26/20 02/27/20 19:00 19:00 06:20 WBC RBC Hgb Hct MCV MCH MCHC RDW Plt Count Seg Neutrophils % Sodium 132.6 L Potassium 3.9 Chloride 99 Carbon Dioxide 25 Anion Gap 9 BUN 9 Creatinine 0.75 Est GFR ( Amer) > 60 Est GFR (Non-Af Amer) Glucose 138 H Lactic Acid 1.1 Calcium 8.0 L Magnesium 1.3 L Total Bilirubin AST Alkaline Phosphatase Total Protein Albumin Lipase Urine Color Urine Appearance Urine pH Ur Specific [place] Urine Protein Urine Glucose (UA) Urine Ketones Urine Blood Urine Nitrite Ur Leukocyte Esterase Urine WBC (Auto) Urine RBC (Auto) 02/27/20 02/27/20 02/27/20 06:20 06:20 08:12 WBC Cancelled 12.2 H D RBC Cancelled 4.24 Hgb Cancelled 12.3 D Hct Cancelled 36.0 MCV Cancelled 85 MCH Cancelled 28.9 MCHC Cancelled 34.0 RDW Cancelled 12.8 Plt Count Cancelled 259 Seg Neutrophils % Cancelled 90.6 H Sodium 137.0 Potassium 4.0 Chloride 107 Carbon Dioxide 23 Anion Gap 7 BUN 7 Creatinine 0.74 Est GFR ( Amer) > 60 Est GFR (Non-Af Amer) Glucose 180 H Lactic Acid Calcium 7.9 L Magnesium Total Bilirubin AST Alkaline Phosphatase Total Protein Albumin Lipase Urine Color Urine Appearance Urine pH Ur Specific [place] Urine Protein Urine Glucose (UA) Urine Ketones Urine Blood Urine Nitrite Ur Leukocyte Esterase Urine WBC (Auto) Urine RBC (Auto) 02/25/20 21:07 Blood Blood Culture (PCR) - Final 02/25/20 21:37 Blood Blood Culture (PCR) - Final 02/23/20 02/23/20 02/26/20 14:33 14:33 19:00 Creatine Kinase 414 H 117 CK-MB (CK-2) Troponin I < 0.012 02/26/20 19:00 Creatine Kinase CK-MB (CK-2) < 0.22 Troponin I 0.019 Impressions: Abdomen Ultrasound 02/26/20 00:00 IMPRESSION: The patient experienced tenderness over the gallbladder during ultrasound scanning, however, there is no evidence for cholelithiasis or gallbladder wall thickening. Clinical correlation recommended. Abdomen/Pelvis CT 02/26/20 00:00 IMPRESSION: NO SIGNIFICANT OR ACUTE PROCESS IN THE ABDOMEN OR PELVIS. Assessment & Plan - Diagnosis (1) Abdominal discomfort Is this a current diagnosis for this admission?: Yes (2) Gram negative septicemia Is this a current diagnosis for this admission?: Yes - Time Anticipated Discharge Disposition: Home, Self Care Anticipated Discharge Timeframe: unknown - Plan Summary Plan Summary: 44-year-old female with right lower quadrant abdominal pain and gram-negative bacteremia. The patient reports that her pain has somewhat improved. I have reviewed her testing today. There is no evidence for cholecystitis, appendicitis, diverticulitis, intra-abdominal abscess, or other surgical pr oblem. Her symptoms could be related to SECONDARY CONNECTOR ARMATURE disease, urinary tract infection, or many other possibilities. At this time, I cannot identify an obvious surgical problem. Surgery will sign off at this time. Please renotify with any questions or concerns.
[2020-02-27] MEDS: TRAMADOL HCL 50 MG TABLET PO PRN ×2 (14:46→23:22)
[2020-02-27] MEDS: RIVAROXABAN 10 MG TABLET PO SCH (17:52)
[2020-02-27] MEDS: CEFTRIAXONE 1 GM/D5W RTU 1 GM/50 ML RTUPB IV SCH (17:54)
[2020-02-27] MEDS: NORMAL SALINE 1000 ML 1,000 ML IV PRN (18:00)
[2020-02-27] MEDS: SIMVASTATIN 10 MG TABLET PO SCH (21:25)
[2020-02-28] MEDS: ONDANSETRON HCL INJ/PF 4 MG/2 ML SDV IV PRN ×3 (00:50→20:06)
[2020-02-28] MEDS: LEVOTHYROXINE SODIUM 0.05 MG TABLET PO SCH (06:24)
[2020-02-28] MEDS: PANTOPRAZOLE SODIUM 40 MG TABLET.DR PO SCH (06:24)
[2020-02-28 06:30] LABS: ABSOLUTE BASOPHILS # (AUTO) 0.1 10^3/uL (0.0-0.2); ABSOLUTE LYMPHOCYTES (AUTO) 2.6 10^3/uL (0.5-4.7); ABSOLUTE MONOCYTES (AUTO) 0.9 10^3/uL (0.1-1.4); ABSOLUTE NEUT (AUTO) 7.7 10^3/uL (1.7-8.2); BASOPHILS % (AUTO) 0.6 % (0-2); EOSINOPHILS % (AUTO) 0.2 % (0-6); HEMATOCRIT 31.8 % (36.0-47.0); HEMOGLOBIN 10.7 g/dL (12.0-15.5); LYMPHOCYTES % (AUTO) 22.8 % (13-45); MEAN CORPUSCULAR HEMOGLOBIN 28.6 pg (27.0-33.4); MEAN CORPUSCULAR HGB CONC 33.7 g/dL (32.0-36.0); MEAN CORPUSCULAR VOLUME 85 fl (80-97); MONOCYTES % (AUTO) 7.8 % (3-13); PLATELET COUNT 217 10^3/uL (150-450); RED BLOOD COUNT 3.76 10^6/uL (3.72-5.28); SEGMENTED NEUTROPHILS % (AUTO) 68.6 % (42-78); TOTAL CELLS COUNTED % (AUTO) 100 %; WHITE BLOOD COUNT 11.2 10^3/uL (4.0-10.5)
[2020-02-28 06:53] LABS: ANION GAP 5 (5-19); BLOOD UREA NITROGEN 9 mg/dL (7-20); CARBON DIOXIDE 26 mmol/L (22-30); CHLORIDE 106 mmol/L (98-107); GLUCOSE 82 mg/dL (75-110); POTASSIUM 3.8 mmol/L (3.6-5.0)
[2020-02-28 07:07] LABS: CALCIUM 6.9 mg/dL (8.4-10.2)
[2020-02-28] MEDS: NORMAL SALINE 1000 ML 1,000 ML IV PRN (07:36)
[2020-02-28] MEDS: TRAMADOL HCL 50 MG TABLET PO PRN ×2 (07:37→15:45)
[2020-02-28] MEDS ORDERED: CALCIUM GLUCONATE 6,666 MG in DEXTROSE 5%-WATER 500 ML IV ONE (10:00)
[2020-02-28] MEDS ORDERED: AZTREONAM 1 GM in DEXTROSE 5%-WATER 50 ML IV SCH (10:00)
[2020-02-28] MEDS: MAGNESIUM SULFATE/D5W 1 GM/100 ML RTUPB IV SCH ×2 (10:03→11:25)
[2020-02-28] MEDS: CALCITRIOL 0.25 MCG CAPSULE PO SCH (10:05)
[2020-02-28] MEDS: DOXYCYCLINE HYCLATE 100 MG TABLET PO SCH (10:05)
[2020-02-28] MEDS: CALCIUM CARBONATE 500 MG TAB.CHEW PO SCH ×2 (10:05→17:10)
[2020-02-28] MEDS: NICOTINE 14 MG/24 HR PATCH.TD24 TD SCH (10:06)
[2020-02-28] MEDS: SOTALOL HCL 80 MG TABLET PO SCH ×2 (10:06→21:11)
--- NOTE | 2020-02-28 12:56 | PDOC PROGRESS REPORT ---
Subjective Progress Note for:: 02/28/20 Subjective:: Patient denied chest pain or difficulty with breathing. No nausea, vomiting, or abdominal pain. No fever or chills. She demonstrated reluctance to recommended treatment regimen for her persistent hypokalemia and hypomagnesemia with expressed refusal of IV infusion therapy for correction of her electrolytes. Since last evaluation by me, she demonstrated episode of possible sepsis and blood culture suggestive of gram negative sepsis pending organism identification and sensitivity report. Reason For Visit: SYMPTOMATIC HYPOCALCEMIA;HYPOMAGNESEMIA; Physical Exam Vital Signs: Temp Pulse Resp BP Pulse Ox 97.9 F 55 L 14 134/84 H 99 02/28/20 00:53 02/28/20 02:00 02/28/20 00:53 02/28/20 00:53 02/28/20 00:53 Intake & Output 02/27/20 02/28/20 02/29/20 06:59 06:59 06:59 Intake Total 6735 602 4813 Output Total 1375 2080 Balance -145 -1794 1000 Weight 62.7 kg 62.7 kg Physical Exam: General appearance: PRESENT: no acute distress, well-developed, well-nourished Head exam: PRESENT: atraumatic, normocephalic Eye exam: PRESENT: conjunctiva pink. ABSENT: pallor, sclera icterus Respiratory exam: PRESENT: clear to auscultation jacoby Cardiovascular exam: PRESENT: RRR, +S1, +S2. ABSENT: diastolic murmur, rubs, systolic murmur GI/Abdominal exam: PRESENT: normal bowel sounds, soft. ABSENT: organomegaly, tenderness Extremities exam: ABSENT: pedal edema Neurological exam: PRESENT: alert, awake, oriented to person, oriented to place, oriented to time, oriented to situation, CN II-XII grossly intact. ABSENT: motor sensory deficit Skin exam: PRESENT: dry, warm Results Laboratory Results: 02/28/20 06:15 02/28/20 06:15 02/27/20 02/27/20 02/28/20 06:20 08:12 06:15 WBC 12.2 H D 11.2 H RBC 4.24 3.76 Hgb 12.3 D 10.7 L Hct 36.0 31.8 L MCV 85 85 MCH 28.9 28.6 MCHC 34.0 33.7 RDW 12.8 13.0 Plt Count 259 217 Seg Neutrophils % 90.6 H 68.6 Sodium 137.0 Potassium 4.0 Chloride 107 Carbon Dioxide 23 Anion Gap 7 BUN 7 Creatinine 0.74 Est GFR ( Amer) > 60 Glucose 180 H Lactic Acid Calcium 7.9 L Magnesium 02/28/20 02/28/20 06:15 06:15 WBC RBC Hgb Hct MCV MCH MCHC RDW Plt Count Seg Neutrophils % Sodium 137.1 Potassium 3.8 Chloride 106 Carbon Dioxide 26 Anion Gap 5 BUN 9 Creatinine 0.72 Est GFR ( Amer) > 60 Glucose 82 Lactic Acid 0.8 Calcium 6.9 L* Magnesium 1.2 L* 02/26/20 16:35 Blood Blood Culture (PCR) - Final 02/25/20 20:55 Clean Catch Midstream Urine Culture - Final Mixed Urogenital Giana 02/25/20 21:07 Blood Blood Culture (PCR) - Final 02/25/20 21:37 Blood Blood Culture (PCR) - Final 02/23/20 02/23/20 02/26/20 14:33 14:33 19:00 Creatine Kinase 414 H 117 CK-MB (CK-2) Troponin I < 0.012 02/26/20 19:00 Creatine Kinase CK-MB (CK-2) < 0.22 Troponin I 0.019 Impressions: Abdomen Ultrasound 02/26/20 00:00 IMPRESSION: The patient experienced tenderness over the gallbladder during ultrasound scanning, however, there is no evidence for cholelithiasis or gallbladder wall thickening. Clinical correlation recommended. Abdomen/Pelvis CT 02/26/20 00:00 IMPRESSION: NO SIGNIFICANT OR ACUTE PROCESS IN THE ABDOMEN OR PELVIS. Assessment & Plan - Diagnosis (1) [place] due to low calcium from parathyroid disease Is this a current diagnosis for this admission?: Yes (2) Hypocalcemia Is this a current diagnosis for this admission?: Yes (3) Hypomagnesemia Is this a current diagnosis for this admission?: Yes (4) Hypothyroid Qualifiers: Hypothyroidism type: postoperative Qualified Code(s): E89.0 - Postprocedural hypothyroidism Is this a current diagnosis for this admission?: Yes (6) Chronic systolic heart failure Is this a current diagnosis for this admission?: Yes (7) Cardiomyopathy Qualifiers: Cardiomyopathy type: unspecified Qualified Code(s): I42.9 - Cardiomyopathy, unspecified Is this a current diagnosis for this admission?: Yes (8) HTN (hypertension) Qualifiers: Hypertension type: essential hypertension Qualified Code(s): I10 - Essential (primary) hypertension Is this a current diagnosis for this admission?: Yes (9) Hyperlipidemia Qualifiers: Hyperlipidemia type: unspecified Qualified Code(s): E78.5 - Hyperlipidemia, unspecified Is this a current diagnosis for this admission?: Yes (10) Nicotine dependence Qualifiers: Nicotine product type: cigarettes Substance use status: uncomplicated Qualified Code(s): F17.210 - Nicotine dependence, cigarettes, uncomplicated Is this a current diagnosis for this admission?: Yes - Time Time Spent with patient: 25-34 minutes Level of Care: TELE Medications reviewed and adjusted accordingly: Yes Anticipated discharge: Home Anticipated DC Timeframe: within 72 hours - Inpatient Certification Based on my medical assessment, after consideration of the patient's comorbidities, presenting symptoms, or acuity I expect that the services needed warrant INPATIENT care.: Yes I certify that my determination is in accordance with my understanding of Medicare's requirements for reasonable and necessary INPATIENT services [42 CFR 412.3e].: Yes Medical Necessity: Significant Comorbidiites Make Outpatient Treatment Too Risky, Need Close Monitoring Due to Risk of Patient Decompensation, Need For IV Fluids, Need For Continuous Telemetry Monitoring, Need for IV Antibiotics, Risk of Complication if Not Cared For in Hospital, Risk of Diagnosis Which Will Require Inpatient Eval/Care/Monitoring Post Hospital Care: 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 D/C Rocephin. Start on IV Aztreonam due to her documented allergy history. Follow up on blood culture final findings. Obtain BMP, Mag, and CBC with diff in AM.
[2020-02-28 13:58] LABS: ABSOLUTE BASOPHILS # (AUTO) 0.1 10^3/uL (0.0-0.2); ABSOLUTE EOSINOPHILS # (AUTO) 0.1 10^3/uL (0.0-0.6); ABSOLUTE LYMPHOCYTES (AUTO) 3.5 10^3/uL (0.5-4.7); ABSOLUTE MONOCYTES (AUTO) 0.9 10^3/uL (0.1-1.4); ABSOLUTE NEUT (AUTO) 5.3 10^3/uL (1.7-8.2); BASOPHILS % (AUTO) 0.7 % (0-2); EOSINOPHILS % (AUTO) 0.8 % (0-6); HEMATOCRIT 33.2 % (36.0-47.0); HEMOGLOBIN 11.4 g/dL (12.0-15.5); LYMPHOCYTES % (AUTO) 35.8 % (13-45); MEAN CORPUSCULAR HGB CONC 34.4 g/dL (32.0-36.0); MEAN CORPUSCULAR VOLUME 84 fl (80-97); MONOCYTES % (AUTO) 9.2 % (3-13); PLATELET COUNT 247 10^3/uL (150-450); RED BLOOD COUNT 3.94 10^6/uL (3.72-5.28); RED CELL DISTRIBUTION WIDTH 13.1 % (11.5-14.0); SEGMENTED NEUTROPHILS % (AUTO) 53.5 % (42-78); TOTAL CELLS COUNTED % (AUTO) 100 %; WHITE BLOOD COUNT 9.9 10^3/uL (4.0-10.5)
[2020-02-28] MEDS: MAGNESIUM OXIDE 400 MG TABLET PO SCH ×2 (14:09→17:10)
[2020-02-28] MEDS: SULFAMETHOXAZOLE/TRIMETHOPRIM 800-160 MG TABLET PO SCH ×2 (14:10→21:11)
[2020-02-28] MEDS: ACETAMINOPHEN 325 MG TABLET PO PRN (14:25)
[2020-02-28] MEDS: RIVAROXABAN 10 MG TABLET PO SCH (17:11)
[2020-02-28] MEDS: SIMVASTATIN 10 MG TABLET PO SCH (21:11)
[2020-02-29] MEDS: PANTOPRAZOLE SODIUM 40 MG TABLET.DR PO SCH (06:17)
[2020-02-29] MEDS: LEVOTHYROXINE SODIUM 0.05 MG TABLET PO SCH (06:17)
[2020-02-29 07:30] LABS: ABSOLUTE EOSINOPHILS # (AUTO) 0.1 10^3/uL (0.0-0.6); ABSOLUTE LYMPHOCYTES (AUTO) 3.2 10^3/uL (0.5-4.7); ABSOLUTE MONOCYTES (AUTO) 0.6 10^3/uL (0.1-1.4); ABSOLUTE NEUT (AUTO) 1.6 10^3/uL (1.7-8.2); BASOPHILS % (AUTO) 0.2 % (0-2); EOSINOPHILS % (AUTO) 2.3 % (0-6); HEMATOCRIT 34.7 % (36.0-47.0); HEMOGLOBIN 11.9 g/dL (12.0-15.5); MEAN CORPUSCULAR HEMOGLOBIN 28.8 pg (27.0-33.4); MEAN CORPUSCULAR HGB CONC 34.2 g/dL (32.0-36.0); MEAN CORPUSCULAR VOLUME 84 fl (80-97); MONOCYTES % (AUTO) 10.8 % (3-13); PLATELET COUNT 233 10^3/uL (150-450); RED BLOOD COUNT 4.12 10^6/uL (3.72-5.28); RED CELL DISTRIBUTION WIDTH 12.6 % (11.5-14.0); SEGMENTED NEUTROPHILS % (AUTO) 28.7 % (42-78); TOTAL CELLS COUNTED % (AUTO) 100 %; WHITE BLOOD COUNT 5.5 10^3/uL (4.0-10.5)
[2020-02-29 07:44] LABS: ANION GAP 6 (5-19); BLOOD UREA NITROGEN 7 mg/dL (7-20); CALCIUM 8.1 mg/dL (8.4-10.2); CARBON DIOXIDE 29 mmol/L (22-30); CHLORIDE 100 mmol/L (98-107)
[2020-02-29 08:40] LABS: GLUCOSE 65 mg/dL (75-110)
[2020-02-29] MEDS: MAGNESIUM OXIDE 400 MG TABLET PO SCH ×3 (11:10→17:48)
[2020-02-29] MEDS: CALCIUM CARBONATE 500 MG TAB.CHEW PO SCH ×2 (11:10→17:46)
[2020-02-29] MEDS: SULFAMETHOXAZOLE/TRIMETHOPRIM 800-160 MG TABLET PO SCH ×2 (11:10→17:46)
[2020-02-29] MEDS: MAGNESIUM SULFATE 1 GM/D5W 100 ML IV SCH ×2 (11:11→13:56)
[2020-02-29] MEDS: NICOTINE 14 MG/24 HR PATCH.TD24 TD SCH (11:11)
[2020-02-29] MEDS: CALCITRIOL 0.25 MCG CAPSULE PO SCH (11:13)
[2020-02-29] MEDS: ONDANSETRON HCL INJ/PF 4 MG/2 ML SDV IV PRN (13:58)
[2020-02-29] MEDS: SOTALOL HCL 80 MG TABLET PO SCH (14:04)
--- NOTE | 2020-02-29 17:19 | PDOC DISCHARGE SUMMARY ---
Impression - Admit/DC Date/PCP Admission Date/Primary Care Provider: 02/23/20 16:54 TAI TAYLOR Discharge Date: 02/29/20 - Discharge Diagnosis (1) Tetany due to low calcium from parathyroid disease Is this a current diagnosis for this admission?: Yes (2) Hypocalcemia Is this a current diagnosis for this admission?: Yes (3) Hypomagnesemia Is this a current diagnosis for this admission?: Yes (4) Hypothyroid Is this a current diagnosis for this admission?: Yes (5) Hypoparathyroidism after procedure Is this a current diagnosis for this admission?: Yes (6) Chronic systolic heart failure Is this a current diagnosis for this admission?: Yes (7) Cardiomyopathy Is this a current diagnosis for this admission?: Yes (8) HTN (hypertension) Is this a current diagnosis for this admission?: Yes (9) Hyperlipidemia Is this a current diagnosis for this admission?: Yes (10) Nicotine dependence Is this a current diagnosis for this admission?: Yes - Assessment Summary: She was admitted for severe hypocalcemia and hypomagnesemia presenting with possible tetany. She admitted to missing some medication administration for several days. She did respond to IV Calcium gluconate and magnesium sulfate administration. She had recurrent declined in the serum concentration with need for further administration. She was restarted on oral supplementation. Her hospitalization was further complicated with development of Acinectobacter Baumannii septicemia. She was initially treated with IV Rocephin and Doxycycline. Sensitivity report revealed sensitive to Bactrim and she was transition to oral therapy. She remain afebrile with stable vitals. She will be discharged home today and follow up in the office as instructed upon discharge. She tested negative for COVID-19 infection during this hospitalization. - Additional Information Resuscitation Status: Full Code Discharge Diet: Cardiac Discharge Activity: Activity As Tolerated Referrals: TAI TAYLOR MD [Primary Care Provider] - 03/09/20 10:00 am VIOLETTA WRIGHT MD [ACTIVE PROVISIONAL STAFF] - Prescriptions: Sulfamethoxazole/Trimethoprim [Septra-Ds 800-160 mg Tablet] 1 tab PO BID #20 tablet Calcium Carbonate [Tums Chewable 500 mg Tab.chew] 1,000 mg PO BID 30 Days tab.chew Home Medications: Rivaroxaban [Xarelto 10 mg Tablet] 20 mg PO DAILY 09/07/19 Calcitriol [Rocaltrol 0.5 mcg Capsule] 1 mcg PO DAILY 02/23/20 Levothyroxine Sodium [Synthroid] 125 mcg PO DAILY 02/23/20 Lisinopril [Zestril] 2.5 mg PO DAILY 02/23/20 Simvastatin 20 mg PO DAILY 02/23/20 Sotalol HCl [Betapace 80 mg Tablet] 40 mg PO Q12 02/23/20 Calcium Carbonate [Tums Chewable 500 mg Tab.chew] 1,000 mg PO BID 30 Days tab.chew 02/29/20 Magnesium Oxide [Mag-Ox 400 mg Tablet] 400 mg PO TID 02/29/20 Sulfamethoxazole/Trimethoprim [Septra-Ds 800-160 mg Tablet] 1 tab PO BID #20 tablet 02/29/20 History of Present Illiness History of Present Illness: SOPHIE BALBUENA is a 44 year old female patient known to my practice who presented to the ED today with complain about worsening generalized muscle spasm, twitching and pain. She reported visiting with her aunt and missed all her medication for the last two days. She reported inability to reach out to her seat covers trimmer, Dr. Wright, due to been out of her [facility]. She denied any palpitation but reported whole body aches and pain from intermittent muscle spasm. 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 She described intermittent prickly sensation across her body and feeling like brick is on her chest. Her symptom is worsen with any form of body movement. She admitted to not socially distancing and regular use of face mask with her current visit at her aunty's house. Also, she admitted to cigarette smoking. She denied any recent travel out of [facility]. Her initial evaluation in the ED was significant for severe hypocalcemia and hypomagnesemia. She was started on IV Calcium gluconate. She reported some symptom relief with administration of IV Calcium gluconate. Her morbidities are as listed below. Hospital Course Hospital Course: She was admitted for severe hypocalcemia and hypomagnesemia presenting with possible tetany. She admitted to missing some medication administration for several days. She did respond to IV Calcium gluconate and magnesium sulfate administration. She had recurrent declined in the serum concentration with need for further administration. She was restarted on oral supplementation. Her h ospitalization was further complicated with development of Acinectobacter Baumannii septicemia. She was initially treated with IV Rocephin and Doxycycline. Sensitivity report revealed sensitive to Bactrim and she was transition to oral therapy. She remain afebrile with stable vitals. She will be discharged home today and follow up in the office as instructed upon discharge. She tested negative for COVID-19 infection during this hospitalization. Physical Exam Vital Signs: Temp Pulse Resp BP Pulse Ox 98.4 F 65 14 109/68 97 02/29/20 15:21 02/29/20 15:21 02/29/20 15:21 02/29/20 15:21 02/29/20 15:21 Intake & Output 02/28/20 02/29/20 03/01/20 06:59 06:59 06:59 Intake Total 286 3774.66 360 Output Total 2080 1750 Balance -1794 2024.66 360 Weight 62.7 kg 62.7 kg General appearance: PRESENT: no acute distress, well-developed, well-nourished Head exam: PRESENT: atraumatic, normocephalic Eye exam: PRESENT: conjunctiva pink. ABSENT: pallor, sclera icterus Respiratory exam: PRESENT: clear to auscultation jacoby Cardiovascular exam: PRESENT: RRR, +S1, +S2. ABSENT: diastolic murmur, rubs, systolic murmur GI/Abdominal exam: PRESENT: normal bowel sounds, soft. ABSENT: organomegaly, tenderness Extremities exam: ABSENT: pedal edema Neurological exam: PRESENT: alert, awake, oriented to person, oriented to place, oriented to time, oriented to situation, CN II-XII grossly intact. ABSENT: motor sensory deficit Skin exam: PRESENT: dry, warm Results Laboratory Results: WBC 5.5 10^3/uL (4.0-10.5) 02/29/20 06:22 RBC 4.12 10^6/uL (3.72-5.28) 02/29/20 06:22 Hgb 11.9 g/dL (12.0-15.5) L 02/29/20 06:22 Hct 34.7 % (36.0-47.0) L 02/29/20 06:22 MCV 84 fl (80-97) 02/29/20 06:22 MCH 28.8 pg (27.0-33.4) 02/29/20 06:22 MCHC 34.2 g/dL (32.0-36.0) 02/29/20 06:22 RDW 12.6 % (11.5-14.0) 02/29/20 06:22 Plt Count 233 10^3/uL (150-450) 02/29/20 06:22 Lymph % (Auto) 58.0 % (13-45) H 02/29/20 06:22 Harmon % (Auto) 10.8 % (3-13) 02/29/20 06:22 Eos % (Auto) 2.3 % (0-6) 02/29/20 06:22 Baso % (Auto) 0.2 % (0-2) 02/29/20 06:22 Absolute Neuts (auto) 1.6 10^3/uL (1.7-8.2) L 02/29/20 06:22 Absolute Lymphs (auto) 3.2 10^3/uL (0.5-4.7) 02/29/20 06:22 Absolute Monos (auto) 0.6 10^3/uL (0.1-1.4) 02/29/20 06:22 Absolute Eos (auto) 0.1 10^3/uL (0.0-0.6) 02/29/20 06:22 Absolute Basos (auto) 0.0 10^3/uL (0.0-0.2) 02/29/20 06:22 Seg Neutrophils % 28.7 % (42-78) L 02/29/20 06:22 Platelet Estimate Cancelled 02/27/20 06:20 Sodium 134.5 mmol/L (137-145) L 02/29/20 06:22 Potassium 4.0 mmol/L (3.6-5.0) 02/29/20 06:22 Chloride 100 mmol/L (98-107) 02/29/20 06:22 Carbon Dioxide 29 mmol/L (22-30) 02/29/20 06:22 Anion Gap 6 (5-19) 02/29/20 06:22 BUN 7 mg/dL (7-20) 02/29/20 06:22 Creatinine 0.78 mg/dL (0.52-1.25) 02/29/20 06:22 Est GFR ( Amer) > 60 (>60) 02/29/20 06:22 Est GFR (Non-Af Amer) Cancelled 02/26/20 16:35 Est GFR (MDRD) Non-Af > 60 (>60) 02/29/20 06:22 Glucose 65 mg/dL (75-110) L 02/29/20 06:22 POC Glucose 111 mg/dL (70-110) H 02/29/20 12:00 Lactic Acid 0.8 mmol/L (0.7-2.1) 02/28/20 06:15 Calcium 8.1 mg/dL (8.4-10.2) L 02/29/20 06:22 Phosphorus 7.0 mg/dL (2.5-4.5) H 02/24/20 05:11 Magnesium 1.2 mg/dL (1.6-2.3) L* 02/29/20 06:22 Total Bilirubin 0.7 mg/dL (0.2-1.3) 02/26/20 11:50 Direct Bilirubin 0.2 mg/dL (0.0-0.4) 02/26/20 11:50 Neonat Total Bilirubin Not Reportable 02/26/20 11:50 Neonat Direct Bilirubin Not Reportable 02/26/20 11:50 Neonat Indirect Bili Not Reportable 02/26/20 11:50 AST 62 U/L (14-36) H 02/26/20 11:50 ALT 28 U/L (<35) 02/26/20 11:50 Alkaline Phosphatase 95 U/L (38-126) 02/26/20 11:50 Creatine Kinase 117 U/L (30-135) 02/26/20 19:00 CK-MB (CK-2) < 0.22 ng/mL (<4.55) 02/26/20 19:00 Troponin I 0.019 ng/mL 02/26/20 19:00 Total Protein 7.5 g/dL (6.3-8.2) 02/26/20 11:50 Albumin 3.7 g/dL (3.5-5.0) 02/26/20 11:50 Lipase 36.0 U/L (23-300) 02/26/20 11:50 EGFR Cancelled 02/26/20 16:35 Urine Color YELLOW 02/26/20 18:10 Urine Appearance SLIGHTLY-CLOUDY 02/26/20 18:10 Urine pH 6.0 (5.0-9.0) 02/26/20 18:10 Ur Specific Premier 1.020 02/26/20 18:10 Urine Protein 100 mg/dL (NEGATIVE) H 02/26/20 18:10 Urine Glucose (UA) NEGATIVE mg/dL (NEGATIVE) 02/26/20 18:10 Urine Ketones NEGATIVE mg/dL (NEGATIVE) 02/26/20 18:10 Urine Blood NEGATIVE (NEGATIVE) 02/26/20 18:10 Urine Nitrite NEGATIVE (NEGATIVE) 02/26/20 18:10 Urine Bilirubin NEGATIVE (NEGATIVE) 02/26/20 18:10 Urine Urobilinogen NEGATIVE mg/dL (<2.0) 02/26/20 18:10 Ur Leukocyte Esterase TRACE (NEGATIVE) H 02/26/20 18:10 Urine WBC (Auto) 9 /HPF 02/26/20 18:10 Urine RBC (Auto) 5 /HPF 02/26/20 18:10 U Hyaline Cast (Auto) 1 /LPF 02/26/20 18:10 Urine Bacteria (Auto) TRACE /HPF 02/26/20 18:10 Squamous Epi Cells Auto 24 /HPF 02/26/20 18:10 Urine Mucus (Auto) OCC /LPF 02/26/20 18:10 Urine Ascorbic Acid NEGATIVE (NEGATIVE) 02/26/20 18:10 COVID-19 Source NASOPHARYNGEAL 02/23/20 18:35 COVID-19 (MAULIK) NOT DETECTED 02/23/20 18:35 Slides for Path Review Cancelled 02/27/20 06:20 02/23/20 02/26/20 14:33 19:00 CK-MB (CK-2) < 0.22 Troponin I < 0.012 0.019 Impressions: Chest X-Ray 02/23/20 13:43 IMPRESSION: No evidence of acute cardiopulmonary abnormality. Abdomen Ultrasound 02/26/20 00:00 IMPRESSION: The patient experienced tenderness over the gallbladder during ultrasound scanning, however, there is no evidence for cholelithiasis or gallbladder wall thickening. Clinical correlation recommended. Abdomen/Pelvis CT 02/26/20 00:00 IMPRESSION: NO SIGNIFICANT OR ACUTE PROCESS IN THE ABDOMEN OR PELVIS. Plan Health Concerns: High risk for readmission due to her morbidities and noncompliance attitude. Plan of Treatment: Continue oral Bactrim therapy for 10 days. Maintain on all preadmission medication management. Follow up with cardiology team and myself in office as instructed upon discharge. Goals: Reduce readmission rate through close post acute care community follow up Time Spent: Less than 30 Minutes Stroke Is this a Stroke Patient?: No Acute Heart Failure - Is this a Heart Failure Patient?: No
[2020-02-29 17:35] VITALS: BP 128/76
[2020-02-29] MEDS: RIVAROXABAN 10 MG TABLET PO SCH (17:46)
[2020-02-29] MEDS: ACETAMINOPHEN 325 MG TABLET PO PRN (17:50)
== END 2020-02-29 18:24 | disposition home or self-care (01) | DRG 643 ==
LOC: ER 12:29 → EH 16:54 → 3N 18:45 → 4S 02-25 15:41
PROVIDERS: ADMIT Internal Medicine Geriatric Medicine; ATTEND Internal Medicine Geriatric Medicine
DX: E89.2 Postprocedural hypoparathyroidism (principal); A41.9 Sepsis, unspecified organism; I50.22 Chronic systolic (congestive) heart failure; I42.9 Cardiomyopathy, unspecified; R78.81 Bacteremia; B96.89 Other specified bacterial agents as the cause of diseases classified elsewhere; E89.0 Postprocedural hypothyroidism; I11.0 Hypertensive heart disease with heart failure; J45.909 Unspecified asthma, uncomplicated; E83.51 Hypocalcemia; E83.42 Hypomagnesemia; T45.2X6A Underdosing of vitamins, initial encounter; E78.5 Hyperlipidemia, unspecified; F17.210 Nicotine dependence, cigarettes, uncomplicated; Z95.810 Presence of automatic (implantable) cardiac defibrillator; Z88.0 Allergy status to penicillin; Z82.49 Family history of ischemic heart disease and other diseases of the circulatory system; Z91.138 Patient's unintentional underdosing of medication regimen for other reason; Z79.01 Long term (current) use of anticoagulants; Z79.899 Other long term (current) drug therapy; Z79.890 Hormone replacement therapy; Z20.828 Contact with and (suspected) exposure to other viral communicable diseases
CPT/HCPCS: 36415; 71045; 71046; 74176; 76705; 80048; 80053; 80076; 81001; 82550; 82553; 82962; 83605; 83690; 83735; 84100; 84484; 85025; 87040; 87077; 87086; 87150; 87186; 87635; 93005; 93010; 93306; 96365; 96375; 99285; J0610; C9803; J0696; J1170; J2405; J2920; J3475; J3490; J7030; J7040; J7060

== ENCOUNTER 2020-04-21 17:46 | Emergency (ER) | payer MEDICAID ==
[2020-04-21 17:57] VITALS: BP 128/76
[2020-04-21] MEDS ORDERED: ONDANSETRON 4 MG TAB.RAPDIS PO ONE (18:37)
--- NOTE | 2020-04-21 18:39 | ER Document Report ---
ED Medical Screen (RME) - General Chief Complaint: Headache Stated Complaint: HEADACHE,SORE THROAT Time Seen by Provider: 04/21/20 18:31 Primary Care Provider: TAI TAYLOR MD [Primary Care Provider] - Follow up as needed Mode of Arrival: Ambulatory Information source: Patient Notes: 44-year-old female presented to ED for complaint of nausea and vomiting since 4 AM. She states she has not had any fever diarrhea or any other symptoms. She is alert oriented respirations regular nonlabored she is here with her family. Family states that they will be taking her home as soon as she is discharged. Patient denies any loss of sense of smell taste or any other symptoms. I have greeted and performed a rapid initial assessment of this patient. A comprehensive ED assessment and evaluation of the patient, analysis of test results and completion of medical decision making process will be conducted by an additional ED providers. TRAVEL OUTSIDE OF THE [place] IN LAST 30 DAYS: No - Related Data Allergies/Adverse Reactions: amoxicillin Allergy (Unknown, Verified 02/26/20 10:27) Unknown reaction Penicillins Allergy (Verified 02/23/20 17:37) Past Medical History - Past Medical History Cardiac Medical History: Reports: Hx Congestive Heart Failure - Cardiomyopathy., Hx Hypercholesterolemia, Hx Hypertension Denies: Hx Coronary Artery Disease, Hx Heart Attack Pulmonary Medical History: Reports: Hx Asthma, Hx Pneumonia Endocrine Medical History: Reports: Hx Hypothyroidism - POST- REMOVAL OF GOITER 1999. Denies: Hx Diabetes Mellitus Type 1, Hx Diabetes Mellitus Type 2 Renal/ Medical History: Reports: Hx Kidney Stones. Denies: Hx Peritoneal Dialysis Musculoskeltal Medical History: Denies Hx Gout Psychiatric Medical History: Reports: Hx Depression Past Surgical History: Reports: Hx Cardiac Surgery - pacemaker/defib, Hx Section, Hx Internal Defibrillator, Hx Pacemaker - defibrillator, Hx Rectal Surgery - cyst removed, Hx Thyroid Surgery, Hx Tubal Ligation, Other - Total thyroidectomy 1999 [facility] - Immunizations Hx Diphtheria, Pertussis, Tetanus Vaccination: Yes Physical Exam - Vital signs Vitals: Temp Pulse Resp BP Pulse Ox 98.4 F 92 16 128/76 H 98 04/21/20 17:56 04/21/20 17:56 04/21/20 17:56 04/21/20 17:56 04/21/20 17:56 Course - Vital Signs Vital signs: Temp Pulse Resp BP Pulse Ox 98.4 F 92 16 128/76 H 98 04/21/20 17:56 04/21/20 17:56 04/21/20 17:56 04/21/20 17:56 04/21/20 17:56 Doctor's Discharge - Discharge Referrals: TAI TAYLOR MD [Primary Care Provider] - Follow up as needed
== END 2020-04-21 22:15 | disposition left against medical advice (07) ==
LOC: ER 17:46
DX: R51.9 Headache, unspecified (principal); I50.9 Heart failure, unspecified; E78.00 Pure hypercholesterolemia, unspecified; I11.0 Hypertensive heart disease with heart failure; Z95.810 Presence of automatic (implantable) cardiac defibrillator
CPT/HCPCS: 99281

== ENCOUNTER 2020-07-28 16:58 | Emergency (ER) | payer MEDICAID ==
--- NOTE | 2020-07-28 17:59 | ER Document Report ---
ED Medical Screen (RME) - General Chief Complaint: S/S of Possible Stroke Stated Complaint: HEADACHE,BLURRED VISION Time Seen by Provider: 07/28/20 17:46 Primary Care Provider: TAI TAYLOR MD [Primary Care Provider] - Follow up as needed Mode of Arrival: Ambulatory Information source: Patient Notes: HPI; 45-year-old female who was brought to the emergency room by EMS and sent to the [facility] presents to the emergency room with sudden onset of slurred speech and states "the right side of my face feels droopy" around 2:30 PM. Patient states she became nauseous but did not vomit also complains of a cough. Also states she feels like she cannot fully swallow. States she feels like she is swallowing her tongue when she swallows. Denies any chest pain, shortness of breath, no nausea, no vomiting, no COVID-19 exposure. PE: Patient is alert and oriented x3. Decreased sensation to painful stimuli to the right side of her face. Unable to lift both of her eyebrows. Tongue deviation to the right. Slight right-sided facial droop. Slight pronator drift to the right arm. Lungs: Clear to auscultation without rales, rhonchi, wheezes. Heart: Regular rate rhythm without murmurs, rubs, gallops. I have greeted and performed a rapid initial assessment of this patient. A comprehensive ED assessment and evaluation of the patient, analysis of test results and completion of the medical decision making process will be conducted by additional ED providers. I have specifically instructed the patient or family members with the patient to immediately return to any nursing staff should anything change in the patient's condition or with their chief complaint. TRAVEL OUTSIDE OF THE [place] IN LAST 30 DAYS: No - Related Data Allergies/Adverse Reactions: amoxicillin Allergy (Unknown, Verified 02/26/20 10:27) Unknown reaction Penicillins Allergy (Verified 02/23/20 17:37) Home Medications: synthroid. magnesium. calcitril. xarlto Past Medical History - Social History Chew tobacco use (# tins/day): No Frequency of alcohol use: None Drug Abuse: None - Past Medical History Cardiac Medical History: Reports: Hx Congestive Heart Failure - Cardiomyopathy., Hx Hypercholesterolemia, Hx Hypertension Denies: Hx Coronary Artery Disease, Hx Heart Attack Pulmonary Medical History: Reports: Hx Asthma, Hx Pneumonia Endocrine Medical History: Reports: Hx Hypothyroidism - POST- REMOVAL OF GOITER 1999. Denies: Hx Diabetes Mellitus Type 1, Hx Diabetes Mellitus Type 2 Renal/ Medical History: Reports: Hx Kidney Stones. Denies: Hx Peritoneal Dialysis Musculoskeltal Medical History: Denies Hx Gout Psychiatric Medical History: Reports: Hx Depression Past Surgical History: Reports: Hx Cardiac Surgery - pacemaker/defib, Hx Section, Hx Internal Defibrillator, Hx Pacemaker - defibrillator, Hx Rectal Surgery - cyst removed, Hx Thyroid Surgery, Hx Tubal Ligation, Other - Total thyroidectomy 1999 [facility] - Immunizations Hx Diphtheria, Pertussis, Tetanus Vaccination: Yes Physical Exam - Vital signs Vitals: Temp Pulse Resp BP Pulse Ox 98.3 F 91 18 110/80 96 07/28/20 17:09 07/28/20 17:09 07/28/20 17:09 07/28/20 17:09 07/28/20 17:09 Course - Vital Signs Vital signs: Temp Pulse Resp BP Pulse Ox 98.3 F 91 18 110/80 96 07/28/20 17:09 07/28/20 17:09 07/28/20 17:09 07/28/20 17:09 07/28/20 17:09 Doctor's Discharge - Discharge Referrals: TAI TAYLOR MD [Primary Care Provider] - Follow up as needed
--- NOTE | 2020-07-28 18:22 | RADIOLOGY REPORT (SQ) ---
EXAM DESCRIPTION: CT HEAD WITHOUT IMAGES COMPLETED DATE/TIME: 07/28/2020 6:07 pm REASON FOR STUDY: slurred speech COMPARISON: 2017 TECHNIQUE: Axial images acquired through the brain without intravenous contrast. Images reviewed wi th bone, brain and subdural windows. Additional sagittal and coronal reconstructions were generated. Images stored on PACS. All CT scanners at this facility use dose modulation, iterative reconstruction, and/or weight based d osing when appropriate to reduce radiation dose to as low as reasonably achievable (ALARA). [facility]: Dose Right [facility]: CareDose [facility]: Dose Right [facility]: Teradose 4D [facility]: [employer] RADIATION DOSE: CT Rad equipment meets quality standard of care and radiation dose reduction techniq ues were employed. CTDIvol: 53.2 mGy. DLP: 884 mGy-cm. mGy. LIMITATIONS: None. FINDINGS: VENTRICLES: Normal size and contour. CEREBRUM: No masses. No hemorrhage. No midline shift. Basal ganglia calcifications. No evidence f or acute infarction. Normal riddle/white matter differentiation. No areas of low density in the white m atter. CEREBELLUM: No masses. No hemorrhage. No alteration of density. No evidence for acute infarction. EXTRAAXIAL SPACES: No fluid collections. No masses. ORBITS AND GLOBE: No intra- or extraconal masses. Normal contour of globe without masses. CALVARIUM: No fracture. PARANASAL SINUSES: No fluid or mucosal thickening. SOFT TISSUES: No mass or hematoma. OTHER: No other significant finding. IMPRESSION: NO ACUTE INTRACRANIAL IMAGING FINDINGS. EVIDENCE OF ACUTE STROKE: NO. COMMENT: Quality ID # [id number]: Final reports with documentation of one or more dose reduction techniques (e.g., Automated exposure control, adjustment of the mA and/or kV according to patient size, use of iterative reconstruction technique) TECHNICAL DOCUMENTATION: JOB ID: [id number] 2010 [employer]- All Rights Reserved Reading location - IP/workstation name: [email or web address]
[2020-07-28 18:30] LABS: ABSOLUTE EOSINOPHILS # (AUTO) 0.1 10^3/uL (0.0-0.6); ABSOLUTE LYMPHOCYTES (AUTO) 2.4 10^3/uL (0.5-4.7); ABSOLUTE MONOCYTES (AUTO) 0.5 10^3/uL (0.1-1.4); ABSOLUTE NEUT (AUTO) 1.9 10^3/uL (1.7-8.2); BASOPHILS % (AUTO) 0.3 % (0-2); HEMOGLOBIN 12.2 g/dL (12.0-15.5); LYMPHOCYTES % (AUTO) 48.4 % (13-45); MEAN CORPUSCULAR HEMOGLOBIN 29.6 pg (27.0-33.4); MEAN CORPUSCULAR VOLUME 87 fl (80-97); MONOCYTES % (AUTO) 10.1 % (3-13); PLATELET COUNT 254 10^3/uL (150-450); RED BLOOD COUNT 4.13 10^6/uL (3.72-5.28); RED CELL DISTRIBUTION WIDTH 13.5 % (11.5-14.0); SEGMENTED NEUTROPHILS % (AUTO) 39.2 % (42-78); TOTAL CELLS COUNTED % (AUTO) 100 %
--- NOTE | 2020-07-28 18:32 | RADIOLOGY REPORT (SQ) ---
EXAM DESCRIPTION: CHEST SINGLE VIEW IMAGES COMPLETED DATE/TIME: 07/28/2020 5:10 pm REASON FOR STUDY: cough COMPARISON: 10/26/2019 EXAM PARAMETERS: NUMBER OF VIEWS: One view. TECHNIQUE: Single frontal radiographic view of the chest acquired. RADIATION DOSE: NA LIMITATIONS: None. FINDINGS: LUNGS AND PLEURA: No opacities, masses or pneumothorax. No pleural effusion. MEDIASTINUM AND HILAR STRUCTURES: No masses. Contour normal. HEART AND VASCULAR STRUCTURES: Heart normal in size. Normal vasculature. BONES: No acute findings. HARDWARE: Left infraclavicular AICD with intact lead wires unchanged. OTHER: No other significant finding. IMPRESSION: NO ACUTE RADIOGRAPHIC FINDING IN THE CHEST. TECHNICAL DOCUMENTATION: JOB ID: [id number] 2010 [employer]- All Rights Reserved Reading location - IP/workstation name: [email or web address]
[2020-07-28 18:45] LABS: INTERNATIONAL RATION (INR) 1.69
[2020-07-28 19:03] LABS: CREATINE KINASE MB < 0.22 ng/mL (<4.55); TROPONIN I < 0.012 ng/mL
[2020-07-28 19:09] LABS: ALBUMIN 4.2 g/dL (3.5-5.0); ALKALINE PHOSPHATASE 78 U/L (38-126); ANION GAP 7 (5-19); ASPARTATE AMINO TRANSFERASE 27 U/L (14-36); BILIRUBIN,DIRECT 0.3 mg/dL (0.0-0.4); BILIRUBIN,TOTAL 0.4 mg/dL (0.2-1.3); BLOOD UREA NITROGEN 9 mg/dL (7-20); CALCIUM 7.2 mg/dL (8.4-10.2); CARBON DIOXIDE 33 mmol/L (22-30); CHLORIDE 102 mmol/L (98-107); CREATINE KINASE 101 U/L (30-135); GLUCOSE 83 mg/dL (75-110); POTASSIUM 4.6 mmol/L (3.6-5.0); TOTAL PROTEIN 7.7 g/dL (6.3-8.2)
[2020-07-28] MEDS ORDERED: CALCIUM GLUCONATE 1000 MG/10 ML INJ IV ONE (21:30)
--- NOTE | 2020-07-28 21:36 | ER Document Report ---
ED Neuro Symptoms/Deficit - General Chief Complaint: S/S of Possible Stroke Stated Complaint: HEADACHE,BLURRED VISION Time Seen by Provider: 07/28/20 17:46 Primary Care Provider: TAI TAYLOR MD [Primary Care Provider] - Follow up as needed Mode of Arrival: Ambulatory TRAVEL OUTSIDE OF THE [place] IN LAST 30 DAYS: No - HPI Awoke with symptoms: No Exact time of onset: 1430 Notes: Chief Complaint: [Headache and slurred speech] [This is a 45-year-old female presenting to the emergency department complaining of headache and slurred speech that started about 1430 hrs. today. Patient arrived at the emergency department about 3 hours and 15 minutes later. Patient initially had a CT of the head done at showed no evidence of stroke. Patient states she is still having a headache and is still having difficulty with her speech. ] History obtained from [patient] Symptoms began:[1430] Onset: [Sudden] Timing: [Sudden] Quality: [Patient describes headache as sharp] Intensity: [4] Location: [Head, speech] Radiation: [Denies] [The pain does not migrate to a new location.] Aggravating factors: [none] Relieving factors: [none] [Denies] SOB [Denies] nausea [Denies] vomiting [Denies] sweats [Denies] fever [Denies] cough [Denies] calf or leg swelling or pain - Related Data Allergies/Adverse Reactions: amoxicillin Allergy (Unknown, Verified 02/26/20 10:27) Unknown reaction Penicillins Allergy (Verified 02/23/20 17:37) Home Medications: synthroid. magnesium. calcitril. xarlto Past Medical History - General Information source: Patient - Social History Smoking Status: Never Smoker Chew tobacco use (# tins/day): No Frequency of alcohol use: None Drug Abuse: None Family History: None, CAD, Hypertension, Malignancy - Past Medical History Cardiac Medical History: Reports: Hx Congestive Heart Failure - Cardiomyopathy., Hx Hypercholesterolemia, Hx Hypertension Denies: Hx Coronary Artery Disease, Hx Heart Attack Pulmonary Medical History: Reports: Hx Asthma, Hx Pneumonia Endocrine Medical History: Reports: Hx Hypothyroidism - POST- REMOVAL OF GOITER 1999. Denies: Hx Diabetes Mellitus Type 1, Hx Diabetes Mellitus Type 2 Renal/ Medical History: Reports: Hx Kidney Stones. Denies: Hx Peritoneal Dialysis Musculoskeletal Medical History: Denies Hx Gout Psychiatric Medical History: Reports: Hx Depression Past Surgical History: Reports: Hx Cardiac Surgery - pacemaker/defib, Hx Section, Hx Internal Defibrillator, Hx Pacemaker - defibrillator, Hx Rectal Surgery - cyst removed, Hx Thyroid Surgery, Hx Tubal Ligation, Other - Total thyroidectomy 1999 [facility] - Immunizations Hx Diphtheria, Pertussis, Tetanus Vaccination: Yes Hx Pneumococcal Vaccination: 04/20/14 Review of Systems - Review of Systems Notes: Review of systems as below unless otherwise stated in HPI. CONSTITUTIONAL [No] fever, [No] chills. EYES [No] eye pain. ENT [No] URI symptoms, [No] sore throat, [No] ear pain. CARDIOVASCULAR [No] chest pain, [No] palpitations, [No] edema. RESPIRATORY [No] Cough, [No] SOB, [No] wheezing. GASTROINTESTINAL [No] abdominal pain, [No] nausea, [No] Diarrhea, [No] Vomiting, [No] constipation, [No] melena, [No] rectal bleeding. GENITOURINARY [No] dysuria, [No] urinary frequency, [No] hematuria, [No] urinary urgency, [No] vaginal discharge, [No] vaginal bleeding. MUSCULOSKELETAL [No] Back pain. SKIN [No] Rash. NEUROLOGIC Positive headache, [No] recent seizures, [No] paralysis,[No] parathesias, patient is complaining of difficulty with speech ENDOCRINE [No] polyuria. HEMO/LYMPATIC [No] easy brusing PSYCHIATRIC [No] depression. Physical Exam - Vital signs Vitals: Temp Pulse Resp BP Pulse Ox 98.3 F 91 18 110/80 96 07/28/20 17:09 07/28/20 17:09 07/28/20 17:09 07/28/20 17:07/28/20 17:09 - Notes Notes: CONSTITUTIONAL [Vital signs reviewed, Patient appears comfortable, Alert and oriented X 3, Normal stature. Patient is laying in bed watching a video on her mobile device and has her headphones on] HEAD [Atraumatic, Normocephalic.] EYES [Eyes are normal to inspection, No discharge from eyes, Extraocular muscles intact, Sclera are normal, Conjunctiva are normal.] ENT [External ears normal to inspection, Nose examination normal, Mouth normal to inspection.] NECK [Normal ROM, No jugular venous distention, No meningeal signs, ] RESPIRATORY CHEST [Chest is nontender, Breath sounds normal, No respiratory distress.] CARDIOVASCULAR [RRR, No murmurs, Normal S1 S2, No rub, No gallop.] ABDOMEN [Abdomen is nontender, No pulsatile masses, No other masses, Bowel sounds normal, No distension, No peritoneal signs, No hernias.] BACK [There is no CVA Tenderness, There is no tenderness to palpation, Normal inspection.] UPPER EXTREMITY [Inspection normal, No cyanosis, No clubbing, No edema, LOWER EXTREMITY [Inspection normal, No cyanosis, No clubbing, No edema, No calf tenderness, NEURO [No focal motor deficits, No focal sensory deficits, Speech is slurred.] SKIN [Skin is warm, Skin is dry, Skin is normal color.] LYMPHATIC [No adenopathy in neck.] PSYCHIATRIC [Normal affect. ] Course - Re-evaluation Re-evalutation: 07/29/20 02:46 Results of ED MSE discussed with patient. Patient states that she thinks that her headache was brought on by stress and states she has had a line on her mind. Patient currently has no difficulty with speech and speaks clearly. Patient states her headache is still present. This MD is going to order some medications to see if it helps her symptoms. 07/29/20 03:51 Patient states her head feels better now - Vital Signs Vital signs: Temp Pulse Resp BP Pulse Ox 98.3 F 86 16 137/101 H 98 07/28/20 17:09 07/28/20 17:55 07/28/20 17:55 07/28/20 17:55 07/28/20 17:55 - Laboratory Results Result Diagrams: 07/28/20 18:18 07/28/20 18:18 Laboratory Results Interpreted: 07/28/20 07/28/20 07/28/20 18:18 18:18 18:18 Lymph % (Auto) 48.4 H Seg Neutrophils % 39.2 L PT 20.0 H APTT 43.0 H Carbon Dioxide 33 H Calcium 7.2 L Critical Laboratory Results Reviewed: No Critical Results Attending or Supervising Physician who Reviewed Labs: MARLIN PLASENCIA IV - Radiology Results Critical Radiology Results Reviewed: No Critical Results Attending or Supervising Physician who Reviewed Radiology: MARLIN PLASENCIA IV - EKG Interpretation by Me Additional EKG results interpreted by me: 07/29/20 03:54 EKG obtained on 07/28/2020 at 1841 hrs. was interpreted by this MD. Findings: Normal sinus rhythm, rate 71, NJ interval appears to be within normal limits, P waves preceding QRS complexes, QRS complexes appear narrow, QTC is 444, there are no obvious patterns of ST segment elevation, depression or reciprocal changes seen to suggest acute myocardial ischemia or infarction. There is no prior EKG for comparison. Impression normal sinus rhythm with nonspecific ST segments. ED Alteplase Inc/Exc Criteria - Date/Time patient last known well: Date/Time: 1430 07/28/20 - Date/Time patient arrived in ED: _: 1745 07/28/20 - Inclusion Criteria: 1: Patient presented to ED within 4.5 hours of acute ischemic stroke symptom onset? -: Yes 2: Did baseline CT exclude intracranial hemorrhage and/or other risk factors? -: Yes 3: Is the age of the patient 18 years of age or greater? -: Yes : If any of the above questions are answered "NO" then stop, patient is not a candidate for Alteplase, : If all of the above questions are answered "YES" then continue with Exclusion Criteria. - Exclusion Criteria: 1: Is there evidence of intracranial hemorrhage on baseline CT? -: No 2: Is there suspicion of subarachnoid hemorrhage (even if CT negative)? -: No 3: Is there a history of serious head trauma, recent previous stroke or NC within 3 months? -: No 4: Does the patient have a clinical presentation consistent with NC or post-NC pericarditis? -: No 5: Is there history of intracranial hemorrhage? -: No 6: On repeated measurement is Systolic BP greater than 185mmHg or Diastolic BP greater that 110 mmHg and is aggressive treatment needed to reduce blood pressure to these limits (e.g. constant infusion of an anti-hypertensive)? -: No 7: Did the patient awake with stroke symptoms? -: No 8: Has the patient had a lumbar puncture or an arterial puncture at a non- compressile site within 7 days? -: No 9: With in the last 14 days did the patient have surgery or major trauma? -: No 10: Is the patient or less than 2 weeks? -: No 11: Was there any active bleeding or acute trauma? -: No 12: Does the patient have intracranial neoplasm, arteriovenous malformation or aneurysm? -: No 13: Does the patient have abnormal glucose (less than 50 or greater than 400mg/dl)? Record glucose in Comment. -: No 14: Patient has rapidly improving symptoms at the time Alteplase is to be Administered. -: Yes 15: Does the patient have any risks for bleeding, including but not limited to: a.: Current use of Coumadin with PT greater than 15 seconds or INR greater than 1.7. b.: Current use of Pradaxa (Dabigatran). c.: Heparin administereed within the past 48 hours and PTT elevated. d.: Platelet count less than 100,000/mm. e.: Major surgery or serious trauma within 14 days. f.: Gastrointestinal or gynecological urinary bleeding within 14 days. g.: Myocardial Infarction (NC) within 3 months. -: No : If the answer to any of the above questions is "YES" then stop, the patient is not a candidate for Alteplase. : If the answer to all of the above questions is "NO" then the patient may be eligible for the Administration of Alteplase. : If the patient is noted to have seizure activity at onset of Stroke symptoms; Consult Neurologist for further evaluation. - The patient is: -: Included and is eligible to receive Alteplase. *Initiate bed placement at higher level of care* Reviewed risks & benefits of thrombolytic therapy: I have reviewed the risks and benefits of thrombolytic therapy with the patient and/or his/her family. -: Excluded and not eligible to receive Alteplase for the above exclusions. --: Yes - right facial droop resolved -: Excluded and not eligible to receive Alteplase for other reasons (specify in comments): - Diagnosis of TIA: -: Patient presented with transient symptoms that are now resolved and no other neurologic findings are currently present. List symptoms in comments. -: Patient is NOT a candidate for tPA. -: ____(put name in comment) has been consulted for admission and continued evaluation of risk factor assessment. ED NIH Stroke Scale - NIH Stroke Scale When completed:: Protocol *: 1. NIH scale should be completed with appropriate accompanying assessment tools. *: 2. The NIH should reflect what the patient is capable of doing and should not be coached by the clinician. 1a. Level of Consciousness: 0=Alert;keenly responsive -: 1=Drowsy -: 2=Obtunded -: 3=Coma/unresponsive or reflex to noxious stimuli. 1a. Responses: 0 1b. Orientation Questions: a. What month is it? -: b. How old are you? -: 0=Answers both questions correctly. -: 1=Answers one question correctly or patient is intubated or has orotracheal trauma. -: 2=Answers neither question correctly. 1b. Responses: 0 1c. Response to commands: a. Open and close eyes? -: b. Candy Mixer and release hand? -: Credit is given despite weakness. Demonstration of task is permitted. Substitute command if hands cannot be used. -: 0=Performs both tasks correctly -: 1=Performs one task correctly -: 2=Performs neither task correctly 1c. Responses: 0 2. Gaze: Establish eye contact and instruct patient to "Follow my finger" -: 0=Normal -: 1=Partial gaze palsy. Gaze is abnormal in one or both eyes, but where forced deviation or total gaze paresis is not present. -: 2=Forced deviation or total gaze paresis. 2. Responses: 0 3. Visual Lindo: Sees fingers in all four quadrants. -: 0=No visual loss. -: 1=Partial hemianopsia. -: 2=Complete hemianopsia. -: 3=Bilateral hemianopsia (including Cortical blindness) 3. Responses: 0 4. Facial Movement: Instruct patient to: -: a. Show me your teeth -: b. Raise your eyebrows -: c. Close your eyes -: d. Smile -: 0=Normal symmetrical movement -: 1=Minor paralysis (flattened nasolabial fold, asymmetry on smiling). -: 2=Partial paralysis (total or near total paralysis of lower face). -: 3=Complete paralysis of upper and lower face 4. Responses: 0 5. Motor functions (left arm): Alternate sides and extend each arm with palms down (90 degrees if sitting or 45 degrees for supine). -: 0=No drift;limb holds for full 10 seconds. -: 1=Drift; limb holds but drifts down before full 10 seconds, but does not hit bed. -: 2=Some effort against gravity; limb cannot get to or maintain position. -: 3=No effort against gravity; limb falls. -: 4=No movement. -: UN=Amputation, joint fusion, explain in comments. 5. Responses (left arm): 0 5. Motor Functions (right arm): Alternate sides and extend each arm with palms down (90 degrees if sitting or 45 degrees for supine). -: 0=No drift;limb holds for full 10 seconds. -: 1=Drift; limb holds but drifts down before full 10 seconds, but does not hit bed. -: 2=Some effort against gravity; limb cannot get to or maintain position. -: 3=No effort against gravity; limb falls. -: 4=No movement. -: UN=Amputation, joint fusion, explain in comments. 5. Responses (right arm): 0 6. Motor Functions (left leg): With patient lying supine, alternate sides and extend each leg (30 degrees always while supine). -: 0=No drift, leg holds position for full 5 seconds -: 1=Drift; leg falls before full 5 seconds but does not hit bed. -: 2=Some effort against gravity, leg falls to bed but some effort against gr avity. -: 3=No effort against gravity, leg falls to bed immediately. -: 4=No movement. -: UN=Amputation, joint fusion; explain in comments. 6. Responses (left leg): 0 6. Motor Functions (right leg): With patient lying supine, alternate sides and extend each leg (30 degrees always while supine). -: 0=No drift, leg holds position for full 5 seconds -: 1=Drift; leg falls before full 5 seconds but does not hit bed. -: 2=Some effort against gravity, leg falls to bed but some effort against gravity. -: 3=No effort against gravity, leg falls to bed immediately. -: 4=No movement. -: UN=Amputation, joint fusion; explain in comments. 6. Responses (right leg): 0 7. Limb Ataxia: With eyes open instruct patient to: -: a. "Touch your finger to your nose". -: b. "Touch your heel to your dominguez" -: 0=Absent -: 1=Present in one limb. -: 2=Present in two limbs. -: UN=Amputation or joint fusion; explain in comments. 7. Responses: 0 8. Sensory: Test sensation using pinprick or noxious stimuli. Test as many body parts as possible. -: 0=Normal;no sensory loss -: 1=Mile to moderate sensory loss (patient feels pin prick but is less sharp on affected side). -: 2=Severe or total sensory loss. 8. Responses: 0 9. Best Language: Instruct patient to: -: a. "Describe what you see in this picture." -: b. "Name the items in this picture." -: c. "Read these sentences." -: 0=No aphasia, normal -: 1=Mild to moderate aphasia. -: 2=Severe aphasia -: 3=Mute, global aphasia, no usable speech or auditory comprehension. 9. Responses: 0 10. Articulation, Dysarthia: Instruct patient to: -: "Read these words" or "Repeat these words" -: 0=Normal -: 1=Mild to moderate; patient may slur some words but can be understood without difficulty. -: 2=Severe; patients speech so slurred as to be unintelligible in the absence of dysphasia. -: UN=Intubated or other physical barrier, explain in comments. 10. Responses: 1 11. Extinction or inattention: 0=No abnormality -: 1= Visual, tactile, auditory, spatial, or personal inattention or extinction to bilateral simulation in one or the sensory modalities. -: 2=Profound ying-inattention or ying-inattention to more than one modality; does not recognize own hand. 11. Responses: 0 Total Score: 1 Discharge - Discharge Clinical Impression: Hypocalcemia, Difficulty with speech Acute headache Qualifiers: Headache type: unspecified Intractability: not intractable Qualified Code(s): R51.9 - Headache, unspecified Condition: Stable Disposition: HOME, SELF-CARE Instructions: Headache (OM) Additional Instructions: Return to the Emergency Department without delay if any worse. HOME CARE INSTRUCTIONS & INFORMATION: Thank you for choosing us for your me dical needs. We hope you're satisfied with the care you received. After you leave, you must properly care for your problem and, at the same time, observe its progress. Any condition can change. Some illnesses can change rapidly over hours or days. If your condition worsens, return to the Emergency Department or see your physician promptly. ABOUT YOUR X-RAYS AND EKG'S: If you had an EKG or X-rays taken, they have been read by the Emergency Physician. The X-rays and EKG's will also be read by a Radiologist or Angular Js Developer within 24 hours. If discrepancies are noted, you will be notified by telephone. Please be certain the ED has a correct telephone number & address where you can be reached. Also, realize that some fractures or abnormalities do not show up on initial X-rays. If your symptoms continue, see your physician. ABOUT YOUR LABORATORY TEST: If you had laboratory tests, the results have been reviewed by the Emergency Physician. Some test results (for example cultures) may not be available for several days. You will be contacted if any test result shows you need additional treatment. Please be certain the ED has a correct telephone number and address where you can be reached. ABOUT YOUR MEDICATIONS: You will receive instructions on how to take your medicine on the prescription label you receive. Additional information may be provided by the Pharmacy. If you have questions afterwards, call the ED for clarification or further instructions. Some prescribed medications may cause drowsiness. Do not perform tasks such as driving a car or operating machinery without consulting your Pharmacist. If you feel you need a refill of pain medication, your condition will need re-evaluation. Please do not call for a refill of any medication. ABOUT YOUR SIGNATURE: Signature of this document acknowledges to followin. Understanding that you received emergency treatment and that you may be released before al medical problems are known or treated. Please be certain the ED has a correct phone number & address where you can be reached. 2. Acknowledgement that you will arrange for follow-up care as recommended. 3. Authorization for the Emergency Physician to provide information to your follow-up Physician in order to maximize your care. AT ANY TIME, IF YOUR SYMPTOMS CHANGE SIGNIFICANTLY OR WORSEN OR YOU DEVELOP NEW SYMPTOMS, RETURN TO THE EMERGENCY DEPARTMENT IMMEDIATELY FOR RE-EVALUATION. OUR GOAL IS TO PROVIDE EXCELLENT MEDICAL CARE! WE HOPE THAT WE HAVE MET YOUR EXPECTATIONS DURING YOUR EMERGENCY DEPARTMENT VISIT AND THAT YOU FEEL YOU HAVE RECEIVED EXCELLENT CARE! Referrals: TAI TAYLOR MD [Primary Care Provider] - Follow up as needed
[2020-07-28] MEDS ORDERED: NORMAL SALINE 1000 ML 1,000 ML IV ONE (21:41)
[2020-07-28] MEDS ORDERED: ACETAMINOPHEN 325 MG TABLET PO ONE (21:43)
--- NOTE | 2020-07-28 21:46 | EKG REPORT ---
SEVERITY:- ABNORMAL ECG - SINUS RHYTHM LOW VOLTAGE IN FRONTAL LEADS BORDERLINE T ABNORMALITIES, LATERAL LEADS : Confirmed by: Mónica Strickland 28-Jul-2020 21:46:04
[2020-07-28] MEDS ORDERED: METHYLPREDNISOLONE INJ 125 MG/2 ML SDV IV ONE (22:08)
[2020-07-28] MEDS ORDERED: DIPHENHYDRAMINE HCL 50 MG/ML VIAL IV ONE (22:08)
[2020-07-28] MEDS ORDERED: FAMOTIDINE INJ/PF 20 MG/2 ML SDV IV ONE (22:09)
[2020-07-28] MEDS: MAGNESIUM SULFATE/D5W 1 GM/100 ML RTUPB IV SCH ×2 (22:48→23:53)
--- NOTE | 2020-07-28 23:32 | RADIOLOGY REPORT (SQ) ---
CTA head and neck: Technique: Postcontrast imaging was obtained through the head and neck after intravenous contrast is administered utilizing a CTA protocol. MIP reconstructed sagittal and coronal images were also obtained. NASCET Criteria was utilized for evaluation of potential vascular stenosis in the neck. This exam was performed according to our departmental dose-optimization program, which includes automated exposure control, adjustment of the mA and/or KV according to the patient's size and/or use of iterative reconstruction technique. COMPARISON: None available HISTORY: 45-year-old patient with concern for headache and slurred speech. FINDINGS: CTA HEAD: No discrete filling defect is seen within the middle, anterior, and posterior cerebral arteries. The visualized vertebral arteries appear unremarkable. The cerebral internal carotid arteries appear to be well opacified. No obvious aneurysm or stenosis is readily apparent. The basilar artery and visualized portions of the posterior circulation appear unremarkable. The visualized dural veins are well opacified with contrast. 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 CTA NECK: There is normal three-vessel aortic arch morphology. The brachiocephalic and proximal subclavian arteries are patent and normal in course and caliber. The common carotid arteries and proximal external carotid arteries are patent and normal in course and caliber. The cervical segments of the internal carotid arteries and carotid bulbs are patent and normal in course and caliber. There is a codominant vertebral arterial system. The vertebral arteries are patent and normal in course and caliber. The left proximal vertebral artery is not well visualized due to adjacent contrast bolus. IMPRESSION: No discrete filling defect, aneurysm, or obvious stenosis is seen within the anterior, posterior, or middle cerebral arteries. There are no findings to suggest a hemodynamically significant stenosis of the carotid arteries. If there is persistent clinical concern for a neurologic deficit, consider MRI brain with diffusion-weighted sequences for further evaluation.
[2020-07-29] MEDS ORDERED: KETOROLAC TROMETHAMINE INJ/PF 30 MG/1 ML SDV IV ONE (02:47)
[2020-07-29] MEDS ORDERED: HYDROCODONE/ACETAMINOPHEN 5-325 MG TABLET PO ONE (02:47)
[2020-07-29 04:10] VITALS: BP 117/84
== END 2020-07-29 04:20 | disposition home or self-care (01) ==
LOC: ER 16:58
DX: R51.9 Headache, unspecified (principal); E83.51 Hypocalcemia; R47.81 Slurred speech; I10 Essential (primary) hypertension; J45.909 Unspecified asthma, uncomplicated; E89.0 Postprocedural hypothyroidism; Z79.899 Other long term (current) drug therapy; Z79.01 Long term (current) use of anticoagulants; Z95.810 Presence of automatic (implantable) cardiac defibrillator; Z88.0 Allergy status to penicillin
CPT/HCPCS: 93005; 99285; 96361; 96375; 96365; 96366; 96368; 36415; 82553; 82550; 83735; 84703; 85025; 85610; 85730; 80053; 84484; 71045; 70450; 70496; 70498; 93010; J3490; J0610; J1200; J2930; J1885; J3475; J7030; S0028